=== PATIENT | male | born 1970 | race Caucasian/White ===

== ENCOUNTER 2018-08-02 11:02 | Inpatient (IN) ==
[2018-08-02] MEDS ORDERED: *HR* Atropine Sulfate 1 MG/10 ML SYRINGE IVP ONE (11:11)
[2018-08-02] MEDS ORDERED: 0.9 % Sodium Chloride 1,000 ML IVC ONE (11:11)
[2018-08-02] MEDS ORDERED: *HR* Atropine Sulfate 1 MG/10 ML SYRINGE ONE (11:12)
[2018-08-02] MEDS ORDERED: 0.9 % Sodium Chloride 1,000 ML ONE (11:12)
--- NOTE | 2018-08-02 11:16 | Emergency Department Note ---
Disposition Clinical Impression: Hyperkalemia, Bradycardia Diabetes Qualifiers: Diabetes mellitus type: other specified (including NAT) Diabetes mellitus risk tech insulin use: with risk tech use Diabetes mellitus complication status: with unspecified complications Qualified Code(s): E13.8 - Other specified diabetes mellitus with unspecified complications; Z79.4 - correction (current) use of insulin Hypotension Qualifiers: Hypotension type: unspecified hypotension type Qualified Code(s): I95.9 - Hypotension, unspecified Disposition: Admitted As Inpatient Condition: Critical Referrals: José Miguel Negro MD [Primary Care Provider] - Forms: ED Satisfaction Letter Time of Disposition: 12:44 General Adult HPI - General Stated complaint: fall Time Seen by Provider: 08/02/18 11:10 - Related Data Home Medications Medication Instructions Recorded Confirmed HYDROcodone/Acet 5/325 mg [[place] 1 tab PO BID PRN 05/06/16 05/06/16 5-325 mg] Insulin LISPRO [Humalog] 40 unit SQ BID 05/06/16 05/06/16 Allergies Allergy/AdvReac Type Severity Reaction Status Date / Time No Known Allergies Allergy Verified 05/06/16 14:33 Past Medical History - Past Medical History Medical history: Reports: diabetes, other Surgical history: Reports: other (nephrectomy and 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.) Psychiatric history: Reports: no psych history - Social History Smoking Status: Current every day smoker Smokeless Tobacco Status: No Alcohol use: Reports: none Drug use: Reports: none Course Vital Signs Temperature 98.8 F 08/02/18 11:04 Pulse Rate 30 08/02/18 11:04 Respiratory Rate 18 08/02/18 11:04 Blood Pressure 82/62 08/02/18 11:04 O2 Sat by Pulse Oximetry 100 08/02/18 11:04 Temperature 98.8 F 08/02/18 11:04 Pulse Rate 48 08/02/18 12:15 Respiratory Rate 18 08/02/18 11:21 Blood Pressure 120/58 08/02/18 12:15 O2 Sat by Pulse Oximetry 100 08/02/18 12:15 Oxygen Delivery Oxygen Delivery Nasal Cannula Medical Decision Making - Lab Data Result diagrams: 08/02/18 11:20 08/02/18 11:20 Lab Results 08/02/18 08/02/18 08/02/18 Range/Units 11:20 11:20 11:33 WBC 15.5 H (4.3-11.1) K/mcL RBC 3.73 L (4.19-5.50) M/mcL Hgb 11.0 L (12.9-16.9) g/dL Hct 33.9 L (37.5-50.1) % MCV 90.9 (83.0-100.0) fL MCH 29.5 (28.0-33.3) pg MCHC 32.4 (31.6-35.5) g/dL RDW 12.8 (11.5-14.5) % Plt Count 323 (140-400) K/mcL MPV 8.9 L (9.4-12.4) fL VBG pH 7.15 L* (7.32-7.42) pH Units VBG pCO2 45 (41-51) mmHg VBG pO2 38 (25-50) mmHg VBG HCO3 16 L (21-27) mEq/L Sodium 129 L (136-145) mEq/L Potassium 9.8 H* (3.5-5.1) mEq/L Chloride 109 H (98-107) mEq/L Carbon Dioxide 16 L (23-29) mEq/L BUN 75 H (6-20) mg/dL Creatinine 3.13 H (0.70-1.30) mg/dL Est GFR ( Amer) 26 L (> 60) Est GFR (Non-Af Amer) 21 L (> 60) BUN/Creatinine Ratio 24 (6-26) Glucose 247 H (70-105) mg/dL Calculated Osmolality 299 (280-300) Calcium 9.3 (8.6-10.3) mg/dL Total Bilirubin 0.3 (0.3-1.0) mg/dL Direct Bilirubin 0.1 (0.0-0.2) mg/dL Indirect Bilirubin 0.2 (0.0-1.2) mg/dL AST 21 (13-39) Units/L ALT 34 (7-52) Units/L Alkaline Phosphatase 95 (34-104) Units/L Troponin I < 0.03 (< 0.04) ng/mL Serum Total Protein 8.3 (6.4-8.9) g/dL Albumin 4.4 (3.5-5.7) g/dL Globulin 3.9 H (2.4-3.5) g/dL Albumin/Globulin Ratio 1.1 (1.1-2.2) Person Notif of Wiliam RIDER Critical Care Time Critical Care Time: Yes Total Critical Care Time: 90 Attestation: 90 minutes of critical care time were spent with the patient with severe bradycardia, hypotension, hyperkalemia Attestation Statement - Attestation Attestation: I examined this patient and my medical decision-making was reviewed with the FLAKER OPERATOR/PA/Advanced Practice Nurse/Resident Physician. I agree with the documented findings, disposition and treatment plan as described except to the extent set forth below. I did see the patient immediately upon arrival and also spoke with the paramedics and the story is that the patient does have diabetes and had his Hyzaar as well as Lasix increased about one month ago and presents today after a fall. The patient is unsure whether he had a syncopal episode. He does have a headache and does have chronic neck pain which is unchanged from baseline and the heart rate was in the 20s and they did give atropine which caused the heart rate to increase to the 70s. I did review the pre-arrival EKG. We will give an additional 0.5 of atropine here because his blood pressure was 82 systolic however he is mentating well and he is breathing comfortably and is not diaphoretic and skin color is good and in addition to that we will check labs including VBG and an electrolyte abnormality would be one possibility. Crash cart to bedside and pacer pads to chest. I did review the medications with the patient's and he is not on any beta marly or other rate limiting medications that we can find. Does have a history of atrial fibrillation and does use Xarelto also. Patient will be watched closely and admitted. 1114 I did recheck on the patient and he does have vomiting and diarrhea and his current pressure is now 1:15 after 0.5 mg IV atropine and his heart rate has improved to the 60s and 70s so the patient will be watched further. Labs are ready in the labs so we will get the electrolyte results soon the patient will be watched closely. 1124 At this time the patient is no longer hypotensive or bradycardic and is getting a CT scan of the head and neck and we are calling the lab to find out the potassium level. 1149 I did just speak with the lab and they said that the potassium is 9 and the machine is only reading this is being minimally hemolyzed and they will run on the VBG sample but in view of this second reading and with the fact the patient is still bradycardic in the 30s I will treat with calcium, insulin and dextrose and sodium bicarbonate. I should note that his current blood pressure is 141 systolic and he has had IV fluids. The patient is likely very dehydrated delaney use he has had vomiting and diarrhea. The EKG does show a junctional rhythm with a rate of 39 and this was done at 11:06 AM and there is T-wave inversion in lead aVL but does not have evidence of ST elevation or other ischemic changes [id number]
--- NOTE | 2018-08-02 11:29 | Emergency Department Note ---
Disposition Clinical Impression: Hyperkalemia, Bradycardia Diabetes Qualifiers: Diabetes mellitus type: other specified (including NAT) Diabetes mellitus buttermaker helper insulin use: with buttermaker helper use Diabetes mellitus complication status: with unspecified complications Qualified Code(s): E13.8 - Other specified diabetes mellitus with unspecified complications Hypotension Qualifiers: Hypotension type: unspecified hypotension type Qualified Code(s): I95.9 - Hypotension, unspecified Disposition: Admitted As Inpatient Condition: Critical General Adult HPI - General Chief complaint: ED Fall Stated complaint: fall Time Seen by Provider: 08/02/18 11:10 Source: patient, family, EMS Mode of arrival: EMS Limitations: no limitations Nursing Notes Reviewed: Yes Vital Signs Reviewed: Yes - History of Present Illness HPI Narrative: Mr. Perkins is a 48-year old male who presents to the ED via EMS for evaluation after a fall at home. Patient was reportedly lowered to the ground by his , and did not suffer any head or neck trauma from this event. Per EMS, patient was noted to be severely bradycardic, with HR in the 20s at the time of their arrival. Patient reports significant dizziness and lightheadedness, and states that he has had emesis and multiple episodes of diarrhea since yesterday. His , who is present at the bedside, states that the patient did recently have several medication changes by his PCP, and reports that he has had weakness and lightheadedness since that time. She states that she has been breaking his pills in half and giving the medications via BID dosing, otherwise the patient does not tolerate them well. He reports generalized pain and malaise, as well as dizziness and lightheadedness at this time. 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 Constitutional: Reports: weakness Cardiovascular: Reports: chest pain, dyspnea on exertion Respiratory: Denies: cough, dyspnea, wheezes, hemoptysis, stridor Gastrointestinal: Reports: nausea, vomiting, diarrhea Musculoskeletal: Reports: neck pain, arthralgia, myalgia Past Medical History - Past Medical History Medical history: Reports: diabetes, other Surgical history: Reports: other (nephrectomy and 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.) Psychiatric history: Reports: no psych history - Social History Smoking Status: Current every day smoker Smokeless Tobacco Status: No Alcohol use: Reports: none Drug use: Reports: none Physical Exam - General Limitations: no limitations General appearance: alert, in no apparent distress - Head Head exam: atraumatic, normocephalic, normal inspection - Eye Eye exam: Present: normal appearance, PERRL, EOMI - Neck Neck exam: Present: normal inspection, full ROM, trachea midline - Chest Chest inspection: Present: normal inspection, symmetric chest wall rise - Respiratory Respiratory exam: Present: prolonged expiratory phase, other (Diffusely decreased breath sounds bilaterally). Absent: respiratory distress - Cardiovascular Cardiovascular exam: Present: regular rate, normal rhythm, normal heart sounds - Abdominal Exam Abdominal exam: Present: soft, tenderness. Absent: distention, guarding, rebound, rigidity - Neurological Exam Neurological exam: Present: alert, oriented X3 - Expanded Neurological Exam Patient oriented to: Present: person, place, time Speech: Present: fluid speech Motor strength - LUE: 5/5 Motor strength - RUE: 5/5 Coma Scale Eye Opening: Spontaneous Coma Scale Motor Response: Obeys Commands Coma Scale Verbal Response: Oriented Coma Scale Total: 15 - Psychiatric Psychiatric exam: Present: normal affect, normal mood - Skin Skin exam: Present: warm, dry, intact, normal color Course Vital Signs Temperature 98.8 F 08/02/18 11:04 Pulse Rate 30 08/02/18 11:04 Respiratory Rate 18 08/02/18 11:04 Blood Pressure 82/62 08/02/18 11:04 O2 Sat by Pulse Oximetry 100 08/02/18 11:04 Temperature 98 F 08/02/18 20:05 Pulse Rate 69 08/02/18 22:11 Respiratory Rate 16 08/02/18 22:11 Blood Pressure 129/23 08/02/18 22:11 O2 Sat by Pulse Oximetry 95 08/02/18 22:11 Oxygen Delivery Oxygen Delivery Nasal Cannula Medical Decision Making - [facility] Narrative Medical decision making narrative: Due to patient's recent medication changes, concern initially for electrolyte abnormalities causing both his weakness and his bradycardia. We will obtain basic laboratory studies, as well as head CT, chest x-ray, and CT of the ce rvical spine. Laboratory studies revealed significantly elevated serum potassium of 9.4. Patient was then calcium, insulin, and D50. Temporary hemodialysis line was placed while in the ED. Nephrology consult was placed, and patient is planned for emergent hemodialysis. Patient was admitted to the ICU after placement of temporary dialysis line. Please see documentation of attending physician, Dr. Martinez, for further ED course and disposition. - Medical Records Medical records reviewed: Yes I reviewed the patient's medical records. - Lab Data Lab results reviewed: Yes I reviewed the patient's lab results. Result diagrams: 08/02/18 11:20 08/02/18 20:02 Lab Results 08/02/18 08/02/18 08/02/18 Range/Units 11:20 11:20 11:33 WBC 15.5 H (4.3-11.1) K/mcL RBC 3.73 L (4.19-5.50) M/mcL Hgb 11.0 L (12.9-16.9) g/dL Hct 33.9 L (37.5-50.1) % MCV 90.9 (83.0-100.0) fL MCH 29.5 (28.0-33.3) pg MCHC 32.4 (31.6-35.5) g/dL RDW 12.8 (11.5-14.5) % Plt Count 323 (140-400) K/mcL MPV 8.9 L (9.4-12.4) fL VBG pH 7.15 L* (7.32-7.42) pH Units VBG pCO2 45 (41-51) mmHg VBG pO2 38 (25-50) mmHg VBG HCO3 16 L (21-27) mEq/L Sodium 129 L (136-145) mEq/L Potassium 9.8 H* (3.5-5.1) mEq/L Chloride 109 H (98-107) mEq/L Carbon Dioxide 16 L (23-29) mEq/L BUN 75 H (6-20) mg/dL Creatinine 3.13 H (0.70-1.30) mg/dL Est GFR ( Amer) 26 L (> 60) Est GFR (Non-Af Amer) 21 L (> 60) BUN/Creatinine Ratio 24 (6-26) Glucose 247 H (70-105) mg/dL Calculated Osmolality 299 (280-300) Calcium 9.3 (8.6-10.3) mg/dL Total Bilirubin 0.3 (0.3-1.0) mg/dL Direct Bilirubin 0.1 (0.0-0.2) mg/dL Indirect Bilirubin 0.2 (0.0-1.2) mg/dL AST 21 (13-39) Units/L ALT 34 (7-52) Units/L Alkaline Phosphatase 95 (34-104) Units/L Troponin I < 0.03 (< 0.04) ng/mL Serum Total Protein 8.3 (6.4-8.9) g/dL Albumin 4.4 (3.5-5.7) g/dL Globulin 3.9 H (2.4-3.5) g/dL Albumin/Globulin Ratio 1.1 (1.1-2.2) Person Notif of Wiliam RIDER - Radiology Data Radiology results reviewed: Yes I reviewed the patient's radiology results.
[2018-08-02 11:32] LABS: Hematocrit 33.9 % (37.5-50.1); Mean Corpuscular HGB Conc 32.4 g/dL (31.6-35.5); Mean Corpuscular Hemoglobin 29.5 pg (28.0-33.3); Mean Corpuscular Volume 90.9 fL (83.0-100.0); Mean Platelet Volume 8.9 fL (9.4-12.4); Platelet Count 323 K/mcL (140-400); Red Blood Count 3.73 M/mcL (4.19-5.50); Red Cell Distribution Width 12.8 % (11.5-14.5)
[2018-08-02 11:38] LABS: VBG HCO3 16 mEq/L (21-27); VBG PCO2 45 mmHg (41-51); VBG PH 7.15 pH Units (7.32-7.42); VBG PO2 38 mmHg (25-50)
[2018-08-02] MEDS ORDERED: Insulin Human Regular 10 UNIT in 0.9 % Sodium Chloride 10 ML IV ONE (11:58)
[2018-08-02] MEDS ORDERED: Sodium Bicarbonate 50 MEQ/50 ML VIAL IVP ONE (11:58)
[2018-08-02] MEDS ORDERED: *HR* Dextrose 50 % in Water (Syg) 50 ML SYRINGE IVP ONE (11:58)
[2018-08-02 12:12] LABS: Alanine Aminotransferase 34 Units/L (7-52); Albumin 4.4 g/dL (3.5-5.7); Albumin/Globulin Ratio 1.1 (1.1-2.2); Alkaline Phosphatase 95 Units/L (34-104); Aspartate Amino Transferase 21 Units/L (13-39); BUN/Creatinine Ratio 24 (6-26); Bilirubin,Direct 0.1 mg/dL (0.0-0.2); Bilirubin,Indirect 0.2 mg/dL (0.0-1.2); Bilirubin,Total 0.3 mg/dL (0.3-1.0); Blood Urea Nitrogen 75 mg/dL (6-20); Calcium 9.3 mg/dL (8.6-10.3); Carbon Dioxide 16 mEq/L (23-29); Chloride 109 mEq/L (98-107); Globulin 3.9 g/dL (2.4-3.5); Glucose 247 mg/dL (70-105); Osmolality,Calculated 299 (280-300); Sodium 129 mEq/L (136-145); Total Protein 8.3 g/dL (6.4-8.9); eGFR For Non-African Americans 21 (> 60)
[2018-08-02 12:14] LABS: Potassium 9.8 mEq/L (3.5-5.1)
[2018-08-02 12:15] LABS: Troponin I < 0.03 ng/mL (< 0.04)
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
[2018-08-02] MEDS ORDERED: 0.9 % Sodium Chloride 250 ML IVC PRN (12:57)
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
[2018-08-02] MEDS ORDERED: Acetaminophen 325 MG TABLET PO PRN (14:35)
[2018-08-02] MEDS ORDERED: Naloxone 0.4 MG/ML INJ IVP PRN (14:35)
[2018-08-02] MEDS ORDERED: Dextrose Gel 15 GM/37.5 ML TUBE PO PRN ×2 (14:36)
[2018-08-02] MEDS ORDERED: *HR* Dextrose 50 % in Water (Syg) 50 ML SYRINGE IVP PRN (14:36)
[2018-08-02] MEDS ORDERED: D5% in Water 1,000 ML IVC PRN (14:36)
[2018-08-02 14:44] LABS: Calcium 9.1 mg/dL (8.6-10.3); Potassium 7.9 mEq/L (3.5-5.1)
[2018-08-02 15:08] LABS: Bilirubin,Urine Negative (Negative); Blood,Urine Trace (Negative); Clarity,Urine Clear (Clear); Color,Urine Yellow (Yellow); Glucose,Urine (UA) 100 mg/dL (Normal); Ketones,Urine Negative (Negative); Leukocyte Esterase,Urine Negative (Negative); Nitrite,Urine Negative (Negative); Protein,Urine 30 mg/dL (Neg-Trace); Urobilinogen,Urine Normal (Normal)
[2018-08-02 15:14] LABS: Bacteria,Urine None Seen per hpf (None-Few); Hyaline Casts,Urine None Seen per lpf (None-Few); Squamous Epithelial Cell,Urine Few per lpf (None-Few); WBC,Urine 0-3 per hpf (0-3)
[2018-08-02 15:34] LABS: Protein/Creatinine Ratio,Urine 0.79 mg/mg (0.00-0.20); Sodium, Urine 98.1 mEq/L
--- NOTE | 2018-08-02 16:33 | Pulmonology History & Physical ---
<Nayan Solano P - Last Filed: 08/02/18 16:34> Date of Encounter: 08/02/18 Time of Encounter: 04:30 Assessment and Plan (1) Hyperkalemia Current visit: Yes Status: Acute The patient has history of loose bowel movement and nausea and vomiting since yesterday Patient presented with severe bradycardia HR @ 20 , increase after atropin Serum potassium was elevated he was 9.8, came down to 7.9; treatment for hyperkalemia was done in ED with insulin, dextrose, calcium gluconate, sodium bicarbonate Nephrology team has been consulted and has been planned for dialysis Patient's also have increase BUN and creatinine in addition to potassium due to CESILIA Plan: Nephrology consultation, plan for hemostasis Continue treatment for hyperkalemia: Insulin with dextrose, calcium chloride, sodium bicarbonate Continuous cardiac monitoring Review with 12-lead EKG Closely monitor renal function and potassium every 4 (2) Bradycardia Current visit: Yes Status: Acute Patient has history of nausea vomiting and frequent bowel movement since yesterday Patient presented with severe bradycardia Hr @ 20, he has had lightheadedness/feeling dizzy and history of fall HR days after atropin , now HR @ 76 Plan : continue Treatment of hyperkalemia, Planned dialysis by Nephrology team Continue EKG monitoring We will review with 12 lead EKG (3) Acute kidney failure Current visit: Yes Status: Acute Patient is case of diabetes, his baseline creatinine was below 1, he has had frequent loses bowel movements and nausea and vomiting since yesterday During this presentation he has elevated creatinine; it was 3.13 and now it is 2.87 Nephrology consultation has been done Plan : Close monitoring of her renal function Nephrology team on closed-loop Holding nephrotoxic medication Strict intake and output Qualifiers: Qualified Code(s): N17.9 - Acute kidney failure, unspecified (4) Diabetes Current visit: Yes Status: Acute This is a patient with type 2 diabetes mellitus under insulin he is taking insulin lispro 40 unit SQ twice a day We have started medium dose insulin sliding scale We will monitor his blood sugar regularly and adjust insulin as per requirement Qualifiers: Diabetes mellitus type: other specified (including NAT) Diabetes mellitus correction insulin use: with correction use Diabetes mellitus complication status: with unspecified complications Qualified Code(s): E13.8 - Other specified diabetes mellitus with unspecified complications; Z79.4 - termite treater (current) use of insulin (5) Atrial fibrillation, chronic Current visit: Yes Status: Acute This is a patient of chronic atrial fibrillation He is taking xeralto at home This time he presented with severe bradycardia and hyperkalemia (6) Hypotension Current visit: Yes Status: Acute The patient has hypotension during presentation, the blood pressure was 82/62 After IV hydration, the blood pressure went up to 115/73, now his blood pressure is 141/95 We will closely monitor his blood pressure . He will be on cardiac rehab nurse Qualifiers: Hypotension type: unspecified hypotension type Qualified Code(s): I95.9 - Hypotension, unspecified (7) CKD (chronic kidney disease) Current visit: No Status: Acute History of Present Illness Chief complaint: Severe Bradycardia, Dizziness , nausea & vomiting HPI: Mr. Perkins is a 48 year old male with past medical history of hypertension, diabetes, history of chronic A. fib on xeralto presented to ED via EMS for evaluation after a fall at home.patient was noted to be severely bradycardic, with HR in the 20s at the time of their arrival. Patient reports significant diz ziness and lightheadedness. The patient stated that stated that he has had nausea and multiple episodes of diarrhea since yesterday. Patient is sedated that he has had changes of multiple medication from his primary care provider past month. Patient was bradycardia and during presentation 8 [place] ED the heart rate was in 20 and after atropine injection increased to 6070. Patient does not have any beta marly or are other drugs that cause bradycardia. Patient does have nausea and vomiting and multiple episodes of loose bowel movement. The patient's lab result showed hyperkalemia 9.8 and reduced to to 7.9. Recent was treated for hyperkalemia in ED with insulin, dextrose, sodium bicarbonate, calcium chloride and he was transferred to ICU for further treatment. Patient's vitals are blood pressure 1/95, respiration 20, pulse is 69, temperature 98 F, saturation 96% on room air. Past Med Surg Social Fam HX - Past Medical History Medical history: diabetes, other Additional medical history: legally blind in right eye, Left kidney removal in 1999, fractured C4 in 2001 ( as stated by PT). 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.) Additional surgical history: see medical HX - Social History Smoking Status: Current every day smoker Smokeless Tobacco Status: No Alcohol use: none Drug use: none - Family History Father Living Status: Hx Family Cancer: Yes (lung and brain) Medications and Allergies HYDROcodone/Acet 5/325 mg [[place] 5-325 mg] 1 tab PO BID PRN 05/06/16 [History] Insulin LISPRO [Humalog] 40 unit SQ BID 05/06/16 [History] Allergy/AdvReac Type Severity Reaction Status Date / Time No Known Allergies Allergy Verified 05/06/16 14:33 All Systems: The remainder of the systems were reviewed and are negative Physical Examination Vital Signs: Vital Signs, Last 4 Hours Temp Pulse Resp BP Pulse Ox 08/02/18 16:10 110/80 08/02/18 16:00 69 20 141/95 96 08/02/18 15:55 139/85 08/02/18 15:40 138/115 08/02/18 15:25 97.5 F L 16 149/84 08/02/18 15:00 66 19 137/111 100 08/02/18 14:00 96.8 F L 64 16 157/78 100 08/02/18 13:18 64 100 08/02/18 13:04 18 155/99 Results - Laboratory Findings CBC and BMP: 08/02/18 11:20 08/02/18 14:07 Abnormal lab findings: Abnormal lab results WBC 15.5 K/mcL (4.3-11.1) H 08/02/18 11:20 RBC 3.73 M/mcL (4.19-5.50) L 08/02/18 11:20 Hgb 11.0 g/dL (12.9-16.9) L 08/02/18 11:20 Hct 33.9 % (37.5-50.1) L 08/02/18 11:20 MPV 8.9 fL (9.4-12.4) L 08/02/18 11:20 VBG pH 7.15 pH Units (7.32-7.42) L* 08/02/18 11:33 VBG HCO3 16 mEq/L (21-27) L 08/02/18 11:33 Sodium 133 mEq/L (136-145) L 08/02/18 14:07 Potassium 7.9 mEq/L (3.5-5.1) H* 08/02/18 14:07 Chloride 115 mEq/L (98-107) H 08/02/18 14:07 Carbon Dioxide 15 mEq/L (23-29) L 08/02/18 14:07 BUN 73 mg/dL (6-20) H 08/02/18 14:07 Creatinine 2.87 mg/dL (0.70-1.30) H 08/02/18 14:07 Est GFR ( Amer) 29 (> 60) L 08/02/18 14:07 Est GFR (Non-Af Amer) 24 (> 60) L 08/02/18 14:07 Glucose 184 mg/dL (70-105) H 08/02/18 14:07 Calculated Osmolality 302 (280-300) H 08/02/18 14:07 Globulin 3.9 g/dL (2.4-3.5) H 08/02/18 11:20 Urine Protein 30 mg/dL (Neg-Trace) H 08/02/18 14:40 Urine Glucose (UA) 100 mg/dL (Normal) H 08/02/18 14:40 Urine Blood Trace (Negative) H 08/02/18 14:40 Urine Microscopic RBC 3-5 per hpf (0-3) H 08/02/18 14:40 Protein/Creatinin Ratio 0.79 mg/mg (0.00-0.20) H 08/02/18 14:40 Urine Total Protein 37 mg/dL (1-14) H 08/02/18 14:40 <Randy Ivy W - Last Filed: 08/02/18 17:38> Date of Encounter: 08/02/18 Assessment and Plan (1) Hyperkalemia Current visit: Yes Status: Acute (2) Acute kidney failure Current visit: Yes Status: Acute Qualifiers: Qualified Code(s): N17.9 - Acute kidney failure, unspecified (3) Atrial fibrillation, chronic Current visit: Yes Status: Acute (4) Diabetes Current visit: Yes Status: Acute Qualifiers: Diabetes mellitus type: other specified (including NAT) Diabetes mellitus continuous churn buttermaker insulin use: with continuous churn buttermaker use Diabetes mellitus complication status: with unspecified complications Qualified Code(s): E13.8 - Other specified diabetes mellitus with unspecified complications; Z79.4 - termite treater (current) use of insulin (5) CKD (chronic kidney disease) Current visit: No Status: Acute History of Present Illness HPI: Mr. Perkins is a 48 year old male All Systems: The remainder of the systems were reviewed and are negative Physical Examination Vital Signs: Vital Signs, Last 4 Hours Temp Pulse Resp BP Pulse Ox 08/02/18 17:25 137/82 08/02/18 17:10 144/88 08/02/18 16:55 140/89 08/02/18 16:40 151/92 08/02/18 16:25 141/95 08/02/18 16:10 110/80 08/02/18 16:00 69 20 141/95 96 08/02/18 15:55 139/85 08/02/18 15:40 138/115 08/02/18 15:25 97.5 F L 16 149/84 08/02/18 15:00 66 19 137/111 100 08/02/18 14:00 96.8 F L 64 16 157/78 100 Results - Laboratory Findings CBC and BMP: 08/02/18 11:20 08/02/18 16:28 Abnormal lab findings: Abnormal lab results WBC 15.5 K/mcL (4.3-11.1) H 08/02/18 11:20 RBC 3.73 M/mcL (4.19-5.50) L 08/02/18 11:20 Hgb 11.0 g/dL (12.9-16.9) L 08/02/18 11:20 Hct 33.9 % (37.5-50.1) L 08/02/18 11:20 MPV 8.9 fL (9.4-12.4) L 08/02/18 11:20 VBG pH 7.15 pH Units (7.32-7.42) L* 08/02/18 11:33 VBG HCO3 16 mEq/L (21-27) L 08/02/18 11:33 Sodium 133 mEq/L (136-145) L 08/02/18 14:07 Chloride 115 mEq/L (98-107) H 08/02/18 14:07 Carbon Dioxide 15 mEq/L (23-29) L 08/02/18 14:07 BUN 73 mg/dL (6-20) H 08/02/18 14:07 Creatinine 2.87 mg/dL (0.70-1.30) H 08/02/18 14:07 Est GFR ( Amer) 29 (> 60) L 08/02/18 14:07 Est GFR (Non-Af Amer) 24 (> 60) L 08/02/18 14:07 Glucose 184 mg/dL (70-105) H 08/02/18 14:07 Calculated Osmolality 302 (280-300) H 08/02/18 14:07 Globulin 3.9 g/dL (2.4-3.5) H 08/02/18 11:20 Urine Protein 30 mg/dL (Neg-Trace) H 08/02/18 14:40 Urine Glucose (UA) 100 mg/dL (Normal) H 08/02/18 14:40 Urine Blood Trace (Negative) H 08/02/18 14:40 Urine Microscopic RBC 3-5 per hpf (0-3) H 08/02/18 14:40 Protein/Creatinin Ratio 0.79 mg/mg (0.00-0.20) H 08/02/18 14:40 Urine Total Protein 37 mg/dL (1-14) H 08/02/18 14:40 - Attending Attestation I examined this patient and my medical decision-making was reviewed with the Resident Physician. I agree with the documented findings, disposition and treatment plan as described except to the extent set forth below. We independently had [id number] contact with the patient Patient seen and examined at bedside Labs, radiology, chart personally reviewed. Impression plan: 1. Life threatening hyperkalemia 2. Acute kidney injury 3. Bradycardia 4. Suspected KARIN 5. Diabetes mellitus type II 6. Chronic hypertension Patient currently hemodynamically stable and her cranial visit his pressure support I suspect bradycardia will improve once patient has been dialyzed appreciate nephrology recommendations temporary HD catheter is been placed by IR and plan will be to follow-up on the repeat potassium after dialysis. We will start basal bolus insulin dosing and monitor patient's blood sugar and likely will need to restart some home antihypertensive medications. He will need outpatient sleep study and I did not educated on the diagnosis of sleep apnea and the chronic manifestations and complications that can arise including long- standing hypertension and heart failure
[2018-08-02] MEDS: *HR* Heparin 5,000 UNIT/ML VIAL SQ SCH (18:32)
[2018-08-02] MEDS: Insulin LISPRO 300 UNITS/3 ML VIAL SQ SCH (18:35)
[2018-08-02] MEDS ORDERED: Insulin DETEMIR 100 UNIT/ML X5UNITS SQ SCH (21:00)
[2018-08-02 21:38] LABS: Calcium 9.2 mg/dL (8.6-10.3); Potassium 4.1 mEq/L (3.5-5.1)
[2018-08-03 01:46] LABS: Hepatitis B Surface Antigen Nonreactive (Nonreactive)
[2018-08-03 03:45] LABS: Basophils % 0.5 %; Eosinophils # 0.2 K/mcL (0.0-0.6); Eosinophils % 1.9 %; Hematocrit 27.6 % (37.5-50.1); Hemoglobin 9.4 g/dL (12.9-16.9); Lymphocytes # 2.4 K/mcL (0.6-4.6); Mean Corpuscular HGB Conc 34.1 g/dL (31.6-35.5); Mean Corpuscular Hemoglobin 29.2 pg (28.0-33.3); Mean Corpuscular Volume 85.7 fL (83.0-100.0); Mean Platelet Volume 8.7 fL (9.4-12.4); Monocytes # 0.6 K/mcL (0.0-1.3); Monocytes % 7.1 %; Neutrophils # 5.3 K/mcL (1.6-8.9); Platelet Count 202 K/mcL (140-400); Red Blood Count 3.22 M/mcL (4.19-5.50); Red Cell Distribution Width 12.6 % (11.5-14.5); Segmented Neutrophils % 61.5 %
[2018-08-03 04:06] LABS: Albumin 3.5 g/dL (3.5-5.7); Calcium 8.8 mg/dL (8.6-10.3); Magnesium 1.5 mg/dL (1.6-2.6); Phosphorous 5.1 mg/dL (2.7-4.5); Potassium 4.7 mEq/L (3.5-5.1)
[2018-08-03] MEDS: *HR* Heparin 5,000 UNIT/ML VIAL SQ SCH (05:32)
[2018-08-03] MEDS: Insulin LISPRO 300 UNITS/3 ML VIAL SQ SCH ×3 (07:15→16:42)
--- NOTE | 2018-08-03 07:18 | Pulmonology Progress Note ---
<Nayan Solano P - Last Filed: 08/03/18 12:02> Date of Encounter: 08/03/18 Time of Encounter: 07:00 Assessment and Plan (1) Hyperkalemia Current Visit: Yes Status: Acute The patient has history of loose bowel movement and nausea and vomiting since yesterday Patient presented with severe bradycardia HR @ 20 , increase HR after IV atrop in Serum potassium was elevated @ 9.8, came down to 7.9; treatment for hyperkalemia was done in ED with insulin, dextrose, calcium gluconate, sodium bicarbonate,Nephrology team has been consulted and sent for emergency dialysis. Patient's also has increase BUN and creatinine in addition to potassium due to CESILIA Plan: Nephrology consultation and reviewed today , they will closely monitor and decide for second time dialysis tomorrow. Continuous cardiac monitoring Closely monitor renal function and potassium Today K level 4:7 (2) Bradycardia Current Visit: Yes Status: Acute Patient has history of nausea vomiting and frequent bowel movement since yesterday Patient presented with severe bradycardia HR @ 20, he has had lightheadedness/feeling dizzy and history of fall Plan : Close monitoring of cardiac status. His recent heart rate 66 per minute As his high potassium level has been normalized, we have resumed some antihypertensive medication that can slow his HR He is on amlodipine 10 MG, metoprolol 50 twice a day and hydralazine IV when necessary (3) Acute kidney injury superimposed on chronic kidney disease Current Visit: Yes Status: Acute Patient is case of diabetes, his baseline creatinine was below 2 for last a few years , he has had frequent loses bowel movements and nausea and vomiting since yesterday During this presentation he has elevated creatinine; it was 3.13 and now it is 2.01 and BUN 38. Nephrology consultation has been done Plan : Close monitoring of her renal function Holding nephrotoxic medication Strict intake and output Nephro team will decide second time Dialysis Tomorrow (4) Diabetes Current Visit: Yes Status: Acute This is a patient with type 2 diabetes mellitus under insulin he is taking insulin lispro 40 unit SQ twice a day We have started medium dose insulin sliding scale We will monitor his blood sugar regularly and adjust insulin as per requirement Qualifiers: Diabetes mellitus type: other specified (including NAT) Diabetes mellitus backfiller insulin use: with nursing home use Diabetes mellitus complication status: with unspecified complications Qualified Code(s): E13.8 - Other specified diabetes mellitus with unspecified complications; Z79.4 - powerhouse attendant (current) use of insulin (5) Atrial fibrillation, chronic Current Visit: Yes Status: Acute This is a patient of chronic atrial fibrillation He is taking xeralto at home Now Rate is controlled , no Afib We have resumed it @ 15 Mg daily low Crcl (6) Wound of right foot Current Visit: Yes Status: Acute The patient has wound on his right foot, no obvious sign of active infection Wound care team has been consulted. (7) Hypertension Current Visit: Yes Status: Acute He is a patient with chronic essential hypertension This time he presented with hypotension and bradycardia Now his blood pressure has been stabilized, so we have resumed some home anti HTN medication Qualifiers: Hypertension type: unspecified Qualified Code(s): I10 - Essential (primary) hypertension Subjective Principal diagnosis: Hyperkalemia, Bradycadia, CESILIA Interval history: Mr. Perkins is a 48 year old male with past medical history of hypertension, diabetes, history of chronic A. fib on xeralto presented to ED via EMS for evaluation after a fall at home.patient was noted to be severely bradycardic, with HR in the 20s at the time of his arrival. Patient complained significant dizziness and lightheadedness. He also stated that he has had nausea and multiple episodes of diarrhea since yesterday. Patient was admitted in ICU after hemodialysis as he was bradycardic and his potassium level was very high. Today during my bedside visit, the patient is awake, alert, answering question appropriately. His vitals are stable; pulse 74 minute, respiration 18/m, blood pressure 144/60, saturation 97% room air. 2 days his potassium level is 4.7 and sodium level 136. We are planning to send him to stepdown unit as he is progressively getting better and there is no reason to keep him in ICU. I personally talk with Dr. Wells ? admitter and he will be shiftede to any telemetry/stepdown unit today. Objective PUL Vital signs: Last Vital Signs Temp 98.3 F 08/03/18 07:00 Pulse 65 08/03/18 07:00 Resp 16 08/03/18 07:00 BP 133/72 08/03/18 07:00 Pulse Ox 99 08/03/18 07:00 General appearance: no acute distress Eyes: nonicteric ENT: oropharynx moist Neck: supple Effort: normal Auscultation: bilateral: clear Gastrointestinal: normoactive bowel sounds, soft, non-tender, non-distended Integumentary: normal Extremities: no cyanosis, no clubbing, pink and warm normal mental status, non-focal exam, motor strength normal and symmetric anxious Results - Laboratory Findings CBC and BMP: 08/03/18 03:26 08/03/18 03:26 Abnormal lab findings: Abnormal lab results RBC 3.22 M/mcL (4.19-5.50) L 08/03/18 03:26 Hgb 9.4 g/dL (12.9-16.9) L D 08/03/18 03:26 Hct 27.6 % (37.5-50.1) L 08/03/18 03:26 MPV 8.7 fL (9.4-12.4) L 08/03/18 03:26 VBG pH 7.15 pH Units (7.32-7.42) L* 08/02/18 11:33 VBG HCO3 16 mEq/L (21-27) L 08/02/18 11:33 BUN 38 mg/dL (6-20) H 08/03/18 03:26 Creatinine 2.01 mg/dL (0.70-1.30) H 08/03/18 03:26 Est GFR ( Amer) 43 (> 60) L 08/03/18 03:26 Est GFR (Non-Af Amer) 36 (> 60) L 08/03/18 03:26 Glucose 132 mg/dL (70-105) H 08/03/18 03:26 POC Glucose 134 mg/dL (70-99) H 08/03/18 07:12 Phosphorus 5.1 mg/dL (2.7-4.5) H 08/03/18 03:26 Magnesium 1.5 mg/dL (1.6-2.6) L 08/03/18 03:26 Globulin 3.9 g/dL (2.4-3.5) H 08/02/18 11:20 25-OH Vitamin D Total 12 ng/mL (30-80) L 08/03/18 03:26 Urine Protein 30 mg/dL (Neg-Trace) H 08/02/18 14:40 Urine Glucose (UA) 100 mg/dL (Normal) H 08/02/18 14:40 Urine Blood Trace (Negative) H 08/02/18 14:40 Urine Microscopic RBC 3-5 per hpf (0-3) H 08/02/18 14:40 Protein/Creatinin Ratio 0.79 mg/mg (0.00-0.20) H 08/02/18 14:40 Urine Total Protein 37 mg/dL (1-14) H 08/02/18 14:40 - Clinical Findings Intake & Output: Intake & Output 08/02/18 08/02/18 08/03/18 15:59 23:59 07:59 Intake Total 1610.1 / 1610.1 0 / 0 Output Total 275 / 275 1350 / 1350 1375 / 1375 Balance 1335.1 / 1335.1 -1350 / -1350 -1375 / -1375 Weight 124.33 kg 122 kg Consult Discharge Plan - Plan Referrals: José Miguel Negro MD [Primary Care Provider] - <Randy Ivy W - Last Filed: 08/03/18 13:05> Date of Encounter: 08/03/18 Assessment and Plan (1) Hyperkalemia Current Visit: Yes Status: Acute (2) Acute kidney failure Current Visit: Yes Status: Acute Qualifiers: Qualified Code(s): N17.9 - Acute kidney failure, unspecified (3) Atrial fibrillation, chronic Current Visit: Yes Status: Acute (4) Diabetes Current Visit: Yes Status: Acute Qualifiers: Diabetes mellitus type: other specified (including NAT) Diabetes mellitus nursing home insulin use: with backfiller use Diabetes mellitus complication status: with unspecified complications Qualified Code(s): E13.8 - Other specified diabetes mellitus with unspecified complications; Z79.4 - powerhouse attendant (current) use of insulin (5) CKD (chronic kidney disease) Current Visit: No Status: Acute Objective PUL Vital signs: Last Vital Signs Temp 97.9 F 08/03/18 11:30 Pulse 66 08/03/18 10:00 Resp 18 08/03/18 10:00 BP 144/80 08/03/18 10:00 Pulse Ox 98 08/03/18 10:00 Results - Laboratory Findings CBC and BMP: 08/03/18 03:26 08/03/18 03:26 Abnormal lab findings: Abnormal lab results RBC 3.22 M/mcL (4.19-5.50) L 08/03/18 03:26 Hgb 9.4 g/dL (12.9-16.9) L D 08/03/18 03:26 Hct 27.6 % (37.5-50.1) L 08/03/18 03:26 MPV 8.7 fL (9.4-12.4) L 08/03/18 03:26 VBG pH 7.15 pH Units (7.32-7.42) L* 08/02/18 11:33 VBG HCO3 16 mEq/L (21-27) L 08/02/18 11:33 BUN 38 mg/dL (6-20) H 08/03/18 03:26 Creatinine 2.01 mg/dL (0.70-1.30) H 08/03/18 03:26 Est GFR ( Amer) 43 (> 60) L 08/03/18 03:26 Est GFR (Non-Af Amer) 36 (> 60) L 08/03/18 03:26 Glucose 132 mg/dL (70-105) H 08/03/18 03:26 POC Glucose 229 mg/dL (70-99) H 08/03/18 11:31 Phosphorus 5.1 mg/dL (2.7-4.5) H 08/03/18 03:26 Magnesium 1.5 mg/dL (1.6-2.6) L 08/03/18 03:26 Globulin 3.9 g/dL (2.4-3.5) H 08/02/18 11:20 25-OH Vitamin D Total 12 ng/mL (30-80) L 08/03/18 03:26 PTH Intact 65.8 pg/ml (10.0-65.0) H 08/03/18 09:44 Urine Protein 30 mg/dL (Neg-Trace) H 08/02/18 14:40 Urine Glucose (UA) 100 mg/dL (Normal) H 08/02/18 14:40 Urine Blood Trace (Negative) H 08/02/18 14:40 Urine Microscopic RBC 3-5 per hpf (0-3) H 08/02/18 14:40 Protein/Creatinin Ratio 0.79 mg/mg (0.00-0.20) H 08/02/18 14:40 Urine Total Protein 37 mg/dL (1-14) H 08/02/18 14:40 - Clinical Findings Intake & Output: Intake & Output 08/02/18 08/03/18 08/03/18 23:59 07:59 15:59 Intake Total 0 / 0 462 / 462 Output Total 1350 / 1350 1375 / 1375 600 / 600 Balance -1350 / -1350 -1375 / -1375 -138 / -138 Weight 122 kg - Attending Attestation I examined this patient and my medical decision-making was reviewed with the Resident Physician. I agree with the documented findings, disposition and treatment plan as described except to the extent set forth below. We independently had [id number] contact with the patient Patient seen and examined at bedside Labs, radiology, chart personally reviewed. Impression/Recs: Life-threatening hyperkalemia has resolved after dialysis he has persistent acute kidney injury and nephrology is following we will adjust his antihypertensive regimen otherwise patient should be stable for the floor on [facility] telemetry for ongoing care recommend outpatient follow-up in the pulmonary clinic to address suspected sleep-disordered breathing
--- NOTE | 2018-08-03 09:47 | Nephrology Progress Note ---
Addendum entered and electronically signed by Liang Feliciano DO 08/04/18 07:48: I have personally performed a face to face evaluation on this patient. I have reviewed and agree with the care plan. History and Exam by me shows: CESILIA on CKD with hyperkalemia, that improved with urgent HD. Will hold on HD for and reassess again tomorrow. See below. Original Note: Date of Encounter: 08/03/18 Time of Encounter: 09:36 - Assessment and Plan (1) Acute kidney failure Current Visit: Yes Status: Acute No need for HD today. Patient does not see a seat coverer currently outpatient. Will establish with Dr. Feliciano in office in 4-6 weeks. Baseline labs obtained from Dr. Negro: 08/30/2017: Scr 1.9 and GFR 41. 05/25/2018: Scr 3.0 and GFR 23. GFR is 36 today. Scr 2.01. Uop 1025 for 24 hour total and 1875 already for today. Avoid nephrotoxins and renal dose. Strict I/O's. Retroperitoneal US normal. CKD workup started including serum and urine studies. HD completed yesterday without complication. Qualifiers: Qualified Code(s): N17.9 - Acute kidney failure, unspecified (2) Wound of right foot Current Visit: Yes Status: Acute Suggest Yohanakrystin Romero consult. (3) Bradycardia Current Visit: Yes Status: Acute Resolved. (4) Diabetes Current Visit: Yes Status: Acute Per primary. Qualifiers: Diabetes mellitus type: other specified (including NAT) Diabetes mellitus intermediate frame tender insulin use: with intermediate frame tender use Diabetes mellitus complication status: with unspecified complications Qualified Code(s): E13.8 - Other specified diabetes mellitus with unspecified complications; Z79.4 - manager intermediate (current) use of insulin (5) Hyperkalemia Current Visit: Yes Status: Acute Initial K 9.8, patient was symptomatic. K is 4.7 today, resolved. Subjective Principal diagnosis: s/p fall Interval history: Pt seen and examined in ICU, significant other at bedside. Denies chest pain or shortness of breath. Denies nausea, vomiting, diarrhea. Admits to feeling fatigued. Objective - Vital Signs Vital signs: Vital Signs Temp Pulse Resp BP Pulse Ox 08/03/18 09:00 70 18 97 08/03/18 08:00 68 20 110/60 99 08/03/18 07:15 66 08/03/18 07:00 98.3 F 65 16 133/72 99 08/03/18 06:00 63 16 129/73 97 08/03/18 05:00 62 18 123/70 94 08/03/18 04:00 65 18 119/68 95 08/03/18 03:30 98.1 F 68 16 126/69 97 08/03/18 02:00 67 18 129/75 96 08/03/18 01:01 63 16 121/75 94 08/03/18 00:06 98.3 F 08/03/18 00:00 65 16 110/71 100 08/02/18 23:00 65 18 113/72 96 08/02/18 22:11 69 16 129/23 95 08/02/18 21:06 72 16 142/84 95 08/02/18 20:19 80 18 178/98 99 08/02/18 20:05 98 F 08/02/18 19:35 73 18 163/95 99 08/02/18 18:43 98.1 F 18 153/92 08/02/18 18:25 158/96 08/02/18 18:10 156/91 08/02/18 18:00 68 18 139/90 08/02/18 17:55 142/89 08/02/18 17:40 131/82 08/02/18 17:25 137/82 08/02/18 17:10 144/88 08/02/18 17:00 70 16 148/87 99 08/02/18 16:55 140/89 08/02/18 16:40 151/92 08/02/18 16:25 141/95 08/02/18 16:10 110/80 08/02/18 16:00 69 20 141/95 96 08/02/18 15:55 139/85 08/02/18 15:40 138/115 08/02/18 15:25 97.5 F L 16 149/84 08/02/18 15:00 66 19 137/111 100 08/02/18 14:00 96.8 F L 64 16 157/78 100 08/02/18 13:18 64 100 08/02/18 13:04 18 155/99 08/02/18 12:15 48 120/58 100 08/02/18 11:45 141/82 08/02/18 11:39 47 08/02/18 11:21 38 18 115/73 98 08/02/18 11:04 98.8 F 30 18 82/62 100 Intake and Output 08/02/18 08/03/18 08/03/18 23:59 07:59 15:59 Intake Total 0 / 0 462 / 462 Output Total 1350 / 1350 1375 / 1375 500 / 500 Balance -1350 / -1350 -1375 / -1375 -38 / -38 Intake: IV Fluids 102 / 102 Magnesium Sulfate 1 GM In 0.9 % 102 / 102 Sodium Chloride 100 ML @ 100 mls/hr IVPB ONCE ONE Rx#: [id number] Oral 0 / 0 360 / 360 Output: Urine 750 / 750 1375 / 1375 500 / 500 Total Dialysis (HD) Output 600 / 600 Other: Meal Breakfast Percent of Meal Consumed 100% Weight 122 kg Blood Glucose* 107 134 Hemodialysis Net Fluid Removed 0 (mL) Patient Weight 08/03/18 23:59 Weight 122 kg - General Appearance General appearance: Present: well-developed, well-nourished EENT: Present: ATNC, hearing intact, vision intact Neck: Present: supple Respiratory: Present: clear Cardiology: Present: edema (Generalized edema noted to bilat lower extremities.), normal S1, normal S2 Dialysis Vascular Access: Venous Catheter (DRSG C/D/I) Gastrointestinal: Present: normoactive bowel sounds, no tenderness, no guarding Integumentary: Present: no rash, warm and dry Neurologic: Present: alert and oriented x3 Musculoskeletal: Present: no deformities, no erythema Psychiatric: Present: mood/affect appropriate, cooperative - Lab 08/03/18 03:26 08/03/18 03:26 Most recent lab results Calcium 8.8 mg/dL (8.6-10.3) 08/03/18 03:26 Phosphorus 5.1 mg/dL (2.7-4.5) H 08/03/18 03:26 Magnesium 1.5 mg/dL (1.6-2.6) L 08/03/18 03:26 Urine Creatinine 47 mg/dL 08/02/18 14:40 Urine Sodium 98.1 mEq/L 08/02/18 14:40 Urine Total Protein 37 mg/dL (1-14) H 08/02/18 14:40 Consult Discharge Plan - Plan Referrals: José Miguel Negro MD [Primary Care Provider] -
[2018-08-03 10:27] LABS: Complement C3 118 mg/dL (87-200); Rheumatoid Factor < 10 IU/mL (Less than 14)
[2018-08-03] MEDS ORDERED: *HR* OxyCODONE/APAP 5/325 TABLET PO PRN (10:44)
[2018-08-03] MEDS ORDERED: amLODIPine 5 MG TABLET PO SCH (10:45)
[2018-08-03] MEDS: Ondansetron 4 MG/2 ML VIAL IVP PRN ×2 (12:20→13:28)
[2018-08-03] MEDS ORDERED: *HR* Promethazine 25 MG/ML VIAL IVP PRN (14:25)
[2018-08-03] MEDS ORDERED: *HR* Dextrose 50 % in Water (Syg) 50 ML SYRINGE IVP PRN (15:07)
[2018-08-03] MEDS ORDERED: Dextrose Gel 15 GM/37.5 ML TUBE PO PRN ×2 (15:07)
[2018-08-03] MEDS ORDERED: Naloxone 0.4 MG/ML INJ IVP PRN (15:07)
[2018-08-03] MEDS ORDERED: Acetaminophen 325 MG TABLET PO PRN (15:07)
[2018-08-03] MEDS ORDERED: 0.9 % Sodium Chloride 250 ML IVC PRN (15:07)
[2018-08-03] MEDS ORDERED: *HR* Promethazine 25 MG/ML VIAL IVP ONE (16:16)
[2018-08-03] MEDS ORDERED: *HR* Rivaroxaban 10 MG TABLET PO SCH (17:00)
[2018-08-03] MEDS: *HR* OxyCODONE/APAP 5/325 TABLET PO PRN (18:37)
[2018-08-03 19:47] LABS: Hepatitis B Core IgM Nonreactive (Nonreactive)
[2018-08-03] MEDS ORDERED: Insulin DETEMIR 100 UNIT/ML X5UNITS SQ SCH (21:00)
[2018-08-04 03:41] LABS: Hematocrit 26.4 % (37.5-50.1); Hemoglobin 9.1 g/dL (12.9-16.9); Mean Corpuscular HGB Conc 34.5 g/dL (31.6-35.5); Mean Corpuscular Hemoglobin 29.7 pg (28.0-33.3); Mean Corpuscular Volume 86.3 fL (83.0-100.0); Mean Platelet Volume 8.7 fL (9.4-12.4); Platelet Count 198 K/mcL (140-400); Red Blood Count 3.06 M/mcL (4.19-5.50); Red Cell Distribution Width 12.6 % (11.5-14.5)
[2018-08-04 04:00] LABS: Magnesium 1.9 mg/dL (1.6-2.6)
[2018-08-04 04:22] LABS: Hepatitis A Antibody IgM Nonreactive (Nonreactive)
[2018-08-04 07:13] LABS: Hepatitis C Virus Antibody Reactive (Nonreactive)
[2018-08-04] MEDS: Insulin LISPRO 300 UNITS/3 ML VIAL SQ SCH ×2 (07:26→11:34)
[2018-08-04] MEDS: *HR* OxyCODONE/APAP 5/325 TABLET PO PRN (07:32)
[2018-08-04 08:32] LABS: Calcium 9.4 mg/dL (8.6-10.3); Potassium 4.8 mEq/L (3.5-5.1)
[2018-08-04] MEDS ORDERED: amLODIPine 5 MG TABLET PO SCH (09:00)
[2018-08-04 11:15] VITALS: BP 154/92
--- NOTE | 2018-08-04 11:20 | Nephrology Progress Note ---
Date of Encounter: 08/04/18 Time of Encounter: 11:14 - Assessment and Plan (1) Acute kidney failure Current Visit: Yes Status: Acute No need for HD today, remove temp HD line. F/U with Dr. Feliciano in office in 2 weeks. BMP in 7 days (ordered). BMP in 4 weeks (ordered). D/C Potassium Chloride. D/C Spironolactone. D/C Potassium Citrate. Hold Losartan/HCTZ until seen by Dr. Feliciano. Baseline labs obtained from Dr. Negro: 08/30/2017: Scr 1.9 and GFR 41. 05/25/2018: Scr 3.0 and GFR 23. GFR is 25 today, Scr 2.74. No urine output recorded for today, spoke with primary RN. Avoid nephrotoxins and renal dose. Strict I/O's. Retroperitoneal US normal. CKD workup started including serum and urine studies. Qualifiers: Qualified Code(s): N17.9 - Acute kidney failure, unspecified (2) Wound of right foot Current Visit: Yes Status: Acute Suggest Yohanakrystin Romero consult. (3) Bradycardia Current Visit: Yes Status: Acute Resolved. (4) Diabetes Current Visit: Yes Status: Acute Per primary. Qualifiers: Diabetes mellitus type: other specified (including NAT) Diabetes mellitus mcfp insulin use: with mcfp use Diabetes mellitus complication status: with unspecified complications Qualified Code(s): E13.8 - Other specified diabetes mellitus with unspecified complications; Z79.4 - assisted (current) use of insulin (5) Hyperkalemia Current Visit: Yes Status: Acute Initial K 9.8, patient was symptomatic. K is 4.8 today, resolved. Subjective Principal diagnosis: Hyperkalemia, Bradycad[place], CESILIA Interval history: Pt seen and examined with Dr. Johnson and resident. Is overall feeling well. Denies chest pain, shortness of breath. Denies nausea, vomiting, diarrhea. No acute events overnight. Objective - Vital Signs Vital signs: Vital Signs Temp Pulse Resp BP Pulse Ox 08/04/18 07:45 98 08/04/18 07:14 97.6 F 61 20 151/89 98 08/04/18 03:46 98.2 F 74 18 138/72 98 08/03/18 23:16 98 F 68 17 143/68 98 08/03/18 19:33 97.6 F 76 17 136/77 96 08/03/18 15:01 97.8 F 76 19 157/81 99 08/03/18 14:00 78 18 143/97 100 08/03/18 12:00 71 18 165/110 98 08/03/18 11:30 97.9 F Intake and Output 08/03/18 08/04/18 08/04/18 23:59 07:59 15:59 Intake Total 240 / 240 Balance 240 / 240 Intake: Oral 240 / 240 Other: Meal Dinner Percent of Meal Consumed 100% Weight 122.6 kg Blood Glucose* 350 269 - General Appearance General appearance: Present: well-developed, well-nourished EENT: Present: ATNC, hearing intact, vision intact Neck: Present: supple Respiratory: Present: clear Cardiology: Present: edema (+1 pitting edema noted to bilat lower extremities.), normal S1, normal S2 Dialysis Vascular Access: Venous Catheter (DRSG C/D/I) Gastrointestinal: Present: normoactive bowel sounds, no tenderness, no guarding Integumentary: Present: no rash, warm and dry Neurologic: Present: alert and oriented x3 Musculoskeletal: Present: no deformities, no erythema Psychiatric: Present: mood/affect appropriate, cooperative - Lab 08/04/18 03:28 08/04/18 03:28 Most recent lab results Calcium 9.4 mg/dL (8.6-10.3) 08/04/18 03:28 Phosphorus 5.1 mg/dL (2.7-4.5) H 08/03/18 03:26 Magnesium 1.9 mg/dL (1.6-2.6) 08/04/18 03:28 Urine Creatinine 47 mg/dL 08/02/18 14:40 Urine Sodium 98.1 mEq/L 08/02/18 14:40 Urine Total Protein 37 mg/dL (1-14) H 08/02/18 14:40 Consult Discharge Plan - Plan Referrals: José Miguel Negro MD [Primary Care Provider] -
--- NOTE | 2018-08-04 11:55 | Electrocardiograph Report ---
[address] [address] Test Date: 2018-08-02 Pat Name: Santosh Perkins Department: EXAM6 Room: [facility] Gender: M Manager Exchange: : 1970 Requested By: Ismael Martinez Order Number: [id number] Reading MD: Jung Morris Measurements Intervals [place] Rate: 39 P: [place]: QRS: 174 QRSD: 185 T: 87 QT: 478 QTc: 385 Interpretive Statements Junctional rhythm Nonspecific intraventricular conduction delay Electronically Signed On 08-04-2018 11:53:47 EDT by Jung Morris
--- NOTE | 2018-08-04 14:36 | Discharge Summary ---
- NOTES TO OUTPATIENT PROVIDER Notes to Outpatient Provider: 1. Pt has severe Vit D deficiency with 25-OH vit D at 12. Supplement started. 2. His potassium and spironolactone is on hold because of hyperkalemia. Orders not resulted at time of discharge: Pending orders 08/03/18 09:44 ASHELY IgG LEONARDO rflx IFA Routine Immunofixation,Urine (BJP) Routine Avella Lambda Qnt FLC w Ratio Routine MPO/PR3 (ANCA) Antibodies Routine Protein Electrophoresis Routine 08/05/18 04:00 Basic Metabolic Panel AM 0400 CBC no Diff [Complete Blood Count w/o Diff] [HEME] AM 04008/06/18 04:00 Basic Metabolic Panel AM 0400 CBC no Diff [Complete Blood Count w/o Diff] [HEME] AM 04008/07/18 04:00 Basic Metabolic Panel AM 040 CBC no Diff [Complete Blood Count w/o Diff] [HEME] AM 040 Date of Encounter: 08/04/18 Time of Encounter: 13:00 - Discharge Diagnosis (1) Diabetes Priority: Secondary Status: Acute Qualifiers: Diabetes mellitus type: other specified (including NAT) Diabetes mellitus correction insulin use: with correction use Diabetes mellitus complication status: with unspecified complications Qualified Code(s): E13.8 - Other specified diabetes mellitus with unspecified complications; Z79.4 - accounts receivable coordinator (current) use of insulin (2) Hyperkalemia Priority: Primary Status: Acute (3) Atrial fibrillation, chronic Priority: Secondary Status: Acute (4) Bradycardia Priority: Primary Status: Acute (5) Wound of right foot Priority: Secondary Status: Acute (6) Hypertension Priority: Secondary Status: Acute Qualifiers: Hypertension type: unspecified Qualified Code(s): I10 - Essential (primary) hypertension (7) Acute kidney injury superimposed on chronic kidney disease Priority: Primary Status: Acute Hospital course: Mr. Perkins is a 48 year old male presented to ER for dizziness. Patient was found heart rate low 20s with severe hyperkalemia with potassium level 9.8. Nephrology consult called and the patient was started emergent hemodialysis. B radycardia improved after atropine given in the emergency room. Patient was admitted to ICU for close monitoring. After treatment, his potassium level get down to normal. Nephrology recommended stopping home potassium supplement and spironolactone. Patient does not need more hemodialysis. He has diarrhea which is possibly the reason causing CESILIA. Patient has no diarrhea at this point and tolerate by mouth hydration well. Will discharge patient home and continue closely monitor potassium and renal function as outpatient. I have seen and examined the patient today. Patient is awake alert oriented 3. In no acute distress. Denies nausea vomiting or diarrhea. Has good urine output. Will DC patient home and recheck BMP in 1 week and follow-up with PCP as outpatient. Patient will also follow-up with nephrology as outpatient. Discharge discussed with: patient - Time Spent with Patient Total time spent providing and/or coordinating discharge services: 40 minutes Time spent: Greater than 30 minutes - Discharge Medications Prescriptions: New Metoprolol [Lopressor] 50 mg PO BID tablet Continue Cholecalciferol (Vitamin D3) [Optimal D3] 50,000 unit PO QWEEK Albuterol Sulfate [Albuterol Inhaler] 2 puff IH Q4H Sertraline [Zoloft] 100 mg PO DAILY Sertraline [Zoloft] 50 mg PO DAILY OxyCODONE/APAP 10/325 [Percocet 10/325 MG] 1 each PO TID Losartan/Hydrochlorothiazide [Losartan-Hctz 100-25 mg Tab] 1 each PO DAILY Umeclidinium Sarepta [Incruse Ellipta] 1 puff IH DAILY Insulin LISPRO [HumaLOG] 60 units SQ TID Furosemide [Lasix] 40 mg PO DAILY Insulin Glargine,Hum.rec.anlog [Basaglar Kwikpen U-100] 70 unit SQ DAILY CloNIDine Patch [Catapres-Tts] 0.2 mg TD QWEEK Amlodipine Besylate 5 mg PO DAILY Rivaroxaban [Xarelto] 15 mg PO DAILY Discontinued Spironolactone [Aldactone] 100 mg PO DAILY Spironolactone 50 mg PO DAILY Potassium Chloride [Klor-Con 10] 10 meq PO DAILY Potassium Citrate [Urocit-K] 10 meq PO DAILY Metoprolol Succinate [Toprol Xl] 100 mg PO DAILY Home Medications: Albuterol Sulfate [Albuterol Inhaler] 2 puff IH Q4H 08/03/18 [History] Amlodipine Besylate 5 mg PO DAILY 08/03/18 [History] Cholecalciferol (Vitamin D3) [Optimal D3] 50,000 unit PO QWEEK 08/03/18 [History] CloNIDine Patch [Catapres-Tts] 0.2 mg TD QWEEK 08/03/18 [History] Furosemide [Lasix] 40 mg PO DAILY 08/03/18 [History] Insulin Glargine,Hum.rec.anlog [Basaglar Kwikpen U-100] 70 unit SQ DAILY 08/03/18 [History] Insulin LISPRO [HumaLOG] 60 units SQ TID 08/03/18 [History] Losartan/Hydrochlorothiazide [Losartan-Hctz 100-25 mg Tab] 1 each PO DAILY 08/03/18 [History] OxyCODONE/APAP 10/325 [Percocet 10/325 MG] 1 each PO TID 08/03/18 [History] Rivaroxaban [Xarelto] 15 mg PO DAILY 08/03/18 [History] Sertraline [Zoloft] 50 mg PO DAILY 08/03/18 [History] Sertraline [Zoloft] 100 mg PO DAILY 08/03/18 [History] Umeclidinium Sarepta [Incruse Ellipta] 1 puff IH DAILY 08/03/18 [History] Metoprolol [Lopressor] 50 mg PO BID tablet 08/04/18 [Rx] Allergies/Adverse Reactions: Allergy/AdvReac Type Severity Reaction Status Date / Time No Known Allergies Allergy Verified 05/06/16 14:33 Date of admission: 08/02/18 12:48 Primary care physician: José Miguel Negro MD Consults: 08/02/18 12:57 Consult to Dialysis [CONS] Stat 08/02/18 13:01 Consult to Interventional Radiology [CONS] Stat Consulting Provider: Radiology Interventional Cols Reason for Consult: Please place an urgent dialysis catheter for critically elevated and symptomatic hyperkalemia. Call Completed: Yes 08/02/18 13:18 Consult to Nephrology [CONS] Routine Consulting Provider: Kidney Leah/KISHAN/BENIGNO/SHWETHA Reason for Consult: CESILIA/Urgent HD. Call Completed: Yes 08/02/18 13:37 Consult to Nephrology [CONS] Routine Consulting Provider: Kidney Leah/KISHAN/BENIGNO/SHWETHA Reason for Consult: hyperkalemia Call Completed: Yes 08/03/18 08:25 Consult to Wound Care [CONS] Routine Reason for Consult: Wound rt foot Time Notified: 08:26 Call Completed: No Discharging clinician: Ander Wilcox Anticipated date of discharge: 08/04/18 - Constitutional Vitals: Temp Pulse Resp BP Pulse Ox 98.3 F 65 20 154/92 99 08/04/18 11:09 08/04/18 11:09 08/04/18 11:09 08/04/18 11:09 08/04/18 11:09 Exam: Pt is AAO x 3, in NAD HEENT: NC/AT, PERRL Neck: Supple, no JVD, no LAD Lungs: CTA b/l Heart: S1S2, RRR Abd: Soft, nontender, BS present Ext: ROM wnl, no pedal edema, right foot chronic wound well dressed, no signs of acute infection. Neuro: No focal deficit - Patient Status Disposition: Home, Self-Care Condition: Good Functional capacity at discharge: independent ambulation Overall status at discharge: patient is back to baseline - Ambulatory Orders Ambulatory Orders: Basic Metabolic Panel [CHEM] Time Frame: 1 Week, Facility: [facility], Location: Lab Basic Metabolic Panel [CHEM] Time Frame: 4 Weeks, Facility: [facility], Location: Lab - Discharge Instructions Follow Up With: José Miguel Negro MD [Primary Care Provider] - 08/11/18 Liang Feliciano DO [Partnered Physician] - 08/25/18 - Diet and Activity Activity: increase activity as tolerated Diet: diabetic diet, other (Renal diet)
[2018-08-04] MEDS ORDERED: *HR* Rivaroxaban 15 MG TABLET PO SCH ×2 (17:00)
[2018-08-05 01:42] LABS: Kappa Qnt Free Light Chains 7.06 mg/dL (0.33-1.94); Lambda Qnt Free Light Chains 2.53 mg/dL (0.57-2.63)
[2018-08-05 10:51] LABS: Myeloperoxidase Ab 0 AU/mL (0-19); Serine Protease-3 Antibody 2 AU/mL (0-19)
[2018-08-05 11:01] LABS: ANA IgG by ELISA NONE DETECTED (None Detected)
[2018-08-05 19:27] LABS: Beta Globulin (PEP) 0.67 g/dL (0.48-1.10)
[2018-08-06 10:07] LABS: IFE Reflexed NOT DONE
== END 2018-08-04 17:15 | disposition home or self-care (01) | DRG 469 ==
LOC: EMEROOARM 11:02 → ICNU 12:48 → 2ANU 08-03 14:45
PROVIDERS: ADMIT Internal Medicine; ATTEND Internal Medicine

== ENCOUNTER 2018-09-01 15:23 | Inpatient (IN) ==
[2018-09-01] MEDS ORDERED: 0.9 % Sodium Chloride 1,000 ML ONE (15:33)
[2018-09-01] MEDS ORDERED: 0.9 % Sodium Chloride 1,000 ML IVC ONE ×2 (15:33→16:39)
--- NOTE | 2018-09-01 15:53 | Emergency Department Note ---
Disposition Clinical Impression: CESILIA (acute kidney injury), Elevated troponin Anemia Qualifiers: Anemia type: other cause Other causes of anemia: other cause, not classified Qualified Code(s): D64.89 - Other specified anemias GI bleed Qualifiers: GI bleed type/associated pathology: unspecified gastrointestinal hemorrhage type Qualified Code(s): K92.2 - Gastrointestinal hemorrhage, unspecified Cellulitis Qualifiers: Site of cellulitis: unspecified site Qualified Code(s): L03.90 - Cellulitis, unspecified Disposition: Admitted As Inpatient Condition: Fair Referrals: José Miguel Negro MD [Primary Care Provider] - Forms: ED Satisfaction Letter Time of Disposition: 17:48 General Adult HPI - General Chief complaint: ED Neuro Symptoms/Deficit Stated complaint: Lethargic Time Seen by Provider: 09/01/18 15:25 Source: patient, family, EMS Mode of arrival: EMS Limitations: no limitations Nursing Notes Reviewed: Yes Vital Signs Reviewed: Yes - History of Present Illness HPI Narrative: 48-year-old male with history of hypertension, diabetes with recent hospitalization for acute kidney injury requiring dialysis persists for evaluation of altered mental status. Patient has become more altered and more fatigued. Patient family provided history. Stating that he is chronically on Percocet for his Charcot foot. No change in that doses of medication but has been prescribed Flexeril by his primary care doctor. Patient was instructed to come to the ED for concerns of acute kidney injury. Patient reports some chest pain in the right upper shoulder consistent with recent HD catheter placement. Denies any notable trauma or falls. No fevers. No abdominal pain. at bedside states that his lower cavity wound is healing appropriately and has been having some drainage. No abdominal pain. Pain Scale: 10 - Related Data Home Medications Medication Instructions Recorded Confirmed Albuterol Sulfate [Albuterol 2 puff IH Q4H 08/03/18 08/03/18 Inhaler] Amlodipine Besylate 5 mg PO DAILY 08/03/18 08/03/18 Cholecalciferol (Vitamin D3) 50,000 unit PO QWEEK 08/03/18 08/03/18 [Optimal D3] CloNIDine Patch [Catapres-Tts] 0.2 mg TD QWEEK 08/03/18 08/03/18 Furosemide [Lasix] 40 mg PO DAILY 08/03/18 08/03/18 Insulin Glargine,Hum.rec.anlog 70 unit SQ DAILY 08/03/18 08/03/18 [Basaglar Kwikpen U-100] Insulin LISPRO [HumaLOG] 60 units SQ TID 08/03/18 08/03/18 Losartan/Hydrochlorothiazide 1 each PO DAILY 08/03/18 08/03/18 [Losartan-Hctz 100-25 mg Tab] OxyCODONE/APAP 10/325 [Percocet 1 each PO TID 08/03/18 08/03/18 10/325 MG] Rivaroxaban [Xarelto] 15 mg PO DAILY 08/03/18 08/03/18 Sertraline [Zoloft] 50 mg PO DAILY 08/03/18 08/03/18 Sertraline [Zoloft] 100 mg PO DAILY 08/03/18 08/03/18 Umeclidinium [place] [Incruse 1 puff IH DAILY 08/03/18 08/03/18 Ellipta] Previous Rx's Medication Instructions Recorded Metoprolol [Lopressor] 50 mg PO BID tablet 08/04/18 Allergies Allergy/AdvReac Type Severity Reaction Status Date / Time No Known Allergies Allergy Verified 05/06/16 14:33 All systems ED: reviewed and negative except as stated. 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.) Psychiatric history: Reports: no psych history - Social History Smoking Status: Current every day smoker Smokeless Tobacco Status: No Alcohol use: Reports: none Drug use: Reports: none Physical Exam - General Limitations: no limitations General appearance: alert, lethargic - Head Head exam: atraumatic, normocephalic, normal inspection - Eye Eye exam: Present: normal appearance, EOMI, miosis - ENT ENT exam: normal exam, mucous membranes dry - Neck Neck exam: Present: normal inspection - Chest Chest inspection: Present: normal inspection, symmetric chest wall rise - Respiratory Respiratory exam: Present: normal lung sounds bilaterally. Absent: respiratory distress - Cardiovascular Cardiovascular exam: Present: regular rate, normal rhythm. Absent: systolic murmur - Abdominal Exam Abdominal exam: Present: soft, Non-Tender - Rectal Exam Granulator present during exam: Yes Rectal exam: Present: normal rectal tone. Absent: heme (+) stool, black stool, bloody stool - Extremities Exam Extremities exam: Present: other (Chronic appearing right lower extremity wounds and ulcers. Actively draining.) - Back Exam Back exam: Present: normal inspection - Neurological Exam Neurological exam: Present: alert, oriented X3, CN II-XII intact - Skin Skin exam: Present: warm, dry, intact, normal color Course Course Narrative: Patient seen and examined. Patient appears to be in no acute distress or patient does have several vitals was noted be hypotensive. Patient does appear hypovolemic. Will empirically treat with IV fluids. CT scan of the head. Imaging of the chest as well as the foot. Patient will likely be admitted given his concerns of altered mental status. - Reevaluation(s) Reevaluation #1: Patient's blood pressures responded IV fluids. Time: 16:17 Reevaluation #2: Patient states he has been noting some blood in his stool specially strains. Patient does have acute drop in hemoglobin is on Xarelto. Stool guaiac pending. Will be given 1 unit of blood given history of elevated troponin anemia and hypotension. Patient's x-ray physical exam finds concerns of cellulitis of the right lower leg will be started on Rocephin. Time: 16:56 - Consultations Consultation #1: Did speak with nephrology Dr. Abbott get her who will follow along with the patient's case. Time: 16:56 Vital Signs Temperature 97.6 F 09/01/18 15:28 Pulse Rate 63 09/01/18 15:28 Respiratory Rate 14 09/01/18 15:28 Blood Pressure 81/49 09/01/18 15:28 O2 Sat by Pulse Oximetry 91 09/01/18 15:28 Temperature 97.6 F 09/01/18 15:28 Pulse Rate 63 09/01/18 16:03 Respiratory Rate 23 09/01/18 16:03 Blood Pressure 95/51 09/01/18 16:03 O2 Sat by Pulse Oximetry 90 09/01/18 16:03 Oxygen Delivery Oxygen Delivery Nasal Cannula Medical Decision Making - [facility] Narrative Medical decision making narrative: Patient presented for concerns of lethargy. Patient's lethargy possibly cause from medication. Patient had multiple etiologies. Patient was found to be hypotensive requiring IV fluid hydration. Patient did get a single bolus. Patient is noted be anemic with reported blood loss in his stool however patient's occult blood was negative. Given the patient's anemia as well as elevated troponin and hypotension the patient was given 1 unit of PRBCs. Patient's also placed on 0.9 125. Patient's [place] I possibly related to prerenal cause. Full catheter placed. Patient is draining scant urine. Electrolytes show no elevation in potassium. Discussed laboratory values with nephrology who will evaluate the patient. This time the patient does not need emergent dialysis. Patient's mentating appropriately given his elevated BUN. Patient was not given aspirin given his concern for GI bleed and elevated troponin. Patient x-ray of the foot did show signs concerning for cellulitis and did have some mild swelling and erythema will cover with Rocephin at this time. Patient CT of the head did not show any acute abnormality. Patient will be admitted to the hospital service for continued evaluation and monitoring. - Lab Data Lab results reviewed: Yes I reviewed the patient's lab results. Result diagrams: 09/01/18 15:33 09/01/18 15:33 Lab Results 09/01/18 09/01/18 09/01/18 Range/Units 15:33 15:33 15:33 WBC 13.5 H (4.3-11.1) K/mcL RBC 2.89 L (4.19-5.50) M/mcL Hgb 8.4 L (12.9-16.9) g/dL Hct 24.2 L (37.5-50.1) % MCV 83.7 (83.0-100.0) fL MCH 29.1 (28.0-33.3) pg MCHC 34.7 (31.6-35.5) g/dL RDW 13.6 (11.5-14.5) % Plt Count 120 L (140-400) K/mcL MPV 10.7 (9.4-12.4) fL Immature Gran % 6.1 H (0-4) % Seg Neutrophils % 82.4 % Lymphocytes % 4.2 % Monocytes % 6.6 % Eosinophils % 0.6 % Basophils % 0.1 % Neutrophils # 11.1 H (1.6-8.9) K/mcL Lymphocytes # 0.6 (0.6-4.6) K/mcL Monocytes # 0.9 (0.0-1.3) K/mcL Eosinophils # 0.1 (0.0-0.6) K/mcL Basophils # 0.0 (0.0-0.2) K/mcL Nucleated RBCs/100 WBC 0.2 H (0) /100 WBC PT 13.3 H (9.4-12.1) Seconds INR 1.2 APTT 32.3 (26.0-36.0) Seconds Sodium 129 L (136-145) mEq/L Potassium 3.7 (3.5-5.1) mEq/L Chloride 96 L (98-107) mEq/L Carbon Dioxide 18 L (23-29) mEq/L BUN 101 H (6-20) mg/dL Creatinine 6.57 H (0.70-1.30) mg/dL Est GFR ( Amer) 11 L (> 60) Est GFR (Non-Af Amer) 9 L (> 60) BUN/Creatinine Ratio 15 (6-26) Glucose 139 H (70-105) mg/dL Calculated Osmolality 302 H (280-300) Lactic Acid (0.5-2.2) mmol/L Calcium 8.2 L (8.6-10.3) mg/dL Total Bilirubin 0.6 (0.3-1.0) mg/dL Direct Bilirubin 0.3 H (0.0-0.2) mg/dL Indirect Bilirubin 0.3 (0.0-1.2) mg/dL AST 21 (13-39) Units/L ALT 15 (7-52) Units/L Alkaline Phosphatase 122 H (34-104) Units/L Troponin I 0.06 H* (< 0.04) ng/mL Serum Total Protein 6.1 L (6.4-8.9) g/dL Albumin 2.7 L (3.5-5.7) g/dL Globulin 3.4 (2.4-3.5) g/dL Albumin/Globulin Ratio 0.8 L (1.1-2.2) Urine Color (Yellow) Urine Clarity (Clear) Urine pH (5.0-8.0) pH Units Ur Specific [place] (1.010-1.025) Urine Protein (Neg-Trace) mg/dL Urine Glucose (UA) (Normal) mg/dL Urine Ketones (Negative) mg/dL Urine Blood (Negative) Urine Nitrite (Negative) Urine Bilirubin (Negative) Urine Urobilinogen (Normal) mg/dL Ur Leukocyte Esterase (Negative) Urine Microscopic RBC (0-3) per hpf Urine Microscopic WBC (0-3) per hpf Ur Squamous Epith Cells (None-Few) per lpf Urine Bacteria (None-Few) per hpf Hyaline Casts (None-Few) per lpf Ur Culture Indicated? (NO) Stool Occult Bld Scrn (Negative) Urine Opiates Screen ([place]ok[place]f=514) ng/mL Ur Barbiturates Screen (Xxaznd=537) ng/mL Ur Phencyclidine Scrn (Cutoff=25) ng/mL Ur Amphetamines Screen (Idwjxe=5487) ng/mL U Benzodiazepines Scrn (Cjyrmr=802) ng/mL Urine Cocaine Screen (Cutoff= 300) ng/mL U Marijuana (THC) Screen (Cutoff = 50) ng/mL Ur Drug Screen Interp Ethyl Alcohol < 10 (Less than 10) mg/dL 09/01/18 09/01/18 09/01/18 Range/Units 15:50 16:29 16:58 WBC (4.3-11.1) K/mcL RBC (4.19-5.50) M/mcL Hgb (12.9-16.9) g/dL Hct (37.5-50.1) % MCV (83.0-100.0) fL MCH (28.0-33.3) pg MCHC (31.6-35.5) g/dL RDW (11.5-14.5) % Plt Count (140-400) K/mcL MPV (9.4-12.4) fL Immature Gran % (0-4) % Seg Neutrophils % % Lymphocytes % % Monocytes % % Eosinophils % % Basophils % % Neutrophils # (1.6-8.9) K/mcL Lymphocytes # (0.6-4.6) K/mcL Monocytes # (0.0-1.3) K/mcL Eosinophils # (0.0-0.6) K/mcL Basophils # (0.0-0.2) K/mcL Nucleated RBCs/100 WBC (0) /100 WBC PT (9.4-12.1) Seconds INR APTT (26.0-36.0) Seconds Sodium (136-145) mEq/L Potassium (3.5-5.1) mEq/L Chloride (98-107) mEq/L Carbon Dioxide (23-29) mEq/L BUN (6-20) mg/dL Creatinine (0.70-1.30) mg/dL Est GFR ( Amer) (> 60) Est GFR (Non-Af Amer) (> 60) BUN/Creatinine Ratio (6-26) Glucose (70-105) mg/dL Calculated Osmolality (280-300) Lactic Acid 2.0 (0.5-2.2) mmol/L Calcium (8.6-10.3) mg/dL Total Bilirubin (0.3-1.0) mg/dL Direct Bilirubin (0.0-0.2) mg/dL Indirect Bilirubin (0.0-1.2) mg/dL AST (13-39) Units/L ALT (7-52) Units/L Alkaline Phosphatase (34-104) Units/L Troponin I (< 0.04) ng/mL Serum Total Protein (6.4-8.9) g/dL Albumin (3.5-5.7) g/dL Globulin (2.4-3.5) g/dL Albumin/Globulin Ratio (1.1-2.2) Urine Color (Yellow) Urine Clarity (Clear) Urine pH (5.0-8.0) pH Units Ur Specific [place] (1.010-1.025) Urine Protein (Neg-Trace) mg/dL Urine Glucose (UA) (Normal) mg/dL Urine Ketones (Negative) mg/dL Urine Blood (Negative) Urine Nitrite (Negative) Urine Bilirubin (Negative) Urine Urobilinogen (Normal) mg/dL Ur Leukocyte Esterase (Negative) Urine Microscopic RBC (0-3) per hpf Urine Microscopic WBC (0-3) per hpf Ur Squamous Epith Cells (None-Few) per lpf Urine Bacteria (None-Few) per hpf Hyaline Casts (None-Few) per lpf Ur Culture Indicated? (NO) Stool Occult Bld Scrn Negative (Negative) Urine Opiates Screen Positive H (Tbnxoj=792) ng/mL Ur Barbiturates Screen Negative (Cxrpmt=782) ng/mL Ur Phencyclidine Scrn Negative (Cutoff=25) ng/mL Ur Amphetamines Screen Negative (Kyccvg=1989) ng/mL U Benzodiazepines Scrn Negative (Wnmhnt=838) ng/mL Urine Cocaine Screen Negative (Cutoff= 300) ng/mL U Marijuana (THC) Screen Negative (Cutoff = 50) ng/mL Ur Drug Screen Interp See Below Ethyl Alcohol (Less than 10) mg/dL 09/01/18 Range/Units Unknown WBC (4.3-11.1) K/mcL RBC (4.19-5.50) M/mcL Hgb (12.9-16.9) g/dL Hct (37.5-50.1) % MCV (83.0-100.0) fL MCH (28.0-33.3) pg MCHC (31.6-35.5) g/dL RDW (11.5-14.5) % Plt Count (140-400) K/mcL MPV (9.4-12.4) fL Immature Gran % (0-4) % Seg Neutrophils % % Lymphocytes % % Monocytes % % Eosinophils % % Basophils % % Neutrophils # (1.6-8.9) K/mcL Lymphocytes # (0.6-4.6) K/mcL Monocytes # (0.0-1.3) K/mcL Eosinophils # (0.0-0.6) K/mcL Basophils # (0.0-0.2) K/mcL Nucleated RBCs/100 WBC (0) /100 WBC PT (9.4-12.1) Seconds INR APTT (26.0-36.0) Seconds Sodium (136-145) mEq/L Potassium (3.5-5.1) mEq/L Chloride (98-107) mEq/L Carbon Dioxide (23-29) mEq/L BUN (6-20) mg/dL Creatinine (0.70-1.30) mg/dL Est GFR ( Amer) (> 60) Est GFR (Non-Af Amer) (> 60) BUN/Creatinine Ratio (6-26) Glucose (70-105) mg/dL Calculated Osmolality (280-300) Lactic Acid (0.5-2.2) mmol/L Calcium (8.6-10.3) mg/dL Total Bilirubin (0.3-1.0) mg/dL Direct Bilirubin (0.0-0.2) mg/dL Indirect Bilirubin (0.0-1.2) mg/dL AST (13-39) Units/L ALT (7-52) Units/L Alkaline Phosphatase (34-104) Units/L Troponin I (< 0.04) ng/mL Serum Total Protein (6.4-8.9) g/dL Albumin (3.5-5.7) g/dL Globulin (2.4-3.5) g/dL Albumin/Globulin Ratio (1.1-2.2) Urine Color [place] A (Yellow) Urine Clarity Cloudy A (Clear) Urine pH 5.0 (5.0-8.0) pH Units Ur Specific [place] 1.029 H (1.010-1.025) Urine Protein 30 H (Neg-Trace) mg/dL Urine Glucose (UA) 100 H (Normal) mg/dL Urine Ketones Trace H (Negative) mg/dL Urine Blood Trace H (Negative) Urine Nitrite Negative (Negative) Urine Bilirubin Moderate H (Negative) Urine Urobilinogen 4.0 H (Normal) mg/dL Ur Leukocyte Esterase Small H (Negative) Urine Microscopic RBC 0-3 (0-3) per hpf Urine Microscopic WBC 5-15 H (0-3) per hpf Ur Squamous Epith Cells Many H (None-Few) per lpf Urine Bacteria Few (None-Few) per hpf Hyaline Casts None Seen (None-Few) per lpf Ur Culture Indicated? NO. A (NO) Stool Occult Bld Scrn (Negative) Urine Opiates Screen (Bunvmp=046) ng/mL Ur Barbiturates Screen (Sjqiqp=541) ng/mL Ur Phencyclidine Scrn (Cutoff=25) ng/mL Ur Amphetamines Screen (Qkfnmp=7094) ng/mL U Benzodiazepines Scrn (Zydvnn=378) ng/mL Urine Cocaine Screen (Cutoff= 300) ng/mL U Marijuana (THC) Screen (Cutoff = 50) ng/mL Ur Drug Screen Interp Ethyl Alcohol (Less than 10) mg/dL - Radiology Data Radiology results reviewed: Yes I reviewed the patient's radiology results. Chest X-Ray 09/01/18 15:33 IMPRESSION: Findings most compatible pulmonary edema. D/ / Moises Swift MD / Moises Swift MD Interpreting Provider: Moises Swift MD Head CT 09/01/18 15:33 IMPRESSION: No acute intracranial abnormality. D/ / Kash Ricks / Kash Ricks Interpreting Provider: Kash Ricks Foot X-Ray 09/01/18 15:34 IMPRESSION: Findings are those of Charcot arthropathy/neuropathic foot not significantly changed from the prior studies. There is extensive soft tissue swelling suggesting cellulitis. D/ / Napoleon García MD / Napoleon García MD Interpreting Provider: Napoleon García MD - EKG Data EKG #1 EKG attestation: Yes I reviewed and interpreted this EKG. EKG shows normal: sinus rhythm Rate: normal Rhythm: NSR [place]/QRS: normal Heart block present: 1st Degree Q waves: III T wave inversions noted in: v1 Interpretation: no acute changes, nonspecific ST-T wave changes S.B.A.RValdez - S.B.AValdezRValdez Situation: Demographics Background: Presenting Complaint Assessment: Vital Signs, Course and respsone to treatment, Patient/Family Expectation Recommendation: Barrier(s) to disposition, Recommendation based on pending studies, treatments, or consults S.B.A.RValdez Report Given to: Dr. Martin Joy Repor Time: 17:48
[2018-09-01 16:02] LABS: Basophils % 0.1 %; Eosinophils # 0.1 K/mcL (0.0-0.6); Eosinophils % 0.6 %; Hematocrit 24.2 % (37.5-50.1); Hemoglobin 8.4 g/dL (12.9-16.9); Immature Granulocytes % 6.1 % (0-4); Lymphocytes # 0.6 K/mcL (0.6-4.6); Lymphocytes % 4.2 %; Mean Corpuscular HGB Conc 34.7 g/dL (31.6-35.5); Mean Corpuscular Hemoglobin 29.1 pg (28.0-33.3); Mean Corpuscular Volume 83.7 fL (83.0-100.0); Mean Platelet Volume 10.7 fL (9.4-12.4); Monocytes # 0.9 K/mcL (0.0-1.3); Monocytes % 6.6 %; Neutrophils # 11.1 K/mcL (1.6-8.9); Nucleated Red Blood Cells 0.2 /100 WBC (0); Platelet Count 120 K/mcL (140-400); Red Blood Count 2.89 M/mcL (4.19-5.50); Red Cell Distribution Width 13.6 % (11.5-14.5); Segmented Neutrophils % 82.4 %
[2018-09-01 16:17] LABS: INR 1.2; Prothrombin Time 13.3 Seconds (9.4-12.1)
[2018-09-01 16:20] LABS: Activated Partial Thrombo Time 32.3 Seconds (26.0-36.0)
[2018-09-01 16:30] LABS: Alanine Aminotransferase 15 Units/L (7-52); Albumin 2.7 g/dL (3.5-5.7); Albumin/Globulin Ratio 0.8 (1.1-2.2); Alkaline Phosphatase 122 Units/L (34-104); Aspartate Amino Transferase 21 Units/L (13-39); BUN/Creatinine Ratio 15 (6-26); Bilirubin,Direct 0.3 mg/dL (0.0-0.2); Bilirubin,Indirect 0.3 mg/dL (0.0-1.2); Bilirubin,Total 0.6 mg/dL (0.3-1.0); Blood Urea Nitrogen 101 mg/dL (6-20); Calcium 8.2 mg/dL (8.6-10.3); Carbon Dioxide 18 mEq/L (23-29); Chloride 96 mEq/L (98-107); Ethanol < 10 mg/dL (Less than 10); Globulin 3.4 g/dL (2.4-3.5); Glucose 139 mg/dL (70-105); Osmolality,Calculated 302 (280-300); Potassium 3.7 mEq/L (3.5-5.1); Sodium 129 mEq/L (136-145); Total Protein 6.1 g/dL (6.4-8.9); Troponin I 0.06 ng/mL (< 0.04); eGFR For Non-African Americans 9 (> 60)
[2018-09-01] MEDS ORDERED: cefTRIAXone 1,000 MG in Water for inj. (sterile) 20 ML 10 ML IVP ONE (16:38)
[2018-09-01 16:45] LABS: Bilirubin,Urine Moderate (Negative); Blood,Urine Trace (Negative); Clarity,Urine Cloudy (Clear); Color,Urine Orange (Yellow); Glucose,Urine (UA) 100 mg/dL (Normal); Ketones,Urine Trace mg/dL (Negative); Leukocyte Esterase,Urine Small (Negative); Nitrite,Urine Negative (Negative); Protein,Urine 30 mg/dL (Neg-Trace); Specific Gravity,Urine 1.029 (1.010-1.025)
[2018-09-01 16:48] LABS: Hyaline Casts,Urine None Seen per lpf (None-Few); RBC,Urine 0-3 per hpf (0-3); Squamous Epithelial Cell,Urine Many per lpf (None-Few)
[2018-09-01] MEDS ORDERED: Pantoprazole 40 MG VIAL IVP ONE (16:53)
[2018-09-01] MEDS ORDERED: 0.9 % Sodium Chloride 1,000 ML IVC SCH (17:00)
[2018-09-01 17:08] LABS: Amphetamine Screen,Urine Negative ng/mL (Cutoff=1000); Barbiturate Screen,Urine Negative ng/mL (Cutoff=200); Benzodiazepines Screen,Urine Negative ng/mL (Cutoff=200); Cannabinoid Screen,Urine Negative ng/mL (Cutoff = 50); Cocaine Screen,Urine Negative ng/mL (Cutoff= 300); Opiate Screen,Urine Positive ng/mL (Cutoff=300); Phencyclidine Screen,Urine Negative ng/mL (Cutoff=25)
--- NOTE | 2018-09-01 17:21 | Emergency Department Note ---
Disposition Clinical Impression: CESILIA (acute kidney injury) Anemia Qualifiers: Anemia type: other cause Other causes of anemia: other cause, not classified Qualified Code(s): D64.89 - Other specified anemias GI bleed Qualifiers: GI bleed type/associated pathology: unspecified gastrointestinal hemorrhage type Qualified Code(s): K92.2 - Gastrointestinal hemorrhage, unspecified Disposition: Admitted As Inpatient Referrals: José Miguel Negro MD [Primary Care Provider] - Forms: ED Satisfaction Letter General Adult HPI - General Chief complaint: ED Neuro Symptoms/Deficit Stated complaint: Lethargic Time Seen by Provider: 09/01/18 15:25 Source: patient, family, EMS Mode of arrival: EMS Limitations: no limitations - History of Present Illness Pain Scale: 10 - Related Data Home Medications Medication Instructions Recorded Confirmed Albuterol Sulfate [Albuterol 2 puff IH Q4H 08/03/18 08/03/18 Inhaler] Amlodipine Besylate 5 mg PO DAILY 08/03/18 08/03/18 Cholecalciferol (Vitamin D3) 50,000 unit PO QWEEK 08/03/18 08/03/18 [Optimal D3] CloNIDine Patch [Catapres-Tts] 0.2 mg TD QWEEK 08/03/18 08/03/18 Furosemide [Lasix] 40 mg PO DAILY 08/03/18 08/03/18 Insulin Glargine,Hum.rec.anlog 70 unit SQ DAILY 08/03/18 08/03/18 [Basaglar Kwikpen U-100] Insulin LISPRO [HumaLOG] 60 units SQ TID 08/03/18 08/03/18 Losartan/Hydrochlorothiazide 1 each PO DAILY 08/03/18 08/03/18 [Losartan-Hctz 100-25 mg Tab] OxyCODONE/APAP 10/325 [Percocet 1 each PO TID 08/03/18 08/03/18 10/325 MG] Rivaroxaban [Xarelto] 15 mg PO DAILY 08/03/18 08/03/18 Sertraline [Zoloft] 50 mg PO DAILY 08/03/18 08/03/18 Sertraline [Zoloft] 100 mg PO DAILY 08/03/18 08/03/18 Umeclidinium [place] [Incruse 1 puff IH DAILY 08/03/18 08/03/18 Ellipta] Previous Rx's Medication Instructions Recorded Metoprolol [Lopressor] 50 mg PO BID tablet 08/04/18 Allergies Allergy/AdvReac Type Severity Reaction Status Date / Time No Known Allergies Allergy Verified 05/06/16 14:33 Constitutional: Denies: fever Cardiovascular: Reports: chest pain Respiratory: Denies: cough, dyspnea Gastrointestinal: Denies: abdominal pain, nausea, vomiting Past Medical History - Past Medical History Medical history: Reports: diabetes, hypertension, other Surgical history: Reports: other (nephrectomy and 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.) Psychiatric history: Reports: no psych history - Social History Smoking Status: Current every day smoker Smokeless Tobacco Status: No Alcohol use: Reports: none Drug use: Reports: none Physical Exam - General Limitations: no limitations General appearance: alert, lethargic Course Vital Signs Temperature 97.6 F 09/01/18 15:28 Pulse Rate 63 09/01/18 15:28 Respiratory Rate 14 09/01/18 15:28 Blood Pressure 81/49 09/01/18 15:28 O2 Sat by Pulse Oximetry 91 09/01/18 15:28 Temperature 97.6 F 09/01/18 15:28 Pulse Rate 63 09/01/18 16:03 Respiratory Rate 23 09/01/18 16:03 Blood Pressure 95/51 09/01/18 16:03 O2 Sat by Pulse Oximetry 90 09/01/18 16:03 Oxygen Delivery Oxygen Delivery Nasal Cannula Medical Decision Making - Lab Data Result diagrams: 09/01/18 15:33 09/01/18 15:33 Lab Results 09/01/18 09/01/18 09/01/18 Range/Units 15:33 15:33 15:33 WBC 13.5 H (4.3-11.1) K/mcL RBC 2.89 L (4.19-5.50) M/mcL Hgb 8.4 L (12.9-16.9) g/dL Hct 24.2 L (37.5-50.1) % MCV 83.7 (83.0-100.0) fL MCH 29.1 (28.0-33.3) pg MCHC 34.7 (31.6-35.5) g/dL RDW 13.6 (11.5-14.5) % Plt Count 120 L (140-400) K/mcL MPV 10.7 (9.4-12.4) fL Immature Gran % 6.1 H (0-4) % Seg Neutrophils % 82.4 % Lymphocytes % 4.2 % Monocytes % 6.6 % Eosinophils % 0.6 % Basophils % 0.1 % Neutrophils # 11.1 H (1.6-8.9) K/mcL Lymphocytes # 0.6 (0.6-4.6) K/mcL Monocytes # 0.9 (0.0-1.3) K/mcL Eosinophils # 0.1 (0.0-0.6) K/mcL Basophils # 0.0 (0.0-0.2) K/mcL Nucleated RBCs/100 WBC 0.2 H (0) /100 WBC PT 13.3 H (9.4-12.1) Seconds INR 1.2 APTT 32.3 (26.0-36.0) Seconds Sodium 129 L (136-145) mEq/L Potassium 3.7 (3.5-5.1) mEq/L Chloride 96 L (98-107) mEq/L Carbon Dioxide 18 L (23-29) mEq/L BUN 101 H (6-20) mg/dL Creatinine 6.57 H (0.70-1.30) mg/dL Est GFR ( Amer) 11 L (> 60) Est GFR (Non-Af Amer) 9 L (> 60) BUN/Creatinine Ratio 15 (6-26) Glucose 139 H (70-105) mg/dL Calculated Osmolality 302 H (280-300) Lactic Acid (0.5-2.2) mmol/L Calcium 8.2 L (8.6-10.3) mg/dL Total Bilirubin 0.6 (0.3-1.0) mg/dL Direct Bilirubin 0.3 H (0.0-0.2) mg/dL Indirect Bilirubin 0.3 (0.0-1.2) mg/dL AST 21 (13-39) Units/L ALT 15 (7-52) Units/L Alkaline Phosphatase 122 H (34-104) Units/L Troponin I 0.06 H* (< 0.04) ng/mL Serum Total Protein 6.1 L (6.4-8.9) g/dL Albumin 2.7 L (3.5-5.7) g/dL Globulin 3.4 (2.4-3.5) g/dL Albumin/Globulin Ratio 0.8 L (1.1-2.2) Urine Color (Yellow) Urine Clarity (Clear) Urine pH (5.0-8.0) pH Units Ur Specific [place] (1.010-1.025) Urine Protein (Neg-Trace) mg/dL Urine Glucose (UA) (Normal) mg/dL Urine Ketones (Negative) mg/dL Urine Blood (Negative) Urine Nitrite (Negative) Urine Bilirubin (Negative) Urine Urobilinogen (Normal) mg/dL Ur Leukocyte Esterase (Negative) Ur Drug Screen Interp Ethyl Alcohol < 10 (Less than 10) mg/dL 09/01/18 09/01/18 09/01/18 Range/Units 15:50 16:29 Unknown WBC (4.3-11.1) K/mcL RBC (4.19-5.50) M/mcL Hgb (12.9-16.9) g/dL Hct (37.5-50.1) % MCV (83.0-100.0) fL MCH (28.0-33.3) pg MCHC (31.6-35.5) g/dL RDW (11.5-14.5) % Plt Count (140-400) K/mcL MPV (9.4-12.4) fL Immature Gran % (0-4) % Seg Neutrophils % % Lymphocytes % % Monocytes % % Eosinophils % % Basophils % % Neutrophils # (1.6-8.9) K/mcL Lymphocytes # (0.6-4.6) K/mcL Monocytes # (0.0-1.3) K/mcL Eosinophils # (0.0-0.6) K/mcL Basophils # (0.0-0.2) K/mcL Nucleated RBCs/100 WBC (0) /100 WBC PT (9.4-12.1) Seconds INR APTT (26.0-36.0) Seconds Sodium (136-145) mEq/L Potassium (3.5-5.1) mEq/L Chloride (98-107) mEq/L Carbon Dioxide (23-29) mEq/L BUN (6-20) mg/dL Creatinine (0.70-1.30) mg/dL Est GFR ( Amer) (> 60) Est GFR (Non-Af Amer) (> 60) BUN/Creatinine Ratio (6-26) Glucose (70-105) mg/dL Calculated Osmolality (280-300) Lactic Acid 2.0 (0.5-2.2) mmol/L Calcium (8.6-10.3) mg/dL Total Bilirubin (0.3-1.0) mg/dL Direct Bilirubin (0.0-0.2) mg/dL Indirect Bilirubin (0.0-1.2) mg/dL AST (13-39) Units/L ALT (7-52) Units/L Alkaline Phosphatase (34-104) Units/L Troponin I (< 0.04) ng/mL Serum Total Protein (6.4-8.9) g/dL Albumin (3.5-5.7) g/dL Globulin (2.4-3.5) g/dL Albumin/Globulin Ratio (1.1-2.2) Urine Color [place] A (Yellow) Urine Clarity Cloudy A (Clear) Urine pH 5.0 (5.0-8.0) pH Units Ur Specific [place] 1.029 H (1.010-1.025) Urine Protein 30 H (Neg-Trace) mg/dL Urine Glucose (UA) 100 H (Normal) mg/dL Urine Ketones Trace H (Negative) mg/dL Urine Blood Trace H (Negative) Urine Nitrite Negative (Negative) Urine Bilirubin Moderate H (Negative) Urine Urobilinogen 4.0 H (Normal) mg/dL Ur Leukocyte Esterase Small H (Negative) Ur Drug Screen Interp See Below Ethyl Alcohol (Less than 10) mg/dL Attestation Statement - Attestation Attestation: I examined this patient and my medical decision-making was reviewed with the Resident Physician. I agree with the documented findings, disposition and jose tment plan as described except to the extent set forth below. 48 year old male presents to the ED who appers toxic. Alejandra has a solitary kidney and was recently admitted for dialysis due to worsening renal function and it appers that patient is now hypotensive and with worsening renal function and a low hgb with complaints of intermittment blood in his stool. We will admitto medicine and have consulted with nephrology for dialysis
[2018-09-01 17:34] LABS: Bacteria,Urine Few per hpf (None-Few)
[2018-09-01] MEDS ORDERED: Naloxone 0.4 MG/ML INJ IVP PRN (18:52)
[2018-09-01] MEDS ORDERED: *HR* OxyCODONE/APAP 5/325 TABLET PO PRN (19:01)
[2018-09-01] MEDS ORDERED: Ipratropium/Albuterol Neb 3 ML IH PRN (19:01)
[2018-09-01] MEDS ORDERED: D5% in Water 1,000 ML IVC PRN (19:02)
[2018-09-01] MEDS ORDERED: *HR* Dextrose 50 % in Water (Syg) 50 ML SYRINGE IVP PRN (19:02)
[2018-09-01] MEDS ORDERED: Dextrose Gel 15 GM/37.5 ML TUBE PO PRN ×2 (19:02)
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
[2018-09-01] MEDS: Insulin LISPRO 300 UNITS/3 ML VIAL SQ SCH (21:40)
[2018-09-01] MEDS: Insulin DETEMIR 100 UNIT/ML X5UNITS SQ SCH (21:40)
[2018-09-01 21:48] LABS: Hepatitis B Surface Antibody 4.61 mIU/mL
[2018-09-01 21:59] LABS: Hepatitis B Surface Antigen Nonreactive (Nonreactive)
--- NOTE | 2018-09-01 23:19 | Event Note ---
Date of Encounter: 09/01/18 Time of Encounter: 21:04 Alerted by pts. nurse MATT Shah that the pts. family was in the room and wishing to speak with me about the pts. plan of care and what was going on with him. I instructed the nurse to let them know that I would be there shortly d/t floor call volume. Went to see the pt. and family at approx. 22:00. Pt. was resting in bed asleep. I went over the pts. CXR which showed pulmonary edema, CT of the head which showed no acute intracranial abnormality, and XR of the foot which showed cellulitis. I explained that the pt. had an acute kidney injury superimposed on chronic kidney disease and his GFR was now 9 and creatinine was 6.57. I also explained that Nephrology has been consulted and that the pt. should avoid nephrotoxins (especially NSAIDs such as aspirin, ibuprofen, meloxicam, etc.). I instructed the family that the pts. troponin was mildly elevated at 0.06 which may be d/t demand ischemia and that his WBC was 13.5, likely d/t the cellulitis of the foot. Blood cultures ordered in ED. Family stated that the pt. almost had his foot infection under control prior to this ad mission and wished to know if he would be getting abx. I explained that blood cultures were ordered and if abx were ordered they would be renally dosed d/t current renal dysfunction. Family expressed understanding and agreement to our conversation regarding plan of care and all questions were addressed and answered. I discussed the pt. w/Rashel in Pharmacy and placed orders for Zosyn (renally dosed at 3.375 gm Q12HR) and vancomycin w/Pharmacy pulse dosing. Nurse instructed to continue monitoring pt. very closely and alert me immediately of any adverse changes.
[2018-09-02] MEDS ORDERED: 0.9 % Sodium Chloride 250 ML IVC PRN (07:39)
[2018-09-02] MEDS ORDERED: 0.9 % Sodium Chloride 1,000 ML PRIME SCH (07:45)
[2018-09-02 07:52] LABS: Enterococcus by PCR Not Detected (Not Detect); Staphylococcus aureus by PCR DETECTED (Not Detect); Staphylococcus by PCR DETECTED (Not Detect); Streptococcus agalactiae(B)PCR DETECTED (Not Detect); Streptococcus by PCR DETECTED (Not Detect); mecA Methicillin-Resist Gene Not Detected (Not Detect)
[2018-09-02 07:53] LABS: Acinetobacter baumannii by PCR Not Detected (Not Detect); Candida albicans by PCR Not Detected (Not Detect); Candida glabrata by PCR Not Detected (Not Detect); Candida krusei by PCR Not Detected (Not Detect); Candida parapsilosis by PCR Not Detected (Not Detect); Candida tropicalis by PCR Not Detected (Not Detect); Enterobacter cloacae Cmplx PCR Not Detected (Not Detect); Enterobacteriaceae by PCR Not Detected (Not Detect); Escherichia coli by PCR Not Detected (Not Detect); Klebsiella oxytoca by PCR Not Detected (Not Detect); Klebsiella pneumoniae by PCR Not Detected (Not Detect); Proteus by PCR Not Detected (Not Detect); Pseudomonas aeruginosa by PCR Not Detected (Not Detect); Serratia marcescens by PCR Not Detected (Not Detect); Streptococcus pneumoniae PCR Not Detected (Not Detect); Streptococcus pyogenes (A) PCR Not Detected (Not Detect)
--- NOTE | 2018-09-02 08:03 | Nephrology Consult Note ---
Date of Encounter: 09/02/18 Time of Encounter: 10:00 Assessment and Plan (1) CESILIA (acute kidney injury) Current Visit: Yes Status: Acute Severe CESILIA on CKD stage IIIB. His renal function appears to have consistently worsened since he was discharged last month. He has symptoms of uremia, and should start dialysis today. I reviewed the indications, risks, benefits, alternatives, and need for a temporary dialysis catheter with the patient and his . He verbally consented to proceed. I contacted and spoke with IR and greatly appreciate their assistance. He revealed that he was taking NSAIDs, and I counseled the patient on steps to follow to protect renal function such as avoidance of NSAIDs, proper diet, improved blood sugar and body weight, and adequate hydration. I have placed orders for dialysis today, and I will reassess tomorrow for fu rther dialysis. There is a chance that he may need chronic dialysis after this admission. If that were to be the case, we would have to hold his anticoagulant for 5 days before placing a Permacath. However, and in the meantime, I recommend following a renal protective strategy: Strict I's and O's, daily weights, avoidance of nephrotoxic agents, renal dosing. Thank you for consulting [facility] on this complex and high risk patient who required a high degree of evaluation and management as well as medical decision making. (2) Anemia in chronic kidney disease Current Visit: Yes Status: Acute Goal Hgb is 10-11. Will monitor. Qualifiers: Chronic kidney disease stage: stage 3 (moderate) Qualified Code(s): N18.3 - Chronic kidney disease, stage 3 (moderate); D63.1 - Anemia in chronic kidney disease (3) CKD (chronic kidney disease), stage III Current Visit: Yes Status: Chronic Baseline CKD stage III (4) Uremia Current Visit: Yes Status: Acute See above (5) Hyponatremia Current Visit: Yes Status: Acute Likely d/t CESILIA and edema. Needs HD today for fluid removal. (6) Pulmonary edema Current Visit: Yes Status: Acute Needs HD today for fluid removal. Qualifiers: Chronicity: acute Qualified Code(s): J81.0 - Acute pulmonary edema History of Present Illness - Reason for Consult Consult date: 09/02/18 Acute Kidney Injury, Chronic Kidney Disease Requesting physician: Moise Dooley - Chief Complaint CESILIA, Uremia - History of Present Illness The patient is a 48-year-old male with a past medical history of obesity and prior acute kidney injury requiring temporary dialysis who presented with worsening fatigue. Nephrology was consulted for urgent dialysis. The patient was [facility] with severe hyperkalemia and CESILIA, a few weeks ago while I was on-call, and I had arranged for him to start dialysis. He tolerated dialysis quite well, and reviewed the progress notes from that admission. My colleague Dr. Johnson rotated on-service, and though her note has not yet been signed by her, the nurse practitioner had written that the patient was to be released with outpt follow up. I see the patient has not yet followed up in the clinic. The patient had labs performed a few days ago, which were markedly worse, and the patient was found to have severe fatigue by his PCP who sent him to the ER. Towards the end of my interview and exam, the patient's walked in to the patient's room on 2A, and she was able to provide further history. It turns out that the patient has been taking ibuprofen 800 mg several times a day. He is no longer taking spironolactone (which was contributing previously to the hyperkalemia), and the patient affirmed having diminished appetite with some nausea and vomiting x2 over the last few days. He affirmed that his edema is chronic, but slightly worsened. He affirmed shortness of breath, occasional chest pains and severe tiredness. Past Med Surg Social Fam HX - Past Medical History Medical history: diabetes, hypertension, other Additional medical history: legally blind in right eye, Left kidney removal in 1999, fractured C4 in 2001 ( as stated by PT). Psychiatric history: no psych history - Past Surgical History Surgical History: other Additional surgical history: left kidney removed, bilat foot surgery - Social History Smoking Status: Current every day smoker Smokeless Tobacco Status: No Alcohol use: none Drug use: none - Family History Father Living Status: Hx Family Cancer: Yes (lung and brain) Medications and Allergies Albuterol Sulfate [Albuterol Inhaler] 2 puff IH Q4H PRN 08/03/18 [History] Amlodipine Besylate 5 mg PO DAILY 08/03/18 [History] Cholecalciferol (Vitamin D3) [Optimal D3] 50,000 unit PO QWEEK 08/03/18 [History] CloNIDine Patch [Catapres-Tts] 0.2 mg TD QWEEK 08/03/18 [History] Furosemide [Lasix] 40 mg PO DAILY 08/03/18 [History] Insulin Glargine,Hum.rec.anlog [Basaglar Kwikpen U-100] 35 unit SQ BID 08/03/18 [History] Insulin LISPRO [HumaLOG] 30 units SQ TID 08/03/18 [History] Losartan/Hydrochlorothiazide [Losartan-Hctz 100-25 mg Tab] 1 each PO DAILY 08/03/18 [History] OxyCODONE/APAP 10/325 [Percocet 10/325 MG] 1 each PO TID PRN 08/03/18 [History] Rivaroxaban [Xarelto] 15 mg PO DAILY 08/03/18 [History] Sertraline [Zoloft] 50 mg PO DAILY 08/03/18 [History] Sertraline [Zoloft] 100 mg PO DAILY 08/03/18 [History] Umeclidinium [place] [Incruse Ellipta] 1 puff IH DAILY 08/03/18 [History] Allergy/AdvReac Type Severity Reaction Status Date / Time No Known Allergies Allergy Verified 05/06/16 14:33 Review of Systems All Systems: reviewed and no additional remarkable complaints except as stated Exam - Vital Signs Vital signs: Initial Vital Signs Temp Pulse Resp BP Pulse Ox 97.6 F 63 14 81/49 91 09/01/18 15:28 09/01/18 15:28 09/01/18 15:28 09/01/18 15:28 09/01/18 15:28 Vital Signs - Last 8 Hours Temp Pulse Resp BP Pulse Ox 09/02/18 07:55 98 F 78 20 109/65 97 Intake and Output 09/01/18 09/02/18 09/02/18 23:59 07:59 15:59 Intake Total 1010 / 1010 Balance 1010 / 1010 Intake: IV Fluids 1010 / 1010 0.9 % Sodium Chloride 1,000 ML 1000 / 1000 @ 999 mls/hr IVC .Q1H1M ONE Rx# :[id number] Rocephin 1,000 MG In Water for inj. (sterile) 10 ML @ 600 mls/ hr IVP ONCE ONE Rx#:[id number] Other: Weight 125.6 kg Blood Glucose* 176 152 - General Appearance General appearance: well-developed, obese, fatigue, frail EENT: ATNC, mucous membranes moist Neck: no JVD, supple Respiratory: clear (but diminished in the bases bilaterally) Cardiology: edema (1-2+ pretibial pitting edema b/l), regular rate, regular rhythm, normal S1, normal S2 Gastrointestinal: normoactive bowel sounds, no tenderness, no guarding, obese Additional Comments: right food dressing was C/D/I Neurologic: disoriented Musculoskeletal: no cyanosis Psychiatric: cooperative Results - Lab Results 09/02/18 10:05 09/01/18 15:33 Most recent lab results Calcium 8.2 mg/dL (8.6-10.3) L 09/01/18 15:33 36.3 mEq/L 09/01/18 16:29 Consult Discharge Plan - Plan Referrals: José Miguel Negro MD [Primary Care Provider] -
[2018-09-02] MEDS ORDERED: 0.9 % Sodium Chloride 1,000 ML ONE (08:22)
[2018-09-02] MEDS: Piperacillin/Tazobactam 3.375 GM in 0.9 % Sodium Chloride Mini Bag 100 ML IVPB SCH ×2 (09:01→21:08)
[2018-09-02] MEDS: Insulin LISPRO 300 UNITS/3 ML VIAL SQ SCH ×5 (09:01→21:09)
[2018-09-02] MEDS ORDERED: *HR* OxyCODONE/APAP 7.5/325 TABLET PO PRN (10:01)
[2018-09-02 10:39] LABS: Hematocrit 23.5 % (37.5-50.1); Mean Corpuscular Hemoglobin 28.7 pg (28.0-33.3); Mean Corpuscular Volume 84.2 fL (83.0-100.0); Platelet Count 134 K/mcL (140-400); Red Blood Count 2.79 M/mcL (4.19-5.50); Red Cell Distribution Width 14.3 % (11.5-14.5)
[2018-09-02 11:12] LABS: Lymphocytes # 1.3 K/mcL (0.6-4.6); Monocytes # 0.2 K/mcL (0.0-1.3); Neutrophils # 15.3 K/mcL (1.6-8.9)
[2018-09-02 11:13] LABS: Platelet Estimate Normal (Normal); Polychromasia 1+ (Not Present); Toxic Granulation Present (Not Present)
[2018-09-02 11:14] LABS: Poikilocytosis 1+ (Not Present)
[2018-09-02] MEDS ORDERED: *HR* Heparin 5,000 UNIT/ML VIAL ONE (14:30)
--- NOTE | 2018-09-02 15:18 | IR Procedure Note ---
Date of procedure: 09/02/18 Consent Obtained: Verbal consent, Written consent Timeout: Correct patient and procedure verified, Correct site verified, Time out performed, Skin prep completed Local anesthetic: Lidocaine 1% Indications: Renal Failure Procedure Performed: Temp HD catheter placement Was there an quality assurance assistant present: No Site/Technique: Right IJ HD catheter placed using ultrasound guidance Results/Findings: temp HD catheter placed Estimated blood loss (cc): 1 Complications: None; Tolerated procedure well Post Procedure Treatment Plan: OK to use HD catheter as needed Specimen: None
--- NOTE | 2018-09-02 17:55 | Internal Med Progress Note ---
Hospitalist Progress Note - Encounter Date of Encounter: 09/02/18 Time of Encounter: 17:00 - Subjective Interval History: SUBJECTIVE: The patient feels weak and tired. He has not had any fever or chills recently. He continues to have significant pain in the area of right foot. He has made a roughly about 300 mL of urine since admitting him to the hospital floor. Denies chest pain. Denies difficulty breathing. He is on 2 L/min nasal cannula oxygen. OBJECTIVE: Skin: Free of rash and discoloration. There is a chronic wound/Charcot joint in the right foot. ENMT: Oral/pharyngeal mucosa is normal in appearance. Eyes: Sclera is white. There is no discharge from eyes. Respiratory: Normal breath sounds. I cannot hear any rhonchi or wheezes. CV: Heart is irregularly irregular with no audible murmur. GI: Abdomen is soft and not tender. There is no palpable mass or visceromegaly. Neuro: There is no focal deficits. ADDITIONAL DATA: CBC 16.8 thousand; 13.5 thousand at admission. With hemoglobin of 8.0 (8.4 at admission). His BMP from yesterday showed creatinine of 6.57 with GFR of 9. With sodium of 129, potassium 3.7, chloride 96 and bicarb of 18. ASSESSMENT AND PLAN: Acute kidney injury in a patient with underlying CKD stage III due to type 2 diabetes mellitus and hypertension. The patient got temporary hemodialysis catheter; he will get hemodialysis today. He has had a chronic infection/Charcot joint in the area of her right foot. To continue daily dressing care, as it was advised by the patients . He is on IV vancomycin and IV Zosyn. He gets up when necessary Percocet for pain control. Type 2 diabetes mellitus with CKD stage III. Charcot joint, right foot. I will keep this patient on Levemir and when necessary Humalog. Anemia of chronic kidney disease. He will likely need blood transfusion. To be decided by the nephrology service. Atrial fibrillation. Rate controlled. We keep his Xarelto on hold. He had temporary hemodialysis catheter inserted today. COPD. Stable. To continue when necessary DuoNeb. - Exam Vitals: Temp Pulse Resp BP Pulse Ox 99.2 F 85 20 102/63 91 09/02/18 15:33 09/02/18 15:33 09/02/18 15:33 09/02/18 15:33 09/02/18 15:33 Exam: xx - Assessment and Plan (1) CESILIA (acute kidney injury) Current Visit: Yes Status: Acute (2) T2DM (type 2 diabetes mellitus) Current Visit: Yes Status: Chronic (3) Anemia in chronic kidney disease Current Visit: Yes Status: Acute (4) Hypotension Current Visit: No Status: Acute (5) Atrial fibrillation, chronic Current Visit: Yes Status: Chronic (6) COPD (chronic obstructive pulmonary disease) Current Visit: Yes Status: Chronic - Time Spent with Patient Total time spent is greater than 50% in coordination of care (as documented) at patient's floor/unit and/or counseling patient: 25 - 35 minutes Plan of Care Discussed with: patient Internal Medicine: Result - Labs CBC & Chem 7: 09/02/18 10:05 09/01/18 15:33 Labs: Short CBC 09/02/18 Range/Units 10:05 WBC 16.8 H (4.3-11.1) K/mcL Hgb 8.0 L (12.9-16.9) g/dL Hct 23.5 L (37.5-50.1) % Plt Count 134 L (140-400) K/mcL Neutrophils # 15.3 H (1.6-8.9) K/mcL - ABG Interpretation ABG results: PT/INR, D-dimer PT 13.3 Seconds (9.4-12.1) H 09/01/18 15:33 - Impressions Impressions Chest X-Ray 09/02/18 15:14 IMPRESSION: Right central venous catheter place terminating in the SVC Persistent pulmonary edema D/ / Ismael Junior MD / Ismael Junior MD Interpreting Provider: Ismael Junior MD Consult Discharge Plan - Plan Referrals: José Miguel Negro MD [Primary Care Provider] - (2) T2DM (type 2 diabetes mellitus) Qualifiers: Diabetes mellitus rodent exterminator insulin use: without retirement use Diabetes mellitus complication status: with kidney complications Diabetes mellitus complication detail: with chronic kidney disease Chronic kidney disease stage: stage 3 (moderate) Qualified Code(s): E11.22 - Type 2 diabetes mellitus with diabetic chronic kidney disease; N18.3 - Chronic kidney disease, stage 3 (moderate) (3) Anemia in chronic kidney disease Qualifiers: Chronic kidney disease stage: stage 3 (moderate) Qualified Code(s): N18.3 - Chronic kidney disease, stage 3 (moderate); D63.1 - Anemia in chronic kidney disease (4) Hypotension Qualifiers: Hypotension type: hypotension due to hypovolemia Qualified Code(s): I95.89 - Other hypotension; E86.1 - Hypovolemia (6) COPD (chronic obstructive pulmonary disease) Qualifiers: Emphysema type: unspecified Qualified Code(s): J43.9 - Emphysema, unspecified
[2018-09-02] MEDS: Insulin DETEMIR 100 UNIT/ML X5UNITS SQ SCH (21:08)
[2018-09-03] MEDS ORDERED: *HR* LORazepam 2 MG/ML VIAL IVP ONE (01:34)
[2018-09-03] MEDS ORDERED: *HR* LORazepam 2 MG/ML VIAL ONE (01:36)
[2018-09-03] MEDS: Insulin LISPRO 300 UNITS/3 ML VIAL SQ SCH ×5 (02:19→20:28)
--- NOTE | 2018-09-03 02:43 | Event Note ---
Date of Encounter: 09/02/18 Time of Encounter: 22:07 Alerted by pts. nurse MATT Shah that the pts. Blanco was removed today at his request. Pt. has not voided since his first dialysis today. Report states if unable to void then straight cath or insert Blanco. Pt. also has 24 hour urine ordered. Order for Blanco placed w/removal by provider's order and for acute urinary retention. PRN bladder scans ordered as well. Alerted by pts. nurse at 00:55 that pt. was now awake (pt. was somnolent yesterday and during day today) and stating that he felt strange. He states that he feels paralyzed and weak. Nurse reported pt. A&O to name, place, and birthdate but thinks it is 2017. Pt. told nurse he felt like he was going to . VS WNL. Went to see pt. immediately who was resting in bed and arousable but would go back to sleep. Pt. did not remember being dialyzed today. On exam, pt. weak in bilateral UEs and LEs. Reports CP and headache. I asked the pt. if he suffers from anxiety whish he stated yes. He reports taking Zoloft. Stat EKG showed sinus rhythm with first- degree AV block. Stat troponin 0.04, down from 0.[address] of the head w/o contrast ordered d/t neuro-type sx which showed ventricles are midline in position. No intracerebral masses are identified. No mass effect or midline shift noted. No acute intracranial hemorrhage is seen. No focal white matter lesions. No significant change from prior. Visualized portion of the orbits demonstrate no acute abnormality. Mild mucosal thickening is seen in the ethmoid air cells on the right as well as the right maxillary sinus. No significant mastoid opacification noted. Right supraorbital skin thickening is seen. Mild paranasal sinus disease. Pts. BG 278 so HS coverage given. One-time order of 0.5 mg IVP lorazepam ordered for patient's anxiety. Discussed pt. w/Dr. Hamilton who feels that pts. sx are likely d/t electrolyte shift from first dialysis. Troponin is likely reactive as well. Pts. WBC increased to 16.8 on 09/02. I ordered vancomycin with pharmacy pulse dosing and Zosyn with renal dosing yesterday for infection coverage. Lactic acid ordered for 04:00 labs. Nurse instructed to continue monitoring the pt. very closely and alert me immediately of any adverse changes.
[2018-09-03 04:32] LABS: Hematocrit 19.9 % (37.5-50.1); Mean Corpuscular HGB Conc 35.2 g/dL (31.6-35.5); Mean Corpuscular Volume 82.6 fL (83.0-100.0); Mean Platelet Volume 10.8 fL (9.4-12.4); Nucleated Red Blood Cells 0.1 /100 WBC (0); Platelet Count 128 K/mcL (140-400); Red Blood Count 2.41 M/mcL (4.19-5.50)
[2018-09-03 04:46] LABS: Calcium 7.3 mg/dL (8.6-10.3); Potassium 3.8 mEq/L (3.5-5.1)
[2018-09-03] MEDS ORDERED: Acetaminophen IV 500 MG/50 ML INFUS..BTL IVPB ONE (04:52)
[2018-09-03 05:22] LABS: Lymphocytes # 0.9 K/mcL (0.6-4.6); Monocytes # 0.9 K/mcL (0.0-1.3); Neutrophils # 13.3 K/mcL (1.6-8.9)
[2018-09-03 05:23] LABS: Hypochromasia Present (Not Present); Platelet Estimate Decreased (Normal)
[2018-09-03] MEDS: Piperacillin/Tazobactam 3.375 GM in 0.9 % Sodium Chloride Mini Bag 100 ML IVPB SCH ×2 (05:46→18:05)
[2018-09-03] MEDS ORDERED: 0.9 % Sodium Chloride 250 ML ONE (05:53)
--- NOTE | 2018-09-03 06:46 | Nephrology Progress Note ---
Date of Encounter: 09/03/18 Time of Encounter: 08:00 - Assessment and Plan (1) CESILIA (acute kidney injury) Current Visit: Yes Status: Acute Severe CESILIA on CKD stage IIIB. His renal function appears to have consistently worsened since he was discharged last month. Next HD recommended for tomorrow. Continue following a renal protective strategy: Strict I's and O's, daily weights, avoidance of nephrotoxic agents, renal dosing. Thank you (2) Anemia in chronic kidney disease Current Visit: Yes Status: Acute Goal Hgb is 10-11. Will monitor. Will assess for UCHE needs. Qualifiers: Chronic kidney disease stage: stage 3 (moderate) Qualified Code(s): N18.3 - Chronic kidney disease, stage 3 (moderate); D63.1 - Anemia in chronic kidney disease (3) CKD (chronic kidney disease), stage III Current Visit: Yes Status: Chronic Baseline CKD stage III (4) Uremia Current Visit: Yes Status: Acute (5) Hyponatremia Current Visit: Yes Status: Acute (6) Pulmonary edema Current Visit: Yes Status: Acute Qualifiers: Chronicity: acute Qualified Code(s): J81.0 - Acute pulmonary edema Subjective Principal diagnosis: CESILIA Interval history: Pt was s/e in his 2A room. His spouse was present and updated, and I answered all her questions. She thanked me. He reported still having fatigue and has largely remained in the bed. He did not affirm CP or N/V/D. Objective - Vital Signs Vital signs: Vital Signs Temp Pulse Resp BP Pulse Ox 09/03/18 06:24 98.3 F 81 20 112/68 97 09/03/18 03:52 85 121/74 96 09/03/18 03:37 86 115/72 96 09/03/18 03:31 97.4 F L 89 17 113/72 96 09/03/18 03:22 89 113/72 96 09/03/18 03:07 86 110/72 96 09/03/18 02:52 86 109/59 97 09/03/18 02:37 85 109/70 96 09/03/18 02:25 88 114/72 96 09/03/18 02:07 98.3 F 88 113/72 96 09/03/18 00:45 98.2 F 90 20 121/69 96 09/02/18 23:21 97.7 F 90 17 118/70 93 09/02/18 19:52 98.6 F 89 18 103/66 92 09/02/18 19:30 97.1 F L 18 115/69 09/02/18 19:20 100/47 09/02/18 19:05 106/53 09/02/18 18:50 123/56 09/02/18 18:35 111/62 09/02/18 18:20 113/68 09/02/18 18:05 99/60 09/02/18 17:50 103/60 09/02/18 17:35 118/88 09/02/18 17:20 101/60 09/02/18 17:05 109/60 09/02/18 16:50 104/68 09/02/18 16:35 99/63 09/02/18 16:20 98.9 F 18 114/55 09/02/18 15:33 99.2 F 85 20 102/63 91 09/02/18 12:05 97.5 F L 85 20 98/60 94 09/02/18 07:55 98 F 78 20 109/65 97 Intake and Output 09/02/18 09/02/18 09/03/18 15:59 23:59 07:59 Intake Total 240 / 840 600 / 840 100 / 100 Output Total 1600 / 1600 Balance 240 / -760 -1000 / -760 100 / 100 Intake: IV Fluids 100 / 100 Zosyn 3.375 GM In 0.9 % Sodium 100 / 100 Chloride (Mini-Bag +) 100 ML @ 25 mls/hr IVPB Q12HR [facility] Rx#: [id number] Oral 240 / 240 0 / 240 Blood Product 0 / 0 Rbcs Leuko Poor As-1 Unit 0 / 0 [id number] Intake, Rinseback and Flushes 600 / 600 Output: Urine 0 / 0 Total Dialysis (HD) Output 1600 / 1600 Other: Meal Breakfast Percent of Meal Consumed 100% Blood Glucose* 253 233 278 Hemodialysis Net Fluid Removed 1000 (mL) - General Appearance Exam: General appearance: well-developed, obese, fatigue, frail EENT: ATNC, mucous membranes moist Neck: no JVD, supple Respiratory: clear (but diminished in the bases bilaterally) Cardiology: edema (1+ pretibial pitting edema b/l), regular rate, regular rhythm, normal S1, normal S2 Gastrointestinal: normoactive bowel sounds, no tenderness, no guarding, obese Additional Comments: right food dressing was C/D/I Neurologic: awake, moves all four extremities Musculoskeletal: no cyanosis Psychiatric: cooperative - Lab 09/03/18 03:55 09/03/18 03:55 Most recent lab results 09/03/18 03:55 Calcium 7.3 L Consult Discharge Plan - Plan Referrals: José Miguel Negro MD [Primary Care Provider] -
--- NOTE | 2018-09-03 10:46 | Electrocardiograph Report ---
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
--- NOTE | 2018-09-03 11:17 | Electrocardiograph Report ---
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
--- NOTE | 2018-09-03 16:09 | Internal Med Progress Note ---
Hospitalist Progress Note - Encounter Date of Encounter: 09/03/18 Time of Encounter: 16:08 - Exam Vitals: Temp Pulse Resp BP Pulse Ox 97.6 F 85 20 133/83 98 09/03/18 15:54 09/03/18 15:54 09/03/18 15:54 09/03/18 15:54 09/03/18 15:54 Exam: xx - Assessment and Plan (1) CESILIA (acute kidney injury) Current Visit: Yes Status: Acute (2) Infection of right foot Current Visit: Yes Status: Acute (3) T2DM (type 2 diabetes mellitus) Current Visit: Yes Status: Chronic (4) Anemia in chronic kidney disease Current Visit: Yes Status: Acute (5) Hypotension Current Visit: No Status: Acute (6) Atrial fibrillation, chronic Current Visit: Yes Status: Chronic (7) COPD (chronic obstructive pulmonary disease) Current Visit: Yes Status: Chronic - Time Spent with Patient Total time spent is greater than 50% in coordination of care (as documented) at patient's floor/unit and/or counseling patient: 25 - 35 minutes Plan of Care Discussed with: patient Internal Medicine: Result - Labs CBC & Chem 7: 09/03/18 03:55 09/03/18 03:55 Labs: Short CBC 09/03/18 Range/Units 03:55 WBC 15.5 H (4.3-11.1) K/mcL Hgb 7.0 L (12.9-16.9) g/dL Hct 19.9 L (37.5-50.1) % Plt Count 128 L (140-400) K/mcL Neutrophils # 13.3 H (1.6-8.9) K/mcL BMP 09/03/18 03:55 Sodium 128 L Potassium 3.8 Chloride 98 Carbon Dioxide 25 BUN 70 H Creatinine 4.50 H Glucose 270 H Calcium 7.3 L Cardiac Enzymes 09/03/18 Range/Units 01:00 Troponin I 0.04 H* (< 0.04) ng/mL - ABG Interpretation ABG results: PT/INR, D-dimer PT 13.3 Seconds (9.4-12.1) H 09/01/18 15:33 - Impressions Impressions Guidance Ultrasound 09/02/18 00:00 IMPRESSION: Ultrasound-guided temporary right IJ hemodialysis catheter. No immediate complications. D/ / Carlitos Fuchs MD / Carlitos Fuchs MD Interpreting Provider: Carlitos Fuchs MD Insertion Non-Tunneled Catheter 09/02/18 00:00 IMPRESSION: Ultrasound-guided temporary right IJ hemodialysis catheter. No immediate complications. D/ / Carlitos Fuchs MD / Carlitos Fuchs MD Interpreting Provider: Carlitos Fuchs MD Head CT 09/03/18 01:24 IMPRESSION: No acute intracranial abnormality.. No significant change Mild paranasal sinus disease D/ / Marcos Diop MD / Marcos Diop MD Interpreting Provider: Mracos Diop MD Consult Discharge Plan - Plan Referrals: José Miguel Negro MD [Primary Care Provider] - (3) T2DM (type 2 diabetes mellitus) Qualifiers: Diabetes mellitus intermediate manager insulin use: without intermediate manager use Diabetes mellitus complication status: with kidney complications Diabetes mellitus complication detail: with chronic kidney disease Chronic kidney disease stage: stage 3 (moderate) Qualified Code(s): E11.22 - Type 2 diabetes mellitus with diabetic chronic kidney disease; N18.3 - Chronic kidney disease, stage 3 (moderate) (4) Anemia in chronic kidney disease Qualifiers: Chronic kidney disease stage: stage 3 (moderate) Qualified Code(s): N18.3 - Chronic kidney disease, stage 3 (moderate); D63.1 - Anemia in chronic kidney disease (5) Hypotension Qualifiers: Hypotension type: hypotension due to hypovolemia Qualified Code(s): I95.89 - Other hypotension; E86.1 - Hypovolemia (7) COPD (chronic obstructive pulmonary disease) Qualifiers: Emphysema type: unspecified Qualified Code(s): J43.9 - Emphysema, unspecified
[2018-09-03] MEDS ORDERED: Insulin DETEMIR 100 UNIT/ML X5UNITS SQ SCH (21:00)
[2018-09-04 04:15] LABS: Basophils % 0.2 %; Eosinophils % 0.2 %; Hematocrit 21.8 % (37.5-50.1); Hemoglobin 7.5 g/dL (12.9-16.9); Immature Granulocytes % 8.7 % (0-4); Lymphocytes # 0.8 K/mcL (0.6-4.6); Lymphocytes % 6.3 %; Mean Corpuscular HGB Conc 34.4 g/dL (31.6-35.5); Mean Corpuscular Hemoglobin 29.3 pg (28.0-33.3); Mean Corpuscular Volume 85.2 fL (83.0-100.0); Mean Platelet Volume 9.8 fL (9.4-12.4); Monocytes # 0.8 K/mcL (0.0-1.3); Monocytes % 6.2 %; Neutrophils # 10.2 K/mcL (1.6-8.9); Nucleated Red Blood Cells 0.2 /100 WBC (0); Platelet Count 123 K/mcL (140-400); Red Blood Count 2.56 M/mcL (4.19-5.50); Red Cell Distribution Width 14.5 % (11.5-14.5); Segmented Neutrophils % 78.4 %
[2018-09-04 04:35] LABS: Calcium 7.6 mg/dL (8.6-10.3)
[2018-09-04 04:47] LABS: Platelet Estimate Decreased (Normal)
[2018-09-04] MEDS: Piperacillin/Tazobactam 3.375 GM in 0.9 % Sodium Chloride Mini Bag 100 ML IVPB SCH ×3 (04:56→18:00)
[2018-09-04] MEDS ORDERED: 0.9 % Sodium Chloride 250 ML IVC PRN (06:30)
[2018-09-04] MEDS: Insulin LISPRO 300 UNITS/3 ML VIAL SQ SCH ×5 (07:40→17:59)
[2018-09-04] MEDS ORDERED: 0.9 % Sodium Chloride 2,000 ML ONE (07:48)
[2018-09-04] MEDS ORDERED: Insulin Human Regular 10 UNIT in 0.9 % Sodium Chloride 10 ML IV ONE (10:57)
--- NOTE | 2018-09-04 11:46 | Nephrology Progress Note ---
Date of Encounter: 09/04/18 Time of Encounter: 08:25 - Assessment and Plan (1) CESILIA (acute kidney injury) Current Visit: Yes Status: Acute HD ordered for today (Tuesday) Next HD planned for Tuesday. I reviewed the pt's vital sign and lab trends, meds, I/Os and progress notes, which I used to evaluate and then compose HD orders. Severe CESILIA on CKD stage IIIB. His renal function appears to have consistently worsened since he was discharged last month. Continue following a renal protective strategy: Strict I's and O's, daily weights, avoidance of nephrotoxic agents, renal dosing. Given that he has had back to back AKIs, there is a chance he may need assisted HD. Will need to monitor renal function to decide. Thank you (2) Anemia in chronic kidney disease Current Visit: Yes Status: Acute Qualifiers: Chronic kidney disease stage: stage 3 (moderate) Qualified Code(s): N18.3 - Chronic kidney disease, stage 3 (moderate); D63.1 - Anemia in chronic kidney disease (3) CKD (chronic kidney disease), stage III Current Visit: Yes Status: Chronic (4) Uremia Current Visit: Yes Status: Acute (5) Hyponatremia Current Visit: Yes Status: Acute (6) Pulmonary edema Current Visit: Yes Status: Acute Qualifiers: Chronicity: acute Qualified Code(s): J81.0 - Acute pulmonary edema (7) Anemia Current Visit: Yes Status: Acute Goal Hgb is 10-11. Appreciate GI work up. In the meantime, now that he's requiring HD, I d recommend adding an UCHE. Qualifiers: Anemia type: other cause Other causes of anemia: other cause, not classified Qualified Code(s): D64.89 - Other specified anemias (8) Cellulitis Current Visit: Yes Status: Acute Qualifiers: Site of cellulitis: unspecified site Qualified Code(s): L03.90 - Ce llulitis, unspecified (9) Solitary kidney, acquired Current Visit: Yes Status: Acute History of left nephrectomy Subjective Principal diagnosis: CESILIA Interval history: Pt was s/e in his 2A room. His spouse was present and updated, and I answered all her questions. He again affirming feeling very fatigued. He did not affirm CP or N/V/D. Objective - Vital Signs Vital signs: Vital Signs Temp Pulse Resp BP Pulse Ox 04/29/19 07:23 98.3 F 82 18 134/70 98 09/04/18 04:10 98.7 F 102 18 175/74 96 09/04/18 00:10 98.4 F 79 20 130/70 97 09/03/18 19:39 98.2 F 84 17 138/76 97 09/03/18 15:54 97.6 F 85 20 133/83 98 Intake and Output 09/03/18 09/04/18 09/04/18 23:59 07:59 15:59 Intake Total 600 / 1320 50 / 530 480 / 530 Output Total 1600 / 1600 650 / 650 Balance -1000 / -280 -600 / -120 480 / -120 Intake: IV Fluids 600 / 800 50 / 50 Ofirmev 1,000 mg/100 ml 500 mg 50 / 50 In 50 ml @ 200 mls/hr IVPB ONCE ONE Rx#:[id number] Zosyn 3.375 GM In 0.9 % Sodium 100 / 300 Chloride (Mini-Bag +) 100 ML @ 25 mls/hr IVPB Q12HR [facility] Rx#: [id number] Vancocin 1,750 MG In 0.9 % 500 / 500 Sodium Chloride 500 ML @ 333.3 mls/hr IVPB ONCE ONE Rx#: [id number] Oral 480 / 480 Output: Catheter 1600 / 1600 650 / 650 Urethral (Blanco) 650 / 650 Other: Meal Breakfast Percent of Meal Consumed 100% Weight 126.2 kg Blood Glucose* 474 365 Patient Weight 09/04/18 23:59 Weight 126.2 kg - General Appearance Exam: General appearance: well-developed, obese, fatigue, frail EENT: ATNC, mucous membranes moist Neck: no JVD, supple Respiratory: clear (but diminished in the bases bilaterally) Cardiology: primarily pedal edema (1+ pretibial pitting edema b/l), regular rate, regular rhythm, normal S1, normal S2 Gastrointestinal: normoactive bowel sounds, no tenderness, no guarding, obese Additional Comments: right food dressing was C/D/I Neurologic: awake, moves all four extremities Musculoskeletal: no cyanosis Psychiatric: cooperative - Lab 09/04/18 04:00 09/04/18 04:00 Most recent lab results 09/04/18 04:00 Calcium 7.6 L Consult Discharge Plan - Plan Instructions: Tamsulosin (By mouth) Referrals: José Miguel Negro MD [Primary Care Provider] -
--- NOTE | 2018-09-04 13:03 | Podiatry Consult Note ---
Date of Encounter: 09/04/18 Time of Encounter: 12:30 Assessment and Plan (1) Chronic ulcer of right foot with fat layer exposed Current visit: Yes Status: Acute Assessment: -Charcot of right foot with Figueredo Stage III ulcers noted dorsal aspect at ankle , plantar aspect , and lateral aspect -WBC 13.0 -Hgb A1c 8.1 on 04/11/2018 -Wound culture right foot preliminary: Proteus mirabilis and Strep agalactiae (Group B) -Blood cultures x 2 preliminary: Proteus mirabilis, Strep agalactiae (group B), and Staphylococcus aureus -Receiving IV Zosyn -MRI: IMPRESSION: 1. Plantar soft tissue ulcer at the level of the cuboid with suspected interval soft tissue graft placement. There is edema of the graft which may reflect soft tissue infection. 2. Suspected lateral soft tissue ulceration with associated phlegmonous change at the level of the inframalleolar peroneal tendons. There is new tenosynovitis and complete full-thickness peroneal tendon tears. The tenosynovitis may be infectious. 3. New multifocal marrow signal abnormality involving the talus, calcaneus, cuboid and navicular, suspicious for osteonecrosis and less likely osteomyelitis. 4. Persistent marrow signal abnormality in the cuboid which is suspicious for osteomyelitis. A chronic cuboid erosion or defect is noted. 5. 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 6. Underlying neuropathic arthropathy. Plan: -ESR -CRP -Hgb A1c -Dressing change -Sites flushed with sterile .9Ns and pat dry -Covered with silver alginate, 4x4 dry gauze, and Kerlix -Secured with tape -Bilateral heels elevated off bed -Recommend ID consult History of Present Illness HPI: Mr. Perkins is a 48 year old male who was admitted to the hospital for confusion after starting Flexeril and decreased urinary output. Patient does have a past medical history of CKD stage III, DM, HTN, hemodialysis, COPD, chronic atrial fibrillation, and Charcot of the right foot. Podiatry was consulted due to his chronic ulcers right foot and Charcot. He is not new to podiatry and has been treated by Dr. Ferrell and Dr. Ervin. He last saw Dr. Ferrell on 07/28/2018 and refused further surgery. He was given dressing supplies for daily silver alginate dressing changes. He denies any changes in his foot and his reports it looks better. She had completed his dressing change around 1000 today. Patient and are still adamant that they do want the patient to have surgery. Patient denies any chest pain or shortness of breath. He does report bilateral calf tenderness for one week. He denies any fever, chills, nausea, or vomiting. Past Med Surg Social Fam HX - Past Medical History Medical history: diabetes, hypertension, other Additional medical history: legally blind in right eye, Left kidney removal in 1999, fractured C4 in 2001 ( as stated by PT). Psychiatric history: no psych history - Past Surgical History Surgical History: other Additional surgical history: left kidney removed, bilat foot surgery - Social History Smoking Status: Current every day smoker Smokeless Tobacco Status: No Alcohol use: none Drug use: none - Family History Father Living Status: Hx Family Cancer: Yes (lung and brain) Medications and Allergies Albuterol Sulfate [Albuterol Inhaler] 2 puff IH Q4H PRN 08/03/18 [History] Amlodipine Besylate 5 mg PO DAILY 08/03/18 [History] Cholecalciferol (Vitamin D3) [Optimal D3] 50,000 unit PO QWEEK 08/03/18 [History] CloNIDine Patch [Catapres-Tts] 0.2 mg TD QWEEK 08/03/18 [History] Furosemide [Lasix] 40 mg PO DAILY 08/03/18 [History] Insulin Glargine,Hum.rec.anlog [Basaglar Kwikpen U-100] 35 unit SQ BID 08/03/18 [History] Insulin LISPRO [HumaLOG] 30 units SQ TID 08/03/18 [History] Losartan/Hydrochlorothiazide [Losartan-Hctz 100-25 mg Tab] 1 each PO DAILY 0 08/03/18 [History] OxyCODONE/APAP 10/325 [Percocet 10/325 MG] 1 each PO TID PRN 08/03/18 [History] Rivaroxaban [Xarelto] 15 mg PO DAILY 08/03/18 [History] Sertraline [Zoloft] 50 mg PO DAILY 08/03/18 [History] Sertraline [Zoloft] 100 mg PO DAILY 08/03/18 [History] Umeclidinium [place] [Incruse Ellipta] 1 puff IH DAILY 08/03/18 [History] Allergy/AdvReac Type Severity Reaction Status Date / Time No Known Allergies Allergy Verified 05/06/16 14:33 All Systems Reviewed: The remainder of the systems were reviewed and are negative Review of systems: As per HPI - Cardiovascular Cardiovascular: no chest pain - Respiratory Respiratory: no dyspnea Physical Exam - Constitutional Vitals: Temp Pulse Resp BP Pulse Ox 97.4 F L 84 18 175/84 98 09/04/18 11:50 09/04/18 11:50 09/04/18 11:50 09/04/18 11:50 09/04/18 11:50 Exam: Constitutional: Alert and oriented x 3, ill appearing but in no acute distress Vascular: 2/4 PT/DP pulse, cap refill less than 3 seconds, no pain with calf squeeze Neurological: Diminished protective sensation, abnormal proprioception Dermatological: Charcot of right foot with Figueredo Stage II ulcers noted dorsal aspect at ankle, plantar aspect , and lateral aspect. Necrotic tissue noted to base of wound right lateral ulcer with sloughing tissue around site and erythema. Ulcer plantar aspect with necrotic tissue at wound base anf granular tissue around wound edges. Discoloration noted dorsal aspect with necrotic tissue noted around wound edges and wound base with granular tissue. Musculoskeletal: 3/5 muscle strength Results - Labs Result Diagrams: 09/04/18 04:00 09/04/18 04:00 Labs: Abnormal lab results WBC 13.0 K/mcL (4.3-11.1) H 09/04/18 04:00 RBC 2.56 M/mcL (4.19-5.50) L 09/04/18 04:00 Hgb 7.5 g/dL (12.9-16.9) L 09/04/18 04:00 Hct 21.8 % (37.5-50.1) L 09/04/18 04:00 MCV 82.6 fL (83.0-100.0) L 09/03/18 03:55 Plt Count 123 K/mcL (140-400) L 09/04/18 04:00 Immature Gran % 8.7 % (0-4) H 09/04/18 04:00 6.0 % (0-4) H 09/02/18 10:05 2.0 % (0) H 09/03/18 03:55 10.2 K/mcL (1.6-8.9) H 09/04/18 04:00 Nucleated RBCs/100 WBC 0.2 /100 WBC (0) H 09/04/18 04:00 Present (Not Present) A 09/02/18 10:05 Decreased (Normal) L 09/04/18 04:00 1+ (Not Present) A 09/02/18 10:05 Present (Not Present) A 09/03/18 03:55 1+ (Not Present) A 09/02/18 10:05 PT 13.3 Seconds (9.4-12.1) H 09/01/18 15:33 Sodium 128 mEq/L (136-145) L 09/04/18 04:00 Chloride 96 mEq/L (98-107) L 09/04/18 04:00 Carbon Dioxide 18 mEq/L (23-29) L 09/01/18 15:33 BUN 77 mg/dL (6-20) H 09/04/18 04:00 4.17 mg/dL (0.70-1.30) H 09/04/18 04:00 Est GFR ( Amer) 19 (> 60) L 09/04/18 04:00 Est GFR (Non-Af Amer) 15 (> 60) L 09/04/18 04:00 Glucose 350 mg/dL (70-105) H 09/04/18 04:00 POC Glucose 397 mg/dL (70-99) H 09/04/18 00:19 303 (280-300) H 09/04/18 04:00 Calcium 7.6 mg/dL (8.6-10.3) L 09/04/18 04:00 0.3 mg/dL (0.0-0.2) H 09/01/18 15:33 122 Units/L (34-104) H 09/01/18 15:33 0.04 ng/mL (< 0.04) H* 09/03/18 01:00 6.1 g/dL (6.4-8.9) L 09/01/18 15:33 2.7 g/dL (3.5-5.7) L 09/01/18 15:33 0.8 (1.1-2.2) L 09/01/18 15:33 [place] (Yellow) A 09/01/18 Unknown Cloudy (Clear) A 09/01/18 Unknown Ur Specific [place] 1.029 (1.010-1.025) H 09/01/18 Unknown 30 mg/dL (Neg-Trace) H 09/01/18 Unknown 100 mg/dL (Normal) H 09/01/18 Unknown Trace mg/dL (Negative) H 09/01/18 Unknown Trace (Negative) H 09/01/18 Unknown Moderate (Negative) H 09/01/18 Unknown 4.0 mg/dL (Normal) H 09/01/18 Unknown Ur Leukocyte Esterase Small (Negative) H 09/01/18 Unknown 5-15 per hpf (0-3) H 09/01/18 Unknown Ur Squamous Epith Cells Many per lpf (None-Few) H 09/01/18 Unknown Ur Culture Indicated? NO. (NO) A 09/01/18 Unknown Positive ng/mL (Fcubvq=259) H 09/01/18 16:29 Hep Bs Antibody 4.61 mIU/mL (10.00-) L 09/01/18 20:52 Staphylococcus sp PCR DETECTED (Not Detect) A 09/01/18 15:58 Staph aureus (PCR) DETECTED (Not Detect) A 09/01/18 15:58 Streptococcus sp PCR DETECTED (Not Detect) A 09/01/18 15:58 Group B Strep (PCR) DETECTED (Not Detect) A 09/01/18 15:58 Crossmatch Prewarmed See Detail 09/01/18 16:55 H & H 09/04/18 Range/Units 04:00 Hgb 7.5 L (12.9-16.9) g/dL Hct 21.8 L (37.5-50.1) % All other labs normal. Consult Discharge Plan - Plan Instructions: Tamsulosin (By mouth) Referrals: José Miguel Negro MD [Primary Care Provider] -
[2018-09-04] MEDS ORDERED: Aminoglycoside Consult 1 EACH MC ONE (14:17)
[2018-09-04 14:56] LABS: Estimated Average Glucose 197 mg/dl; Hemoglobin A1C 8.5 %
[2018-09-04 15:05] LABS: Total Volume 24 Hour,Urine 1.15 Liters (0.80-1.80)
[2018-09-04 15:32] LABS: Protein/Creatinine Ratio,Urine 1.76 mg/mg (0.00-0.20); Sodium, Urine 28.9 mEq/L
--- NOTE | 2018-09-04 22:12 | Internal Med Progress Note ---
Hospitalist Progress Note - Encounter Date of Encounter: 09/04/18 Time of Encounter: 19:00 - Subjective Interval History: SUBJECTIVE: The patient feels weak and tired. He has not had any fever or chills recently. His right foot pain is under control. He started on temporary hemodialysis program. Denies chest pain. Denies difficulty breathing. He is on 2 L/min nasal cannula oxygen. OBJECTIVE: Skin: Free of rash and discoloration. There is a chronic wound/Charcot joint in the right foot. ENMT: Oral/pharyngeal mucosa is normal in appearance. Eyes: Sclera is white. There is no discharge from eyes. Respiratory: Normal breath sounds. I cannot hear any rhonchi or wheezes. CV: Heart is irregularly irregular with no audible murmur. GI: Abdomen is soft and not tender. There is no palpable mass or visceromegaly. Neuro: There is no focal deficits. ADDITIONAL DATA: Hemoglobin is 7.5; 7.0 yesterday (before transfusion). He has normal electrolytes. His fingerstick for glucose is very elevated. ASSESSMENT AND PLAN: Acute kidney injury in a patient with underlying CKD stage III due to type 2 diabetes mellitus and hypertension. The patient started on temporary hemodialysis program. See notes from nephrology. He has had a chronic infection/Charcot joint in the area of right foot. To continue daily dressing. Continue IV Zosyn; IV vancomycin has been discontinued. He gets up when necessary Percocet for pain control. See notes from podiatry. Type 2 diabetes mellitus with CKD stage III. Charcot joint, right foot. Out of control. I will increase his baseline Levemir and prandial Humalog. Anemia of chronic kidney disease. Transfused with 1 unit of packed red blood cells. Atrial fibrillation. Rate controlled. We will keep his Xarelto on hold. He may need permacath catheter inserted soon. I will keep him on subcutaneous Lovenox. COPD. Stable. To continue when necessary DuoNeb. - Exam Vitals: Temp Pulse Resp BP Pulse Ox 97.4 F L 86 17 162/80 97 09/04/18 19:13 09/04/18 19:13 09/04/18 19:13 09/04/18 19:13 09/04/18 19:13 Exam: xx - Assessment and Plan (1) CESILIA (acute kidney injury) Current Visit: Yes Status: Acute (2) Infection of right foot Current Visit: Yes Status: Acute (3) T2DM (type 2 diabetes mellitus) Current Visit: Yes Status: Chronic (4) Anemia in chronic kidney disease Current Visit: Yes Status: Acute (5) Hypotension Current Visit: No Status: Acute (6) Atrial fibrillation, chronic Current Visit: Yes Status: Chronic (7) COPD (chronic obstructive pulmonary disease) Current Visit: Yes Status: Chronic - Time Spent with Patient Total time spent is greater than 50% in coordination of care (as documented) at patient's floor/unit and/or counseling patient: 25 - 35 minutes Plan of Care Discussed with: patient Internal Medicine: Result - Labs CBC & Chem 7: 09/04/18 04:00 09/04/18 04:00 Labs: Short CBC 09/04/18 Range/Units 04:00 WBC 13.0 H (4.3-11.1) K/mcL Hgb 7.5 L (12.9-16.9) g/dL Hct 21.8 L (37.5-50.1) % Plt Count 123 L (140-400) K/mcL Neutrophils # 10.2 H (1.6-8.9) K/mcL BMP 09/04/18 04:00 Sodium 128 L Potassium 4.0 Chloride 96 L Carbon Dioxide 24 BUN 77 H Creatinine 4.17 H Glucose 350 H Calcium 7.6 L - ABG Interpretation ABG results: PT/INR, D-dimer PT 13.3 Seconds (9.4-12.1) H 09/01/18 15:33 - Impressions Impressions Foot MRI 09/03/18 09:41 IMPRESSION: 1. Plantar soft tissue ulcer at the level of the cuboid with suspected interval soft tissue graft placement. There is edema of the graft which may reflect soft tissue infection. 2. Suspected lateral soft tissue ulceration with associated phlegmonous change at the level of the inframalleolar peroneal tendons. There is new tenosynovitis and complete full-thickness peroneal tendon tears. The tenosynovitis may be infectious. 3. New multifocal marrow signal abnormality involving the talus, calcaneus, cuboid and navicular, suspicious for osteonecrosis and less likely osteomyelitis. 4. Persistent marrow signal abnormality in the cuboid which is suspicious for osteomyelitis. A chronic cuboid erosion or defect is noted. 5. 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 6. Underlying neuropathic arthropathy. D/ / 09/04/2018 11:55:16 Tyshawn Estes MD / loretta Interpreting Provider: Tyshawn Estes MD Retroperitoneum Ultrasound 09/04/18 10:30 IMPRESSION: Normal right kidney. Status post previous left nephrectomy. The spleen is mildly enlarged with a cephalocaudal dimension of 17.6 cm. Decompressed urinary bladder with a Blanco catheter in place. D/ / 09/04/2018 11:05:11 Alexis Menendez MD / ofe Interpreting Provider: Alexis Menendez MD Consult Discharge Plan - Plan Instructions: Tamsulosin (By mouth) Referrals: José Miguel Negro MD [Primary Care Provider] - (3) T2DM (type 2 diabetes mellitus) Qualifiers: Diabetes mellitus compass operator insulin use: without correction use Diabetes mellitus complication status: with kidney complications Diabetes mellitus complication detail: with chronic kidney disease Chronic kidney disease stage: stage 3 (moderate) Qualified Code(s): E11.22 - Type 2 diabetes mellitus with diabetic chronic kidney disease; N18.3 - Chronic kidney disease, stage 3 (moderate) (4) Anemia in chronic kidney disease Qualifiers: Chronic kidney disease stage: stage 3 (moderate) Qualified Code(s): N18.3 - Chronic kidney disease, stage 3 (moderate); D63.1 - Anemia in chronic kidney disease (5) Hypotension Qualifiers: Hypotension type: hypotension due to hypovolemia Qualified Code(s): I95.89 - Other hypotension; E86.1 - Hypovolemia (7) COPD (chronic obstructive pulmonary disease) Qualifiers: Emphysema type: unspecified Qualified Code(s): J43.9 - Emphysema, unspecified
[2018-09-04] MEDS ORDERED: *HR* Enoxaparin 150 MG/ML SYRINGE SQ SCH (22:15)
[2018-09-05] MEDS: Insulin LISPRO 300 UNITS/3 ML VIAL SQ SCH ×8 (01:21→21:30)
[2018-09-05] MEDS: Piperacillin/Tazobactam 3.375 GM in 0.9 % Sodium Chloride Mini Bag 100 ML IVPB SCH ×4 (01:24→23:19)
[2018-09-05] MEDS: Insulin DETEMIR 100 UNIT/ML X5UNITS SQ SCH ×2 (01:26→21:30)
[2018-09-05 05:14] LABS: Basophils % 0.2 %; Eosinophils % 0.1 %; Hematocrit 22.8 % (37.5-50.1); Hemoglobin 7.7 g/dL (12.9-16.9); Immature Granulocytes % 5.3 % (0-4); Lymphocytes # 0.8 K/mcL (0.6-4.6); Lymphocytes % 4.4 %; Mean Corpuscular HGB Conc 33.8 g/dL (31.6-35.5); Mean Corpuscular Hemoglobin 29.5 pg (28.0-33.3); Mean Corpuscular Volume 87.4 fL (83.0-100.0); Monocytes # 0.9 K/mcL (0.0-1.3); Monocytes % 4.8 %; Platelet Count 122 K/mcL (140-400); Red Blood Count 2.61 M/mcL (4.19-5.50); Red Cell Distribution Width 14.1 % (11.5-14.5); Segmented Neutrophils % 85.2 %
[2018-09-05 05:16] LABS: Neutrophils # 15.3 K/mcL (1.6-8.9)
[2018-09-05 05:38] LABS: Calcium 8.2 mg/dL (8.6-10.3); Potassium 4.4 mEq/L (3.5-5.1)
[2018-09-05 05:42] LABS: Platelet Estimate Decreased (Normal)
--- NOTE | 2018-09-05 10:30 | Podiatry Progress Note ---
Date of Encounter: 09/05/18 Time of Encounter: 09:50 - Assessment and Plan (1) Chronic ulcer of right foot with fat layer exposed Current Visit: Yes Status: Acute Assessment: -Charct of right foot with Figueredo Stage III-IV ulcers noted dorsal aspect at an kle, plantar aspect , and lateral aspect -Necrotic tissue noted to base of wound right lateral ulcer 5 x 2.8 cm with sloughing tissue around site and erythema. The site is worse in appearance today with purulent drainage and phlegmon noted proximal to wound. Skin warm to touch. The wound base made of necrotic tissue is breaking down and there is undermining, tunneling, and able to probe to bone. Ulcer plantar aspect 1.8 x 1.8 cm with necrotic tissue at wound base and hyerkeratotic tissue around wound edges has fibrinous exudate noted today that can easily probe to bone. Discoloration noted dorsal aspect with necrotic tissue noted around wound edges and wound base with granular tissue 4.7 x 5 cm. No undermining or tunneling noted. The area around this area dusky in color. -WBC 18.0 -ESR >130 -CRP 198 -Hgb A1c 8.5 -Wound culture right foot preliminary: Proteus mirabilis and Strep agalactiae (Group B) -Blood cultures x 2 preliminary: Proteus mirabilis, Strep agalactiae (group B), and Staphylococcus aureus -Receiving IV Zosyn -MRI: IMPRESSION: 1. Plantar soft tissue ulcer at the level of the cuboid with suspected interval soft tissue graft placement. There is edema of the graft which may reflect soft tissue infection. 2. Suspected lateral soft tissue ulceration with associated phlegmonous change at the level of the inframalleolar peroneal tendons. There is new tenosynovitis and complete full-thickness peroneal tendon tears. The tenosynovitis may be infectious. 3. New multifocal marrow signal abnormality involving the talus, calcaneus, cuboid and navicular, suspicious for osteonecrosis and less likely osteomyelitis. 4. Persistent marrow signal abnormality in the cuboid which is suspicious for osteomyelitis. A chronic cuboid erosion or defect is noted. 5. 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 6. Underlying neuropathic arthropathy. Plan: -Dressing change -Sites flushed with sterile .9Ns and pat dry -Covered with silver alginate, 4x4 dry gauze, and Kerlix -Secured with tape -Bilateral heels elevated off bed -Recommend ID consult -Recommend surgical I&D, discussed risk versus benefits with patient, he would like to speak with a Emergency Doctor and would like this done as outpatient. -Will have one of the Emergency Doctor speak with the patient and his . Subjective Principal diagnosis: CESILIA Interval history: Patient is alert and oriented resting in bed with at bedside. He reports he is tired of being in the hospital and is ready to go home. He denies any chest pain or shortness of breath. He does report his calf tenderness has im proved a little. He denies any fever, chills, nausea, vomiting, or diarrhea. Spoke with patient in great length about the infection in his right foot and the need for surgery for incision, drainage, and wound debridement. Discussed with patient the risk versus benefits as well as the possibility of grizzlyman IV antibiotics and loss of his foot. Patient and verbalized understanding and would like to speak with one of the Emergency Doctor. They are requesting the procedure be completed outpatient so that he may go home today. Advised against him going home at this time and they are aware of all consequences if he does not have surgery including but not limited to grizzlyman IV antibiotics, loss of limb. . Objective - Vital Signs Vital Signs: Vital Signs Temp Pulse Resp BP Pulse Ox 09/05/18 07:44 98.1 F 98 18 145/81 100 09/05/18 03:52 98.4 F 95 18 148/83 98 09/05/18 00:10 97.8 F 17 163/81 09/05/18 00:00 150/83 09/04/18 23:45 160/89 09/04/18 23:30 132/81 09/04/18 23:15 149/80 09/04/18 23:00 143/86 09/04/18 22:45 143/86 09/04/18 22:30 136/76 09/04/18 22:15 144/73 09/04/18 22:00 149/73 09/04/18 21:45 146/73 09/04/18 21:30 133/76 09/04/18 21:15 136/74 09/04/18 21:00 136/74 09/04/18 20:45 147/73 09/04/18 20:30 98 F 18 159/73 09/04/18 19:13 97.4 F L 86 17 162/80 97 09/04/18 19:00 97 09/04/18 16:24 98.9 F 94 16 150/79 97 09/04/18 11:50 97.4 F L 84 18 175/84 98 Intake and Output 09/04/18 09/05/18 09/05/18 23:59 07:59 15:59 Intake Total 700 / 1230 100 / 580 480 / 580 Output Total 2750 / 2750 Balance 700 / 580 -2650 / -2170 480 / -2170 Intake: IV Fluids 200 / 250 100 / 100 Zosyn 3.375 GM In 0.9 % Sodium 200 / 200 100 / 100 Chloride (Mini-Bag +) 100 ML @ 25 mls/hr IVPB Q8HR [facility] Rx#: [id number] Oral 0 / 480 480 / 480 Intake, Rinseback and Flushes 500 / 500 Output: Urine 0 / 0 Total Dialysis (HD) Output 1999 / 1999 Catheter 750 / 750 Other: Meal Breakfast Weight 126.8 kg Blood Glucose* 305 311 Hemodialysis Net Fluid Removed 1860 1500 (mL) Patient Weight 09/05/18 23:59 Weight 126.8 kg - Exam Exam: Constitutional: Alert and oriented x 3, appears better today, no acute distress noted Vascular: 2/4 PT/DP pulse, cap refill less than 3 seconds, no pain with calf squeeze Neurological: Diminished protective sensation, abnormal proprioception Dermatological: Charcot of right foot with Figueredo Stage III-IV ulcers noted dorsal aspect at ankle, plantar aspect , and lateral aspect. Necrotic tissue noted to base of wound right lateral ulcer 5 x 2.8 cm with sloughing tissue around site and erythema. The site is worse in appearance today with purulent drainage and phlegmon noted proximal to wound. Skin warm to touch. The wound base made of necrotic tissue is breaking down and there is undermining, tunneling, and able to probe to bone. Ulcer plantar aspect 1.8 x 1.8 cm with necrotic tissue at wound base with hyperkeratotic tissue around wound edges has fibrinous exudate noted today and can easily probe to bone. Discoloration noted dorsal aspect with necrotic tissue noted around wound edges and wound base with granular tissue 4.7 x 5 cm. No undermining or tunneling noted. The area around this area dusky in color. Musculoskeletal: 07/11 muscle strength - Lab Result Diagrams: 09/05/18 04:53 09/05/18 04:53 Labs: Abnormal lab results WBC 18.0 K/mcL (4.3-11.1) H 09/05/18 04:53 RBC 2.61 M/mcL (4.19-5.50) L 09/05/18 04:53 Hgb 7.7 g/dL (12.9-16.9) L 09/05/18 04:53 Hct 22.8 % (37.5-50.1) L 09/05/18 04:53 MCV 82.6 fL (83.0-100.0) L 09/03/18 03:55 Plt Count 122 K/mcL (140-400) L 09/05/18 04:53 Immature Gran % 5.3 % (0-4) H 09/05/18 04:53 6.0 % (0-4) H 09/02/18 10:05 2.0 % (0) H 09/03/18 03:55 15.3 K/mcL (1.6-8.9) H 09/05/18 04:53 Nucleated RBCs/100 WBC 0.2 /100 WBC (0) H 09/04/18 04:00 Present (Not Present) A 09/02/18 10:05 Decreased (Normal) L 09/05/18 04:53 1+ (Not Present) A 09/02/18 10:05 Present (Not Present) A 09/03/18 03:55 1+ (Not Present) A 09/02/18 10:05 ESR >= 130 mm/hr (0-10) H 09/04/18 04:00 PT 13.3 Seconds (9.4-12.1) H 09/01/18 15:33 Sodium 128 mEq/L (136-145) L 09/05/18 04:53 Chloride 96 mEq/L (98-107) L 09/05/18 04:53 Carbon Dioxide 18 mEq/L (23-29) L 09/01/18 15:33 BUN 37 mg/dL (6-20) H 09/05/18 04:53 2.23 mg/dL (0.70-1.30) H 09/05/18 04:53 Est GFR ( Amer) 38 (> 60) L 09/05/18 04:53 Est GFR (Non-Af Amer) 32 (> 60) L 09/05/18 04:53 Glucose 268 mg/dL (70-105) H 09/05/18 04:53 POC Glucose 311 mg/dL (70-99) H 09/05/18 07:42 8.5 % (-5.6) H 09/04/18 04:00 303 (280-300) H 09/04/18 04:00 Calcium 8.2 mg/dL (8.6-10.3) L 09/05/18 04:53 0.3 mg/dL (0.0-0.2) H 09/01/18 15:33 122 Units/L (34-104) H 09/01/18 15:33 0.04 ng/mL (< 0.04) H* 09/03/18 01:00 198 mg/L (Less than 10) H 09/04/18 04:00 6.1 g/dL (6.4-8.9) L 09/01/18 15:33 2.7 g/dL (3.5-5.7) L 09/01/18 15:33 0.8 (1.1-2.2) L 09/01/18 15:33 [place] (Yellow) A 09/01/18 Unknown Cloudy (Clear) A 09/01/18 Unknown Ur Specific [place] 1.029 (1.010-1.025) H 09/01/18 Unknown 30 mg/dL (Neg-Trace) H 09/01/18 Unknown 100 mg/dL (Normal) H 09/01/18 Unknown Trace mg/dL (Negative) H 09/01/18 Unknown Trace (Negative) H 09/01/18 Unknown Moderate (Negative) H 09/01/18 Unknown 4.0 mg/dL (Normal) H 09/01/18 Unknown Ur Leukocyte Esterase Small (Negative) H 09/01/18 Unknown 5-15 per hpf (0-3) H 09/01/18 Unknown Ur Squamous Epith Cells Many per lpf (None-Few) H 09/01/18 Unknown Ur Culture Indicated? NO. (NO) A 04/26/19 Unknown Ur Microalbumin 24 Hr 351 mg/day (Less than 30) H 09/03/18 23:00 Microalb/Creat Ratio 290 mcg/mg (Less than 30) H 09/03/18 23:00 Ur Total Protein 24 Hr 2128 mg/day (50-80) H 09/03/18 23:00 Protein/Creatinin Ratio 1.76 mg/mg (0.00-0.20) H 09/03/18 23:00 Ur Sodium 24 Hour 33 mEq/day (40-220) L 09/03/18 23:00 Ur Chloride 24 Hour 20 mEq/day (110-250) L 09/03/18 23:00 Ur Phosphorus 24 Hr 0.2 g/day (0.4-1.3) L 09/03/18 23:00 Ur Urea Nitrogen 24 Hr 6 g/day (12-20) L 09/03/18 23:00 Ur Calcium 24 Hr 6 mg/day (100-300) L 09/03/18 23:00 185 mg/dL (1-14) H 09/03/18 23:00 Positive ng/mL (Deznht=011) H 09/01/18 16:29 Hep Bs Antibody 4.61 mIU/mL (10.00-) L 09/01/18 20:52 Staphylococcus sp PCR DETECTED (Not Detect) A 09/01/18 15:58 Staph aureus (PCR) DETECTED (Not Detect) A 09/01/18 15:58 Streptococcus sp PCR DETECTED (Not Detect) A 09/01/18 15:58 Group B Strep (PCR) DETECTED (Not Detect) A 09/01/18 15:58 Crossmatch Prewarmed See Detail 09/01/18 16:55 Microbiology, Last 48 Hours 09/01/18 15:58 Blood Culture - Preliminary Peripheral Venipuncture Strep agalactiae - (Group B) Proteus mirabilis Staphylococcus aureus 09/02/18 02:00 Wound Culture - Preliminary Right Foot Proteus mirabilis Strep agalactiae - (Group B) Gram Positive Cocci 09/01/18 15:50 Blood Culture - Preliminary Peripheral Venipuncture Strep agalactiae - (Group B) Proteus mirabilis Staphylococcus aureus Consult Discharge Plan - Plan Instructions: Tamsulosin (By mouth) Referrals: José Miguel Negro MD [Primary Care Provider] -
[2018-09-05] MEDS: *HR* Enoxaparin 150 MG/ML SYRINGE SQ SCH ×2 (12:20→21:30)
--- NOTE | 2018-09-05 12:28 | Nephrology Progress Note ---
Date of Encounter: 09/05/18 Time of Encounter: 09:45 - Assessment and Plan (1) CESILIA (acute kidney injury) Current Visit: Yes Status: Acute Next HD planned for Tuesday, tomorrow. I reviewed the pt's vital sign and lab trends, meds, I/Os and progress notes, which I used to evaluate and then compose HD orders. Severe CESILIA on CKD stage IIIB. His renal function appears to have consistently worsened since he was discharged last month. Continue following a renal protective strategy: Strict I's and O's, daily weights, avoidance of nephrotoxic agents, renal dosing. Given that he has had back to back AKIs, there is a chance he may need [facility]p HD. Will need to monitor renal function to decide. Thank you (2) Anemia in chronic kidney disease Current Visit: Yes Status: Acute Qualifiers: Chronic kidney disease stage: stage 3 (moderate) Qualified Code(s): N18.3 - Chronic kidney disease, stage 3 (moderate); D63.1 - Anemia in chronic kidney disease (3) CKD (chronic kidney disease), stage III Current Visit: Yes Status: Chronic (4) Uremia Current Visit: Yes Status: Acute (5) Hyponatremia Current Visit: Yes Status: Acute (6) Pulmonary edema Current Visit: Yes Status: Acute Qualifiers: Chronicity: acute Qualified Code(s): J81.0 - Acute pulmonary edema (7) Anemia Current Visit: Yes Status: Acute Qualifiers: Anemia type: other cause Other causes of anemia: other cause, not classified Qualified Code(s): D64.89 - Other specified anemias (8) Cellulitis Current Visit: Yes Status: Acute Qualifiers: Site of cellulitis: unspecified site Qualified Code(s): L03.90 - Cellulitis, unspecified (9) Solitary kidney, acquired Current Visit: Yes Status: Acute Subjective Principal diagnosis: CESILIA Interval history: Pt was s/e in his 2A room. His spouse was present at his bedside and was updated. He reports having ongoing fatigue, and feelings of swelling. Objective - Vital Signs Vital signs: Vital Signs Temp Pulse Resp BP Pulse Ox 09/05/18 11:36 98.2 F 87 18 140/85 94 09/05/18 07:44 98.1 F 98 18 145/81 100 09/05/18 03:52 98.4 F 95 18 148/83 98 09/05/18 00:10 97.8 F 17 163/81 09/05/18 00:00 150/83 09/04/18 23:45 160/89 09/04/18 23:30 132/81 09/04/18 23:15 149/80 09/04/18 23:00 143/86 09/04/18 22:45 143/86 09/04/18 22:30 136/76 09/04/18 22:15 144/73 09/04/18 22:00 149/73 09/04/18 21:45 146/73 09/04/18 21:30 133/76 09/04/18 21:15 136/74 09/04/18 21:00 136/74 09/04/18 20:45 147/73 09/04/18 20:30 98 F 18 159/73 09/04/18 19:13 97.4 F L 86 17 162/80 97 09/04/18 19:00 97 09/04/18 16:24 98.9 F 94 16 150/79 97 Intake and Output 09/04/18 09/05/18 09/05/18 23:59 07:59 15:59 Intake Total 700 / 1230 100 / 580 480 / 580 Output Total 2750 / 3000 250 / 3000 Balance 700 / 580 -2650 / -2420 230 / -2420 Intake: IV Fluids 200 / 250 100 / 100 Zosyn 3.375 GM In 0.9 % Sodium 200 / 200 100 / 100 Chloride (Mini-Bag +) 100 ML @ 25 mls/hr IVPB Q8HR [facility] Rx#: [id number] Oral 0 / 480 480 / 480 Intake, Rinseback and Flushes 500 / 500 Output: Urine 0 / 0 Total Dialysis (HD) Output 2000 / 1999 Catheter 750 / 1000 250 / 1000 Other: Meal Breakfast Weight 126.8 kg Blood Glucose* 305 311 287 Hemodialysis Net Fluid Removed 1860 1500 (mL) Patient Weight 09/05/18 23:59 Weight 126.8 kg - General Appearance General appearance: Present: well-developed, well-nourished, appears started age, obese, fatigue, frail EENT: Present: ATNC, PERRL, mucous membranes moist Neck: Present: supple Respiratory: Present: rhonchi Cardiology: Present: edema, regular rate, regular rhythm, normal S1, normal S2 Dialysis Vascular Access: Venous Catheter Gastrointestinal: Present: normoactive bowel sounds, no tenderness, obese Additional Comments: right foot wrapped Neurologic: Present: no focal deficit, no asterixis, alert and oriented x3 Musculoskeletal: Present: no cyanosis Psychiatric: Present: mood/affect appropriate, cooperative - Lab 09/05/18 04:53 09/05/18 04:53 Most recent lab results 09/05/18 04:53 Calcium 8.2 L Consult Discharge Plan - Plan Instructions: Tamsulosin (By mouth) Referrals: José Miguel Negro MD [Primary Care Provider] -
[2018-09-05 18:26] LABS: Urine Collection Volume RANDOM mL
--- NOTE | 2018-09-05 18:41 | Anesthesia Evaluation PreOp ---
Date of Encounter: 09/05/18 Time of Encounter: 18:39 - Past History Planned Operation: R foot Perri of Ex Fix, I&D Debridement Cardiac History: HTN, Arrhythmia (Afib, rate controlled) Pulmonary History: COPD, Other (pulmonary edema) ETHYLBENZENE OXIDIZER History: Denies Any Significant HX Other Medical History: Renal (CESILIA on CKD, solitary kidney, currently on HD last dialysis 09/04), Diabetes Type II, Other (anemia of chronic dz, hyponatremia) Anesthesia History: No Prior Anesthetic Complications Alcohol Use: none Drug use: none Medications and Allergies Albuterol Sulfate [Albuterol Inhaler] 2 puff IH Q4H PRN 08/03/18 [History] Amlodipine Besylate 5 mg PO DAILY 08/03/18 [History] Cholecalciferol (Vitamin D3) [Optimal D3] 50,000 unit PO QWEEK 08/03/18 [History] CloNIDine Patch [Catapres-Tts] 0.2 mg TD QWEEK 08/03/18 [History] Furosemide [Lasix] 40 mg PO DAILY 08/03/18 [History] Insulin Glargine,Hum.rec.anlog [Basaglar Kwikpen U-100] 35 unit SQ BID 08/03/18 [History] Insulin LISPRO [HumaLOG] 30 units SQ TID 08/03/18 [History] Losartan/Hydrochlorothiazide [Losartan-Hctz 100-25 mg Tab] 1 each PO DAILY 08/03/18 [History] OxyCODONE/APAP 10/325 [Percocet 10/325 MG] 1 each PO TID PRN 08/03/18 [History] Rivaroxaban [Xarelto] 15 mg PO DAILY 08/03/18 [History] Sertraline [Zoloft] 50 mg PO DAILY 08/03/18 [History] Sertraline [Zoloft] 100 mg PO DAILY 08/03/18 [History] Umeclidinium [place] [Incruse Ellipta] 1 puff IH DAILY 08/03/18 [History] Allergy/AdvReac Type Severity Reaction Status Date / Time No Known Allergies Allergy Verified 05/06/16 14:33 - Meds/Allergy Pre-op Review Medications Reviewed: Yes Allergies Reviewed: Yes Beta Blockers on Current Med List: No Anesthesia Results - Labs 09/05/18 04:53 09/05/18 04:53 - Imaging EKG: report reviewed (SINUS RHYTHM WITH FIRST DEGREE AV BLOCK Electronically Signed On 09-03-2018 10:45:24 EDT by Maegan Wade) Anesthesia Exam Vital Signs/O2 Sat, Most Current Temp Pulse Resp BP Pulse Ox 99.0 F 86 18 149/85 93 09/05/18 16:21 09/05/18 16:21 09/05/18 16:21 09/05/18 16:21 09/05/18 16:21 Weight: 126kg NPO (# of Hours): MN - HEENT Pupil (Motor): Pupils equal, EOMI Mallampati: III Teeth: Edentulous (boone) Oral Opening: Less than or equal to 3 - ETHYLBENZENE OXIDIZER ETHYLBENZENE OXIDIZER Motor: Normal RUE, Normal LUE, Normal RLE, Normal LLE, Normal Face ETHYLBENZENE OXIDIZER Sensory: Normal: RUE, LUE, RLE, LLE, Face - Cardiac Rhythm: Regular - Pulmonary Breath Sounds: bilateral Clear Anesthesia Assess/Plan ASA Score: 4 Level of consciousness: Drowsy, but responsive to commands Anesthetic Plan: General, MAC (will need Na rechecked, if not urgent consider correcting hyponatremia prior to proceeding) Monitoring Plan: Standard Monitors Recovery Plan: PACU
[2018-09-05] MEDS ORDERED: 0.9 % Sodium Chloride 250 ML ONE (20:23)
[2018-09-05] MEDS ORDERED: 0.9 % Sodium Chloride 1,000 ML ONE (20:45)
--- NOTE | 2018-09-05 23:27 | Internal Med Progress Note ---
Hospitalist Progress Note - Encounter Date of Encounter: 09/05/18 Time of Encounter: 19:00 - Subjective Interval History: SUBJECTIVE: The patient feels stronger. He has better appetite. He continues with temporary hemodialysis. His right with pain seems to be under control. OBJECTIVE: Skin: Free of rash and discoloration. There is a chronic wound/Charcot joint in the right foot. ENMT: Oral/pharyngeal mucosa is normal in appearance. Eyes: Sclera is white. There is no discharge from eyes. Respiratory: Normal breath sounds. I cannot hear any rhonchi or wheezes. CV: Heart is irregularly irregular with no audible murmur. GI: Abdomen is soft and not tender. There is no palpable mass or visceromegaly. Neuro: There is no focal deficits. ADDITIONAL DATA: Hemoglobin is 7.7; 7.5 yesterday. With WBC of 18.0 thousand; 13.0 thousand yesterday. Platelet count is 122,000 (chronic). Sodium is 128; the rest of electrolytes is normal. He is wound culture and blood cultures are growing multiple organisms. ASSESSMENT AND PLAN: Acute kidney injury in a patient with underlying CKD stage III due to type 2 diabetes mellitus and hypertension. The patient started on temporary hemodialysis program. See notes from nephrology. He has had a chronic infection/Charcot joint in the area of right foot. To continue daily dressing. To continue IV Zosyn; IV vancomycin has been discontinued. He gets up when necessary Percocet for pain control. See notes from podiatry. The patient will likely have debridement today. We consulted infectious diseases. Type 2 diabetes mellitus with CKD stage III. Charcot joint, right foot. To continue Levemir and when necessary Humalog. Anemia of chronic kidney disease. Transfused with 1 unit of packed red blood cells. He will get 1 more unit after the surgery. Atrial fibrillation. Rate controlled. We will keep his Xarelto on hold. He may need permacath catheter inserted soon. I will keep him on subcutaneous Lovenox. COPD. Stable. To continue when necessary DuoNeb. - Exam Vitals: Temp Pulse Resp BP Pulse Ox 98.9 F 89 20 152/85 93 09/05/18 23:12 09/05/18 23:12 09/05/18 23:12 09/05/18 23:12 09/05/18 23:12 Exam: xx - Assessment and Plan (1) CESILIA (acute kidney injury) Current Visit: Yes Status: Acute (2) Infection of right foot Current Visit: Yes Status: Acute (3) T2DM (type 2 diabetes mellitus) Current Visit: Yes Status: Chronic (4) Anemia in chronic kidney disease Current Visit: Yes Status: Acute (5) Hypotension Current Visit: No Status: Acute (6) Atrial fibrillation, chronic Current Visit: Yes Status: Chronic (7) COPD (chronic obstructive pulmonary disease) Current Visit: Yes Status: Chronic - Time Spent with Patient Total time spent is greater than 50% in coordination of care (as documented) at patient's floor/unit and/or counseling patient: 25 - 35 minutes Plan of Care Discussed with: patient Internal Medicine: Result - Labs CBC & Chem 7: 09/05/18 04:53 09/05/18 04:53 Labs: Short CBC 09/05/18 Range/Units 04:53 WBC 18.0 H (4.3-11.1) K/mcL Hgb 7.7 L (12.9-16.9) g/dL Hct 22.8 L (37.5-50.1) % Plt Count 122 L (140-400) K/mcL Neutrophils # 15.3 H (1.6-8.9) K/mcL BMP 09/05/18 04:53 Sodium 128 L Potassium 4.4 Chloride 96 L Carbon Dioxide 26 BUN 37 H Creatinine 2.23 H Glucose 268 H Calcium 8.2 L - ABG Interpretation ABG results: PT/INR, D-dimer PT 13.3 Seconds (9.4-12.1) H 09/01/18 15:33 - Impressions Impressions Foot MRI 09/03/18 09:41 IMPRESSION: 1. Plantar soft tissue ulcer at the level of the cuboid with suspected interval soft tissue graft placement. There is edema of the graft which may reflect soft tissue infection. 2. Suspected lateral soft tissue ulceration with associated phlegmonous change at the level of the inframalleolar peroneal tendons. There is new tenosynovitis and complete full-thickness peroneal tendon tears. The tenosynovitis may be infectious. 3. New multifocal marrow signal abnormality involving the talus, calcaneus, cuboid and navicular, suspicious for osteonecrosis and less likely osteomyelitis. 4. Persistent marrow signal abnormality in the cuboid which is suspicious for osteomyelitis. A chronic cuboid erosion or defect is noted. 5. 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 6. Underlying neuropathic arthropathy. D/ / 09/04/2018 11:55:16 Tyshawn Estes MD / loretta Interpreting Provider: Tyshawn Estes MD Consult Discharge Plan - Plan Instructions: Tamsulosin (By mouth) Referrals: José Miguel Negro MD [Primary Care Provider] - (3) T2DM (type 2 diabetes mellitus) Qualifiers: Diabetes mellitus ferry terminal agent insulin use: without residential use Diabetes mellitus complication status: with kidney complications Diabetes mellitus complication detail: with chronic kidney disease Chronic kidney disease stage: stage 3 (moderate) Qualified Code(s): E11.22 - Type 2 diabetes mellitus with diabetic chronic kidney disease; N18.3 - Chronic kidney disease, stage 3 (moderate) (4) Anemia in chronic kidney disease Qualifiers: Chronic kidney disease stage: stage 3 (moderate) Qualified Code(s): N18.3 - Chronic kidney disease, stage 3 (moderate); D63.1 - Anemia in chronic kidney disease (5) Hypotension Qualifiers: Hypotension type: hypotension due to hypovolemia Qualified Code(s): I95.89 - Other hypotension; E86.1 - Hypovolemia (7) COPD (chronic obstructive pulmonary disease) Qualifiers: Emphysema type: unspecified Qualified Code(s): J43.9 - Emphysema, unspecified
[2018-09-06 04:11] LABS: Hematocrit 23.3 % (37.5-50.1); Hemoglobin 7.8 g/dL (12.9-16.9); Mean Corpuscular HGB Conc 33.5 g/dL (31.6-35.5); Mean Corpuscular Hemoglobin 29.1 pg (28.0-33.3); Mean Corpuscular Volume 86.9 fL (83.0-100.0); Platelet Count 130 K/mcL (140-400); Red Blood Count 2.68 M/mcL (4.19-5.50); Red Cell Distribution Width 13.9 % (11.5-14.5)
[2018-09-06 04:23] LABS: Calcium 8.2 mg/dL (8.6-10.3); Potassium 4.4 mEq/L (3.5-5.1)
[2018-09-06 04:58] LABS: Lymphocytes # 1.8 K/mcL (0.6-4.6); Monocytes # 0.7 K/mcL (0.0-1.3); Neutrophils # 15.5 K/mcL (1.6-8.9); Platelet Estimate Normal (Normal); Toxic Granulation Present (Not Present)
[2018-09-06] MEDS ORDERED: 0.9 % Sodium Chloride 250 ML IVC PRN ×2 (07:14→17:43)
--- NOTE | 2018-09-06 07:16 | Nephrology Progress Note ---
Date of Encounter: 09/06/18 Time of Encounter: 09:00 - Assessment and Plan (1) CESILIA (acute kidney injury) Current Visit: Yes Status: Acute HD orders in place for today (Tuesday). I reviewed the pt's vital sign and lab trends, meds, I/Os and progress notes, which I used to evaluate and then compose HD orders. Severe CESILIA on CKD stage IIIB. His renal function appears to have consistently worsened since he was discharged last month. Continue following a renal protective strategy: Strict I's and O's, daily weights, avoidance of nephrotoxic agents, renal dosing. 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 Will need to monitor renal function to decide. Thank you (2) Anemia in chronic kidney disease Current Visit: Yes Status: Acute Goal Hgb is 10-11. Will monitor. Will assess for UCHE needs. Qualifiers: Chronic kidney disease stage: stage 3 (moderate) Qualified Code(s): N18.3 - Chronic kidney disease, stage 3 (moderate); D63.1 - Anemia in chronic kidney disease (3) CKD (chronic kidney disease), stage III Current Visit: Yes Status: Chronic Baseline CKD stage III with GFR in the 30-40s (4) Uremia Current Visit: Yes Status: Acute (5) Hyponatremia Current Visit: Yes Status: Acute Likely d/t CESILIA and edema, and so he will need more fluid removal (6) Pulmonary edema Current Visit: Yes Status: Acute Qualifiers: Chronicity: acute Qualified Code(s): J81.0 - Acute pulmonary edema (7) Anemia Current Visit: Yes Status: Acute Qualifiers: Anemia type: other cause Other causes of anemia: other cause, not classifi ed Qualified Code(s): D64.89 - Other specified anemias (8) Cellulitis Current Visit: Yes Status: Acute Foot as per primary Qualifiers: Site of cellulitis: unspecified site Qualified Code(s): L03.90 - Cellulitis, unspecified (9) Solitary kidney, acquired Current Visit: Yes Status: Acute History of left nephrectomy Subjective Principal diagnosis: CESILIA Interval history: Pt was s/e in the HD unit while on HD. He did not affirm cramping or CP, but he did report ongoing fatigue. His spouse updated when seen in the pt's room. Objective - Vital Signs Vital signs: Vital Signs Temp Pulse Resp BP Pulse Ox 09/06/18 04:12 99 F 86 18 147/83 94 09/06/18 01:10 99.6 F 09/05/18 23:37 100.3 F H 92 17 166/95 97 09/05/18 23:12 98.9 F 89 20 152/85 93 09/05/18 21:40 93 09/05/18 21:09 99.0 F 86 18 163/83 93 09/05/18 20:54 98.8 F 88 20 165/82 95 09/05/18 19:43 98.6 F 84 17 159/89 94 09/05/18 16:21 99.0 F 86 18 149/85 93 09/05/18 11:36 98.2 F 87 18 140/85 94 09/05/18 07:44 98.1 F 98 18 145/81 100 Intake and Output 09/05/18 09/05/18 09/06/18 15:59 23:59 07:59 Intake Total 700 / 1250 450 / 1250 0 / 0 Output Total 250 / 3500 500 / 3500 375 / 375 Balance 450 / -2250 -50 / -2250 -375 / -375 Intake: IV Fluids 100 / 300 100 / 300 Zosyn 3.375 GM In 0.9 % Sodium 100 / 300 100 / 300 Chloride (Mini-Bag +) 100 ML @ 25 mls/hr IVPB Q8HR [facility] Rx#: [id number] Oral 600 / 600 0 / 600 0 / 0 Blood Product 350 / 350 Rbcs Leuko Poor As-1 Unit 350 / 350 [id number] Output: Urine 100 / 100 Catheter 250 / 1400 400 / 1400 375 / 375 Urethral (Blanco) 400 / 400 375 / 375 Other: Meal Lunch Percent of Meal Consumed 100% Weight 127.1 kg Blood Glucose* 287 263 - General Appearance General appearance: Present: well-developed, well-nourished, obese, fatigue, frail EENT: Present: ATNC, PERRL, mucous membranes moist Neck: Present: supple Respiratory: Present: course breath sounds Cardiology: Present: edema, normal S1, normal S2 Dialysis Vascular Access: Venous Catheter Gastrointestinal: Present: normoactive bowel sounds, no tenderness, obese Additional Comments: dressings over foot noted. Neurologic: Present: no focal deficit Musculoskeletal: Present: no deformities, no erythema, no cyanosis Psychiatric: Present: mood/affect appropriate, cooperative - Lab 09/09/18 03:20 09/09/18 03:20 Most recent lab results 09/06/18 03:45 Calcium 8.2 L Consult Discharge Plan - Plan Instructions: Tamsulosin (By mouth) Referrals: José Miguel Negro MD [Primary Care Provider] -
[2018-09-06] MEDS: Insulin LISPRO 300 UNITS/3 ML VIAL SQ SCH ×7 (07:29→21:49)
[2018-09-06] MEDS: Piperacillin/Tazobactam 3.375 GM in 0.9 % Sodium Chloride Mini Bag 100 ML IVPB SCH (08:28)
--- NOTE | 2018-09-06 09:49 | Podiatry Progress Note ---
Date of Encounter: 09/06/18 Time of Encounter: 09:10 - Assessment and Plan (1) Chronic ulcer of right foot with fat layer exposed Current Visit: Yes Status: Acute Assessment: -Charct of right foot with Figueredo Stage III-IV ulcers noted dorsal aspect at an kle, plantar aspect , and lateral aspect -WBC 18.0 -Hgb 7.8, Hct 23.3 -ESR >130 -CRP 198 -Wound culture right foot final: Proteus mirabilis and Strep agalactiae (Group B), and Staphylococcus aureus -Blood cultures x 2 preliminary: Proteus mirabilis, Strep agalactiae (group B), and Staphylococcus aureus -Receiving IV Zosyn -MRI: IMPRESSION: 1. Plantar soft tissue ulcer at the level of the cuboid with suspected interval soft tissue graft placement. There is edema of the graft which may reflect soft tissue infection. 2. Suspected lateral soft tissue ulceration with associated phlegmonous change at the level of the inframalleolar peroneal tendons. There is new tenosynovitis and complete full-thickness peroneal tendon tears. The tenosynovitis may be infectious. 3. New multifocal marrow signal abnormality involving the talus, calcaneus, cuboid and navicular, suspicious for osteonecrosis and less likely osteomyelitis. 4. Persistent marrow signal abnormality in the cuboid which is suspicious for osteomyelitis. A chronic cuboid erosion or defect is noted. 5. 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 6. Underlying neuropathic arthropathy. Plan: -OR today with Dr. Ferrell -Consent signed and in cahrt Subjective Principal diagnosis: CESILIA Interval history: Patient resting, aroused easily, at bedside, no acute distress noted. Patient denies any chest pain or shortness of breath. Patient did have a temperature yesterday of 100.3, he has remained afebrile since. He denies any chills, nausea, vomiting, or diarrhea. He did have one unit of blood transfused last night around 2229. Patent is to go to OR today with Dr. Ferrell. He remain in agreement with plan of care and states he is ready to have his surgery and go home. Objective - Vital Signs Vital Signs: Vital Signs Temp Pulse Resp BP Pulse Ox 09/06/18 07:19 98.0 F 84 18 157/80 94 09/06/18 04:12 99 F 86 18 147/83 94 09/06/18 01:10 99.6 F 09/05/18 23:37 100.3 F H 92 17 166/95 97 09/05/18 23:12 98.9 F 89 20 152/85 93 09/05/18 21:40 93 09/05/18 21:09 99.0 F 86 18 163/83 93 09/05/18 20:54 98.8 F 88 20 165/82 95 09/05/18 19:43 98.6 F 84 17 159/89 94 09/05/18 16:21 99.0 F 86 18 149/85 93 09/05/18 11:36 98.2 F 87 18 140/85 94 Intake and Output 09/05/18 09/06/18 09/06/18 23:59 07:59 15:59 Intake Total 450 / 1250 0 / 100 100 / 100 Output Total 500 / 3500 375 / 375 0 / 375 Balance -50 / -2250 -375 / -275 100 / -275 Intake: IV Fluids 100 / 300 100 / 100 Zosyn 3.375 GM In 0.9 % Sodium 100 / 300 100 / 100 Chloride (Mini-Bag +) 100 ML @ 25 mls/hr IVPB Q8HR [facility] Rx#: [id number] Oral 0 / 600 0 / 0 0 / 0 Blood Product 350 / 350 Rbcs Leuko Poor As-1 Unit 350 / 350 [id number] Output: Urine 100 / 100 0 / 0 Catheter 400 / 400 375 / 375 Urethral (Blanco) 400 / 400 375 / 375 Other: Weight 127.1 kg Blood Glucose* 263 157 - Lab Result Diagrams: 09/06/18 03:45 09/06/18 03:45 Labs: Abnormal lab results WBC 18.0 K/mcL (4.3-11.1) H 09/06/18 03:45 RBC 2.68 M/mcL (4.19-5.50) L 09/06/18 03:45 Hgb 7.8 g/dL (12.9-16.9) L 09/06/18 03:45 Hct 23.3 % (37.5-50.1) L 09/06/18 03:45 MCV 82.6 fL (83.0-100.0) L 09/03/18 03:55 Plt Count 130 K/mcL (140-400) L 09/06/18 03:45 Immature Gran % 5.3 % (0-4) H 09/05/18 04:53 8.0 % (0-4) H 09/06/18 03:45 2.0 % (0) H 09/03/18 03:55 15.5 K/mcL (1.6-8.9) H 09/06/18 03:45 Nucleated RBCs/100 WBC 0.2 /100 WBC (0) H 09/04/18 04:00 Present (Not Present) A 09/06/18 03:45 Decreased (Normal) L 09/05/18 04:53 1+ (Not Present) A 09/02/18 10:05 Present (Not Present) A 09/03/18 03:55 1+ (Not Present) A 09/02/18 10:05 ESR >= 130 mm/hr (0-10) H 09/04/18 04:00 PT 13.3 Seconds (9.4-12.1) H 09/01/18 15:33 Sodium 127 mEq/L (136-145) L 09/06/18 03:45 Chloride 96 mEq/L (98-107) L 09/06/18 03:45 Carbon Dioxide 18 mEq/L (23-29) L 09/01/18 15:33 BUN 51 mg/dL (6-20) H 09/06/18 03:45 2.82 mg/dL (0.70-1.30) H 09/06/18 03:45 Est GFR ( Amer) 29 (> 60) L 09/06/18 03:45 Est GFR (Non-Af Amer) 24 (> 60) L 09/06/18 03:45 Glucose 195 mg/dL (70-105) H 09/06/18 03:45 POC Glucose 157 mg/dL (70-99) H 09/06/18 07:18 8.5 % (-5.6) H 09/04/18 04:00 303 (280-300) H 09/04/18 04:00 Calcium 8.2 mg/dL (8.6-10.3) L 09/06/18 03:45 0.3 mg/dL (0.0-0.2) H 09/01/18 15:33 122 Units/L (34-104) H 09/01/18 15:33 0.04 ng/mL (< 0.04) H* 09/03/18 01:00 198 mg/L (Less than 10) H 09/04/18 04:00 6.1 g/dL (6.4-8.9) L 09/01/18 15:33 2.7 g/dL (3.5-5.7) L 09/01/18 15:33 0.8 (1.1-2.2) L 09/01/18 15:33 [place] (Yellow) A 09/01/18 Unknown Cloudy (Clear) A 09/01/18 Unknown Ur Specific [place] 1.029 (1.010-1.025) H 09/01/18 Unknown 30 mg/dL (Neg-Trace) H 09/01/18 Unknown 100 mg/dL (Normal) H 09/01/18 Unknown Trace mg/dL (Negative) H 09/01/18 Unknown Trace (Negative) H 09/01/18 Unknown Moderate (Negative) H 09/01/18 Unknown 4.0 mg/dL (Normal) H 09/01/18 Unknown Ur Leukocyte Esterase Small (Negative) H 09/01/18 Unknown 5-15 per hpf (0-3) H 09/01/18 Unknown Ur Squamous Epith Cells Many per lpf (None-Few) H 09/01/18 Unknown Ur Culture Indicated? NO. (NO) A 09/01/18 Unknown Ur Microalbumin 24 Hr 351 mg/day (Less than 30) H 09/03/18 23:00 Microalb/Creat Ratio 290 mcg/mg (Less than 30) H 09/03/18 23:00 Ur Total Protein 24 Hr 2128 mg/day (50-80) H 09/03/18 23:00 Protein/Creatinin Ratio 1.76 mg/mg (0.00-0.20) H 09/03/18 23:00 Ur Sodium 24 Hour 33 mEq/day (40-220) L 09/03/18 23:00 Ur Chloride 24 Hour 20 mEq/day (110-250) L 09/03/18 23:00 Ur Phosphorus 24 Hr 0.2 g/day (0.4-1.3) L 09/03/18 23:00 Ur Urea Nitrogen 24 Hr 6 g/day (12-20) L 09/03/18 23:00 Ur Calcium 24 Hr 6 mg/day (100-300) L 09/03/18 23:00 185 mg/dL (1-14) H 09/03/18 23:00 U Free [place] Ch 110.00 mg/dL (0.14-2.42) H 09/02/18 23:00 U Free [place] Light Ch 19.80 mg/dL (0.02-0.67) H 09/02/18 23:00 Positive ng/mL (Kkerfk=169) H 09/01/18 16:29 Hep Bs Antibody 4.61 mIU/mL (10.00-) L 09/01/18 20:52 Staphylococcus sp PCR DETECTED (Not Detect) A 09/01/18 15:58 Staph aureus (PCR) DETECTED (Not Detect) A 09/01/18 15:58 Streptococcus sp PCR DETECTED (Not Detect) A 09/01/18 15:58 Group B Strep (PCR) DETECTED (Not Detect) A 09/01/18 15:58 Crossmatch Prewarmed See Detail 09/01/18 16:55 Microbiology, Last 48 Hours 09/02/18 02:00 Wound Culture - Final Right Foot Proteus mirabilis Strep agalactiae - (Group B) Staphylococcus aureus 09/01/18 15:58 Blood Culture - Preliminary Peripheral Venipuncture Strep agalactiae - (Group B) Proteus mirabilis Staphylococcus aureus 09/01/18 15:50 Blood Culture - Preliminary Peripheral Venipuncture Strep agalactiae - (Group B) Proteus mirabilis Staphylococcus aureus Consult Discharge Plan - Plan Instructions: Tamsulosin (By mouth) Referrals: oJsé Miguel Negro MD [Primary Care Provider] -
[2018-09-06] MEDS ORDERED: 0.9 % Sodium Chloride 1,000 ML ONE (10:12)
[2018-09-06] MEDS ORDERED: *HR* Midazolam HCl 2 MG/2 ML VIAL ONE (10:18)
[2018-09-06] MEDS ORDERED: Ondansetron 4 MG/2 ML VIAL ONE (10:18)
[2018-09-06] MEDS ORDERED: Lidocaine -MPF 2% 2 ML VIAL ONE (10:18)
[2018-09-06] MEDS ORDERED: *HR* FentaNYL (PF) 100 MCG/2 ML VIAL ONE ×2 (10:18→14:50)
--- NOTE | 2018-09-06 10:33 | Operative Note ---
Date of procedure: 09/06/18 Pre-op diagnosis: right foot extensive abscess multiple areas, charcot, osteomyelitis Post-op diagnosis: same Procedure: right foot I&D extensive multiple areas below fascia plantar fasciectomy debridement of tarsal bone gastroc recession application of multiplane external fixation right LE Implants: none Complications: none Anesthesia: GETA Local Anesthetics: 1% Lidocaine HCL SubQ (cc) Surgeon: Nolan Ferrell Was there an assistant family teacher present: No Estimated blood loss (cc): 75 Specimen: right foot soft tissue culture, bone culture, right foot bone pathology Condition: stable Disposition: PACU Procedure in Detail: 48 year old uncontrolled diabetic male on dialysis with a history of Charcot is admitted with a right diabetic foot infection with abscess with osteomyelitis. Patient is being brought to the operating room for the above procedures after discussing the nature of the procedures, risks versus benefits potential complications consequences of his condition and surgery at length. No guarantees were made as to the outcome of his functionality. It was explained to them that he is high risk for limb loss and it is possible that he could due to his infection. They said they understand that he could lose his leg but want to try to save it. No guarantees were made as to his functionality and it was explained to them that he would have a shortened foot and will require a brace and/or special shoe for life if he is even able to have his leg salvaged. It was also explained that this is a staged procedure and he is going to require multiple surgeries if his leg is even able to be salvaged. All of their questions have been answered and the informed consent was signed. Patient had been transfused with 1 unit of packed red blood cells. Patient was brought to the preoperative holding area into the operating room placed on the operating room table in the supine position. The right lower extremity was scrubbed prepped and draped in the usual sterile fashion. Thigh tourniquet was applied and inflated to 300 mmHg. The following procedures then began. Incision and drainage right foot extensive multiple abscesses below the level of the fascia, plantar fasciectomy. Attention was directed to the plantar aspect of the patient's right foot where abscess and ulceration was present and a #10 blade was used to make a full thickness incision in the plantar foot expressing purulent drainage. The area was probed and explored and a grayish brown purulent drainage was expressed from the plantar foot noted to be tracking to the plantar fascia and deep to the plantar fascia. The decision was made to perform a fasciectomy and excised the plantar fascia. The plantar fascia was excised through the plantar incision in the foot and the remainder through the lateral incision which was later made. Devitalized soft tissue was present and excised and sent to microbiology. Attention was then directed laterally where a full thickness incision was made proximal and distal to the lateral ulceration and purulent drainage was expressed. Devitalized tissue was also present and excised. The tarsometatarsal joint and cuboid were identified and noted to be unstable. Purulent drainage was surrounding the bone and also expressed dorsally and more proximally towards the ankle joint laterally. The incision was extended along the entire lateral border of the foot and up towards the ankle. 2 accessory incisions were made dorsolateral on the foot and purulent drainage was able to be expressed through one of these incisions. The pulse lavage containing vancomycin 4 grams in 4 L was used to copiously irrigate the areas of multiple extensive abscess. All areas were again probed and explored and no further purulence was able to be expressed. Devitalized tissue was felt to have been adequately resected. Right gastroc recession. Attention was directed to the posterior aspect of the patient's right leg where a clean #15 blade was used to make and blunt dissection carried out down to the level of the paratenon which was incised and reflected exposing the gastroc portion of the Achilles tendon which was lengthened and a Kathie fashion with the help foot held in dorsiflexion. Improved dorsiflexion was present at the patient's right ankle joint. [place] were used to reapproximate the skin. Attention was then directed back laterall y. Right foot debridement of tarsal bone. Patient had rocker-bottom type Charcot deformity with the cuboid dropped and instability of the midfoot and tarsal bones prominence was felt plantarly and the sagittal saw was used to debride and resect bone from the plantar surface of the cuboid and tarsal joints. Deformity continued to be present and an osteotomy was made across the tarsometatarsal vini ints to better align the foot. The bone was sent to microbiology and pathology. The cuboid bone was excised in its entirety and there was purulent drainage noted within the cuboid bone. The remainder of the bone left behind did not exhibit purulent drainage and did have bleeding bone. An accessory incision was made medially to remove the Charcot bone. No purulence or devitalized tissue was noted medially. The bones remaining were put into apposition and pinned with K wires. Application of multiplane external fixation. With the midfoot bones reduced, a multi-plane butt frame was constructed and applied to the right lower extremity. The tibial rings were fixated with 2 olive wires proximally and tensioned appropriately. The second tibial ring was head to skinny wires thrown and tens ioned appropriately. There was adequate space between the patient's posterior calf and the frame. Next 2 smooth wires were thrown through the calcaneus and tensioned appropriately. 2 wires were then thrown through the forefoot and tensioned and the motor units were also utilized to generate compression through the midfoot. All bolts were again tightened. 0.25% Marcaine with epinephrine was injected around all of the pin sites. The patient's foot was then good position and alignment. Fluoroscopy was utilized during the surgical procedure to confirm placement and alignment of the cuts as well as the placement of the wires and the external fixator. The frame was felt to have excellent stability and there was reduction of deformity noted on intraoperative fluoroscopy and there was no bony presence prominent in the plantar soft tissues. Retention sutures were placed in the lateral wound as well as the plantar wound and then packed open. The other incisions without purulent drainage expressed were closed with eliana. One of the dorsal lateral foot incisions was also packed open after having a couple of retention sutures placed. The tourniquet was deflated. There was no active bleeding and adequate hemostasis was felt to be present. Xeroform was placed around the pin sites. Pan and Kerlix and Miles bandages were wrapped around the leg and external fixation device. Patient brought to PACU with vital signs stable and vascular status intact to the digits of his right foot.
[2018-09-06] MEDS: *HR* Enoxaparin 150 MG/ML SYRINGE SQ SCH ×2 (11:13→17:07)
[2018-09-06] MEDS ORDERED: Propofol 500 MG/50 ML INFUS..BTL ONE ×4 (11:18→15:49)
--- NOTE | 2018-09-06 11:42 | Infectious Disease Consult ---
Infectious Disease-Consult - Encounter Date/Time Date of Encounter: 09/06/18 Time of Encounter: 12:15 - Data of Consult Patient: new to practice Reason for consult: Bacteremia, Cellulitis Consult date: 09/06/18 Requesting Physician: Petey Gregory Primary Care Provider: José Miguel Negro MD - HPI HPI: Mr. Perkins is a 48-year-old male with past medical history of Charcot arthropathy of the right foot, hypertension, diabetes, CAD stage III, nephrectomy, and blindness in his right eye. The patient was admitted to the hospital for acute kidney injury, elevated troponin, anemia, GI bleed, and cellulitis. We are consulted 09/06/18 for further workup and treatment recommendations for bacteremia and right lower extremity cellulitis. Briefly, the patient is a 48-year-old male with past medical history as stated above. The patient was previously admitted to the hospital about a month ago for an acute kidney injury. At that time, he required dialysis, but his renal function recovered and he was discharged with instructions to follow up with nephrology. He had outpatient labs done prior to his hospitalization and was noted to have worsening renal function and altered mental status. He was advised to come to the ER by his PCP. Upon arrival to the ER, the patient was afebrile. He was hypotensive. He had leukocytosis and his creatinine was 6.57. Lactic acid was normal. Troponin was positive at 0.06. Urinalysis was negative for bacteria. Urine urine drug screen was positive for opiates. Chest x-ray showed pulmonary edema. CT of the head was negative. Foot x-ray showed a lightest and findings consistent with a Charcot arthropathy. Blood cultures were obtained 2 sets. He was started empirically on vancomycin and Zosyn and admitted to the hospital for further evaluation. Since admission, the patient's leukocytosis has gotten worse. He was evaluated by nephrology who recommended restarting dialysis. He had a wound culture obtained that grew out Proteus mirabilis, group B strep, and MSSA. Blood cultures obtained in the emergency department also came back positive for group B strep, MSSA, and Proteus mirabilis. He was evaluated by podiatry who recommended an MRI and surgical intervention secondary to possible osteomyelitis and purulent drainage from his chronic ulcerations. The patient initially declined, but eventually became agreeable to go back to surgery. His ESR was elevated at greater than 130. CRP was 198. He spiked a temp overnight with a MAXIMUM TEMPERATURE of 100.3. Today, his white blood cell count is 18,000 with 8% and he is scheduled to go to the OR later today. Currently, he is on vancomycin and Zosyn. We have been asked to evaluate and make further recommendations. During my exam today, the patient is seen while on dialysis. He endorses a history as stated above. Reports some subjective fevers and chills at home. Plaints of diffuse fatigue and myalgias. Denies any headache or neck pain. Denies congestion, earache, or sore throat. Denies chest pain, shortness of breath, or cough. Reports some nausea with vomiting prior to admission, but none since then. States his appetite is not very good. Denies abdominal pain or urinary complaints. Blanco catheter is patent. Denies any specific joint or back pain. He does complain of pain in the right foot that is chronic, but seems to be a little worse than normal. He states his ulcerations have been there since his previous surgery about a year ago and his typically takes care of him at home. He states he is unsure when he started having drainage from the wounds because his never mentioned it. The patient lives at home with his and family. He does not work outside the home. He smokes pack of cigarettes per day. Denies alcohol or illicit drug use. Denies chronic infectious diseases. Denies any pet or animal exposures. - ROS Review of Systems: All systems reviewed and no additional remarkable complaints except as stated. - Results CBC & Chem 7: 09/07/18 13:55 09/07/18 09:52 - Line Documentation Line Documentation: Dialysis Catheter (Temporary dialysis catheter noted to the right neck with transparent dressing clean, dry, and intact. Currently access for hemodialysis.), Blanco Catheter (Draining clear yellow urine.) - Exam Vitals: Temp Pulse Resp BP Pulse Ox 98.0 F 84 18 157/80 94 09/06/18 07:19 09/06/18 07:19 09/06/18 07:19 09/06/18 07:19 09/06/18 07:19 Exam: Head: Atraumatic, normal inspection, normocephalic. Eye: EOMI, PERRLA, no scleral icterus noted. ENT: Mucous membranes moist. No odontogenic infection noted. Neck: Normal inspection, no meningismus. Prior dialysis catheter noted to the right neck. Respiratory: Clear to auscultation. No rales, respiratory distress, rhonchi, or wheezes noted. Cardiovascular: Regular rate and rhythm, S1 and S2 audible. No murmurs, rubs, or gallops. GI: Soft, obese, normal bowel sounds. Blanco catheter noted. Extremities:1+ edema noted to the BLE. Right foot dressing intact. No erythema to the exposed skin. Neurological: Alert, oriented 3, no focal deficits. Psychiatric: normal affect, normal mood. Skin: Dry, intact, warm. Normal color. No rashes. Albuterol Sulfate [Albuterol Inhaler] 2 puff IH Q4H PRN 08/03/18 [History] Amlodipine Besylate 5 mg PO DAILY 08/03/18 [History] Cholecalciferol (Vitamin D3) [Optimal D3] 50,000 unit PO QWEEK 08/03/18 [History] CloNIDine Patch [Catapres-Tts] 0.2 mg TD QWEEK 08/03/18 [History] Furosemide [Lasix] 40 mg PO DAILY 08/03/18 [History] Insulin Glargine,Hum.rec.anlog [Basaglar Kwikpen U-100] 35 unit SQ BID 08/03/18 [History] Insulin LISPRO [HumaLOG] 30 units SQ TID 08/03/18 [History] Losartan/Hydrochlorothiazide [Losartan-Hctz 100-25 mg Tab] 1 each PO DAILY 08/03/18 [History] OxyCODONE/APAP 10/325 [Percocet 10/325 MG] 1 each PO TID PRN 08/03/18 [History] Rivaroxaban [Xarelto] 15 mg PO DAILY 08/03/18 [History] Sertraline [Zoloft] 50 mg PO DAILY 08/03/18 [History] Sertraline [Zoloft] 100 mg PO DAILY 08/03/18 [History] Umeclidinium [place] [Incruse Ellipta] 1 puff IH DAILY 08/03/18 [History] Allergy/AdvReac Type Severity Reaction Status Date / Time No Known Allergies Allergy Verified 05/06/16 14:33 - Assessment and Plan (1) Sepsis Current Visit: Yes Status: Acute He should not had to sepsis criteria with acute kidney injury. Likely secondary to bacteremia and right foot infection. White blood cell count 18,000 with 8% bands today. Febrile overnight. Blood cultures drawn 09/01/18 are +2 out of 2 sets for group B strep, MSSA, and Proteus mirabilis. Qualifiers: Sepsis type: sepsis due to unspecified organism Qualified Code(s): A41.9 - Sepsis, unspecified organism SNOMED Code(s): 06140779 (2) Bacteremia Current Visit: Yes Status: Acute As an organism: Group B strep, MSSA, Proteus mirabilis. Source: Right foot infection. Blood cultures drawn 09/01/18 are +2 out of 2 sets. No repeat blood cultures have been obtained. Complicated due to hardware in the left wrist. No endocarditis stigmata noted on exam. The patient has one major and one minor modified [place] criteria. Currently on Vanc and Zosyn. SNOMED Code(s): 3780796 (3) Infection of right foot Current Visit: Yes Status: Acute Location: Right foot. Causative organism: GBS, MSSA, P. mirabilis. Likely secondary to chronic non-healing ulcers and uncontrolled DM. X-ray of the right foot 09/01/18 showed findings consistent with Charcot arthropathy/neuropathic foot not significantly changed from the prior studies and extensive soft tissue swelling suggesting cellulitis. MRI of the right foot 09/04/18 showed plantar soft tissue ulcer at the level of the cuboid with suspected interval soft tissue graft placement. There is edema of the graft which may reflect soft tissue infection. Suspected bilateral soft tissue ulceration with associated phlegmonous change at the level of the inframalleolar peroneal tendons. There is no tenosynovitis and complete full- thickness peroneal tendon tears. The tenosynovitis may be infectious. New multifocal marrow signal abnormality involving the talus, calcaneus, cuboid, and navicular suspicious for osteonecrosis and less likely osteomyelitis. Persistent marrow signal and abnormality in the cuboid which is suspicious for osteoarthritis and a chronic cuboid erosion or defect is noted. Podiatry consult. Per their note, purulent drainage expressed on exam. Planning for operative debridement later today. ESR greater than 130, CRP 198. Currently on vancomycin and Zosyn. SNOMED Code(s): 725037103 (4) Cellulitis Current Visit: Yes Status: Acute Location: Right foot. Causative organism: GBS, MSSA, P. mirabilis. Purulent. Likely secondary to chronic ulcers. Podiatry consulted. Currently on Vanc and Zosyn. Qualifiers: Site of cellulitis: unspecified site Qualified Code(s): L03.90 - Cellulitis, unspecified SNOMED Code(s): 192019438 (5) Chronic ulcer of right foot with fat layer exposed Current Visit: Yes Status: Acute Location: Right foot. Podiatry consulted. SNOMED Code(s): 144165021 (6) Acute kidney injury superimposed on chronic kidney disease Current Visit: No Status: Acute Serum creatinine 6.57 on admission with uremia and diminished urine output. Nephrology consulted. Temp HD line placed 09/02/18 and HD initiated. Avoid nephrotoxins as able. Dose-adjust medications. Will stop Vancomycin. SNOMED Code(s): 94335453 (7) Anemia Current Visit: Yes Status: Acute Qualifiers: Anemia type: other cause Other causes of anemia: other cause, not classified Qualified Code(s): D64.89 - Other specified anemias SNOMED Code(s): 241095255 (8) Elevated troponin Current Visit: Yes Status: Acute SNOMED Code(s): 873169384, 184961586, 288752681 (9) Hyponatremia Current Visit: Yes Status: Acute SNOMED Code(s): 27998886 (10) Pulmonary edema Current Visit: Yes Status: Acute Qualifiers: Chronicity: acute Qualified Code(s): J81.0 - Acute pulmonary edema SNOMED Code(s): 73152756 (11) Atrial fibrillation, chronic Current Visit: Yes Status: Chronic SNOMED Code(s): 537352659 (12) COPD (chronic obstructive pulmonary disease) Current Visit: Yes Status: Chronic Qualifiers: Emphysema type: unspecified Qualified Code(s): J43.9 - Emphysema, unspecified SNOMED Code(s): 33835517 (13) T2DM (type 2 diabetes mellitus) Current Visit: Yes Status: Chronic Check HgbA1C. Recommend aggressive glucose monitoring and control to promote wound healing and prevent re-infection. Management per the primary team. Qualifiers: Diabetes mellitus oysterman insulin use: without assisted use Diabetes mellitus complication status: with kidney complications Diabetes mellitus complication detail: with chronic kidney disease Chronic kidney disease stage: stage 3 (moderate) Qualified Code(s): E11.22 - Type 2 diabetes mellitus with diabetic chronic kidney disease; N18.3 - Chronic kidney disease, stage 3 (moderate) SNOMED Code(s): 90142655 - Recommendations Recommendations: EPP blood cultures 2 sets. Check rheumatoid factor. Await intraoperative cultures and findings. Get TTE. The patient will likely require a MAHESH prior to discharge. Wound care and activity restrictions per the podiatry team. AKA management per the nephrology team. Discontinue vancomycin and Zosyn. Start Cefazolin 1 gram IV daily. Dose-adjusted for HD status. Duration of treatment depends on the clinical picture. Monitor renal function and dose-adjust antibiotics. Past Med Surg Social Fam HX - Past Medical History Medical history: diabetes, hypertension, other Additional medical history: legally blind in right eye, Left kidney removal in 1999, fractured C4 in 2001 ( as stated by PT). Psychiatric history: no psych history - Past Surgical History Surgical History: other Additional surgical history: left kidney removed, bilat foot surgery - Social History Smoking Status: Current every day smoker Smokeless Tobacco Status: No Alcohol use: none Drug use: none - Family History Father Living Status: Hx Family Cancer: Yes (lung and brain) Consult Discharge Plan - Plan Instructions: Tamsulosin (By mouth) Referrals: José Miguel Negro MD [Primary Care Provider] - - Attending Attestation I have personally performed a face to face evaluation on this patient. I have reviewed and agree with the care plan. History and Exam by me shows: Assessment and Plan: 1. Sepsis 2. Bacteremia 3. Infection of right foot 4. Cellulitis 5. Chronic ulcer of right foot with fat layer exposed 6. CESILIA on CKD Recommendations: EPP blood cultures 2 sets. Check rheumatoid factor. Await intraoperative cultures and findings. Get TTE. The patient will likely require a MAHESH prior to discharge. Wound care and activity restrictions per the podiatry team. AKA management per the nephrology team. Discontinue vancomycin and Zosyn. Start Cefazolin 1 gram IV daily. Dose-adjusted for HD status. Duration of treatment depends on the clinical picture. Monitor renal function and dose-adjust antibiotics.
--- NOTE | 2018-09-06 12:17 | Internal Med Progress Note ---
Hospitalist Progress Note - Encounter Date of Encounter: 09/06/18 Time of Encounter: 12:13 - Subjective Interval History: Pt stated that he has not walked for two weeks and he is aware that he has a svere infection. Pt /co of righ shoulder pain and his pain is not well contorlled. - Exam Vitals: Temp Pulse Resp BP Pulse Ox 98.0 F 84 18 157/80 94 09/06/18 07:19 09/06/18 07:19 09/06/18 07:19 09/06/18 07:19 09/06/18 07:19 Exam: Gen: A+O x 3 Herat: s1, S2, RRR lungs; CTAB abd; OSft, NT/ND LE: right foot ahs labck escar with pruulent drainage on top and the lateral aspect as well, there is mild tenderness to palpation - Summary of Assessment and Plan Summary of Assessment and Plan: Thsi is a 48 yom with spesis from celluliits/osetomtyelis 1) sepsis: resolving slowly with OR today Pt has MRI showed enosynovivitis, also osteo We will ask ID to see the pt 2) bactremia: broup B strep, Proteus and also staph Polymicrobial infection consisted with foot infection we will cont vanc anc zosyn, await ID to see the pt 3) DM: cont sliding scale 4) code: full 5)COPD: cont duoneb 6) deblity: Pt has not walked for a week, pt will need PTOTa fter surgery 7)dispo: will repeat blood cultre, xr the left shoulder and better control the pain as well Time: 35 min - Time Spent with Patient Total time spent is greater than 50% in coordination of care (as documented) at patient's floor/unit and/or counseling patient: Internal Medicine: Result - Labs CBC & Chem 7: 09/06/18 03:45 09/06/18 03:45 Labs: Short CBC 09/06/18 Range/Units 03:45 WBC 18.0 H (4.3-11.1) K/mcL Hgb 7.8 L (12.9-16.9) g/dL Hct 23.3 L (37.5-50.1) % Plt Count 130 L (140-400) K/mcL Neutrophils # 15.5 H (1.6-8.9) K/mcL BMP 09/06/18 03:45 Sodium 127 L Potassium 4.4 Chloride 96 L Carbon Dioxide 24 BUN 51 H Creatinine 2.82 H Glucose 195 H Calcium 8.2 L - ABG Interpretation ABG results: PT/INR, D-dimer PT 13.3 Seconds (9.4-12.1) H 09/01/18 15:33 Consult Discharge Plan - Plan Instructions: Tamsulosin (By mouth) Referrals: José Miguel Negro MD [Primary Care Provider] -
[2018-09-06] MEDS ORDERED: *HR* FentaNYL (PF) 100 MCG/2 ML VIAL IVP PRN (12:18)
[2018-09-06] MEDS ORDERED: Bupivacaine/EPI 1:200k 0.25%PF 10 ML VIAL INFILT ONE (12:59)
[2018-09-06] MEDS ORDERED: Lidocaine 1% 20 ML MDV ONE (13:00)
[2018-09-06] MEDS ORDERED: Vancomycin 1,000 MG VIAL ONE (13:00)
[2018-09-06] MEDS ORDERED: *HR* Metoprolol 5 MG/5 ML VIAL IVP ONE (15:14)
[2018-09-06] MEDS ORDERED: Vancomycin 1,000 MG, 0.9 % Sodium Chloride 1,000 ML IR ONE ×2 (15:20→17:43)
[2018-09-06] MEDS ORDERED: ceFAZolin 1,000 MG in 0.9 % Sodium Chloride Mini Bag 100 ML IVPB SCH (16:00)
[2018-09-06] MEDS ORDERED: *HR* Propofol 200 MG/20 ML VIAL IVP ONE ×2 (16:19→16:44)
[2018-09-06] MEDS ORDERED: *HR* Dextrose 50 % in Water (Syg) 50 ML SYRINGE IVP PRN (17:43)
[2018-09-06] MEDS ORDERED: Naloxone 0.4 MG/ML INJ IVP PRN (17:43)
[2018-09-06] MEDS ORDERED: D5% in Water 1,000 ML IVC PRN (17:43)
[2018-09-06] MEDS ORDERED: 0.9 % Sodium Chloride 1,000 ML PRIME SCH (17:43)
[2018-09-06] MEDS ORDERED: Dextrose Gel 15 GM/37.5 ML TUBE PO PRN ×2 (17:43)
[2018-09-06] MEDS ORDERED: Ipratropium/Albuterol Neb 3 ML IH PRN (17:43)
[2018-09-06] MEDS: *HR* FentaNYL (PF) 100 MCG/2 ML VIAL IVP PRN ×2 (18:39→23:13)
--- NOTE | 2018-09-06 20:03 | Anesthesia Evaluation Post Op ---
Date of Encounter: 09/06/18 Time of Encounter: 20:03 - Vital Signs Vital Signs: Vital Signs/O2 Sat, Most Current Temp Pulse Resp BP Pulse Ox 98.9 F 96 20 123/76 96 09/06/18 18:08 09/06/18 18:08 09/06/18 18:08 09/06/18 18:08 09/06/18 18:08 - Lungs Lungs: Clear Ascult./Percussion - Airway Airway: Non-obstructed - Cardiovascular Regular Rate - Mental Status Mental Status: Baseline Status - Pain Pain Scale: 0 Pain Scale used: Numeric (1 - 10) - Nausea Vomiting Nausea Vomiting: Not Present - Discharge PostOp Status: Transfer Patient to floor
[2018-09-06] MEDS ORDERED: Insulin DETEMIR 100 UNIT/ML X5UNITS SQ SCH (21:00)
[2018-09-06] MEDS ORDERED: ceFAZolin 1,000 MG in Water for inj. (sterile) 20 ML 10 ML IVPB SCH (23:30)
[2018-09-07] MEDS ORDERED: Acetaminophen 325 MG TABLET PO ONE (00:10)
[2018-09-07] MEDS: *HR* FentaNYL (PF) 100 MCG/2 ML VIAL IVP PRN ×6 (03:33→21:31)
[2018-09-07 05:17] LABS: Mean Corpuscular Hemoglobin 29.2 pg (28.0-33.3); Mean Platelet Volume 9.9 fL (9.4-12.4); Red Cell Distribution Width 14.2 % (11.5-14.5)
[2018-09-07 05:18] LABS: Hemoglobin 6.8 g/dL (12.9-16.9); Mean Corpuscular HGB Conc 32.4 g/dL (31.6-35.5); Mean Corpuscular Volume 90.1 fL (83.0-100.0); Platelet Count 144 K/mcL (140-400); Red Blood Count 2.33 M/mcL (4.19-5.50)
[2018-09-07] MEDS ORDERED: ceFAZolin 1,000 MG in Water for inj. (sterile) 20 ML 10 ML IVP ONE (07:59)
[2018-09-07] MEDS: Insulin LISPRO 300 UNITS/3 ML VIAL SQ SCH ×7 (08:25→21:27)
[2018-09-07] MEDS ORDERED: 0.9 % Sodium Chloride 250 ML ONE ×2 (09:30→16:07)
[2018-09-07] MEDS ORDERED: Insulin DETEMIR 100 UNIT/ML X5UNITS SQ ONE (09:51)
--- NOTE | 2018-09-07 10:11 | Infectious Disease Progress No ---
ID Progress Note Date of Encounter: 09/07/18 Time of Encounter: 09:10 - Subjective Subjective: Patient seen and examined. No acute events noted overnight. Status post right foot irrigation and debridement and incision and drainage with plantar fasciectomy and debridement of the tarsal bone and application of external fixator 09/06/[address] Armstrong. Patient complains of pain at the surgical site this morning. Denies fevers or chills or rigors. Denies chest pain, shortness of breath, or cough. Denies nausea, vomiting, diarrhea, or constipation. Blanco catheter remains patent. He reports an adequate appetite. He denies any oral thrush or skin rashes. - Objective CBC & Chem 7: 09/08/18 03:30 09/08/18 10:17 - Line Documentation Line Documentation: Dialysis Catheter (Temporary dialysis catheter noted to the right neck with transparent dressing clean, dry, and intact. Currently access f or hemodialysis.), Blanco Catheter (Draining clear yellow urine.) - Exam Vitals: Temp Pulse Resp BP Pulse Ox 98.6 F 87 20 149/74 94 09/07/18 09:54 09/07/18 09:54 09/07/18 09:54 09/07/18 09:54 09/07/18 09:54 Exam: Head: Atraumatic, normal inspection, normocephalic. Eye: EOMI, PERRLA, no scleral icterus noted. ENT: Mucous membranes moist. No odontogenic infection noted. Neck: Normal inspection, no meningismus. Temporary dialysis catheter noted to the right neck. Respiratory: Clear to auscultation. No rales, respiratory distress, rhonchi, or wheezes noted. Cardiovascular: Regular rate and rhythm, S1 and S2 audible. No murmurs, rubs, or gallops. GI: Soft, obese, normal bowel sounds. Blanco catheter noted draining clear yellow urine. Extremities:1+ edema noted to the BLE. Right foot dressing with bloody drainage. External fixator noted. Neurological: Alert, oriented 3, no focal deficits. Psychiatric: normal affect, normal mood. Skin: Dry, intact, warm. Normal color. No rashes. - Assessment and Plan (1) Sepsis Current Visit: Yes Status: Acute The patient had two sepsis criteria with acute kidney injury. Likely secondary to bacteremia and right foot infection. WBC worse today, but bandemia resolved. Febrile overnight. Blood cultures drawn 09/01/18 are +2 out of 2 sets for group B strep, MSSA, and Proteus mirabilis. Repeat blood cultures drawn 09/06/18 are pending x 2 sets. Qualifiers: Sepsis type: sepsis due to unspecified organism Qualified Code(s): A41.9 - Sepsis, unspecified organism SNOMED Code(s): 54414588 (2) Bacteremia Current Visit: Yes Status: Acute As an organism: Group B strep, MSSA, Proteus mirabilis. Source: Right foot infection. Blood cultures drawn 09/01/18 are +2 out of 2 sets. Repeat blood cultures drawn 09/06/18 are pending x 2 sets. Complicated due to hardware in the left wrist and complicated right foot infection. No endocarditis stigmata noted on exam. Rheumatoid factor normal. The patient has one major and one minor modified [place] criteria. Currently on cefazolin. SNOMED Code(s): 4123401 (3) Infection of right foot Current Visit: Yes Status: Acute Location: Right foot. Causative organism: GBS, MSSA, P. mirabilis. Likely secondary to chronic non-healing ulcers and uncontrolled DM. X-ray of the right foot 09/01/18 showed findings consistent with Charcot arthropathy/neuropathic foot not significantly changed from the prior studies and extensive soft tissue swelling suggesting cellulitis. MRI of the right foot 09/04/18 showed plantar soft tissue ulcer at the level of the cuboid with suspected interval soft tissue graft placement. There is edema of the graft which may reflect soft tissue infection. Suspected bilateral soft tissue ulceration with associated phlegmonous change at the level of the inframalleolar peroneal tendons. There is no tenosynovitis and complete full- thickness peroneal tendon tears. The tenosynovitis may be infectious. New multifocal marrow signal abnormality involving the talus, calcaneus, cuboid, and navicular suspicious for osteonecrosis and less likely osteomyelitis. Persis tent marrow signal and abnormality in the cuboid which is suspicious for osteoarthritis and a chronic cuboid erosion or defect is noted. Podiatry consult. Per their note, purulent drainage expressed on exam. Is post right foot incision and drainage and irrigation and debridement, plantar fasciectomy, debridement of the tarsal bone, and application of external fixator 09/06/[address] Armstrong. Operative note reviewed. Gross purulence noted throughout the foot. Intraoperative cultures are pending. ESR greater than 130, CRP 198. Currently on cefazolin. SNOMED Code(s): 435621054 (4) Cellulitis Current Visit: Yes Status: Acute Location: Right foot. Causative organism: GBS, MSSA, P. mirabilis. Purulent. Likely secondary to chronic ulcers. Podiatry consulted. Status post I & D. Currently on cefazolin. Qualifiers: Site of cellulitis: unspecified site Qualified Code(s): L03.90 - Cellulitis, unspecified SNOMED Code(s): 479006483 (5) Chronic ulcer of right foot with fat layer exposed Current Visit: Yes Status: Acute Location: Right foot. Podiatry consulted. SNOMED Code(s): 679050441 (6) Acute kidney injury superimposed on chronic kidney disease Current Visit: No Status: Acute Serum creatinine 6.57 on admission with uremia and diminished urine output. Nephrology consulted. Temp HD line placed 09/02/18 and HD initiated. Avoid nephrotoxins as able. Dose-adjust medications. Vancomycin discontinued. SNOMED Code(s): 67909025 (7) Anemia Current Visit: Yes Status: Acute Qualifiers: Anemia type: other cause Other causes of anemia: other cause, not classified Qualified Code(s): D64.89 - Other specified anemias SNOMED Code(s): 109311172 (8) Elevated troponin Current Visit: Yes Status: Acute SNOMED Code(s): 625716084, 287248739, 11389 6004 (9) Hyponatremia Current Visit: Yes Status: Acute SNOMED Code(s): 32299528 (10) Pulmonary edema Current Visit: Yes Status: Acute Qualifiers: Chronicity: acute Qualified Code(s): J81.0 - Acute pulmonary edema SNOMED Code(s): 71512230 (11) Atrial fibrillation, chronic Current Visit: Yes Status: Chronic SNOMED Code(s): 006371995 (12) COPD (chronic obstructive pulmonary disease) Current Visit: Yes Status: Chronic Qualifiers: Emphysema type: unspecified Qualified Code(s): J43.9 - Emphysema, unspecified SNOMED Code(s): 91817845 (13) T2DM (type 2 diabetes mellitus) Current Visit: Yes Status: Chronic Check HgbA1C. Recommend aggressive glucose monitoring and control to promote wound healing and prevent re-infection. Management per the primary team. Qualifiers: Diabetes mellitus intermission coordinator insulin use: without intermission coordinator use Diabetes mellitus complication status: with kidney complications Diabetes mellitus complication detail: with chronic kidney disease Chronic kidney disease stage: stage 3 (moderate) Qualified Code(s): E11.22 - Type 2 diabetes mellitus with diabetic chronic kidney disease; N18.3 - Chronic kidney disease, stage 3 (moderate) SNOMED Code(s): 37959134 - Recommendations Recommendations: Await repeat blood cultures. Repeat blood cultures x 2. Await intraoperative cultures. Get TTE. The patient will likely require a MAHESH prior to discharge. Wound care and activity restrictions per the podiatry team. CESILIA management per the nephrology team. Continue Cefazolin 1 gram IV daily. Dose-adjusted for HD status. Start flagyl 500mg PO TID. Duration of treatment depends on the clinical picture. Monitor renal function and dose-adjust antibiotics. Avoid insertion of long-term IV access until repeat blood cultures are negative x 48 hours. multimedia services manager to assist with discharge planning. Consult Discharge Plan - Plan Instructions: Tamsulosin (By mouth) Referrals: José Miguel Negro MD [Primary Care Provider] - - Attending Attestation I have personally performed a face to face evaluation on this patient. I have reviewed and agree with the care plan. History and Exam by me shows: Assessment and Plan: 1. Sepsis 2. Bacteremia with group B streptococcus, MSSA and Proteus mirabilis likely source right foot infection 3. Infection of right foot status post I&D, plantar fasciotomy, debridement of tarsal bone and application of external fixator 09/06/2018 4. Cellulitis 5. Chronic ulcer of right foot with fat layer exposed 6. CESILIA on CKD Recommendations: Continue cefazolin Duration of treatment probably 6 weeks Monitor labs and for drug toxicity Patient will need a midline but we have to discuss with the nephrology team first.
[2018-09-07 10:27] LABS: Calcium 7.9 mg/dL (8.6-10.3)
--- NOTE | 2018-09-07 11:26 | Internal Med Progress Note ---
Hospitalist Progress Note - Encounter Date of Encounter: 09/07/18 Time of Encounter: 11:23 - Subjective Interval History: Pt feels better, no new issues, pt wants to go home. - Exam Vitals: Temp Pulse Resp BP Pulse Ox 98.6 F 86 21 159/84 95 09/07/18 10:09 09/07/18 10:09 09/07/18 10:09 09/07/18 10:09 09/07/18 10:09 Exam: Gen: A+O x 3 Herat: s1, S2, RRR lungs; CTAB abd; OSft, NT/ND LE: right foot now has dry gauze with blood drying, and also mechanical devices - Summary of Assessment and Plan Summary of Assessment and Plan: Shaneka is a 48 yom with spesis from celluliits/osetomtyelis 1) sepsis: resolving slowly with OR today Pt has MRI showed enosynovivitis, also osteo We will ask ID to see the pt --pt is improving post surgical, WBC 20 likely reactionary 2) bactremia: broup B strep, Proteus and also staph Polymicrobial infection consisted with foot infection ---pt is on cefzolin, ID on board --deffered to ID --TTE pending 3) DM: cont sliding scale, will increase the scale given the glucose is elevated 4) code: full 5)COPD: cont duoneb 6) deblity: Pt has not walked for a week, pt will need PTOTa fter surgery 7)dispo: Pt is improving, await ID final recommendation, then home with at home, is RN who wants to take care of him. time: 35 min - Time Spent with Patient Total time spent is greater than 50% in coordination of care (as documented) at patient's floor/unit and/or counseling patient: Internal Medicine: Result - Labs CBC & Chem 7: 09/07/18 04:55 09/07/18 09:52 Labs: Short CBC 09/07/18 Range/Units 04:55 WBC 25.0 H (4.3-11.1) K/mcL Hgb 6.8 L (12.9-16.9) g/dL Hct 21.0 L (37.5-50.1) % Plt Count 144 (140-400) K/mcL BMP 09/07/18 09:52 Sodium 122 L Potassium 5.0 Chloride 91 L Carbon Dioxide 25 BUN 49 H Creatinine 3.11 H Glucose 498 H Calcium 7.9 L - ABG Interpretation ABG results: PT/INR, D-dimer PT 13.3 Seconds (9.4-12.1) H 09/01/18 15:33 - Impressions Impressions Shoulder X-Ray 09/06/18 12:19 IMPRESSION: No acute abnormality. AC joint degenerative changes D/ / Ismael Junior MD / Ismael Junior MD Interpreting Provider: Ismael Junior MD Ankle X-Ray 09/06/18 15:21 IMPRESSION: Intraprocedural fluoroscopic spot images as above. See separate procedure report for more information. D/ / 09/06/2018 17:20:21 Josh Hernadez MD / loretta Interpreting Provider: Josh Hernadez MD Fluoroscopy 09/06/18 15:21 IMPRESSION: Intraprocedural fluoroscopic spot images as above. See separate procedure report for more information. D/ / 09/06/2018 17:20:21 Josh Hernadez MD / loretta Interpreting Provider: Josh Hernadez MD Foot X-Ray 09/06/18 15:21 IMPRESSION: Intraprocedural fluoroscopic spot images as above. See separate procedure report for more information. D/ / 09/06/2018 17:20:21 Johs Hernadez MD / loretta Interpreting Provider: Josh Hernadez MD Consult Discharge Plan - Plan Instructions: Tamsulosin (By mouth) Referrals: José Miguel Negro MD [Primary Care Provider] -
[2018-09-07] MEDS ORDERED: Silver Nitrate Applicator 1 STICK..EA. TP ONE (11:41)
--- NOTE | 2018-09-07 12:59 | Podiatry Consult Note ---
Date of Encounter: 09/07/18 Time of Encounter: 11:05 Assessment and Plan (1) Chronic ulcer of right foot with fat layer exposed Current visit: Yes Status: Acute History of Present Illness HPI: Mr. Perkins is a 48 year old male Past Med Surg Social Fam HX - Past Medical History Medical history: diabetes, hypertension, other Additional medical history: legally blind in right eye, Left kidney removal in 1999, fractured C4 in 2001 ( as stated by PT). Psychiatric history: no psych history - Past Surgical History Surgical History: other Additional surgical history: left kidney removed, bilat foot surgery - Social History Smoking Status: Current every day smoker Smokeless Tobacco Status: No Alcohol use: none Drug use: none - Family History Father Living Status: Hx Family Cancer: Yes (lung and brain) Medications and Allergies Albuterol Sulfate [Albuterol Inhaler] 2 puff IH Q4H PRN 08/03/18 [History] Amlodipine Besylate 5 mg PO DAILY 08/03/18 [History] Cholecalciferol (Vitamin D3) [Optimal D3] 50,000 unit PO QWEEK 08/03/18 [History] CloNIDine Patch [Catapres-Tts] 0.2 mg TD QWEEK 08/03/18 [History] Furosemide [Lasix] 40 mg PO DAILY 08/03/18 [History] Insulin Glargine,Hum.rec.anlog [Basaglar Kwikpen U-100] 35 unit SQ BID 08/03/18 [History] Insulin LISPRO [HumaLOG] 30 units SQ TID 08/03/18 [History] Losartan/Hydrochlorothiazide [Losartan-Hctz 100-25 mg Tab] 1 each PO DAILY 0 08/03/18 [History] OxyCODONE/APAP 10/325 [Percocet 10/325 MG] 1 each PO TID PRN 08/03/18 [History] Rivaroxaban [Xarelto] 15 mg PO DAILY 08/03/18 [History] Sertraline [Zoloft] 50 mg PO DAILY 08/03/18 [History] Sertraline [Zoloft] 100 mg PO DAILY 08/03/18 [History] Umeclidinium [place] [Incruse Ellipta] 1 puff IH DAILY 08/03/18 [History] Allergy/AdvReac Type Severity Reaction Status Date / Time No Known Allergies Allergy Verified 05/06/16 14:33 All Systems Reviewed: The remainder of the systems were reviewed and are negative Physical Exam - Constitutional Vitals: Temp Pulse Resp BP Pulse Ox 98.6 F 94 20 161/90 97 09/07/18 12:43 09/07/18 12:43 09/07/18 12:43 09/07/18 12:43 09/07/18 12:43 Results - Labs Result Diagrams: 09/07/18 04:55 09/07/18 09:52 Labs: Abnormal lab results WBC 25.0 K/mcL (4.3-11.1) H 09/07/18 04:55 RBC 2.33 M/mcL (4.19-5.50) L 09/07/18 04:55 Hgb 6.8 g/dL (12.9-16.9) L 09/07/18 04:55 Hct 21.0 % (37.5-50.1) L 09/07/18 04:55 MCV 82.6 fL (83.0-100.0) L 09/03/18 03:55 Plt Count 130 K/mcL (140-400) L 09/06/18 03:45 Immature Gran % 5.3 % (0-4) H 09/05/18 04:53 8.0 % (0-4) H 09/06/18 03:45 2.0 % (0) H 09/03/18 03:55 15.5 K/mcL (1.6-8.9) H 09/06/18 03:45 Nucleated RBCs/100 WBC 0.2 /100 WBC (0) H 09/04/18 04:00 Present (Not Present) A 09/06/18 03:45 Decreased (Normal) L 09/05/18 04:53 1+ (Not Present) A 09/02/18 10:05 Present (Not Present) A 09/03/18 03:55 1+ (Not Present) A 09/02/18 10:05 ESR >= 130 mm/hr (0-10) H 09/06/18 10:20 PT 13.3 Seconds (9.4-12.1) H 09/01/18 15:33 Sodium 122 mEq/L (136-145) L 09/07/18 09:52 Chloride 91 mEq/L (98-107) L 09/07/18 09:52 Carbon Dioxide 18 mEq/L (23-29) L 09/01/18 15:33 BUN 49 mg/dL (6-20) H 09/07/18 09:52 3.11 mg/dL (0.70-1.30) H 09/07/18 09:52 Est GFR ( Amer) 26 (> 60) L 09/07/18 09:52 Est GFR (Non-Af Amer) 22 (> 60) L 09/07/18 09:52 Glucose 498 mg/dL (70-105) H 09/07/18 09:52 POC Glucose 307 mg/dL (70-99) H 09/06/18 20:08 8.5 % (-5.6) H 09/04/18 04:00 303 (280-300) H 09/04/18 04:00 Calcium 7.9 mg/dL (8.6-10.3) L 09/07/18 09:52 0.3 mg/dL (0.0-0.2) H 09/01/18 15:33 122 Units/L (34-104) H 09/01/18 15:33 0.04 ng/mL (< 0.04) H* 09/03/18 01:00 198 mg/L (Less than 10) H 09/04/18 04:00 6.1 g/dL (6.4-8.9) L 09/01/18 15:33 2.7 g/dL (3.5-5.7) L 09/01/18 15:33 0.8 (1.1-2.2) L 09/01/18 15:33 [place] (Yellow) A 09/01/18 Unknown Cloudy (Clear) A 09/01/18 Unknown Ur Specific [place] 1.029 (1.010-1.025) H 09/01/18 Unknown 30 mg/dL (Neg-Trace) H 09/01/18 Unknown 100 mg/dL (Normal) H 09/01/18 Unknown Trace mg/dL (Negative) H 09/01/18 Unknown Trace (Negative) H 09/01/18 Unknown Moderate (Negative) H 09/01/18 Unknown 4.0 mg/dL (Normal) H 04/26/19 Unknown Ur Leukocyte Esterase Small (Negative) H 09/01/18 Unknown 5-15 per hpf (0-3) H 09/01/18 Unknown Ur Squamous Epith Cells Many per lpf (None-Few) H 09/01/18 Unknown Ur Culture Indicated? NO. (NO) A 09/01/18 Unknown Ur Microalbumin 24 Hr 351 mg/day (Less than 30) H 09/03/18 23:00 Microalb/Creat Ratio 290 mcg/mg (Less than 30) H 09/03/18 23:00 Ur Total Protein 24 Hr 2128 mg/day (50-80) H 09/03/18 23:00 Protein/Creatinin Ratio 1.76 mg/mg (0.00-0.20) H 09/03/18 23:00 Ur Sodium 24 Hour 33 mEq/day (40-220) L 09/03/18 23:00 Ur Chloride 24 Hour 20 mEq/day (110-250) L 09/03/18 23:00 Ur Phosphorus 24 Hr 0.2 g/day (0.4-1.3) L 09/03/18 23:00 Ur Urea Nitrogen 24 Hr 6 g/day (12-20) L 09/03/18 23:00 Ur Calcium 24 Hr 6 mg/day (100-300) L 09/03/18 23:00 185 mg/dL (1-14) H 09/03/18 23:00 U Free [place] Ch 110.00 mg/dL (0.14-2.42) H 09/02/18 23:00 U Free [place] Ch 19.80 mg/dL (0.02-0.67) H 09/02/18 23:00 Positive ng/mL (Zasqrr=564) H 09/01/18 16:29 Hep Bs Antibody 4.61 mIU/mL (10.00-) L 09/01/18 20:52 Staphylococcus sp PCR DETECTED (Not Detect) A 09/01/18 15:58 Staph aureus (PCR) DETECTED (Not Detect) A 09/01/18 15:58 Streptococcus sp PCR DETECTED (Not Detect) A 09/01/18 15:58 Group B Strep (PCR) DETECTED (Not Detect) A 09/01/18 15:58 Crossmatch See Detail 09/06/18 03:45 Crossmatch [place] See Detail 09/01/18 16:55 H & H 09/07/18 Range/Units 04:55 Hgb 6.8 L (12.9-16.9) g/dL Hct 21.0 L (37.5-50.1) % All other labs normal. Consult Discharge Plan - Plan Instructions: Tamsulosin (By mouth) Referrals: José Miguel Negro MD [Primary Care Provider] -
--- NOTE | 2018-09-07 13:04 | Podiatry Progress Note ---
Date of Encounter: 09/07/18 Time of Encounter: 11:05 - Assessment and Plan (1) Chronic ulcer of right foot with fat layer exposed Current Visit: Yes Status: Acute Assessment: -Post op day #1: right foot I&D extensive multiple areas below fascia, plantar fasciectomy, debridement of tarsal bone, gastroc recession, application of multiplane external fixation right Alanna Ferrell on 09/06/2018 -WBC 25.0 -Hgb 6.8, Hct 21.0, patient receiving blood transfusion -ESR >130 -CRP 198 -Wound culture right foot final: Proteus mirabilis and Strep agalactiae (Group B), and Staphylococcus aureus -Blood cultures x 2 final: Proteus mirabilis, Strep agalactiae (group B), and Staphylococcus aureus -Surgical biopsy and surgical wpound cultures preliminary -Second set of blood cultures preliminary -MRI: IMPRESSION: 1. Plantar soft tissue ulcer at the level of the cuboid with suspected interval soft tissue graft placement. There is edema of the graft which may reflect soft tissue infection. 2. Suspected lateral soft tissue ulceration with associated phlegmonous change at the level of the inframalleolar peroneal tendons. There is new tenosynovitis and complete full-thickness peroneal tendon tears. The tenosynovitis may be infectious. 3. New multifocal marrow signal abnormality involving the talus, calcaneus, cuboid and navicular, suspicious for osteonecrosis and less likely osteomyelitis. 4. Persistent marrow signal abnormality in the cuboid which is suspicious for osteomyelitis. A chronic cuboid erosion or defect is noted. 5. 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 6. Underlying neuropathic arthropathy. Plan: -Dressing removed -Large amount of blood oozing from surgical wound right foot lateral aspect -Sutures intact, some signs of dehiscence noted to surgical wound plantar aspect -Packed lateral open surgical wound with surgicel and surgifoam, and held with manual pressure, oozing continues -Dr. Ervin called to bedside -Packing removed and confirmed there is no pulsating areas of bleeding, blood oozing from site -Packed site with surgifoam and pressure dressing applied using ABD pads and 4x4 dry gauze -Secured with Kerlix and wrap. -All pin sites covered. -Keep extremity elevated on two pillows -Call for any saturation noted to dressing -Repeat H&H one hour after blood transfusion -I&D onboard, appreciate recommendations -Will continue to monitor Subjective Principal diagnosis: CESILIA Interval history: Post op day #1: right foot I&D extensive multiple areas below fascia, plantar fasciectomy, debridement of tarsal bone, gastroc recession, application of multiplane external fixation right Alanna Ferrell on 09/06/2018 Patient is alert and oriented, resting in bed, no acute distress noted. Patient denies any chest pain, shortness of breath, or calf pain. He denies any fever, chills, nausea, vomiting, or diarrhea. External fixation noted rle. Dressing saturated. Objective - Vital Signs Vital Signs: Vital Signs Temp Pulse Resp BP Pulse Ox 09/07/18 12:43 98.6 F 94 20 161/90 97 09/07/18 11:53 98.8 F 88 16 166/78 96 09/07/18 10:09 98.6 F 86 21 159/84 95 09/07/18 09:54 98.6 F 87 20 149/74 94 09/07/18 07:54 98.7 F 90 15 135/79 95 09/07/18 03:48 98.1 F 96 17 122/70 94 09/06/18 23:53 101.9 F H 104 17 126/67 93 09/06/18 18:08 98.9 F 96 20 123/76 96 09/06/18 13:05 97.4 F L 18 158/83 Intake and Output 09/06/18 09/07/18 09/07/18 23:59 07:59 15:59 Intake Total 880 / 1580 800 / 1270 470 / 1270 Output Total 1125 / 5100 300 / 550 250 / 550 Balance -245 / -3520 500 / 720 220 / 720 Intake: Oral 880 / 880 800 / 920 120 / 920 Blood Product 350 / 350 Rbcs Leuko Poor As-1 Unit 350 / 350 [id number] Output: Urine 0 / 0 0 / 0 Estimated Blood Loss 75 / 75 Catheter 1050 / 1425 300 / 550 250 / 550 Urethral (Blanco) 1050 / 1425 250 / 250 Other: Meal 2 pudding Breakfast Percent of Meal Consumed 100% 80% Weight 129 kg Blood Glucose* 307 462 334 - Exam Exam: Constitutional: Alert and oriented x 3, no acute distress noted, patient receiving blood transfusion Vascular: 05/12 DP pulse noted, cap refill less than seconds Neurological: Diminished protective sensation, abnormal proprioception Dermatological: External fixation RLE, dressing intact and saturated - Lab Result Diagrams: 09/07/18 04:55 09/07/18 09:52 Labs: Abnormal lab results WBC 25.0 K/mcL (4.3-11.1) H 09/07/18 04:55 RBC 2.33 M/mcL (4.19-5.50) L 09/07/18 04:55 Hgb 6.8 g/dL (12.9-16.9) L 09/07/18 04:55 Hct 21.0 % (37.5-50.1) L 09/07/18 04:55 MCV 82.6 fL (83.0-100.0) L 09/03/18 03:55 Plt Count 130 K/mcL (140-400) L 09/06/18 03:45 Immature Gran % 5.3 % (0-4) H 09/05/18 04:53 8.0 % (0-4) H 09/06/18 03:45 2.0 % (0) H 09/03/18 03:55 15.5 K/mcL (1.6-8.9) H 09/06/18 03:45 Nucleated RBCs/100 WBC 0.2 /100 WBC (0) H 09/04/18 04:00 Present (Not Present) A 09/06/18 03:45 Decreased (Normal) L 09/05/18 04:53 1+ (Not Present) A 09/02/18 10:05 Present (Not Present) A 09/03/18 03:55 1+ (Not Present) A 09/02/18 10:05 ESR >= 130 mm/hr (0-10) H 09/06/18 10:20 PT 13.3 Seconds (9.4-12.1) H 09/01/18 15:33 Sodium 122 mEq/L (136-145) L 09/07/18 09:52 Chloride 91 mEq/L (98-107) L 09/07/18 09:52 Carbon Dioxide 18 mEq/L (23-29) L 09/01/18 15:33 BUN 49 mg/dL (6-20) H 09/07/18 09:52 3.11 mg/dL (0.70-1.30) H 09/07/18 09:52 Est GFR ( Amer) 26 (> 60) L 09/07/18 09:52 Est GFR (Non-Af Amer) 22 (> 60) L 09/07/18 09:52 Glucose 498 mg/dL (70-105) H 09/07/18 09:52 POC Glucose 307 mg/dL (70-99) H 09/06/18 20:08 8.5 % (-5.6) H 09/04/18 04:00 303 (280-300) H 09/04/18 04:00 Calcium 7.9 mg/dL (8.6-10.3) L 09/07/18 09:52 0.3 mg/dL (0.0-0.2) H 09/01/18 15:33 122 Units/L (34-104) H 09/01/18 15:33 0.04 ng/mL (< 0.04) H* 09/03/18 01:00 198 mg/L (Less than 10) H 09/04/18 04:00 6.1 g/dL (6.4-8.9) L 09/01/18 15:33 2.7 g/dL (3.5-5.7) L 09/01/18 15:33 0.8 (1.1-2.2) L 09/01/18 15:33 [place] (Yellow) A 09/01/18 Unknown Cloudy (Clear) A 09/01/18 Unknown Ur Specific [place] 1.029 (1.010-1.025) H 09/01/18 Unknown 30 mg/dL (Neg-Trace) H 09/01/18 Unknown 100 mg/dL (Normal) H 09/01/18 Unknown Trace mg/dL (Negative) H 09/01/18 Unknown Trace (Negative) H 09/01/18 Unknown Moderate (Negative) H 09/01/18 Unknown 4.0 mg/dL (Normal) H 09/01/18 Unknown Ur Leukocyte Esterase Small (Negative) H 09/01/18 Unknown 5-15 per hpf (0-3) H 09/01/18 Unknown Ur Squamous Epith Cells Many per lpf (None-Few) H 09/01/18 Unknown Ur Culture Indicated? NO. (NO) A 09/01/18 Unknown Ur Microalbumin 24 Hr 351 mg/day (Less than 30) H 09/03/18 23:00 Microalb/Creat Ratio 290 mcg/mg (Less than 30) H 09/03/18 23:00 Ur Total Protein 24 Hr 2128 mg/day (50-80) H 09/03/18 23:00 Protein/Creatinin Ratio 1.76 mg/mg (0.00-0.20) H 09/03/18 23:00 Ur Sodium 24 Hour 33 mEq/day (40-220) L 09/03/18 23:00 Ur Chloride 24 Hour 20 mEq/day (110-250) L 09/03/18 23:00 Ur Phosphorus 24 Hr 0.2 g/day (0.4-1.3) L 09/03/18 23:00 Ur Urea Nitrogen 24 Hr 6 g/day (12-20) L 09/03/18 23:00 Ur Calcium 24 Hr 6 mg/day (100-300) L 09/03/18 23:00 185 mg/dL (1-14) H 09/03/18 23:00 U Free [place] Ch 110.00 mg/dL (0.14-2.42) H 09/02/18 23:00 U Free [place] Ch 19.80 mg/dL (0.02-0.67) H 09/02/18 23:00 Positive ng/mL (Gluzlf=943) H 09/01/18 16:29 Hep Bs Antibody 4.61 mIU/mL (10.00-) L 09/01/18 20:52 Staphylococcus sp PCR DETECTED (Not Detect) A 09/01/18 15:58 Staph aureus (PCR) DETECTED (Not Detect) A 09/01/18 15:58 Streptococcus sp PCR DETECTED (Not Detect) A 09/01/18 15:58 Group B Strep (PCR) DETECTED (Not Detect) A 09/01/18 15:58 Crossmatch See Detail 09/06/18 03:45 Crossmatch Prewarmed See Detail 09/01/18 16:55 Microbiology, Last 48 Hours 09/01/18 15:50 Blood Culture - Final Peripheral Venipuncture Strep agalactiae - (Group B) Proteus mirabilis Staphylococcus aureus 09/01/18 15:58 Blood Culture - Final Peripheral Venipuncture Strep agalactiae - (Group B) Proteus mirabilis Staphylococcus aureus 09/06/18 15:33 Anaerobic Culture - Preliminary Right Foot Culture is incubating. 09/06/18 15:33 Surgical Biopsy Culture - Preliminary Right Foot 09/06/18 15:33 Anaerobic Culture - Preliminary Right Foot Culture is incubating. 09/06/18 15:33 Surgical Biopsy Culture - Preliminary Right Foot 09/06/18 18:46 Blood Culture - Preliminary Peripheral Venipuncture Culture is incubating and being continuously monitored for growth. Final report to follow. 09/06/18 18:46 Blood Culture - Preliminary Peripheral Venipuncture Culture is incubating and being continuously monitored for growth. Final report to follow. 09/02/18 02:00 Wound Culture - Final Right Foot Proteus mirabilis Strep agalactiae - (Group B) Staphylococcus aureus Consult Discharge Plan - Plan Instructions: Tamsulosin (By mouth) Referrals: José Miguel Negro MD [Primary Care Provider] -
[2018-09-07] MEDS ORDERED: Insulin LISPRO 300 UNITS/3 ML VIAL SQ ONE (13:48)
[2018-09-07 14:51] LABS: Basophils % 0.2 %; Eosinophils # 0.1 K/mcL (0.0-0.6); Eosinophils % 0.3 %; Hematocrit 21.5 % (37.5-50.1); Hemoglobin 7.2 g/dL (12.9-16.9); Immature Granulocytes % 5.1 % (0-4); Lymphocytes # 1.1 K/mcL (0.6-4.6); Lymphocytes % 4.9 %; Mean Corpuscular HGB Conc 33.5 g/dL (31.6-35.5); Mean Corpuscular Volume 89.6 fL (83.0-100.0); Mean Platelet Volume 10.2 fL (9.4-12.4); Monocytes % 4.6 %; Platelet Count 164 K/mcL (140-400); Red Cell Distribution Width 13.9 % (11.5-14.5); Segmented Neutrophils % 84.9 %
[2018-09-07 14:52] LABS: Neutrophils # 18.9 K/mcL (1.6-8.9)
--- NOTE | 2018-09-07 15:18 | Event Note ---
Date of Encounter: 09/07/18 Time of Encounter: 15:16 - Nephrology Event Note Nephrology Chart Update Dialyzed on Tuesday (yesterday). Plan for next HD on Tuesday. When stable enough from an infection standpoint, I would recommend tentatively to plan for a Permacath placement. My colleague Dr. Johnson will be on-call starting tomorrow. Thank you.
[2018-09-07] MEDS: metroNIDAZOLE 500 MG TABLET PO SCH ×2 (15:34→21:26)
[2018-09-07] MEDS: ceFAZolin 1,000 MG in Water for inj. (sterile) 20 ML 10 ML IVPB SCH (15:34)
[2018-09-07] MEDS ORDERED: ceFAZolin 1,000 MG in 0.9 % Sodium Chloride Mini Bag 100 ML IVPB SCH (16:00)
[2018-09-07 16:12] LABS: INR 1.1; Prothrombin Time 12.7 Seconds (9.4-12.1)
--- NOTE | 2018-09-07 16:37 | Event Note ---
Date of Encounter: 09/07/18 Time of Encounter: 14:15 Dressing and pillow saturated. Dressing removed. Adsorbable hemostatic powder placed in wound bed and surgicel applied, bleeding appears controlled at this time. There is some bleeding noted from suture line lateral aspect of foot, surgicel applied and adequate hemostasis noted. Xeroform placed around all pin sites and covered with 4x4s. Pressure dressing applied using ABD and 4x4 dry gauze. Secured with [place] and . Toes left exposed and cap refill less than 3 seconds. 1/2 DP pulse noted. RLE elevated on 2 pillows, continue to keep elevated.
[2018-09-07 16:45] LABS: Toxic Granulation Present (Not Present)
[2018-09-07] MEDS: *HR* HYDROcodone/Acet 10/325 mg TABLET PO PRN (18:11)
[2018-09-07] MEDS ORDERED: Perflutren Lipid Microsphere 1.3 ML in 0.9 % Sodium Chloride 8.7 ML IVP ONE (19:17)
[2018-09-07] MEDS: Insulin DETEMIR 100 UNIT/ML X5UNITS SQ SCH (21:27)
[2018-09-07 22:06] LABS: Hematocrit 21.7 % (37.5-50.1); Hemoglobin 7.4 g/dL (12.9-16.9)
[2018-09-08] MEDS: *HR* HYDROcodone/Acet 10/325 mg TABLET PO PRN ×3 (00:18→16:53)
[2018-09-08] MEDS: *HR* FentaNYL (PF) 100 MCG/2 ML VIAL IVP PRN ×4 (03:32→21:50)
[2018-09-08 03:49] LABS: Basophils % 0.2 %; Eosinophils # 0.1 K/mcL (0.0-0.6); Eosinophils % 0.4 %; Hematocrit 20.2 % (37.5-50.1); Hemoglobin 6.8 g/dL (12.9-16.9); Immature Granulocytes % 4.3 % (0-4); Lymphocytes # 1.4 K/mcL (0.6-4.6); Lymphocytes % 6.6 %; Mean Corpuscular HGB Conc 33.7 g/dL (31.6-35.5); Mean Corpuscular Hemoglobin 29.6 pg (28.0-33.3); Mean Corpuscular Volume 87.8 fL (83.0-100.0); Mean Platelet Volume 9.8 fL (9.4-12.4); Monocytes # 0.9 K/mcL (0.0-1.3); Monocytes % 4.4 %; Platelet Count 181 K/mcL (140-400); Red Cell Distribution Width 13.7 % (11.5-14.5); Segmented Neutrophils % 84.1 %
[2018-09-08 04:09] LABS: Albumin 2.2 g/dL (3.5-5.7); Albumin/Globulin Ratio 0.5 (1.1-2.2); Bilirubin,Total 0.4 mg/dL (0.3-1.0); Globulin 4.5 g/dL (2.4-3.5); Potassium 4.8 mEq/L (3.5-5.1); Total Protein 6.7 g/dL (6.4-8.9)
[2018-09-08] MEDS ORDERED: 0.9 % Sodium Chloride 250 ML IVC PRN ×2 (06:09→18:29)
[2018-09-08] MEDS ORDERED: 0.9 % Sodium Chloride 1,000 ML ONE (07:47)
[2018-09-08] MEDS: metroNIDAZOLE 500 MG TABLET PO SCH ×3 (08:44→21:52)
[2018-09-08] MEDS: Insulin DETEMIR 100 UNIT/ML X5UNITS SQ SCH ×2 (08:44→21:38)
[2018-09-08] MEDS: Insulin LISPRO 300 UNITS/3 ML VIAL SQ SCH ×7 (08:47→21:47)
[2018-09-08] MEDS ORDERED: Insulin DETEMIR 100 UNIT/ML X5UNITS SQ SCH (09:00)
[2018-09-08] MEDS ORDERED: 0.9 % Sodium Chloride 250 ML ONE ×2 (10:01→12:29)
--- NOTE | 2018-09-08 10:41 | Infectious Disease Progress No ---
ID Progress Note Date of Encounter: 09/08/18 Time of Encounter: 09:55 - Subjective Subjective: Patient seen and examined. No acute events noted overnight. Status post right foot irrigation and debridement and incision and drainage with plantar fasciectomy and debridement of the tarsal bone and application of external fixator 09/06/[address] Ferrell. Patient complains of pain at the surgical site this morning and in the right shoulder. Denies fevers or chills or rigors. Denies chest pain, shortness of breath, or cough. Denies nausea, vomiting, diarrhea, or constipation. Last BM 4 days ago, which the patient states is normal for him. Blanco catheter remains patent. He reports an adequate appetite. He denies any oral thrush or skin rashes. - Objective CBC & Chem 7: 09/08/18 17:00 09/08/18 10:17 - Line Documentation Line Documentation: Dialysis Catheter (Temporary dialysis catheter noted to the right neck with transparent dressing clean, dry, and intact. Currently access for hemodialysis.), Blanco Catheter (Draining clear yellow urine.) - Exam Vitals: Temp Pulse Resp BP Pulse Ox 98 F 96 18 150/86 96 09/08/18 10:30 09/08/18 10:30 09/08/18 10:30 09/08/18 10:30 09/08/18 07:28 Exam: Head: Atraumatic, normal inspection, normocephalic. Eye: EOMI, PERRLA, no scleral icterus noted. ENT: Mucous membranes moist. No odontogenic infection noted. Neck: Normal inspection, no meningismus. Temporary dialysis catheter noted to the right neck. Respiratory: Clear to auscultation. No rales, respiratory distress, rhonchi, or wheezes noted. Cardiovascular: Regular rate and rhythm, S1 and S2 audible. No murmurs, rubs, or gallops. GI: Soft, obese, normal bowel sounds. Blanco catheter noted draining clear yellow urine. Extremities:1+ edema noted to the BLE. Right foot dressing C/D/I. External f ixator noted. Neurological: Alert, oriented 3, no focal deficits. Psychiatric: normal affect, normal mood. Skin: Dry, intact, warm. Normal color. No rashes. - Assessment and Plan (1) Sepsis Current Visit: Yes Status: Acute He should not had to sepsis criteria with acute kidney injury. Likely secondary to bacteremia and right foot infection. White blood cell count 18,000 with 8% bands today. Febrile overnight. Blood cultures drawn 09/01/18 are +2 out of 2 sets for group B strep, MSSA, and Proteus mirabilis. Repeat blood cultures drawn 09/06/18 are NGTD x 2 sets. Repeat blood cultures drawn 09/07/18 are pending x 2 sets. Qualifiers: Sepsis type: sepsis due to unspecified organism Qualified Code(s): A41.9 - Sepsis, unspecified organism SNOMED Code(s): 91369846 (2) Bacteremia Current Visit: Yes Status: Acute As an organism: Group B strep, MSSA, Proteus mirabilis. Source: Right foot infection. Blood cultures drawn 09/01/18 are +2 out of 2 sets. Repeat blood cultures drawn 09/06/18 are NGTD x 2 sets. Repeat blood cultures drawn 09/07/18 are pending x 2 sets. Complicated due to hardware in the left wrist. No endocarditis stigmata noted on exam. Rheumatoid factor normal. TTE negative for vegetations. The patient has one major and one minor modified Logan criteria. Currently on cefazolin. SNOMED Code(s): 4076544 (3) Infection of right foot Current Visit: Yes Status: Acute Location: Right foot. Causative organism: GBS, MSSA, P. mirabilis. Likely secondary to chronic non-healing ulcers and uncontrolled DM. X-ray of the right foot 09/01/18 showed findings consistent with Charcot arthropathy/neuropathic foot not significantly changed from the prior studies and extensive soft tissue swelling suggesting cellulitis. MRI of the right foot 09/04/18 showed plantar soft tissue ulcer at the level of the cuboid with suspected interval soft tissue graft placement. There is edema of the graft which may reflect soft tissue infection. Suspected bilateral soft tissue ulceration with associated phlegmonous change at the level of the inframalleolar peroneal tendons. There is no tenosynovitis and complete full- thickness peroneal tendon tears. The tenosynovitis may be infectious. New multifocal marrow signal abnormality involving the talus, calcaneus, cuboid, and navicular suspicious for osteonecrosis and less likely osteomyelitis. Persistent marrow signal and abnormality in the cuboid which is suspicious for osteoarthritis and a chronic cuboid erosion or defect is noted. Podiatry consult. Per their note, purulent drainage expressed on exam. Is post right foot incision and drainage and irrigation and debridement, plantar fasciectomy, debridement of the tarsal bone, and application of external fixator 09/06/[address] Armstrong. Operative note reviewed. Gross purulence noted throughout the foot. Intraoperative tissue and bone cultures positive for MSSA, GBS, and P. mirabilis. ESR greater than 130, CRP 198. Currently on cefazolin. SNOMED Code(s): 797854093 (4) Cellulitis Current Visit: Yes Status: Acute Location: Right foot. Causative organism: GBS, MSSA, P. mirabilis. Purulent. Likely secondary to chronic ulcers. Podiatry consulted. Status post I & D. Currently on cefazolin. Qualifiers: Site of cellulitis: unspecified site Qualified Code(s): L03.90 - Cellulitis, unspecified SNOMED Code(s): 198320141 (5) Chronic ulcer of right foot with fat layer exposed Current Visit: Yes Status: Acute Location: Right foot. Podiatry consulted. SNOMED Code(s): 302841903 (6) Acute kidney injury superimposed on chronic kidney disease Current Visit: No Status: Acute Serum creatinine 6.57 on admission with uremia and diminished urine output. Nephrology consulted. Temp HD line placed 09/02/18 and HD initiated. Avoid nephrotoxins as able. Dose-adjust medications. Vancomycin discontinued. SNOMED Code(s): 07293223 (7) Anemia Current Visit: Yes Status: Acute Qualifiers: Anemia type: other cause Other causes of anemia: other cause, not classif ied Qualified Code(s): D64.89 - Other specified anemias SNOMED Code(s): 713178995 (8) Elevated troponin Current Visit: Yes Status: Acute SNOMED Code(s): 599929699, 899517311, 698023908 (9) Hyponatremia Current Visit: Yes Status: Acute SNOMED Code(s): 82024131 (10) Pulmonary edema Current Visit: Yes Status: Acute Qualifiers: Chronicity: acute Qualified Code(s): J81.0 - Acute pulmonary edema SNOMED Code(s): 06171657 (11) Atrial fibrillation, chronic Current Visit: Yes Status: Chronic SNOMED Code(s): 286901198 (12) COPD (chronic obstructive pulmonary disease) Current Visit: Yes Status: Chronic Qualifiers: Emphysema type: unspecified Qualified Code(s): J43.9 - Emphysema, unspecified SNOMED Code(s): 74159782 (13) T2DM (type 2 diabetes mellitus) Current Visit: Yes Status: Chronic Check HgbA1C. Recommend aggressive glucose monitoring and control to promote wound healing and prevent re-infection. Management per the primary team. Qualifiers: Diabetes mellitus [facility] insulin use: without [facility] use Diabetes mellitus complication status: with kidney complications Diabetes mellitus com plication detail: with chronic kidney disease Chronic kidney disease stage: stage 3 (moderate) Qualified Code(s): E11.22 - Type 2 diabetes mellitus with diabetic chronic kidney disease; N18.3 - Chronic kidney disease, stage 3 (moderate) SNOMED Code(s): 08123278 - Recommendations Recommendations: Await repeat blood cultures. The patient will likely require a MAHESH prior to discharge. Wound care and activity restrictions per the podiatry team. CESILIA management per the nephrology team. Continue Cefazolin 1 gram IV daily. Dose-adjusted for HD status. Continue flagyl 500mg PO TID until anaerobic cultures finalize. Duration of treatment depends on the clinical picture. Monitor renal function and dose-adjust antibiotics. Avoid insertion of long-term IV access until repeat blood cultures are negative x 48 hours. director learning services to assist with discharge planning. Consult Discharge Plan - Plan Instructions: Tamsulosin (By mouth) Referrals: José Miguel Negro MD [Primary Care Provider] - - Attending Attestation I have personally performed a face to face evaluation on this patient. I have reviewed and agree with the care plan. History and Exam by me shows: Assessment and Plan: 1. Sepsis 2. Bacteremia with group B streptococcus, MSSA and Proteus mirabilis likely source right foot infection 3. Infection of right foot status post I&D, plantar fasciotomy, debridement of tarsal bone and application of external fixator 09/06/2018 4. Cellulitis 5. Chronic ulcer of right foot with fat layer exposed 6. CESILIA on CKD Recommendations: Continue cefazolin Duration of treatment probably 6 weeks Monitor labs and for drug toxicity Patient will need a midline but we have to discuss with the nephrology team first.
--- NOTE | 2018-09-08 10:44 | Internal Med Progress Note ---
Hospitalist Progress Note - Encounter Date of Encounter: 09/08/18 Time of Encounter: 10:41 - Subjective Interval History: I asked the pt and pt's answered for him, apparnelty pt had been had post op oozing, and I asked the pt, he stated that his parents all had bleeding issues. - Exam Vitals: Temp Pulse Resp BP Pulse Ox 98 F 96 18 150/86 96 09/08/18 10:30 09/08/18 10:30 09/08/18 10:30 09/08/18 10:30 09/08/18 07:28 Exam: Gen: A+O x 3 Herat: s1, S2, RRR lungs; CTAB abd; OSft, NT/ND LE: right foot now has dry gauze with blood drying, and also mechanical devices - Summary of Assessment and Plan Summary of Assessment and Plan: Shaneka is a 48 yom with spesis from celluliits/osetomtyelis 1) sepsis: resolving slowly with OR today Pt has MRI showed enosynovivitis, also osteo Pt is getting IV abx, and pt wbc still elevated, [facility] Podiatry on board, and ID switchig to cefozolin. 2) bactremia: broup B strep, Proteus and also staph Polymicrobial infection consisted with foot infection ---pt is on cefzolin, ID on board --deffered to ID --TTE is OK, probably needs MAHESH. 3) DM: cont sliding scale, will increase the scale given the glucose is elevated gluocse better controlled today. 4) code: full 5)COPD: cont duoneb 6) deblity: Pt has not walked for a week, pt will need PTOTa fter surgery 7)possible bleeding diathesis: We will check PTT, also [place] along with functional assay as well. Mean while, give pt 2 FFP emprically. time: 35min - Time Spent with Patient Total time spent is greater than 50% in coordination of care (as documented) at patient's floor/unit and/or counseling patient: Internal Medicine: Result - Labs CBC & Chem 7: 09/08/18 03:30 09/08/18 03:30 Labs: Short CBC 09/07/18 09/07/18 09/08/18 Range/Units 13:55 21:44 03:30 WBC 22.3 H 21.4 H (4.3-11.1) K/mcL Hgb 7.2 L 7.4 L 6.8 L (12.9-16.9) g/dL Hct 21.5 L 21.7 L 20.2 L (37.5-50.1) % Plt Count 164 181 (140-400) K/mcL Neutrophils # 18.9 H 18.0 H (1.6-8.9) K/mcL BMP 09/08/18 03:30 Sodium 128 L Potassium 4.8 Chloride 96 L Carbon Dioxide 25 BUN 54 H Creatinine 3.06 H Glucose 171 H Calcium 8.0 L Liver Function 09/08/18 Range/Units 03:30 Total Bilirubin 0.4 (0.3-1.0) mg/dL AST 9 L (13-39) Units/L ALT 7 (7-52) Units/L Alkaline Phosphatase 96 (34-104) Units/L Albumin 2.2 L (3.5-5.7) g/dL - ABG Interpretation ABG results: PT/INR, D-dimer PT 12.7 Seconds (9.4-12.1) H 09/07/18 15:50 - Impressions Impressions Echocardiogram 09/07/18 07:46 Impressions: LVEF 65-70%. Mild concentric left ventricular hypertrophy. Mild left ventricular diastolic dysfunction. Normal right ventricular structure and function. No significant valvular dysfunction. No pulmonary hypertension. Small pericardial effusion without echocardiographic evidence of tamponade. Non-diagnostic for valvular vegetation; consider MAHESH if clinically indicated. Left Ventricular Wall Motion: Rest Echo Findings All wall segments showed normal motion. Findings: Study Quality * Technically sub-optimal due to poor echocardiographic windows. ECG Findings * Sinus tachycardia. Left Ventricle * LVEF 65-70%. * Normal LV chamber size and systolic function. * Mild concentric left ventricular hypertrophy. * Mild left ventricular diastolic dysfunction. Right Ventricle * Normal right ventricular structure and function. Left Atrium * Normal left atrial size. Right Atrium * Normal right atrial size. Interatrial Septum * Interatrial septum not well evaluated. Aortic Valve * Aortic valve not well visualized. * No aortic stenosis. * No aortic regurgitation. Mitral Valve * Normal mitral valve structure. * No mitral stenosis. * Trace mitral regurgitation. Tricuspid Valve * Normal tricuspid valve structure. * No tricuspid stenosis. * Trace tricuspid regurgitation. * Estimated RVSP is 24 mmHg. * Estimated RA pressure is 3 mmHg. * No pulmonary hypertension. Pulmonic Valve * Pulmonic valve is not well visualized. Aorta * Normally sized aortic root. Pericardium * There is a small pericardial effusion present. * There is no echocardiographic evidence of tamponade. IVC * The IVC is not well evaluated. Consult Discharge Plan - Plan Instructions: Tamsulosin (By mouth) Referrals: José Miguel Negro MD [Primary Care Provider] -
[2018-09-08 10:47] LABS: Calcium 7.9 mg/dL (8.6-10.3); Potassium 4.8 mEq/L (3.5-5.1)
--- NOTE | 2018-09-08 11:29 | Podiatry Progress Note ---
Date of Encounter: 09/08/18 Time of Encounter: 10:10 - Assessment and Plan (1) Chronic ulcer of right foot with fat layer exposed Current Visit: Yes Status: Acute Assessment: -Post op day #2: right foot I&D extensive multiple areas below fascia, plantar fasciectomy, debridement of tarsal bone, gastroc recession, application of multiplane external fixation right LE by Dr. Ferrell on 09/06/2018 -WBC 21.4 -Hgb 6.8, Hct 20.2 patient received two units of blood yesterday -ESR >130 -CRP 198 -Wound culture right foot final: Proteus mirabilis and Strep agalactiae (Group B), and Staphylococcus aureus -Blood cultures x 2 final: Proteus mirabilis, Strep agalactiae (group B), and Staphylococcus aureus -Surgical biopsy final: Proteus mirabilis, Strep agalactiae (group B), and Staphylococcus aureus -Second set of blood cultures preliminary -MRI: IMPRESSION: 1. Plantar soft tissue ulcer at the level of the cuboid with suspected interval soft tissue graft placement. There is edema of the graft which may reflect soft tissue infection. 2. Suspected lateral soft tissue ulceration with associated phlegmonous change at the level of the inframalleolar peroneal tendons. There is new tenosynovitis and complete full-thickness peroneal tendon tears. The tenosynovitis may be infectious. 3. New multifocal marrow signal abnormality involving the talus, calcaneus, cuboid and navicular, suspicious for osteonecrosis and less likely osteomyelitis. 4. Persistent marrow signal abnormality in the cuboid which is suspicious for osteomyelitis. A chronic cuboid erosion or defect is noted. 5. 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 6. Underlying neuropathic arthropathy. Plan: -Dressing removed -Large blood clot noted to surgical wound lateral aspect and left intact -Minimal oozing noted from surgical suture site right lateral ankle -Sutures intact, some signs of dehiscence noted to surgical wound plantar aspect , maceration of tissue noted plantar aspect -Painted plantar aspect of foot with betadine -Reinforced lateral open wound with surgifoam -Surgifoam placed over lateral suture site -Pressure dressing applied using ABD pads and 4x4 dry gauze -Secured with Kerlix and wrap. -All pin sites covered with Xeroform and 4x4 -Keep extremity elevated on two pillows -Reinforce dressing as needed -I&D onboard, appreciate recommendations -Will continue to monitor Subjective Principal diagnosis: CESILIA Interval history: Post op day #2: right foot I&D extensive multiple areas below fascia, plantar fasciectomy, debridement of tarsal bone, gastroc recession, application of multiplane external fixation right LE by Dr. Ferrell on 09/06/2018 Patient is alert and oriented, resting in bed, no acute distress noted. Patient denies any chest pain, shortness of breath, or calf pain. He denies any fever, chills, nausea, vomiting, or diarrhea. External fixation noted rle. Dressing saturated and strike through noted. Objective - Vital Signs Vital Signs: Vital Signs Temp Pulse Resp BP Pulse Ox 09/08/18 10:30 98 F 96 18 150/86 09/08/18 10:15 98.9 F 99 99 146/83 09/08/18 07:28 99.6 F 92 16 161/81 96 09/08/18 04:54 98.2 F 84 17 178/75 97 09/08/18 00:33 98.6 F 85 17 149/79 97 09/07/18 20:32 99.1 F 100 17 151/77 95 09/07/18 19:49 98.7 F 101 16 156/83 97 09/07/18 16:33 99.2 F 102 16 162/91 95 09/07/18 16:18 99.6 F 102 15 156/94 97 09/07/18 12:43 98.6 F 94 20 161/90 97 09/07/18 11:53 98.8 F 88 16 166/78 96 Intake and Output 09/07/18 09/08/18 09/08/18 23:59 07:59 15:59 Intake Total 590 / 2000 480 / 480 Output Total 1000 / 1000 Balance 590 / 1000 -1000 / -520 480 / -520 Intake: Oral 240 / 1300 480 / 480 Blood Product 350 / 700 0 / 0 Rbcs Leuko Poor As-1 Unit 350 / 350 [id number] Rbcs Leuko Poor As-3 2nd Unit 0 / 0 [id number] Output: Catheter 1000 / 1000 Other: Meal Breakfast Percent of Meal Consumed 100% Weight 128.7 kg Blood Glucose* 255 181 Patient Weight 09/08/18 23:59 Weight 128.7 kg - Exam Exam: Constitutional: Alert and oriented x 3, no acute distress noted Vascular: 1/4 DP pulse noted, cap refill less than three seconds Neurological: Diminished protective sensation, abnormal proprioception Dermatological: External fixation RLE, dressing intact and saturated - Lab Result Diagrams: 09/08/18 03:30 09/08/18 10:17 Labs: Abnormal lab results WBC 21.4 K/mcL (4.3-11.1) H 09/08/18 03:30 RBC 2.30 M/mcL (4.19-5.50) L 09/08/18 03:30 Hgb 6.8 g/dL (12.9-16.9) L 09/08/18 03:30 Hct 20.2 % (37.5-50.1) L 09/08/18 03:30 MCV 82.6 fL (83.0-100.0) L 09/03/18 03:55 Plt Count 130 K/mcL (140-400) L 09/06/18 03:45 Immature Gran % 4.3 % (0-4) H 09/08/18 03:30 8.0 % (0-4) H 09/06/18 03:45 2.0 % (0) H 09/03/18 03:55 18.0 K/mcL (1.6-8.9) H 09/08/18 03:30 Nucleated RBCs/100 WBC 0.2 /100 WBC (0) H 09/04/18 04:00 Present (Not Present) A 09/07/18 13:55 Decreased (Normal) L 09/05/18 04:53 1+ (Not Present) A 09/02/18 10:05 Present (Not Present) A 09/03/18 03:55 1+ (Not Present) A 09/02/18 10:05 ESR >= 130 mm/hr (0-10) H 09/06/18 10:20 PT 12.7 Seconds (9.4-12.1) H 09/07/18 15:50 Sodium 125 mEq/L (136-145) L 09/08/18 10:17 Chloride 93 mEq/L (98-107) L 09/08/18 10:17 Carbon Dioxide 18 mEq/L (23-29) L 09/01/18 15:33 BUN 54 mg/dL (6-20) H 09/08/18 10:17 2.97 mg/dL (0.70-1.30) H 09/08/18 10:17 Est GFR ( Amer) 28 (> 60) L 09/08/18 10:17 Est GFR (Non-Af Amer) 23 (> 60) L 09/08/18 10:17 Glucose 273 mg/dL (70-105) H 09/08/18 10:17 POC Glucose 181 mg/dL (70-99) H 09/08/18 07:42 8.5 % (-5.6) H 09/04/18 04:00 303 (280-300) H 09/04/18 04:00 Calcium 7.9 mg/dL (8.6-10.3) L 09/08/18 10:17 0.3 mg/dL (0.0-0.2) H 09/01/18 15:33 AST 9 Units/L (13-39) L 09/08/18 03:30 122 Units/L (34-104) H 09/01/18 15:33 0.04 ng/mL (< 0.04) H* 09/03/18 01:00 198 mg/L (Less than 10) H 09/04/18 04:00 6.1 g/dL (6.4-8.9) L 09/01/18 15:33 2.2 g/dL (3.5-5.7) L 09/08/18 03:30 4.5 g/dL (2.4-3.5) H 09/08/18 03:30 0.5 (1.1-2.2) L 09/08/18 03:30 [place] (Yellow) A 09/01/18 Unknown Cloudy (Clear) A 09/01/18 Unknown Ur Specific [place] 1.029 (1.010-1.025) H 09/01/18 Unknown 30 mg/dL (Neg-Trace) H 09/01/18 Unknown 100 mg/dL (Normal) H 09/01/18 Unknown Trace mg/dL (Negative) H 09/01/18 Unknown Trace (Negative) H 09/01/18 Unknown Moderate (Negative) H 09/01/18 Unknown 4.0 mg/dL (Normal) H 09/01/18 Unknown Ur Leukocyte Esterase Small (Negative) H 09/01/18 Unknown 5-15 per hpf (0-3) H 09/01/18 Unknown Ur Squamous Epith Cells Many per lpf (None-Few) H 09/01/18 Unknown Ur Culture Indicated? NO. (NO) A 09/01/18 Unknown Ur Microalbumin 24 Hr 351 mg/day (Less than 30) H 09/03/18 23:00 Microalb/Creat Ratio 290 mcg/mg (Less than 30) H 09/03/18 23:00 Ur Total Protein 24 Hr 2128 mg/day (50-80) H 09/03/18 23:00 Protein/Creatinin Ratio 1.76 mg/mg (0.00-0.20) H 09/03/18 23:00 Ur Sodium 24 Hour 33 mEq/day (40-220) L 09/03/18 23:00 Ur Chloride 24 Hour 20 mEq/day (110-250) L 09/03/18 23:00 Ur Phosphorus 24 Hr 0.2 g/day (0.4-1.3) L 09/03/18 23:00 Ur Urea Nitrogen 24 Hr 6 g/day (12-20) L 09/03/18 23:00 Ur Calcium 24 Hr 6 mg/day (100-300) L 09/03/18 23:00 185 mg/dL (1-14) H 09/03/18 23:00 U Free [place] Ch 110.00 mg/dL (0.14-2.42) H 09/02/18 23:00 U Free [place] Ch 19.80 mg/dL (0.02-0.67) H 09/02/18 23:00 Positive ng/mL (Rngokf=546) H 09/01/18 16:29 Hep Bs Antibody 4.61 mIU/mL (10.00-) L 09/01/18 20:52 Staphylococcus sp PCR DETECTED (Not Detect) A 09/01/18 15:58 Staph aureus (PCR) DETECTED (Not Detect) A 09/01/18 15:58 Streptococcus sp PCR DETECTED (Not Detect) A 09/01/18 15:58 Group B Strep (PCR) DETECTED (Not Detect) A 09/01/18 15:58 Crossmatch See Detail 09/06/18 03:45 Crossmatch Prewarmed See Detail 09/01/18 16:55 Microbiology, Last 48 Hours 09/06/18 15:33 Surgical Biopsy Culture - Final Right Foot Proteus mirabilis Strep agalactiae - (Group B) Staphylococcus aureus 09/06/18 15:33 Surgical Biopsy Culture - Final Right Foot Proteus mirabilis Strep agalactiae - (Group B) Staphylococcus aureus 09/07/18 14:00 Blood Culture - Preliminary Peripheral Venipuncture Culture is incubating and being continuously monitored for growth. Final report to follow. 09/07/18 14:05 Blood Culture - Preliminary Peripheral Venipuncture Culture is incubating and being continuously monitored for growth. Final report to follow. 09/01/18 15:50 Blood Culture - Final Peripheral Venipuncture Strep agalactiae - (Group B) Proteus mirabilis Staphylococcus aureus 09/01/18 15:58 Blood Culture - Final Peripheral Venipuncture Strep agalactiae - (Group B) Proteus mirabilis Staphylococcus aureus 09/06/18 15:33 Anaerobic Culture - Preliminary Right Foot Culture is incubating. 09/06/18 15:33 Anaerobic Culture - Preliminary Right Foot Culture is incubating. 09/06/18 18:46 Blood Culture - Preliminary Peripheral Venipuncture Culture is incubating and being continuously monitored for growth. Final report to follow. 09/06/18 18:46 Blood Culture - Preliminary Peripheral Venipuncture Culture is incubating and being continuously monitored for growth. Final report to follow. 09/02/18 02:00 Wound Culture - Final Right Foot Proteus mirabilis Strep agalactiae - (Group B) Staphylococcus aureus Consult Discharge Plan - Plan Instructions: Tamsulosin (By mouth) Referrals: José Miguel Negro MD [Primary Care Provider] -
[2018-09-08] MEDS ORDERED: CloNIDine Patch 0.2 MG PATCH (WEEKLY) TD SCH (13:15)
[2018-09-08] MEDS: ceFAZolin 1,000 MG in Water for inj. (sterile) 20 ML 10 ML IVPB SCH (14:51)
[2018-09-08 17:19] LABS: Basophils % 0.2 %; Eosinophils # 0.1 K/mcL (0.0-0.6); Eosinophils % 0.3 %; Hematocrit 22.1 % (37.5-50.1); Hemoglobin 7.4 g/dL (12.9-16.9); Immature Granulocytes % 3.6 % (0-4); Lymphocytes # 1.4 K/mcL (0.6-4.6); Lymphocytes % 6.8 %; Mean Corpuscular HGB Conc 33.5 g/dL (31.6-35.5); Mean Corpuscular Hemoglobin 29.7 pg (28.0-33.3); Mean Corpuscular Volume 88.8 fL (83.0-100.0); Mean Platelet Volume 9.6 fL (9.4-12.4); Monocytes # 0.8 K/mcL (0.0-1.3); Monocytes % 3.7 %; Neutrophils # 18.1 K/mcL (1.6-8.9); Platelet Count 248 K/mcL (140-400); Red Blood Count 2.49 M/mcL (4.19-5.50); Red Cell Distribution Width 13.9 % (11.5-14.5); Segmented Neutrophils % 85.4 %
[2018-09-08] MEDS ORDERED: *HR* Heparin 10,000 UNIT/10 ML VIAL IV PRN (18:29)
--- NOTE | 2018-09-08 20:04 | Nephrology Progress Note ---
Date of Encounter: 09/08/18 Time of Encounter: 12:00 - Assessment and Plan (1) CESILIA (acute kidney injury) Current Visit: Yes Status: Acute SCr noted at 3.06, not much change from yesterday. Will proceed with HD today and then monitor for signs of renal recovery No more HD planned for now after today unless indicated Continue to avoid nephrotoxins if possible UOP noted at 1000cc in the past 24hrs which is good (2) Anemia Current Visit: Yes Status: Acute Hgb noted at 6.8 postop, agree with transfusion pRBCs today Qualifiers: Anemia type: other cause Other causes of anemia: other cause, not classified Qualified Code(s): D64.89 - Other specified anemias (3) Chronic ulcer of right foot with fat layer exposed Current Visit: Yes Status: Acute POD #2, care per podiatry (4) CKD (chronic kidney disease), stage III Current Visit: Yes Status: Acute Baseline CKD stage III with GFR in the 30-40s (5) Hyponatremia Current Visit: Yes Status: Acute Likely d/t CESILIA and edema, improving at 128 today (6) Solitary kidney, acquired Current Visit: Yes Status: Acute History of left nephrectomy Subjective Principal diagnosis: CESILIA Interval history: Interim events noted POD #2 extensive R foot debridement. Pt seen and examined with significant other at bedside. Pt complaining of shoulder pain present prior to this hospital stay. Objective - Vital Signs Vital signs: Vital Signs Temp Pulse Resp BP Pulse Ox 09/08/18 16:25 99.1 F 104 16 173/91 97 09/08/18 13:05 98 F 96 18 154/87 09/08/18 12:49 98 F 95 18 166/87 09/08/18 11:29 98.9 F 92 16 140/81 98 09/08/18 10:30 98 F 96 18 150/86 09/08/18 10:15 98.9 F 99 99 146/83 09/08/18 07:28 99.6 F 92 16 161/81 96 09/08/18 04:54 98.2 F 84 17 178/75 97 09/08/18 00:33 98.6 F 85 17 149/79 97 09/07/18 20:32 99.1 F 100 17 151/77 95 Intake and Output 05/03/19 05/03/19 05/03/19 07:59 15:59 23:59 Intake Total 1080 / 1080 Output Total 1000 / 1000 Balance -1000 / 80 1080 / 80 Intake: Oral 480 / 480 Blood Product 600 / 600 Plasma Unit [id number] 300 / 300 Rbcs Leuko Poor As-3 2nd Unit 300 / 300 [id number] Output: Catheter 1000 / 1000 Other: Meal Breakfast Percent of Meal Consumed 100% Weight 128.7 kg Blood Glucose* 181 249 328 Patient Weight 09/08/18 23:59 Weight 128.7 kg - General Appearance General appearance: Present: well-developed, well-nourished EENT: Present: ATNC, mucous membranes moist Neck: Present: no JVD, supple Respiratory: Present: clear Cardiology: Present: normal S1, normal S2 Dialysis Vascular Access: Venous Catheter (temp line) Gastrointestinal: Present: no tenderness, no guarding Integumentary: Present: warm and dry Neurologic: Present: no focal deficit Musculoskeletal: Present: deformities (R foot with dressing and mechanical d evices) Psychiatric: Present: mood/affect appropriate, cooperative - Lab 09/08/18 17:00 09/08/18 10:17 Most recent lab results 09/08/18 10:17 Calcium 7.9 L Consult Discharge Plan - Plan Instructions: Tamsulosin (By mouth) Referrals: José Miguel Negro MD [Primary Care Provider] -
[2018-09-09] MEDS: *HR* HYDROcodone/Acet 10/325 mg TABLET PO PRN ×2 (03:18→09:47)
[2018-09-09 03:45] LABS: Basophils % 0.2 %; Eosinophils % 0.2 %; Hematocrit 20.1 % (37.5-50.1); Hemoglobin 6.7 g/dL (12.9-16.9); Immature Granulocytes % 3.3 % (0-4); Lymphocytes # 1.4 K/mcL (0.6-4.6); Lymphocytes % 7.7 %; Mean Corpuscular HGB Conc 33.3 g/dL (31.6-35.5); Mean Corpuscular Hemoglobin 29.6 pg (28.0-33.3); Mean Corpuscular Volume 88.9 fL (83.0-100.0); Mean Platelet Volume 9.5 fL (9.4-12.4); Monocytes # 0.8 K/mcL (0.0-1.3); Monocytes % 4.3 %; Neutrophils # 15.5 K/mcL (1.6-8.9); Platelet Count 271 K/mcL (140-400); Red Blood Count 2.26 M/mcL (4.19-5.50); Segmented Neutrophils % 84.3 %
[2018-09-09 04:08] LABS: Albumin 2.3 g/dL (3.5-5.7); Albumin/Globulin Ratio 0.5 (1.1-2.2); Bilirubin,Total 0.4 mg/dL (0.3-1.0); Globulin 4.6 g/dL (2.4-3.5); Potassium 4.7 mEq/L (3.5-5.1); Total Protein 6.9 g/dL (6.4-8.9)
[2018-09-09] MEDS: metroNIDAZOLE 500 MG TABLET PO SCH ×3 (08:49→20:08)
[2018-09-09] MEDS: Insulin LISPRO 300 UNITS/3 ML VIAL SQ SCH ×7 (08:49→20:07)
[2018-09-09] MEDS: Insulin DETEMIR 100 UNIT/ML X5UNITS SQ SCH ×2 (08:50→20:06)
[2018-09-09] MEDS: *HR* FentaNYL (PF) 100 MCG/2 ML VIAL IVP PRN ×3 (08:53→16:44)
[2018-09-09] MEDS ORDERED: cloNIDine HCl 0.1 MG TABLET PO PRN (10:24)
--- NOTE | 2018-09-09 10:30 | Internal Med Progress Note ---
Hospitalist Progress Note - Encounter Date of Encounter: 09/09/18 Time of Encounter: 10:27 - Subjective Interval History: PT has no questions, stated that he is still in pain of 11/15. - Exam Vitals: Temp Pulse Resp BP Pulse Ox 99.1 F 88 17 141/79 96 09/09/18 07:52 09/09/18 07:52 09/09/18 07:52 09/09/18 07:52 09/09/18 07:52 Exam: Gen: A+O x 3 Herat: s1, S2, RRR lungs; CTAB abd; OSft, NT/ND LE: right foot now has dry gauze with blood drying, and also mechanical devices - Summary of Assessment and Plan Summary of Assessment and Plan: Shaneka is a 48 yom with spesis from celluliits/osetomtyelis 1) sepsis: resolving slowly with OR today Pt has MRI showed enosynovivitis, also osteo Pt is getting IV abx, and pt wbc still elevated, [facility] Podiatry on board, and ID switchig to cefozolin. will cont abx 2) bactremia: broup B strep, Proteus and also staph Polymicrobial infection consisted with foot infection ---pt is on cefzolin, ID on board --deffered to ID --TTE is OK, deffered to ID 3) DM: cont sliding scale, will increase the scale given the glucose is elevated gluocse better controlled today. 4) code: full 5)COPD: cont duoneb 6) deblity: Pt has not walked for a week, pt will need PTOTa fter surgery 7)possible bleeding diathesis: empricaly a trial of DDAVP, I have asked to see the pt. 8)dispo: Better pain control, trial of DDAVP, await hemonc to see pt. time: 35min - Time Spent with Patient Total time spent is greater than 50% in coordination of care (as documented) at patient's floor/unit and/or counseling patient: Internal Medicine: Result - Labs CBC & Chem 7: 09/09/18 03:20 09/09/18 03:20 Labs: Short CBC 09/08/18 09/09/18 Range/Units 17:00 03:20 WBC 21.2 H 18.4 H (4.3-11.1) K/mcL Hgb 7.4 L 6.7 L (12.9-16.9) g/dL Hct 22.1 L 20.1 L (37.5-50.1) % Plt Count 248 271 (140-400) K/mcL Neutrophils # 18.1 H 15.5 H (1.6-8.9) K/mcL BMP 09/08/18 09/09/18 10:17 03:20 Sodium 125 L 127 L Potassium 4.8 4.7 Chloride 93 L 94 L Carbon Dioxide 25 27 BUN 54 H 34 H Creatinine 2.97 H 2.43 H Glucose 273 H 376 H Calcium 7.9 L 8.0 L Liver Function 09/09/18 Range/Units 03:20 Total Bilirubin 0.4 (0.3-1.0) mg/dL AST 10 L (13-39) Units/L ALT 7 (7-52) Units/L Alkaline Phosphatase 95 (34-104) Units/L Albumin 2.3 L (3.5-5.7) g/dL - ABG Interpretation ABG results: PT/INR, D-dimer PT 12.7 Seconds (9.4-12.1) H 09/07/18 15:50 - Impressions Impressions Ankle X-Ray 09/06/18 15:21 IMPRESSION: Intraprocedural fluoroscopic spot images as above. See separate procedure report for more information. D/ / 09/06/2018 17:20:21 Josh Hernadez MD / loretta Interpreting Provider: Josh Hernadez MD Fluoroscopy 09/06/18 15:21 IMPRESSION: Intraprocedural fluoroscopic spot images as above. See separate procedure report for more information. D/ / 09/06/2018 17:20:21 Josh Hernadez MD / loretta Interpreting Provider: Josh Hernadez MD Foot X-Ray 09/06/18 15:21 IMPRESSION: Intraprocedural fluoroscopic spot images as above. See separate procedure report for more information. D/ / 09/06/2018 17:20:21 Josh Hernadez MD / loretta Interpreting Provider: Josh Hernadez MD Consult Discharge Plan - Plan Instructions: Tamsulosin (By mouth) Referrals: José Miguel Negro MD [Primary Care Provider] -
[2018-09-09] MEDS ORDERED: DESMOPRESSIN IVPB ONE (10:45)
[2018-09-09] MEDS ORDERED: SODIUM CHLORIDE 0.9% IVPB ONE (10:45)
[2018-09-09] MEDS ORDERED: 0.9 % Sodium Chloride 250 ML ONE (11:53)
--- NOTE | 2018-09-09 11:55 | Nephrology Progress Note ---
Date of Encounter: 09/09/18 Time of Encounter: 12:00 - Assessment and Plan (1) Chronic ulcer of right foot with fat layer exposed Current Visit: Yes Status: Acute POD #3, care per podiatry (2) CESILIA (acute kidney injury) Current Visit: Yes Status: Acute s/p Hd yesterday with improved SCr today as a result No more Hd treatments planned this weekend but will monitor for renal recovery s igns Continue to avoid nephrotoxins if possible UOP noted at 725cc in the past 24hrs (3) Anemia Current Visit: Yes Status: Acute Hgb noted at 6.7 and 6.8, 6.6 on repeats, agree with transfusion pRBCs today Qualifiers: Anemia type: other cause Other causes of anemia: other cause, not classified Qualified Code(s): D64.89 - Other specified anemias (4) CKD (chronic kidney disease), stage III Current Visit: Yes Status: Chronic Baseline CKD stage III with GFR in the 30-40s (5) Hyponatremia Current Visit: Yes Status: Acute Likely d/t CESILIA and edema, currently at 127 (6) Solitary kidney, acquired Current Visit: Yes Status: Acute History of left nephrectomy Subjective Principal diagnosis: CESILIA Interval history: POD #3 extensive R foot debridement. Pt seen and examined with significant other at bedside receiving blood but eager to go home soon despite being told of ongoing medical need. s/p HD yesterday Objective - Vital Signs Vital signs: Vital Signs Temp Pulse Resp BP Pulse Ox 09/09/18 11:07 98.1 F 89 16 155/82 94 09/09/18 07:52 99.1 F 88 17 141/79 96 09/09/18 04:35 98.4 F 103 17 120/63 95 09/08/18 23:19 99.5 F 106 18 118/65 94 09/08/18 21:10 98.9 F 15 97/59 09/08/18 20:50 94/58 09/08/18 20:35 101/52 09/08/18 20:20 101/59 09/08/18 20:05 100/64 09/08/18 19:50 111/64 09/08/18 19:35 116/67 09/08/18 19:20 115/64 09/08/18 19:05 122/64 09/08/18 18:50 119/68 09/08/18 18:35 132/72 09/08/18 18:20 117/71 09/08/18 18:05 135/67 09/08/18 17:50 146/71 09/08/18 17:35 140/68 09/08/18 17:20 99.9 F H 15 141/75 09/08/18 16:25 99.1 F 104 16 173/91 97 09/08/18 13:05 98 F 96 18 154/87 09/08/18 12:49 98 F 95 18 166/87 Intake and Output 09/08/18 09/09/18 09/09/18 23:59 07:59 15:59 Intake Total 860 / 1940 700 / 700 Output Total 3500 / 4500 550 / 725 175 / 725 Balance -2640 / -2560 -550 / -25 525 / -25 Intake: Oral 360 / 840 700 / 700 Intake, Rinseback and Flushes 500 / 500 Output: Urine 0 / 0 175 / 175 Total Dialysis (HD) Output 3500 / 3500 Catheter 550 / 550 Other: Meal Dinner Breakfast Percent of Meal Consumed 100% 100% # Bowel Movements 0 0 Weight 129.2 kg Blood Glucose* 279 358 314 Hemodialysis Net Fluid Removed 3000 (mL) - General Appearance General appearance: Present: well-developed, well-nourished EENT: Present: ATNC, mucous membranes moist Neck: Present: no JVD, supple Respiratory: Present: clear Cardiology: Present: no edema, normal S1, normal S2 Gastrointestinal: Present: no tenderness, no guarding Integumentary: Present: warm and dry Neurologic: Present: no focal deficit Musculoskeletal: Present: deformities (RLE with dressing and hardware) Psychiatric: Present: mood/affect appropriate - Lab 09/10/18 04:05 09/10/18 04:05 Most recent lab results 09/09/18 03:20 Calcium 8.0 L Consult Discharge Plan - Plan Instructions: Tamsulosin (By mouth) Referrals: José Miguel Negro MD [Primary Care Provider] -
[2018-09-09] MEDS: ceFAZolin 1,000 MG in Water for inj. (sterile) 20 ML 10 ML IVPB SCH (16:44)
[2018-09-09] MEDS: *HR* FentaNYL PATCH 25 MCG PATCH TD SCH (16:44)
[2018-09-09] MEDS ORDERED: Insulin LISPRO 300 UNITS/3 ML VIAL SQ ONE (17:04)
[2018-09-09 17:22] LABS: Hematocrit 20.8 % (37.5-50.1); Hemoglobin 6.8 g/dL (12.9-16.9)
[2018-09-09] MEDS: *HR* OxyCODONE Immed Rel 5 MG TABLET PO PRN (20:08)
[2018-09-10] MEDS: *HR* FentaNYL (PF) 100 MCG/2 ML VIAL IVP PRN ×4 (00:30→23:50)
[2018-09-10] MEDS: ceFAZolin 1,000 MG in Water for inj. (sterile) 20 ML 10 ML IVPB SCH ×2 (01:37→13:25)
[2018-09-10] MEDS: *HR* OxyCODONE Immed Rel 5 MG TABLET PO PRN ×2 (03:39→21:01)
[2018-09-10 04:23] LABS: Basophils % 0.2 %; Eosinophils # 0.1 K/mcL (0.0-0.6); Eosinophils % 0.4 %; Hemoglobin 6.6 g/dL (12.9-16.9); Immature Granulocytes % 3.7 % (0-4); Lymphocytes # 1.9 K/mcL (0.6-4.6); Lymphocytes % 9.5 %; Mean Corpuscular Hemoglobin 29.9 pg (28.0-33.3); Mean Corpuscular Volume 90.5 fL (83.0-100.0); Monocytes % 5.2 %; Neutrophils # 15.8 K/mcL (1.6-8.9); Platelet Count 365 K/mcL (140-400); Red Blood Count 2.21 M/mcL (4.19-5.50); Red Cell Distribution Width 13.9 % (11.5-14.5)
[2018-09-10 04:40] LABS: Albumin 2.3 g/dL (3.5-5.7); Albumin/Globulin Ratio 0.5 (1.1-2.2); Bilirubin,Total 0.3 mg/dL (0.3-1.0); Calcium 8.1 mg/dL (8.6-10.3); Globulin 4.7 g/dL (2.4-3.5); Potassium 5.2 mEq/L (3.5-5.1)
[2018-09-10] MEDS: metroNIDAZOLE 500 MG TABLET PO SCH ×3 (08:29→21:00)
[2018-09-10] MEDS: Insulin LISPRO 300 UNITS/3 ML VIAL SQ SCH ×7 (08:29→21:01)
[2018-09-10] MEDS: Insulin DETEMIR 100 UNIT/ML X5UNITS SQ SCH ×2 (08:30→21:00)
--- NOTE | 2018-09-10 08:56 | Oncology Inp Consult Note ---
Date of Encounter: 09/10/18 Time of Encounter: 08:00 Assessment and Plan (1) Anemia in chronic kidney disease Status: Acute Assessment and plan: Patient with CKD and acute renal failure, with anemia on epogn TID. Ferritin/iron profile not available. SPEP is nl. Rafa obtain complete anemia w/u Bleeding-post operative setting. Clinical hx not suggestive of bleeding disorder. Coag panel is normal. Infectious process with bacteremia on abx per ID. Platelet dysfunction due to uremia and a low Hgb/hct could contribute to inadequate hemostasis. Transfuse PRBC to improve Hgb/Hct-if ok with nephrology and avoid volume overload. If he continues bleeding with drop in Hgb/Hct--consider desmopressin or platelets/plasma. I do not think he currently needs these products. Plan discussed with patient and his . Qualifiers: Chronic kidney disease stage: stage 3 (moderate) Qualified Code(s): N18.3 - Chronic kidney disease, stage 3 (moderate); D63.1 - Anemia in chronic kidney disease - Data of Consult Requesting Physician: Petey Gregory Primary Care Provider: José Miguel Negro MD - Consult Narrative Reason for consult: Anemia, bleeding from rt foot, s/p surgery History of present illness: 48 yo male with medical hx significnat for DM, diabetic right foot ulcer, lc lulitis, hypertension, CKD, ARF, hx GI bleed, anemia. He had a wound culture obtained that grew out Proteus mirabilis, group B strep, and MSSA. BC was positive for these as well per ID notes. HE was taken to OR underwent right foot I&D, extensive multiple areas below fascia (per podiatry notes) and drainage of multiple abcess. Also uremic, planned for dialysis, but Cr improving per staff and patient had not required dialysis so far. Hematology consulted to r/o a bleeding condition. PAtient had a nephrectomy several yrs ag and denied any post operative complications or bleeding. Had dental extractions/denture and denied any bleeding associated. He had rt foot surgery that had drainage/bleeding which was ongoing for 3-4 days and then subsided per . Right foot is in dressing. Per podiatry notes--large clot noted and left intact- indicating hemostasis. Additionally minimal oozing noted. He has sharp pains for which he is on pain meds per nurse who is at beside and is not helping Past Med Surg Social Fam HX - Past Medical History Medical history: diabetes, hypertension, other Additional medical history: legally blind in right eye, Left kidney removal in 1999, fractured C4 in 2001 ( as stated by PT). Psychiatric history: no psych history - Past Surgical History Surgical History: other Additional surgical history: left kidney removed, bilat foot surgery - Social History Smoking Status: Current every day smoker Smokeless Tobacco Status: No Alcohol use: none Drug use: none - Family History Father Living Status: Hx Family Cancer: Yes (lung and brain) Medications and Allergies Albuterol Sulfate [Albuterol Inhaler] 2 puff IH Q4H PRN 08/03/18 [History] Amlodipine Besylate 5 mg PO DAILY 08/03/18 [History] Cholecalciferol (Vitamin D3) [Optimal D3] 50,000 unit PO QWEEK 08/03/18 [History] CloNIDine Patch [Catapres-Tts] 0.2 mg TD QWEEK 08/03/18 [History] Furosemide [Lasix] 40 mg PO DAILY 08/03/18 [History] Insulin Glargine,Hum.rec.anlog [Basaglar Kwikpen U-100] 35 unit SQ BID 08/03/18 [History] Insulin LISPRO [HumaLOG] 30 units SQ TID 08/03/18 [History] Losartan/Hydrochlorothiazide [Losartan-Hctz 100-25 mg Tab] 1 each PO DAILY 08/03/18 [History] OxyCODONE/APAP 10/325 [Percocet 10/325 MG] 1 each PO TID PRN 08/03/18 [History] Rivaroxaban [Xarelto] 15 mg PO DAILY 08/03/18 [History] Sertraline [Zoloft] 50 mg PO DAILY 08/03/18 [History] Sertraline [Zoloft] 100 mg PO DAILY 08/03/18 [History] Umeclidinium [place] [Incruse Ellipta] 1 puff IH DAILY 08/03/18 [History] Allergy/AdvReac Type Severity Reaction Status Date / Time No Known Allergies Allergy Verified 05/06/16 14:33 Additional comments: c/o pain otherwise comfortable, eating his breakfast. Constipation, no diarrhea or nausea. NO Gi bleeding Oncology - Exam - Constitutional General appearance: obese - Head Head exam: Present: atraumatic, normal inspection - Eye Additional comments: blindness - ENT ENT exam: Present: mucous membranes moist - Neck Neck exam: Present: full ROM - Respiratory Respiratory exam: Present: CTAB - GI/Abdominal GI/Abdominal exam: Present: normal bowel sounds, soft Additional comments: non tender - Extremities Exam Additional comments: rt foot findings as above in dressing - Neurological Exam Neurological exam: Present: alert, oriented X3 - Psychiatric Psychiatric exam: Present: normal affect Consult Discharge Plan - Plan Instructions: Tamsulosin (By mouth) Referrals: José Miguel Negro MD [Primary Care Provider] - Inpatient Charges Provider: Dr. Laine Pollard Consult - Inpatient: [id number]
[2018-09-10 09:06] LABS: Bilirubin,Urine Negative (Negative); Blood,Urine Large (Negative); Clarity,Urine Turbid (Clear); Color,Urine Yellow (Yellow); Glucose,Urine (UA) 100 mg/dL (Normal); Ketones,Urine Negative (Negative); Leukocyte Esterase,Urine Trace (Negative); Nitrite,Urine Negative (Negative); Protein,Urine 100 mg/dL (Neg-Trace); Specific Gravity,Urine 1.014 (1.010-1.025); Urobilinogen,Urine Normal (Normal)
[2018-09-10 09:11] LABS: Lactate Dehydrogenase 159 Units/L (140-271)
[2018-09-10 10:00] LABS: % Iron Saturation 5 % (20-55); Iron 11 mcg/dL (65-175); Transferrin 149 mg/dL (203-362)
[2018-09-10 10:18] LABS: Ferritin 489 ng/mL (20-250)
--- NOTE | 2018-09-10 10:22 | Internal Med Progress Note ---
Hospitalist Progress Note - Encounter Date of Encounter: 09/10/18 Time of Encounter: 10:20 - Exam Vitals: Temp Pulse Resp BP Pulse Ox 98.4 F 85 17 151/80 97 09/10/18 06:56 09/10/18 06:56 09/10/18 06:56 09/10/18 06:56 09/10/18 06:56 Exam: Gen: A+O x 3 Herat: s1, S2, RRR lungs; CTAB abd; OSft, NT/ND LE: right foot now has dry gauze with blood drying, and also mechanical devices - Summary of Assessment and Plan Summary of Assessment and Plan: Thsi is a 48 yom with spesis from celluliits/osetomtyelis 1) sepsis: resolving slowly with OR today Pt has MRI showed enosynovivitis, also osteo Pt is getting IV abx, and pt wbc still elevated, [facility] Podiatry on board, and ID switchig to cefozolin. will cont abx 2) bactremia: broup B strep, Proteus and also staph Polymicrobial infection consisted with foot infection ---pt is on cefzolin, ID on board --deffered to ID --TTE is OK, deffered to ID 3) DM: cont sliding scale, will increase the scale given the glucose is elevated gluocse better controlled today. 4) code: full 5)COPD: cont duoneb 6) deblity: Pt has not walked for a week, pt will need PTOTa fter surgery 7)possible bleeding diathesis: empricaly a trial of DDAVP, I have asked to see the pt. 8)dispo: still have not stablized hgb, will see how pt does with repeated blood transfusions and CT is pending for the foot. Time: 35min - Time Spent with Patient Total time spent is greater than 50% in coordination of care (as documented) at patient's floor/unit and/or counseling patient: Internal Medicine: Result - Labs CBC & Chem 7: 09/10/18 04:05 09/10/18 04:05 Labs: Short CBC 09/09/18 09/10/18 Range/Units 16:42 04:05 WBC 19.5 H (4.3-11.1) K/mcL Hgb 6.8 L 6.6 L (12.9-16.9) g/dL Hct 20.8 L 20.0 L (37.5-50.1) % Plt Count 365 (140-400) K/mcL Neutrophils # 15.8 H (1.6-8.9) K/mcL BMP 09/10/18 04:05 Sodium 125 L Potassium 5.2 H Chloride 94 L Carbon Dioxide 24 BUN 50 H Creatinine 2.90 H Glucose 275 H Calcium 8.1 L Liver Function 09/10/18 Range/Units 04:05 Total Bilirubin 0.3 (0.3-1.0) mg/dL AST 10 L (13-39) Units/L ALT 7 (7-52) Units/L Alkaline Phosphatase 78 (34-104) Units/L Albumin 2.3 L (3.5-5.7) g/dL Urine 09/10/18 Range/Units 07:30 Urine Color Yellow (Yellow) Urine Clarity Turbid A (Clear) Urine pH 6.0 (5.0-8.0) pH Units Ur Specific [place] 1.014 (1.010-1.025) Urine Protein 100 H (Neg-Trace) mg/dL Urine Glucose (UA) 100 H (Normal) mg/dL - ABG Interpretation ABG results: PT/INR, D-dimer PT 12.7 Seconds (9.4-12.1) H 09/07/18 15:50 Consult Discharge Plan - Plan Instructions: Tamsulosin (By mouth) Referrals: José Miguel Negro MD [Primary Care Provider] -
--- NOTE | 2018-09-10 11:37 | Event Note ---
Date of Encounter: 09/10/18 Time of Encounter: 11:36 Patient was evaluated today. Patient states that if he has to go back to surgery, he wants a below knee amputation. Dressing is no longer saturated with blood after nursing reinforcement. Will change dressing tomorrow and determine if repeat I&D is warranted or if wound vac will be placed. Repeat H&H and blood transfusion as needed if HgB less than 7. Will continue to monitor.
[2018-09-10] MEDS ORDERED: 0.9 % Sodium Chloride 250 ML ONE ×2 (12:00→16:48)
[2018-09-10 19:44] LABS: Folate 3.6 ng/mL (3.0-16.0)
[2018-09-10 20:21] LABS: Vitamin B12 > 1500 pg/mL (250-1100)
[2018-09-11] MEDS: ceFAZolin 1,000 MG in Water for inj. (sterile) 20 ML 10 ML IVPB SCH ×3 (02:20→22:57)
[2018-09-11] MEDS: *HR* OxyCODONE Immed Rel 5 MG TABLET PO PRN ×3 (02:22→16:58)
[2018-09-11 02:47] LABS: Basophils # 0.1 K/mcL (0.0-0.2); Basophils % 0.4 %; Eosinophils # 0.1 K/mcL (0.0-0.6); Eosinophils % 0.5 %; Hematocrit 23.4 % (37.5-50.1); Hemoglobin 7.9 g/dL (12.9-16.9); Immature Granulocytes % 3.1 % (0-4); Lymphocytes # 1.5 K/mcL (0.6-4.6); Lymphocytes % 8.8 %; Mean Corpuscular HGB Conc 33.8 g/dL (31.6-35.5); Mean Platelet Volume 8.8 fL (9.4-12.4); Monocytes # 1.1 K/mcL (0.0-1.3); Monocytes % 6.7 %; Neutrophils # 13.4 K/mcL (1.6-8.9); Platelet Count 443 K/mcL (140-400); Red Blood Count 2.63 M/mcL (4.19-5.50); Red Cell Distribution Width 13.8 % (11.5-14.5); Segmented Neutrophils % 80.5 %
[2018-09-11 03:05] LABS: Albumin 2.3 g/dL (3.5-5.7); Albumin/Globulin Ratio 0.5 (1.1-2.2); Bilirubin,Total 0.3 mg/dL (0.3-1.0); Potassium 5.4 mEq/L (3.5-5.1); Total Protein 7.3 g/dL (6.4-8.9)
[2018-09-11] MEDS: *HR* FentaNYL (PF) 100 MCG/2 ML VIAL IVP PRN ×3 (05:33→20:50)
--- NOTE | 2018-09-11 07:45 | Podiatry Progress Note ---
Date of Encounter: 09/11/18 Time of Encounter: 07:30 - Assessment and Plan (1) Osteomyelitis Current Visit: Yes Status: Acute discussed with patient's who says she is the POA the patient's current situation. discussed CT scan, osteomyelitis in the bone, culture results and prognosis which in my opinion is poor. As discussed with them pre-op I think he will ultimately require a below the knee amputation. she asks if can go in the OR and take another look to see if it is salvagable or not. discussed serious nature of his infection and the risks vs benefits of doing this as well as his condition including worsening of his condition and infection, blood clot, heart attack, , kidney damage, liver damage etc. discussed CT scan results and co ndition of the bone left, antibiotics do not appear to be enough to control/kill the infection that is in the bone and I do not think based on CT scan and clinical picture that his leg will be salvagable. t discussed an amputation of the leg now. they will discuss it together. Qualifiers: Osteomyelitis type: subacute Osteomyelitis location: foot Laterality: right Qualified Code(s): M86.271 - Subacute osteomyelitis, right ankle and foot Subjective Principal diagnosis: CESILIA Objective - Vital Signs Vital Signs: Vital Signs Temp Pulse Resp BP Pulse Ox 09/11/18 07:01 99.9 F H 91 18 137/80 97 09/11/18 03:54 98.6 F 91 18 170/98 96 09/10/18 23:13 98.4 F 80 17 136/79 98 09/10/18 20:25 98.8 F 82 16 140/84 98 09/10/18 18:19 98.9 F 79 17 136/83 98 09/10/18 17:19 98 F 18 153/74 95 09/10/18 17:00 98 F 81 18 150/80 95 09/10/18 16:14 98.4 F 79 16 138/85 96 09/10/18 15:00 98 F 79 18 153/78 95 09/10/18 12:14 98 F 91 18 168/91 95 09/10/18 11:25 98.5 F 85 16 148/83 97 Intake and Output 09/10/18 09/10/18 09/11/18 15:59 23:59 07:59 Intake Total 850 / 1160 300 / 1160 1000 / 1000 Output Total 300 / 300 Balance 850 / 1160 300 / 1160 700 / 700 Intake: IV Fluids Ancef 1,000 MG In Water for inj . (sterile) 10 ML @ 200 mls/hr IVPB Q12H FOR[facility]LY [facility], 1928–1983 Rx#:[id number] Oral 840 / 840 650 / 650 Blood Product 0 / 300 300 / 300 350 / 350 Rbcs Leuko Poor As-1 Unit 0 / 0 350 / 350 [id number] Rbcs Leuko Poor As-3 Ph Unit 0 / 300 300 / 300 [id number] Output: Urine 300 / 300 Other: Meal Lunch Percent of Meal Consumed 100% # Voids 1 # Urine Diapers 1 Weight 130.5 kg Blood Glucose* 248 308 305 - Lab Result Diagrams: 09/11/18 Unknown 09/11/18 Unknown Labs: Abnormal lab results WBC 16.7 K/mcL (4.3-11.1) H 09/11/18 Unknown RBC 2.63 M/mcL (4.19-5.50) L 09/11/18 Unknown Hgb 7.9 g/dL (12.9-16.9) L 09/11/18 Unknown Hct 23.4 % (37.5-50.1) L 09/11/18 Unknown MCV 82.6 fL (83.0-100.0) L 09/03/18 03:55 Plt Count 443 K/mcL (140-400) H 09/11/18 Unknown MPV 8.8 fL (9.4-12.4) L 09/11/18 Unknown Immature Gran % 4.3 % (0-4) H 09/08/18 03:30 8.0 % (0-4) H 09/06/18 03:45 2.0 % (0) H 09/03/18 03:55 13.4 K/mcL (1.6-8.9) H 09/11/18 Unknown Nucleated RBCs/100 WBC 0.2 /100 WBC (0) H 09/04/18 04:00 Present (Not Present) A 09/07/18 13:55 Decreased (Normal) L 09/05/18 04:53 1+ (Not Present) A 09/02/18 10:05 Present (Not Present) A 09/03/18 03:55 1+ (Not Present) A 09/02/18 10:05 ESR >= 130 mm/hr (0-10) H 09/06/18 10:20 PT 12.7 Seconds (9.4-12.1) H 09/07/18 15:50 724 mg/dL (169-393) H* 09/10/18 07:30 Sodium 123 mEq/L (136-145) L 09/11/18 Unknown Potassium 5.4 mEq/L (3.5-5.1) H 09/11/18 Unknown Chloride 93 mEq/L (98-107) L 09/11/18 Unknown Carbon Dioxide 18 mEq/L (23-29) L 09/01/18 15:33 BUN 56 mg/dL (6-20) H 09/11/18 Unknown 2.77 mg/dL (0.70-1.30) H 09/11/18 Unknown Est GFR ( Amer) 30 (> 60) L 09/11/18 Unknown Est GFR (Non-Af Amer) 25 (> 60) L 09/11/18 Unknown Glucose 357 mg/dL (70-105) H 09/11/18 Unknown POC Glucose 312 mg/dL (70-99) H 09/10/18 16:24 8.5 % (-5.6) H 09/04/18 04:00 303 (280-300) H 09/04/18 04:00 Calcium 8.0 mg/dL (8.6-10.3) L 09/11/18 Unknown Iron 11 mcg/dL (65-175) L 09/10/18 07:30 % Saturation 5 % (20-55) L 09/10/18 07:30 149 mg/dL (203-362) L 09/10/18 07:30 489 ng/mL (20-250) H 09/10/18 07:30 0.3 mg/dL (0.0-0.2) H 09/01/18 15:33 AST 10 Units/L (13-39) L 09/10/18 04:05 122 Units/L (34-104) H 09/01/18 15:33 0.04 ng/mL (< 0.04) H* 09/03/18 01:00 198 mg/L (Less than 10) H 09/04/18 04:00 6.1 g/dL (6.4-8.9) L 09/01/18 15:33 2.3 g/dL (3.5-5.7) L 09/11/18 Unknown 5.0 g/dL (2.4-3.5) H 09/11/18 Unknown 0.5 (1.1-2.2) L 09/11/18 Unknown Vitamin B12 > 1500 pg/mL (250-1100) H 09/10/18 07:50 [place] (Yellow) A 09/01/18 Unknown Turbid (Clear) A 09/10/18 07:30 Ur Specific [place] 1.029 (1.010-1.025) H 09/01/18 Unknown 100 mg/dL (Neg-Trace) H 09/10/18 07:30 100 mg/dL (Normal) H 09/10/18 07:30 Trace mg/dL (Negative) H 09/01/18 Unknown Large (Negative) H 09/10/18 07:30 Moderate (Negative) H 09/01/18 Unknown 4.0 mg/dL (Normal) H 09/01/18 Unknown Ur Leukocyte Esterase Trace (Negative) H 09/10/18 07:30 5-15 per hpf (0-3) H 09/01/18 Unknown Ur Squamous Epith Cells Many per lpf (None-Few) H 09/01/18 Unknown Ur Culture Indicated? NO. (NO) A 09/01/18 Unknown Ur Microalbumin 24 Hr 351 mg/day (Less than 30) H 09/03/18 23:00 Microalb/Creat Ratio 290 mcg/mg (Less than 30) H 09/03/18 23:00 Ur Total Protein 24 Hr 2128 mg/day (50-80) H 09/03/18 23:00 Protein/Creatinin Ratio 1.76 mg/mg (0.00-0.20) H 09/03/18 23:00 Ur Sodium 24 Hour 33 mEq/day (40-220) L 09/03/18 23:00 Ur Chloride 24 Hour 20 mEq/day (110-250) L 09/03/18 23:00 Ur Phosphorus 24 Hr 0.2 g/day (0.4-1.3) L 09/03/18 23:00 Ur Urea Nitrogen 24 Hr 6 g/day (12-20) L 09/03/18 23:00 Ur Calcium 24 Hr 6 mg/day (100-300) L 09/03/18 23:00 185 mg/dL (1-14) H 09/03/18 23:00 U Free [place]lla Light Ch 110.00 mg/dL (0.14-2.42) H 09/02/18 23:00 U Free Lambda Light Ch 19.80 mg/dL (0.02-0.67) H 09/02/18 23:00 Positive ng/mL (Tyaeyz=099) H 09/01/18 16:29 Hep Bs Antibody 4.61 mIU/mL (10.00-) L 09/01/18 20:52 Staphylococcus sp PCR DETECTED (Not Detect) A 09/01/18 15:58 Staph aureus (PCR) DETECTED (Not Detect) A 09/01/18 15:58 Streptococcus sp PCR DETECTED (Not Detect) A 09/01/18 15:58 Group B Strep (PCR) DETECTED (Not Detect) A 09/01/18 15:58 Crossmatch See Detail 09/10/18 07:30 Crossmatch Prewarmed See Detail 09/01/18 16:55 Microbiology, Last 48 Hours 09/06/18 15:33 Anaerobic Culture - Preliminary Right Foot At this time, no anaerobic growth is present. The culture will be finalized after 5 days of incubation. 09/06/18 15:33 Anaerobic Culture - Preliminary Right Foot At this time, no anaerobic growth is present. The culture will be finalized after 5 days of incubation. Consult Discharge Plan - Plan Instructions: Tamsulosin (By mouth) Referrals: José Miguel Negro MD [Primary Care Provider] -
[2018-09-11 08:44] LABS: Ristocetin Cofactor-VWF Active 344 % (51-215); Von Willebrand Factor Ag 345 % (52-214)
[2018-09-11] MEDS: metroNIDAZOLE 500 MG TABLET PO SCH ×3 (09:10→20:51)
[2018-09-11] MEDS: Insulin LISPRO 300 UNITS/3 ML VIAL SQ SCH ×8 (09:11→20:51)
[2018-09-11] MEDS: Insulin DETEMIR 100 UNIT/ML X5UNITS SQ SCH ×2 (09:13→20:51)
--- NOTE | 2018-09-11 09:59 | Infectious Disease Progress No ---
ID Progress Note Date of Encounter: 09/11/18 Time of Encounter: 09:58 - Subjective Subjective: Patient seen and examined. Weekend noted reviewed. Events noted. Status post right foot irrigation and debridement and incision and drainage with plantar fasciectomy and debridement of the tarsal bone and application of external fixator 09/06/[address] Ferrell. Had some persistent oozing of the surgical site over the weekend. Denies fevers, chills, or rigors. Denies chest pain, nevaeh rtness of breath, or cough. Continues to complain of right shoulder pain and pain at the surgical site. Denies nausea, vomiting, diarrhea, or constipation. Reports some urinary hesitancy since having his Blanco catheter removed. Denies oral thrush or new skin lesions. - Objective CBC & Chem 7: 09/12/18 04:45 09/12/18 04:45 - Line Documentation Line Documentation: Dialysis Catheter (Temporary dialysis catheter noted to the right neck with transparent dressing clean, dry, and intact. Currently access for hemodialysis.) - Exam Vitals: Temp Pulse Resp BP Pulse Ox 99.9 F H 91 18 137/80 97 09/11/18 07:01 09/11/18 07:01 09/11/18 07:01 09/11/18 07:01 09/11/18 07:01 Exam: Head: Atraumatic, normal inspection, normocephalic. Eye: EOMI, PERRLA, no scleral icterus noted. ENT: Mucous membranes moist. No odontogenic infection noted. Neck: Normal inspection, no meningismus. Temporary dialysis catheter noted to the right neck. Respiratory: Clear to auscultation. No rales, respiratory distress, rhonchi, or wheezes noted. Cardiovascular: Regular rate and rhythm, S1 and S2 audible. No murmurs, rubs, or gallops. GI: Soft, obese, normal bowel sounds. Extremities:1+ edema noted to the BLE. Right foot dressing with small amount of old bloody drainage noted. External fixator noted. Neurological: Alert, oriented 3, no focal deficits. Psychiatric: normal affect, normal mood. Skin: Dry, intact, warm. Normal color. No rashes. - Assessment and Plan (1) Sepsis Current Visit: Yes Status: Acute He should not had to sepsis criteria with acute kidney injury. Likely secondary to bacteremia and right foot infection. White blood cell count improved. Afebrile overnight. Blood cultures drawn 09/01/18 are +2 out of 2 sets for group B strep, MSSA, and Proteus mirabilis. Repeat blood cultures drawn 09/06/18 are NGTD x 2 sets. Repeat blood cultures drawn 09/07/18 are NGTD x 2 sets. Qualifiers: Sepsis type: sepsis due to unspecified organism Qualified Code(s): A41.9 - Sepsis, unspecified organism SNOMED Code(s): 29822469 (2) Bacteremia Current Visit: Yes Status: Acute As an organism: Group B strep, MSSA, Proteus mirabilis. Source: Right foot infection. Blood cultures drawn 09/01/18 are +2 out of 2 sets. Repeat blood cultures drawn 09/06/18 are NGTD x 2 sets. Repeat blood cultures drawn 09/07/18 are NGTD x 2 sets. Complicated due to hardware in the left wrist. No endocarditis stigmata noted on exam. Rheumatoid factor normal. TTE negative for vegetations. The patient has one major and one minor modified [place] criteria. Currently on cefazolin. SNOMED Code(s): 2480720 (3) Infection of right foot Current Visit: Yes Status: Acute Location: Right foot. Causative organism: GBS, MSSA, P. mirabilis. Likely secondary to chronic non-healing ulcers and uncontrolled DM. X-ray of the right foot 09/01/18 showed findings consistent with Charcot arthropathy/neuropathic foot not significantly changed from the prior studies and extensive soft tissue swelling suggesting cellulitis. MRI of the right foot 09/04/18 showed plantar soft tissue ulcer at the level of the cuboid with suspected interval soft tissue graft placement. There is edema of the graft which may reflect soft tissue infection. Suspected bilateral soft tissue ulceration with associated phlegmonous change at the level of the inframalleolar peroneal tendons. There is no tenosynovitis and complete full- thickness peroneal tendon tears. The tenosynovitis may be infectious. New multifocal marrow signal abnormality involving the talus, calcaneus, cuboid, and navicular suspicious for osteonecrosis and less likely osteomyelitis. Persistent marrow signal and abnormality in the cuboid which is suspicious for osteoarthritis and a chronic cuboid erosion or defect is noted. Podiatry consult. Per their note, purulent drainage expressed on exam. Is post right foot incision and drainage and irrigation and debridement, plantar fasciectomy, debridement of the tarsal bone, and application of external fixator 09/06/[address] Armstrong. Operative note reviewed. Gross purulence noted throughout the foot. Intraoperative tissue and bone cultures positive for MSSA, GBS, and P. mirabilis. ESR greater than 130, CRP 198. The patient has opted to undergo right BKA rather than pursue further attempts to salvage his foot. Currently on cefazolin. SNOMED Code(s): 374909532 (4) Cellulitis Current Visit: Yes Status: Acute Location: Right foot. Causative organism: GBS, MSSA, P. mirabilis. Purulent. Likely secondary to chronic ulcers. Podiatry consulted. Status post I & D. Currently on cefazolin. Qualifiers: Site of cellulitis: unspecified site Qualified Code(s): L03.90 - Cellu litis, unspecified SNOMED Code(s): 118766667 (5) Chronic ulcer of right foot with fat layer exposed Current Visit: Yes Status: Acute Location: Right foot. Podiatry consulted. SNOMED Code(s): 411608944 (6) Acute kidney injury superimposed on chronic kidney disease Current Visit: No Status: Acute Serum creatinine 6.57 on admission with uremia and diminished urine output. Nephrology consulted. Temp HD line placed 09/02/18 and HD initiated. Avoid nephrotoxins as able. Dose-adjust medications. Vancomycin discontinued. SNOMED Code(s): 47412824 (7) Anemia Current Visit: Yes Status: Acute Qualifiers: Anemia type: other cause Other causes of anemia: other cause, not classified Qualified Code(s): D64.89 - Other specified anemias SNOMED Code(s): 048068498 (8) Elevated troponin Current Visit: Yes Status: Acute SNOMED Code(s): 037238203, 504436972, 370706163 (9) Hyponatremia Current Visit: Yes Status: Acute SNOMED Code(s): 89345167 (10) Pulmonary edema Current Visit: Yes Status: Acute Qualifiers: Chronicity: acute Qualified Code(s): J81.0 - Acute pulmonary edema SNOMED Code(s): 15772104 (11) Atrial fibrillation, chronic Current Visit: Yes Status: Chronic SNOMED Code(s): 725687390 (12) COPD (chronic obstructive pulmonary disease) Current Visit: Yes Status: Chronic Qualifiers: Emphysema type: unspecified Qualified Code(s): J43.9 - Emphysema, unspecified SNOMED Code(s): 84840661 (13) T2DM (type 2 diabetes mellitus) Current Visit: Yes Status: Chronic Check HgbA1C. Recommend aggressive glucose monitoring and control to promote wound healing and prevent re-infection. Management per the primary team. Qualifiers: Diabetes mellitus terminal manager insulin use: without nursing home use Diabetes mellitus complication status: with kidney complications Diabetes mellitus complication detail: with chronic kidney disease Chronic kidney disease stage: stage 3 (moderate) Qualified Code(s): E11.22 - Type 2 diabetes mellitus with diabetic chronic kidney disease; N18.3 - Chronic kidney disease, stage 3 (moderate) SNOMED Code(s): 20422825 - Recommendations Recommendations: Await repeat blood cultures. The patient will likely require a MAHESH prior to discharge. Wound care and activity restrictions per the podiatry team. CESILIA management per the nephrology team. Vascular surgery consult for right BKA. Continue Cefazolin 1 gram IV daily. Dose-adjusted for HD status. Continue flagyl 500mg PO TID until anaerobic cultures finalize. Duration of treatment depends on the clinical picture, but likely a total of 14 days from the first set of negative blood cultures if MAHESH negative. Monitor renal function and dose-adjust antibiotics. Avoid insertion of long-term IV access until repeat blood cultures are negative x 48 hours. volunteer services manager to assist with discharge planning. Consult Discharge Plan - Plan Instructions: Tamsulosin (By mouth) Referrals: José Miguel Negro MD [Primary Care Provider] - - Attending Attestation I have personally performed a face to face evaluation on this patient. I have reviewed and agree with the care plan. History and Exam by me shows: Assessment and Plan: 1. Sepsis 2. Bacteremia with group B streptococcus, MSSA and Proteus mirabilis likely source right foot infection 3. Infection of right foot status post I&D, plantar fasciotomy, debridement of tarsal bone and application of external fixator 09/06/2018 4. Cellulitis 5. Chronic ulcer of right foot with fat layer exposed 6. CESILIA on CKD REcommendations: Await repeat blood cultures. The patient will likely require a MAHESH prior to discharge. Wound care and activity restrictions per the podiatry team. CESILIA management per the nephrology team. Vascular surgery consult for right BKA. Continue Cefazolin 1 gram IV daily. Dose-adjusted for HD status. Continue flagyl 500mg PO TID until anaerobic cultures finalize. Duration of treatment depends on the clinical picture, but likely a total of 14 days from the first set of negative blood cultures if MAHESH negative. Monitor renal function and dose-adjust antibiotics. Avoid insertion of long-term IV access until repeat blood cultures are negative x 48 hours. volunteer services manager to assist with discharge planning.
--- NOTE | 2018-09-11 10:19 | Podiatry Progress Note ---
Date of Encounter: 09/11/18 Time of Encounter: 10:00 - Assessment and Plan (1) Bacteremia Current Visit: Yes Status: Acute continue treatment with IV antibiotics Will plan for BKA with vascular to remove source of infection (2) Osteomyelitis Current Visit: Yes Status: Acute s/p right foot I&D extensive multiple areas below fascia plantar fasciectomy debridement of tarsal bone gastroc recession application of multiplane external fixation right LE on 09/06/18 CT on 09/10/18 1. Postoperative changes in the midfoot as described. Plantar 2.7 cm hematoma adjacent to the posterior margin of the midfoot ulcer. 2. Postoperative changes in the midfoot with resection of the talus and cuneiform is with external fixator placement. 3. Extensive intraosseous gas in the talus, calcaneus, and remnant midfoot bones. Correlate with the operative record for signs of infection. Prognosis and treatment options were discussed with patient per Was recommended a BKA due to extensive bacteremia and osteomyelitis Has decided to move forward with BKA Will consult vascular surgery at this time. At this time please leave dressing dry and intact No bleeding noted at this time Patient in stable condition and denies any questions Blood and surgical cultures positive for GBS , SA and proteus- being managed on IV antibiotics at this time. Qualifiers: Osteomyelitis type: subacute Osteomyelitis location: foot Laterality: right Qualified Code(s): M86.271 - Subacute osteomyelitis, right ankle and foot Subjective Principal diagnosis: CESILIA Interval history: Patient s/p right foot I&D extensive multiple areas below fascia plantar fasciectomy debridement of tarsal bone gastroc recession application of multiplane external fixation right LE per on 09/06/18 Patient resting comfortably in bed on arrival. at bedside. States they have decided to proceed with a BKA. Patient was advised per that due to extensive infection that a BKA was recommended. WBC 16.7 down from 19 Afebrile Stable condition at this time Dressing to RLE CDI. Objective - Vital Signs Vital Signs: Vital Signs Temp Pulse Resp BP Pulse Ox 09/11/18 07:01 99.9 F H 91 18 137/80 97 09/11/18 03:54 98.6 F 91 18 170/98 96 09/10/18 23:13 98.4 F 80 17 136/79 98 09/10/18 20:25 98.8 F 82 16 140/84 98 09/10/18 18:19 98.9 F 79 17 136/83 98 09/10/18 17:19 98 F 18 153/74 95 09/10/18 17:00 98 F 81 18 150/80 95 09/10/18 16:14 98.4 F 79 16 138/85 96 09/10/18 15:00 98 F 79 18 153/78 95 09/10/18 12:14 98 F 91 18 168/91 95 09/10/18 11:25 98.5 F 85 16 148/83 97 Intake and Output 09/10/18 09/11/18 09/11/18 23:59 07:59 15:59 Intake Total 300 / 1160 1000 / 1120 120 / 1120 Output Total 300 / 300 Balance 300 / 1160 700 / 820 120 / 820 Intake: Oral 650 / 770 120 / 770 Blood Product 300 / 300 350 / 350 Rbcs Leuko Poor As-1 Unit 0 / 0 350 / 350 [id number] Rbcs Leuko Poor As-3 Ph Unit 300 / 300 [id number] Output: Urine 300 / 300 Other: # Voids 1 # Urine Diapers 1 Weight 130.5 kg Blood Glucose* 308 305 - Exam Exam: CONSTITUTIONAL: Awake alert and oriented VASCULAR: toes warm, cap refill <3 seconds NEUROLOGICAL: minimal sensation to light or moderate touch Dressing to RLE CDI, external fixation device in place. No strikethrough bleeding. Will leave in place at this time. - Lab Result Diagrams: 09/11/18 Unknown 09/11/18 Unknown Labs: Abnormal lab results WBC 16.7 K/mcL (4.3-11.1) H 09/11/18 Unknown RBC 2.63 M/mcL (4.19-5.50) L 09/11/18 Unknown Hgb 7.9 g/dL (12.9-16.9) L 09/11/18 Unknown Hct 23.4 % (37.5-50.1) L 09/11/18 Unknown MCV 82.6 fL (83.0-100.0) L 09/03/18 03:55 Plt Count 443 K/mcL (140-400) H 09/11/18 Unknown MPV 8.8 fL (9.4-12.4) L 09/11/18 Unknown Immature Gran % 4.3 % (0-4) H 09/08/18 03:30 8.0 % (0-4) H 09/06/18 03:45 2.0 % (0) H 09/03/18 03:55 13.4 K/mcL (1.6-8.9) H 09/11/18 Unknown Nucleated RBCs/100 WBC 0.2 /100 WBC (0) H 09/04/18 04:00 Present (Not Present) A 09/07/18 13:55 Decreased (Normal) L 09/05/18 04:53 1+ (Not Present) A 09/02/18 10:05 Present (Not Present) A 09/03/18 03:55 1+ (Not Present) A 09/02/18 10:05 ESR >= 130 mm/hr (0-10) H 09/06/18 10:20 PT 12.7 Seconds (9.4-12.1) H 09/07/18 15:50 724 mg/dL (169-393) H* 09/10/18 07:30 Factor VIII Activity 762 % (56-191) H 09/08/18 17:00 von Willebrand Activity 344 % (51-215) H 09/08/18 17:00 von Willebrand Antigen 345 % (52-214) H 09/08/18 17:00 Sodium 123 mEq/L (136-145) L 09/11/18 Unknown Potassium 5.4 mEq/L (3.5-5.1) H 09/11/18 Unknown Chloride 93 mEq/L (98-107) L 09/11/18 Unknown Carbon Dioxide 18 mEq/L (23-29) L 09/01/18 15:33 BUN 56 mg/dL (6-20) H 09/11/18 Unknown 2.77 mg/dL (0.70-1.30) H 09/11/18 Unknown Est GFR ( Amer) 30 (> 60) L 09/11/18 Unknown Est GFR (Non-Af Amer) 25 (> 60) L 09/11/18 Unknown Glucose 357 mg/dL (70-105) H 09/11/18 Unknown POC Glucose 312 mg/dL (70-99) H 09/10/18 16:24 8.5 % (-5.6) H 09/04/18 04:00 303 (280-300) H 09/04/18 04:00 Calcium 8.0 mg/dL (8.6-10.3) L 09/11/18 Unknown Iron 11 mcg/dL (65-175) L 09/10/18 07:30 % Saturation 5 % (20-55) L 09/10/18 07:30 149 mg/dL (203-362) L 09/10/18 07:30 489 ng/mL (20-250) H 09/10/18 07:30 0.3 mg/dL (0.0-0.2) H 09/01/18 15:33 AST 10 Units/L (13-39) L 09/10/18 04:05 122 Units/L (34-104) H 09/01/18 15:33 0.04 ng/mL (< 0.04) H* 09/03/18 01:00 198 mg/L (Less than 10) H 09/04/18 04:00 6.1 g/dL (6.4-8.9) L 09/01/18 15:33 2.3 g/dL (3.5-5.7) L 09/11/18 Unknown 5.0 g/dL (2.4-3.5) H 09/11/18 Unknown 0.5 (1.1-2.2) L 09/11/18 Unknown Vitamin B12 > 1500 pg/mL (250-1100) H 09/10/18 07:50 [place] (Yellow) A 09/01/18 Unknown Turbid (Clear) A 09/10/18 07:30 Ur Specific [place] 1.029 (1.010-1.025) H 09/01/18 Unknown 100 mg/dL (Neg-Trace) H 09/10/18 07:30 100 mg/dL (Normal) H 09/10/18 07:30 Trace mg/dL (Negative) H 09/01/18 Unknown Large (Negative) H 09/10/18 07:30 Moderate (Negative) H 09/01/18 Unknown 4.0 mg/dL (Normal) H 09/01/18 Unknown Ur Leukocyte Esterase Trace (Negative) H 09/10/18 07:30 5-15 per hpf (0-3) H 09/01/18 Unknown Ur Squamous Epith Cells Many per lpf (None-Few) H 09/01/18 Unknown Ur Culture Indicated? NO. (NO) A 09/01/18 Unknown Ur Microalbumin 24 Hr 351 mg/day (Less than 30) H 09/03/18 23:00 Microalb/Creat Ratio 290 mcg/mg (Less than 30) H 09/03/18 23:00 Ur Total Protein 24 Hr 2128 mg/day (50-80) H 09/03/18 23:00 Protein/Creatinin Ratio 1.76 mg/mg (0.00-0.20) H 09/03/18 23:00 Ur Sodium 24 Hour 33 mEq/day (40-220) L 09/03/18 23:00 Ur Chloride 24 Hour 20 mEq/day (110-250) L 09/03/18 23:00 Ur Phosphorus 24 Hr 0.2 g/day (0.4-1.3) L 09/03/18 23:00 Ur Urea Nitrogen 24 Hr 6 g/day (12-20) L 09/03/18 23:00 Ur Calcium 24 Hr 6 mg/day (100-300) L 09/03/18 23:00 185 mg/dL (1-14) H 09/03/18 23:00 U Free [place] Light Ch 110.00 mg/dL (0.14-2.42) H 09/02/18 23:00 U Free Lambda Light Ch 19.80 mg/dL (0.02-0.67) H 09/02/18 23:00 Positive ng/mL (Bjsewg=697) H 09/01/18 16:29 Hep Bs Antibody 4.61 mIU/mL (10.00-) L 09/01/18 20:52 Staphylococcus sp PCR DETECTED (Not Detect) A 09/01/18 15:58 Staph aureus (PCR) DETECTED (Not Detect) A 09/01/18 15:58 Streptococcus sp PCR DETECTED (Not Detect) A 09/01/18 15:58 Group B Strep (PCR) DETECTED (Not Detect) A 09/01/18 15:58 Crossmatch See Detail 09/10/18 07:30 Crossmatch Prewarmed See Detail 09/01/18 16:55 Microbiology, Last 48 Hours 09/06/18 15:33 Anaerobic Culture - Preliminary Right Foot At this time, no anaerobic growth is present. The culture will be finalized after 5 days of incubation. 09/06/18 15:33 Anaerobic Culture - Preliminary Right Foot At this time, no anaerobic growth is present. The culture will be finalized after 5 days of incubation. Consult Discharge Plan - Plan Instructions: Tamsulosin (By mouth) Referrals: José Miguel Negro MD [Primary Care Provider] -
--- NOTE | 2018-09-11 11:07 | Internal Med Progress Note ---
Hospitalist Progress Note - Encounter Date of Encounter: 09/11/18 Time of Encounter: 11:04 - Subjective Interval History: Pt denies fever, chills, N/V or diarrhea. Denies chest pain or SOB. Female forensic science examiner at bedside. - Exam Vitals: Temp Pulse Resp BP Pulse Ox 99.9 F H 91 18 137/80 97 09/11/18 07:01 09/11/18 07:01 09/11/18 07:01 09/11/18 07:01 09/11/18 07:01 Exam: Head: Atraumatic, normal inspection, normocephalic. Missing some teeth. Eye: EOMI, PERRLA, no scleral icterus noted. ENT: Mucous membranes moist. No odontogenic infection noted. Neck: Normal inspection, no meningismus. Temporary dialysis catheter noted to the right neck. Respiratory: Clear to auscultation. No rales, respiratory distress, rhonchi, or wheezes noted. Cardiovascular: Regular rate and rhythm, S1 and S2 audible. No murmurs, rubs, or gallops. GI: Soft, obese, normal bowel sounds. Blanco catheter noted draining clear yellow urine. Extremities:1+ edema noted to the BLE. Right foot dressing C/D/I. External fixator noted. Neurological: Alert, oriented 3, no focal deficits. Psychiatric: normal affect, normal mood. Skin: Dry, intact, warm. Normal color. No rashes. Multiple skin tattoos. - Assessment and Plan (1) Osteomyelitis Current Visit: Yes Status: Acute Assessment and Plan: s/p I and D 09/06/[address] on 09/10/18 1. Postoperative changes in the midfoot as described. Plantar 2.7 cm hematoma adjacent to the posterior margin of the midfoot ulcer. 2. Postoperative changes in the midfoot with resection of the talus and cuneiform is with external fixator placement. 3. Extensive intraosseous gas in the talus, calcaneus, and remnant midfoot bones. Correlate with the operative record for signs of infection. Dr. Ferrell recommending BKA to the patient and pt is agreeable to having the procedure done. Pt being made NPO after midnight. Podiatry also consulting vascular surgery. Blood and surgical cultures positive for GBS , SA and proteus- being managed on Cefazolin at this time. ID also on board (2) Bacteremia Current Visit: Yes Status: Acute Assessment and Plan: As an organism: Group B strep, MSSA, Proteus mirabilis. Source: Right foot infection. TTE negative for vegetations. ID following and currently on cefazolin. (3) Atrial fibrillation, chronic Current Visit: Yes Status: Chronic Assessment and Plan: on Xarelto at home but on hold due to possible surgery (4) Hypotension Current Visit: No Status: Acute Assessment and Plan: On losartan, HCTZ, norvasc, and clonidine at home. BP currently stable. (5) Acute kidney injury superimposed on chronic kidney disease Current Visit: No Status: Acute Assessment and Plan: Pt has hx CKD stage III Nephrology assisting with management of CESILIA/CKD Will monitor renal function QD. (6) T2DM (type 2 diabetes mellitus) Current Visit: Yes Status: Chronic Assessment and Plan: Levemir 55 units QHS and SSI (7) COPD (chronic obstructive pulmonary disease) Current Visit: Yes Status: Chronic Assessment and Plan: Continue current respiratory regimen. (8) Anemia in chronic kidney disease Current Visit: Yes Status: Acute Assessment and Plan: Hgb up from 6.8 to 7.9 after transfusion 09/10/18. Will monitor Hgb daily. Will check iron studies and occult blood. Possibly due to chronic renal disease. (9) Hepatitis C Current Visit: Yes Status: Acute Assessment and Plan: Pt reports hx of hep C but unaware of hx of Hep B. He denies history of IV drug use in the past or present but initially was hesitant with his response. DVT Prophylaxis: SCD - Summary of Assessment and Plan Summary of Assessment and Plan: History of present illness: Danie Dixon The patient is a 48-year-old male who has had underlying CKD stage III secondary to long-standing type 2 diabetes mellitus and hypertension. He was recently hospitalized here with acute kidney injury requiring hemodialysis; sent home on 08/04/18. He has not seen any physician since that discharge; has an appointment to his nephrology next week. He has been developing progressing weakness and tiredness for the last couple weeks. It is associated with decreased urinary output. It was today morning when he developed confusion; after taking 1 tablet of Flexeril from his primary care physician. He has been suffering from chronic low back pain; taking Percocet at home. - Time Spent with Patient Total time spent is greater than 50% in coordination of care (as documented) at patient's floor/unit and/or counseling patient: less than 15 minutes Plan of Care Discussed with: patient Internal Medicine: Result - Labs CBC & Chem 7: 09/11/18 Unknown 09/11/18 Unknown Labs: Short CBC 09/11/18 Range/Units Unknown WBC 16.7 H (4.3-11.1) K/mcL Hgb 7.9 L (12.9-16.9) g/dL Hct 23.4 L (37.5-50.1) % Plt Count 443 H (140-400) K/mcL Neutrophils # 13.4 H (1.6-8.9) K/mcL BMP 09/11/18 Unknown Sodium 123 L Potassium 5.4 H Chloride 93 L Carbon Dioxide 24 BUN 56 H Creatinine 2.77 H Glucose 357 H Calcium 8.0 L Liver Function 09/11/18 Range/Units Unknown Total Bilirubin 0.3 (0.3-1.0) mg/dL AST 13 (13-39) Units/L ALT 7 (7-52) Units/L Alkaline Phosphatase 74 (34-104) Units/L Albumin 2.3 L (3.5-5.7) g/dL - ABG Interpretation ABG results: PT/INR, D-dimer PT 12.7 Seconds (9.4-12.1) H 09/07/18 15:50 Consult Discharge Plan - Plan Instructions: Tamsulosin (By mouth) Referrals: José Miguel Negro MD [Primary Care Provider] - (1) Osteomyelitis Qualifiers: Osteomyelitis type: subacute Osteomyelitis location: foot Laterality: right Qualified Code(s): M86.271 - Subacute osteomyelitis, right ankle and foot (4) Hypotension Qualifiers: Hypotension type: hypotension due to hypovolemia Qualified Code(s): I95.89 - Other hypotension; E86.1 - Hypovolemia (6) T2DM (type 2 diabetes mellitus) Qualifiers: Diabetes mellitus intermediate accountant insulin use: without fdc use Diabetes mellitus complication status: with kidney complications Diabetes mellitus complication detail: with chronic kidney disease Chronic kidney disease stage: stage 3 (moderate) Qualified Code(s): E11.22 - Type 2 diabetes mellitus with diabetic chronic kidney disease; N18.3 - Chronic kidney disease, stage 3 (modera te) (7) COPD (chronic obstructive pulmonary disease) Qualifiers: Emphysema type: unspecified Qualified Code(s): J43.9 - Emphysema, unspecified (8) Anemia in chronic kidney disease Qualifiers: Chronic kidney disease stage: stage 3 (moderate) Qualified Code(s): N18.3 - Chronic kidney disease, stage 3 (moderate); D63.1 - Anemia in chronic kidney disease
--- NOTE | 2018-09-11 16:03 | Vascular/Endovasc Consult Note ---
Date of Encounter: 09/11/18 Time of Encounter: 13:25 Assessment and Plan (1) Wound of left foot Current Visit: Yes Status: Acute Patient has dressing over left lateral foot wound. Patient has deformity of left foot and ankle or Charcot joint. (2) Chronic ulcer of right foot with fat layer exposed Current Visit: Yes Status: Acute Patient has chronic right foot wound. He has diffuse osteomyelitis and soft tissue infection. Patient was recommended to consider amputation and bacitracin surgery was consulted to discuss it with him today. After discussion today the patient wishes to proceed with the amputation as he had indicated to the other services. As explained to the patient our initial attempt will be for a below the knee amputation but he is aware that if there are infectious changes or tissue compromise he would require an [id number] amputation. Patient is also aware that he will require inpatient rehabilitation upon discharge from the hospital. (3) Bacteremia Current Visit: Yes Status: Acute Patient with bacteremia on initial blood cultures. Follow blood cultures are pending for final results. (4) Osteomyelitis Current Visit: Yes Status: Acute Patient with diffuse osteomyelitis of right foot and ankle. Patient is status post maximum effort for wound care and limb salvage. Due to the extensive nature of his infection and wound it was recommended to the patient by the podiatry service to consider amputation. Patient has done so and wishes to undergo amputation in order to facilitate his future medical care. The potential risks and benefits as well as complications and alternatives were reviewed with the patient. Our tentative plan is to offer the patient a right below the knee amputation on Tuesday afternoon of this week. Qualifiers: Osteomyelitis type: subacute Osteomyelitis location: foot Laterality: right Qualified Code(s): M86.271 - Subacute osteomyelitis, right ankle and foot - History of Present Illness Consult date: 09/11/18 Requesting physician: Nolan Ferrell Consult reason: Right foot infection and bacteremia Chief complaint: Right foot wounds and infection History of present illness: Mr. Perkins is a 48 year old male Was admitted to the hospital on September 01 with toxicity and hypotension as well as anemia and a history of blood in his bowel movements. This led to a prolonged hospitalization and multiple consultations. He was also started on hemodialysis. He had recently undergone debridement and external fixation for a Charcot joint at the right ankle with multiple wounds and soft tissue infection and extensive osteomyelitis. After a long discussion with the podiatry service the patient has opted now to proceed with amputation rather than further debridements and surgeries in an attempt to try to salvage the right foot. The patient states that he has been having ulcerations and infections of the right foot dating back to over 2-1/2 years ago. He states that there was nail care performed at an outside institution that initiated the infection. He has had previous surgery at an outside facility and then has been seen more recently here at [facility] by the podiatry department. The patient has known renal dysfunction and his renal function function had deteriorated to the point he required dialysis last week. He has a temporary hemodialysis catheter placed in late August. In addition the patient has a Charcot joint deformity of his left foot and there is an ulceration on the lateral aspect of the left foot. Initial blood cultures demonstrated active bacteremia. Follow-up cultures after treatment with intravenous antibiotics are pending at this time but there is no growth to date. Past Med Surg Social Fam HX - Past Medical History Medical history: diabetes, hypertension, other Additional medical history: legally blind in right eye, Left kidney removal in 1999, fractured C4 in 2001 ( as stated by PT). Psychiatric history: no psych history - Past Surgical History Surgical History: other Additional surgical history: left kidney removed, bilat foot surgery - Social History Smoking Status: Current every day smoker Smokeless Tobacco Status: No Alcohol use: none Drug use: none - Family History Father Living Status: Hx Family Cancer: Yes (lung and brain) Medications and Allergies Albuterol Sulfate [Albuterol Inhaler] 2 puff IH Q4H PRN 08/03/18 [History] Amlodipine Besylate 5 mg PO DAILY 08/03/18 [History] Cholecalciferol (Vitamin D3) [Optimal D3] 50,000 unit PO QWEEK 08/03/18 [History] CloNIDine Patch [Catapres-Tts] 0.2 mg TD QWEEK 08/03/18 [History] Furosemide [Lasix] 40 mg PO DAILY 08/03/18 [History] Insulin Glargine,Hum.rec.anlog [Basaglar Kwikpen U-100] 35 unit SQ BID 08/03/18 [History] Insulin LISPRO [HumaLOG] 30 units SQ TID 08/03/18 [History] Losartan/Hydrochlorothiazide [Losartan-Hctz 100-25 mg Tab] 1 each PO DAILY 08/03/18 [History] OxyCODONE/APAP 10/325 [Percocet 10/325 MG] 1 each PO TID PRN 08/03/18 [History] Rivaroxaban [Xarelto] 15 mg PO DAILY 08/03/18 [History] Sertraline [Zoloft] 50 mg PO DAILY 08/03/18 [History] Sertraline [Zoloft] 100 mg PO DAILY 08/03/18 [History] Umeclidinium Melcroft [Incruse Ellipta] 1 puff IH DAILY 08/03/18 [History] Allergy/AdvReac Type Severity Reaction Status Date / Time No Known Allergies Allergy Verified 05/06/16 14:33 All Systems Review: The remainder of the systems were reviewed and are negative Exam General: Present: Conversant, No Apparent Distress, Well developed, Well nourished, Other (Obese middle-aged white male) HEENT: Present: Atraumatic, Normocephaly, Trachea midline, Other (Temporary hemodialysis catheter in right internal jugular vein.) Neck: Absent: JVD, Midline deformity, Tracheal deviation Cardiac: Present: Reg Rate and Rhythm, Normal S1 and S2, No Murmur Lungs: Present: Normal Breath Sounds, No Wheeze, Rales, Rhonchi Neuro: Present: Alert and responsive, No focal deficits noted, Cranial nerves grossly intact Abdomen: Present: Soft, Non-tender, Other (Obese). Absent: Masses Vascular: Present: Normal capillary refill, Pulse, normal (In left lower extremity and at the right femoral and popliteal area. Unable to examine right foot and ankle due to the external fixator and overlying dressings.), Edema (Patient has bilateral edema at the ankle level and at the foot level.). Absent: Cyanosis Skin: Present: Other (Multiple tattoos on upper and lower extremities as well as torso.) Musculoskeletal: Present: No Chest Wall Tenderness Consult Discharge Plan - Plan Instructions: Tamsulosin (By mouth) Referrals: José Miguel Negro MD [Primary Care Provider] -
--- NOTE | 2018-09-11 17:24 | Nephrology Progress Note ---
Date of Encounter: 09/11/18 - Assessment and Plan (1) Chronic ulcer of right foot with fat layer exposed Current Visit: Yes Status: Acute (2) CESILIA (acute kidney injury) Current Visit: Yes Status: Acute (3) Anemia Current Visit: Yes Status: Acute Qualifiers: Qualified Code(s): D64.89 - Other specified anemias (4) CKD (chronic kidney disease), stage III Current Visit: Yes Status: Chronic (5) Hyponatremia Current Visit: Yes Status: Acute (6) Solitary kidney, acquired Current Visit: Yes Status: Acute Subjective Principal diagnosis: CESILIA Interval history: POD #3 extensive R foot debridement. Pt seen and examined with significant other at bedside receiving blood but eager to go home soon despite being told of ongoing medical need. s/p HD yesterday Objective - Vital Signs Vital signs: Vital Signs Temp Pulse Resp BP Pulse Ox 09/11/18 16:26 99.4 F 98 16 155/90 98 09/11/18 11:03 98.2 F 80 18 123/74 98 09/11/18 07:01 99.9 F H 91 18 137/80 97 09/11/18 03:54 98.6 F 91 18 170/98 96 09/10/18 23:13 98.4 F 80 17 136/79 98 09/10/18 20:25 98.8 F 82 16 140/84 98 09/10/18 18:19 98.9 F 79 17 136/83 98 Intake and Output 09/11/18 09/11/18 09/11/18 07:59 15:59 23:59 Intake Total 1000 / 1120 120 / 1120 Output Total 300 / 600 300 / 600 Balance 700 / 520 -180 / 520 Intake: Oral 650 / 770 120 / 770 Blood Product 350 / 350 Rbcs Leuko Poor As-1 Unit 350 / 350 [id number] Output: Urine 300 / 600 300 / 600 Other: # Voids 1 # Urine Diapers 1 Blood Glucose* 305 248 211 - Lab 09/11/18 Unknown 09/11/18 Unknown Consult Discharge Plan - Plan Instructions: Tamsulosin (By mouth) Referrals: José Miguel Negro MD [Primary Care Provider] -
[2018-09-11 18:30] LABS: Amphetamine Screen,Urine Negative ng/mL (Cutoff=1000); Barbiturate Screen,Urine Negative ng/mL (Cutoff=200); Benzodiazepines Screen,Urine Negative ng/mL (Cutoff=200); Cannabinoid Screen,Urine Negative ng/mL (Cutoff = 50); Cocaine Screen,Urine Negative ng/mL (Cutoff= 300); Opiate Screen,Urine Positive ng/mL (Cutoff=300); Phencyclidine Screen,Urine Negative ng/mL (Cutoff=25)
[2018-09-11 19:03] LABS: Hepatitis B Surface Antigen Nonreactive (Nonreactive)
[2018-09-11 19:34] LABS: Hepatitis A Antibody IgM Nonreactive (Nonreactive); Hepatitis B Core IgM Nonreactive (Nonreactive)
[2018-09-11 21:15] LABS: Hepatitis C Virus Antibody Reactive (Nonreactive)
[2018-09-12 05:09] LABS: Basophils # 0.1 K/mcL (0.0-0.2); Basophils % 0.3 %; Eosinophils # 0.1 K/mcL (0.0-0.6); Eosinophils % 0.7 %; Hematocrit 23.1 % (37.5-50.1); Hemoglobin 7.7 g/dL (12.9-16.9); Immature Granulocytes % 2.9 % (0-4); Lymphocytes # 1.4 K/mcL (0.6-4.6); Lymphocytes % 7.3 %; Mean Corpuscular HGB Conc 33.3 g/dL (31.6-35.5); Mean Corpuscular Hemoglobin 29.8 pg (28.0-33.3); Mean Corpuscular Volume 89.5 fL (83.0-100.0); Mean Platelet Volume 8.8 fL (9.4-12.4); Monocytes # 1.3 K/mcL (0.0-1.3); Monocytes % 6.9 %; Neutrophils # 15.2 K/mcL (1.6-8.9); Platelet Count 502 K/mcL (140-400); Red Blood Count 2.58 M/mcL (4.19-5.50); Red Cell Distribution Width 13.7 % (11.5-14.5); Segmented Neutrophils % 81.9 %
[2018-09-12 05:36] LABS: Alanine Aminotransferase 7 Units/L (7-52); Albumin 2.3 g/dL (3.5-5.7); Albumin/Globulin Ratio 0.4 (1.1-2.2); Alkaline Phosphatase 70 Units/L (34-104); Aspartate Amino Transferase 14 Units/L (13-39); BUN/Creatinine Ratio 22 (6-26); Bilirubin,Total 0.4 mg/dL (0.3-1.0); Blood Urea Nitrogen 65 mg/dL (6-20); Calcium 8.1 mg/dL (8.6-10.3); Carbon Dioxide 22 mEq/L (23-29); Chloride 96 mEq/L (98-107); Globulin 5.2 g/dL (2.4-3.5); Glucose 255 mg/dL (70-105); Iron < 10 mcg/dL (65-175); Osmolality,Calculated 287 (280-300); Potassium 5.7 mEq/L (3.5-5.1); Sodium 125 mEq/L (136-145); Total Protein 7.5 g/dL (6.4-8.9); Transferrin 141 mg/dL (203-362); eGFR For Non-African Americans 23 (> 60)
[2018-09-12] MEDS: *HR* FentaNYL (PF) 100 MCG/2 ML VIAL IVP PRN ×3 (05:49→17:30)
[2018-09-12] MEDS: Insulin LISPRO 300 UNITS/3 ML VIAL SQ SCH ×7 (08:08→21:15)
[2018-09-12] MEDS: *HR* OxyCODONE Immed Rel 5 MG TABLET PO PRN ×2 (08:09→21:12)
[2018-09-12] MEDS: ceFAZolin 1,000 MG in Water for inj. (sterile) 20 ML 10 ML IVPB SCH ×2 (08:10→21:14)
[2018-09-12] MEDS: Folic Acid 1 MG TABLET PO SCH (08:10)
[2018-09-12] MEDS: metroNIDAZOLE 500 MG TABLET PO SCH ×3 (08:10→21:13)
--- NOTE | 2018-09-12 08:11 | Internal Med Progress Note ---
Hospitalist Progress Note - Encounter Date of Encounter: 09/12/18 Time of Encounter: 08:10 - Subjective Interval History: Pt seen in HD today, denies acute complaints including no SOB, CP, N/V/D. Does say his left cole is starting to swell and feel painful. - Exam Vitals: Temp Pulse Resp BP Pulse Ox 98.1 F 86 18 145/85 99 09/12/18 07:54 09/12/18 07:54 09/12/18 07:54 09/12/18 07:54 09/12/18 07:54 Exam: General: NAD, good eye contact, chronically ill appearing Thoracic: Normal breath sounds b/l, no wheezing or crackles Cardio: Normal S1 and S2, regular rate and rhythm Abdomen: Soft, nontender Extremities: Warm. Does have mild edema b/l LE and deformed feet b/l Skin: skin of L foot w medial erythema and cole erythema, RLE to be amputated tomorrow Neuro: Awake, fully oriented. Speech fluent - Summary of Assessment and Plan Summary of Assessment and Plan: Santosh Perkins is a 48 M w hx CKD3 2/2 DM2 and HTN c/b CESILIA requiring HD, who p/w fatigue in context of RLE wound. Blood cultures positive for polymicrobial in fection (GBS, MSSA, proteus) which correlated with I&D 09/06 cultures, and thus pt scheduled for R BKA tomorrow. Polymicrobial osteomyelitis RLE and bacteremia: bacteria as above. TTE negative. - ID following - consider MAHESH - will need midline for abx - Ancef 1g q12h renal dosing Concern for LLE swelling: several items to discuss here. Foot itself has some swelling, and CT yesterday equivocal about inflammatory changes and possible osteo, rec's follow up MRI. Also, cole has erythema and swelling greater than opposite extremity. - MRI L foot - venous duplex LLE CESILIA on CKD3a: continues to require HD, Neph consulted and following A-Fib: resume xarelto 1 day after surgery DM2: home levemir 55 qhs, SSI COPD: home inhalers Anemia of CKD: maintain Hb>7 HCV: outpatient f/u Morbid obesity: BMI 41 PPx: SCD FEN: renal then NPO@MN, no MIVF Lines: HD CVC, PIV Consults: ID, Neph, Podiatry, VascSurg Code: Full Dispo: patient requires inpatient eval and management at this time. Anticipate 3-4 days. Will need SNF Internal Medicine: Result - Labs CBC & Chem 7: 09/12/18 04:45 09/12/18 04:45 Labs: Short CBC 09/12/18 Range/Units 04:45 WBC 18.5 H (4.3-11.1) K/mcL Hgb 7.7 L (12.9-16.9) g/dL Hct 23.1 L (37.5-50.1) % Plt Count 502 H (140-400) K/mcL Neutrophils # 15.2 H (1.6-8.9) K/mcL BMP 09/12/18 04:45 Sodium 125 L Potassium 5.7 H Chloride 96 L Carbon Dioxide 22 L BUN 65 H Creatinine 2.95 H Glucose 255 H Calcium 8.1 L Liver Function 09/12/18 Range/Units 04:45 Total Bilirubin 0.4 (0.3-1.0) mg/dL AST 14 (13-39) Units/L ALT 7 (7-52) Units/L Alkaline Phosphatase 70 (34-104) Units/L Albumin 2.3 L (3.5-5.7) g/dL - ABG Interpretation ABG results: PT/INR, D-dimer PT 12.7 Seconds (9.4-12.1) H 09/07/18 15:50 - Impressions Impressions Foot CT 09/11/18 17:00 IMPRESSION: 1. Dorsal and plantar subcutaneous edema in the midfoot compatible cellulitis. Questionable fluid collection plantar to the cuboid. 2. Questionable erosive changes along the plantar surface of the cuboid with osteomyelitis not excluded. Consider further evaluation with MRI. 3. Severe midfoot disorganization and fragmentation compatible with Charcot arthropathy. D/ / Greyson Harris MD / Greyson Harris MD Interpreting Provider: Greyson Harris MD Consult Discharge Plan - Plan Instructions: Tamsulosin (By mouth) Referrals: José Miguel Negro MD [Primary Care Provider] -
[2018-09-12] MEDS: Insulin DETEMIR 100 UNIT/ML X5UNITS SQ SCH ×2 (08:14→21:14)
[2018-09-12] MEDS ORDERED: 0.9 % Sodium Chloride 250 ML IVC PRN (08:21)
[2018-09-12] MEDS ORDERED: *HR* Heparin 10,000 UNIT/10 ML VIAL IV PRN (08:21)
--- NOTE | 2018-09-12 10:30 | Infectious Disease Progress No ---
ID Progress Note Date of Encounter: 09/12/18 Time of Encounter: 10:28 - Subjective Subjective: Patient seen and examined in the HD unit. Status post right foot irrigation and debridement and incision and drainage with plantar fasciectomy and debridement of the tarsal bone and application of external fixator 09/06/[address] Ferrell. Had some persistent oozing of the surgical site over the weekend. Denies fevers, chills, or rigors. Denies chest pain, shortness of breath, or cough. Continues to complain of pain at the surgical site and in the left foot. Denies nausea, vomiting, diarrhea, or constipation. Denies urinary complaints. Denies oral thrush or new skin lesions. Pending right BKA tomorrow. - Objective CBC & Chem 7: 09/13/18 03:50 09/13/18 03:50 - Line Documentation Line Documentation: Dialysis Catheter (Temporary dialysis catheter noted to the right neck with transparent dressing clean, dry, and intact. Currently access for hemodialysis.) - Exam Vitals: Temp Pulse Resp BP Pulse Ox 99.2 F 86 17 139/79 99 09/12/18 09:00 09/12/18 07:54 09/12/18 09:00 09/12/18 10:00 09/12/18 07:54 Exam: Head: Atraumatic, normal inspection, normocephalic. Eye: EOMI, PERRLA, no scleral icterus noted. ENT: Mucous membranes moist. No odontogenic infection noted. Neck: Normal inspection, no meningismus. Temporary dialysis catheter noted to the right neck. Respiratory: Clear to auscultation. No rales, respiratory distress, rhonchi, or wheezes noted. Cardiovascular: Regular rate and rhythm, S1 and S2 audible. No murmurs, rubs, or gallops. GI: Soft, obese, normal bowel sounds. Extremities:1+ edema noted to the BLE. Right foot dressing with small amount of old bloody drainage noted. External fixator noted. Allevyn dressing noted to the left foot. Neurological: Alert, oriented 3, no focal deficits. Psychiatric: normal affect, normal mood. Skin: Dry, intact, warm. Normal color. No rashes. - Assessment and Plan (1) Sepsis Current Visit: Yes Status: Acute He should not had to sepsis criteria with acute kidney injury. Likely secondary to bacteremia and right foot infection. White blood cell count worse this morning. Afebrile overnight. Blood cultures drawn 09/01/18 are +2 out of 2 sets for group B strep, MSSA, and Proteus mirabilis. Repeat blood cultures drawn 09/06/18 are negative x 2 sets. Repeat blood cultures drawn 09/07/18 are NGTD x 2 sets. Qualifiers: Sepsis type: sepsis due to unspecified organism Qualified Code(s): A41.9 - Sepsis, unspecified organism SNOMED Code(s): 79373731 (2) Bacteremia Current Visit: Yes Status: Acute Causative organism: Group B strep, MSSA, Proteus mirabilis. Source: Right foot infection. Blood cultures drawn 09/01/18 are +2 out of 2 sets. Repeat blood cultures drawn 09/06/18 are negative x 2 sets. Repeat blood cultures drawn 09/07/18 are NGTD x 2 sets. Complicated due to hardware in the left wrist. No endocarditis stigmata noted on exam. Rheumatoid factor normal. TTE negative for vegetations. The patient has one major and one minor modified [place] criteria. Currently on cefazolin. SNOMED Code(s): 4613041 (3) Infection of right foot Current Visit: Yes Status: Acute Location: Right foot. Causative organism: GBS, MSSA, P. mirabilis. Likely secondary to chronic non-healing ulcers and uncontrolled DM. X-ray of the right foot 09/01/18 showed findings consistent with Charcot arthropathy/neuropathic foot not significantly changed from the prior studies and extensive soft tissue swelling suggesting cellulitis. MRI of the right foot 09/04/18 showed plantar soft tissue ulcer at the level of the cuboid with suspected interval soft tissue graft placement. There is edema of the graft which may reflect soft tissue infection. Suspected bilateral soft tissue ulceration with associated phlegmonous change at the level of the inframalleolar peroneal tendons. There is no tenosynovitis and complete full-thickness peroneal tendon tears. The tenosynovitis may be infectious. New multifocal marrow signal abnormality involving the talus, calcaneus, cuboid, and navicular suspicious for osteonecrosis and less likely osteomyelitis. Persistent marrow signal and abnormality in the cuboid which is suspicious for osteoarthritis and a chronic cuboid erosion or defect is noted. Podiatry consulted. Per their note, purulent drainage expressed on exam. Status post right foot incision and drainage and irrigation and debridement, plantar fasciectomy, debridement of the tarsal bone, and application of external fixator 09/06/[address] Armstrong. Operative note reviewed. Gross purulence noted throughout the foot. Intraoperative tissue and bone cultures positive for MSSA, GBS, and P. mirabilis. ESR greater than 130, CRP 198. The patient has opted to undergo right BKA rather than pursue further attempts to salvage his foot. Currently on cefazolin and PO flagyl. SNOMED Code(s): 025376198 (4) Cellulitis Current Visit: Yes Status: Acute Location: Right foot. Causative organism: GBS, MSSA, P. mirabilis. Purulent. Likely secondary to chronic ulcers. Podiatry consulted. Status post I & D. Currently on cefazolin and flagyl. Qualifiers: Site of cellulitis: other site Qualified Code(s): L03.818 - Cellulitis of other sites SNOMED Code(s): 022223677 (5) Chronic ulcer of right foot with fat layer exposed Current Visit: Yes Status: Acute Location: Right foot. Podiatry consulted. SNOMED Code(s): 624736773 (6) Acute kidney injury superimposed on chronic kidney disease Current Visit: No Status: Acute Serum creatinine 6.57 on admission with uremia and diminished urine output. Nephrology consulted. Temp HD line placed 09/02/18 and HD initiated. Avoid nephrotoxins as able. Dose-adjust medications. Vancomycin discontinued. SNOMED Code(s): 74284795 (7) Anemia Current Visit: Yes Status: Acute Qualifiers: Anemia type: other cause Other causes of anemia: other cause, not classified Qualified Code(s): D64.89 - Other specified anemias SNOMED Code(s): 516495565 (8) Elevated troponin Current Visit: Yes Status: Acute SNOMED Code(s): 063622962, 129149908, 65845 6004 (9) Hyponatremia Current Visit: Yes Status: Acute SNOMED Code(s): 13124001 (10) Pulmonary edema Current Visit: Yes Status: Acute Qualifiers: Chronicity: acute Qualified Code(s): J81.0 - Acute pulmonary edema SNOMED Code(s): 90732157 (11) Atrial fibrillation, chronic Current Visit: Yes Status: Chronic SNOMED Code(s): 183193283 (12) COPD (chronic obstructive pulmonary disease) Current Visit: Yes Status: Chronic Qualifiers: Emphysema type: unspecified Qualified Code(s): J43.9 - Emphysema, unspecified SNOMED Code(s): 24706286 (13) T2DM (type 2 diabetes mellitus) Current Visit: Yes Status: Chronic HgbA1C 8.5%. Recommend aggressive glucose monitoring and control to promote wound healing and prevent re-infection. Management per the primary team. Qualifiers: Diabetes mellitus prison insulin use: without prison use Diabetes mellitus complication status: with kidney complications Diabetes mellitus complication detail: with chronic kidney disease Chronic kidney disease stage: stage 3 (moderate) Qualified Code(s): E11.22 - Type 2 diabetes mellitus with diabetic chronic kidney disease; N18.3 - Chronic kidney disease, stage 3 (moderate) SNOMED Code(s): 70564677 - Recommendations Recommendations: Await repeat blood cultures. The patient will likely require a MAHESH prior to discharge. Wound care and activity restrictions per the podiatry team. CESILIA management per the nephrology team. Vascular surgery consulted for right BKA. Continue Cefazolin 1 gram IV daily. Dose-adjusted for HD status. Continue flagyl 500mg PO TID until anaerobic cultures finalize. Duration of treatment depends on the clinical picture, but likely a total of 14 days from the first set of negative blood cultures if MAHESH negative. Monitor renal function and dose-adjust antibiotics. Consult VAT for EPIV placement prior to discharge. academic services coordinator to assist with discharge planning. Consult Discharge Plan - Plan Instructions: Tamsulosin (By mouth) Referrals: José Miguel Negro MD [Primary Care Provider] - - Attending Attestation I have personally performed a face to face evaluation on this patient. I have reviewed and agree with the care plan. History and Exam by me shows: Assessment and Plan: 1. Sepsis 2. Bacteremia with group B streptococcus, MSSA and Proteus mirabilis likely source right foot infection 3. Infection of right foot status post I&D, plantar fasciotomy, debridement of tarsal bone and application of external fixator 09/06/2018 4. Cellulitis 5. Chronic ulcer of right foot with fat layer exposed 6. CESILIA on CKD REcommendations: await MAHESH continue current antibiotics for now away surgery tomorrow monitor labs and for drug toxicity
[2018-09-12] MEDS: *HR* FentaNYL PATCH 25 MCG PATCH TD SCH (12:30)
--- NOTE | 2018-09-12 15:13 | Event Note ---
Date of Encounter: 09/12/18 Time of Encounter: 11:00 Hematology consulted over weekend for concern for some persistent oozing of the surgical site over the weekend which has since resolved. Clinical history with prior surgical interventions and coagulation results are not consistent with bleeding disorder. Planning for BKA tomorrow. Anemia workup revealed low folic acid, he has been started on supplementation. Otherwise, anemia likely multifactorial in the setting of CKD/CESILIA and sepsis. We will continue to follow along peripherally and monitor CBC, feel free to reach out with any other needs
--- NOTE | 2018-09-12 15:31 | Vascular/[facility] Progress Note ---
Date of Encounter: 09/12/18 Time of Encounter: 12:30 - Assessment and plan (1) Wound of left foot Current Visit: Yes Status: Acute Patient has dressing over left lateral foot wound. Patient has deformity of left foot and ankle or Charcot joint. Plan left below the knee amputation tomorrow. External fixator to be removed preoperatively. Patient is aware of surgical plans and need for extended care facility for rehabilitation and aggressive physical therapy assistance in the post amputation period. (2) Chronic ulcer of right foot with fat layer exposed Current Visit: Yes Status: Acute Patient has chronic right foot wound. He has diffuse osteomyelitis and soft tissue infection. Patient was recommended to consider amputation and bacitracin surgery was consulted to discuss it with him today. After discussion today the patient wishes to proceed with the amputation as he had indicated to the other services. As explained to the patient our initial attempt will be for a below t he knee amputation but he is aware that if there are infectious changes or tissue compromise he would require an [id number] amputation. Patient is also aware that he will require inpatient rehabilitation upon discharge from the hospital. (3) Bacteremia Current Visit: Yes Status: Acute Patient with bacteremia on initial blood cultures. Follow blood cultures are pending for final results. (4) Osteomyelitis Current Visit: Yes Status: Acute Patient with diffuse osteomyelitis of right foot and ankle. Patient is status post maximum effort for wound care and limb salvage. Due to the extensive nature of his infection and wound it was recommended to the patient by the podiatry service to consider amputation. Patient has done so and wishes to undergo amput ation in order to facilitate his future medical care. The potential risks and benefits as well as complications and alternatives were reviewed with the patient. Our tentative plan is to offer the patient a right below the knee amputation on Tuesday afternoon of this week. Qualifiers: Osteomyelitis type: subacute Osteomyelitis location: foot Laterality: right Qualified Code(s): M86.271 - Subacute osteomyelitis, right ankle and foot - Subjective Interval history: Patient has no new complaints. Vital Signs, Last 4 Hours Temp Resp BP 09/12/18 12:30 98.2 F 15 155/84 09/12/18 12:00 106/59 09/12/18 11:45 123/71 09/12/18 11:30 131/80 - Physical Examination General: Present: Conversant, No Apparent Distress Vascular: Present: Other (Vascular status is unchanged.) Results 09/12/18 04:45 09/12/18 04:45 Lab Results, Last 24 hours 09/12/18 09/12/18 04:45 04:45 WBC 18.5 H Hgb 7.7 L Hct 23.1 L Plt Count 502 H Sodium 125 L Potassium 5.7 H Chloride 96 L Carbon Dioxide 22 L BUN 65 H Creatinine 2.95 H Glucose 255 H Calcium 8.1 L Total Bilirubin 0.4 AST 14 ALT 7 Alkaline Phosphatase 70 Consult Discharge Plan - Plan Instructions: Tamsulosin (By mouth) Referrals: José Miguel Negro MD [Primary Care Provider] -
--- NOTE | 2018-09-12 15:54 | Podiatry Progress Note ---
Date of Encounter: 09/12/18 Time of Encounter: 15:30 - Assessment and Plan (1) Bacteremia Current Visit: Yes Status: Acute continue treatment with IV antibiotics Will plan for BKA with vascular to remove source of infection (2) Osteomyelitis Current Visit: Yes Status: Acute s/p right foot I&D extensive multiple areas below fascia plantar fasciectomy debridement of tarsal bone gastroc recession application of multiplane external fixation right LE on 09/06/18 CT on 09/10/18 1. Postoperative changes in the midfoot as described. Plantar 2.7 cm hematoma adjacent to the posterior margin of the midfoot ulcer. 2. Postoperative changes in the midfoot with resection of the talus and cuneiform is with external fixator placement. 3. Extensive intraosseous gas in the talus, calcaneus, and remnant midfoot bones. Correlate with the operative record for signs of infection. Prognosis and treatment options were discussed with patient per Was recommended a BKA due to extensive bacteremia and osteomyelitis Discussed surgical intervention. Ghassan will be in surgery with to remove external fixation device. Reviewed consent and possible outcomes. Denies any quesions. is POA and signed consent. Cleansed ruputured bullous lesion to left foot with saline, painted with betadine, applied dry bulk dressing. No appearance of infection. Continue to monitor. Patient in stable condition and denies any questions Blood and surgical cultures positive for GBS , SA and proteus- being managed on IV antibiotics at this time. Qualifiers: Osteomyelitis type: subacute Osteomyelitis location: foot Laterality: right Qualified Code(s): M86.271 - Subacute osteomyelitis, right ankle and foot Subjective Principal diagnosis: CESILIA Interval history: Patient s/p right foot I&D extensive multiple areas below fascia plantar fasciectomy debridement of tarsal bone gastroc recession application of multiplane external fixation right LE per on 09/06/18 Patient resting comfortably in bed on arrival. at bedside. Pending BKA tomorrow. Aware of planned intervention Afebrile Stable condition at this time Dressing to RLE CDI. Arterial duplex being performed at bedside Objective - Vital Signs Vital Signs: Vital Signs Temp Pulse Resp BP Pulse Ox 09/12/18 12:30 98.2 F 15 155/84 09/12/18 12:00 106/59 09/12/18 11:45 123/71 05/07/19 11:30 131/80 09/12/18 11:15 121/71 09/12/18 11:00 109/74 09/12/18 10:45 133/80 09/12/18 10:30 124/73 09/12/18 10:15 127/87 09/12/18 10:00 139/79 09/12/18 09:45 147/87 09/12/18 09:30 146/79 09/12/18 09:15 148/78 09/12/18 09:00 99.2 F 17 158/85 09/12/18 07:54 98.1 F 86 18 145/85 99 09/12/18 04:30 99.3 F 89 17 106/63 98 09/12/18 00:54 99.5 F 76 17 138/80 98 09/11/18 21:03 98.2 F 91 18 128/72 95 09/11/18 16:26 99.4 F 98 16 155/90 98 Intake and Output 09/11/18 09/12/18 09/12/18 23:59 07:59 15:59 Intake Total 250 / 1380 500 / 500 Output Total 3100 / 3100 Balance 250 / 780 -2600 / -2600 Intake: IV Fluids 10 20 Ancef 1,000 MG In Water for inj . (sterile) 10 ML @ 200 mls/hr IVPB Q12H [facility] Rx#:[id number] Oral 240 / 1010 0 / 0 Intake, Rinseback and Flushes 500 / 500 Output: Urine 600 / 600 Total Dialysis (HD) Output 2500 / 2500 Other: Meal pudding and ice cream Stool Size Moderate Stool Consistency formed # Bowel Movements 1 Weight 131 kg Blood Glucose* 268 268 157 Hemodialysis Net Fluid Removed 2000 (mL) Patient Weight 09/12/18 23:59 Weight 131 kg - Exam Exam: Fixator and dressing to RLE CDI Left lateral foot- stable ruptured bullous lesion. No drainage. No appearance of active infection. likely related to gross edema to BLE. [id number] with minimal depth, limited to breakdown of skin Awake alert and oriented Cap refill <3 seconds - Lab Result Diagrams: 09/12/18 04:45 09/12/18 04:45 Labs: Abnormal lab results WBC 18.5 K/mcL (4.3-11.1) H 09/12/18 04:45 RBC 2.58 M/mcL (4.19-5.50) L 09/12/18 04:45 Hgb 7.7 g/dL (12.9-16.9) L 09/12/18 04:45 Hct 23.1 % (37.5-50.1) L 09/12/18 04:45 MCV 82.6 fL (83.0-100.0) L 09/03/18 03:55 Plt Count 502 K/mcL (140-400) H 09/12/18 04:45 MPV 8.8 fL (9.4-12.4) L 09/12/18 04:45 Immature Gran % 4.3 % (0-4) H 09/08/18 03:30 8.0 % (0-4) H 09/06/18 03:45 2.0 % (0) H 09/03/18 03:55 15.2 K/mcL (1.6-8.9) H 09/12/18 04:45 Nucleated RBCs/100 WBC 0.2 /100 WBC (0) H 09/04/18 04:00 Present (Not Present) A 09/07/18 13:55 Decreased (Normal) L 09/05/18 04:53 1+ (Not Present) A 09/02/18 10:05 Present (Not Present) A 09/03/18 03:55 1+ (Not Present) A 09/02/18 10:05 ESR >= 130 mm/hr (0-10) H 09/06/18 10:20 369 mg/dL (30-200) H 09/10/18 07:30 PT 12.7 Seconds (9.4-12.1) H 09/07/18 15:50 724 mg/dL (169-393) H* 09/10/18 07:30 Factor VIII Activity 762 % (56-191) H 09/08/18 17:00 von Willebrand Activity 344 % (51-215) H 09/08/18 17:00 von Willebrand Antigen 345 % (52-214) H 09/08/18 17:00 Sodium 125 mEq/L (136-145) L 09/12/18 04:45 Potassium 5.7 mEq/L (3.5-5.1) H 09/12/18 04:45 Chloride 96 mEq/L (98-107) L 09/12/18 04:45 Carbon Dioxide 22 mEq/L (23-29) L 09/12/18 04:45 BUN 65 mg/dL (6-20) H 09/12/18 04:45 2.95 mg/dL (0.70-1.30) H 09/12/18 04:45 Est GFR ( Amer) 28 (> 60) L 09/12/18 04:45 Est GFR (Non-Af Amer) 23 (> 60) L 09/12/18 04:45 Glucose 255 mg/dL (70-105) H 09/12/18 04:45 POC Glucose 211 mg/dL (70-99) H 09/11/18 16:25 8.5 % (-5.6) H 09/04/18 04:00 303 (280-300) H 09/04/18 04:00 Calcium 8.1 mg/dL (8.6-10.3) L 09/12/18 04:45 Iron < 10 mcg/dL (65-175) L 09/12/18 04:45 % Saturation 5 % (20-55) L 09/10/18 07:30 141 mg/dL (203-362) L 09/12/18 04:45 489 ng/mL (20-250) H 09/10/18 07:30 0.3 mg/dL (0.0-0.2) H 09/01/18 15:33 AST 10 Units/L (13-39) L 09/10/18 04:05 122 Units/L (34-104) H 09/01/18 15:33 0.04 ng/mL (< 0.04) H* 09/03/18 01:00 198 mg/L (Less than 10) H 09/04/18 04:00 6.1 g/dL (6.4-8.9) L 09/01/18 15:33 2.3 g/dL (3.5-5.7) L 09/12/18 04:45 5.2 g/dL (2.4-3.5) H 09/12/18 04:45 0.4 (1.1-2.2) L 09/12/18 04:45 Vitamin B12 > 1500 pg/mL (250-1100) H 09/10/18 07:50 [place] (Yellow) A 09/01/18 Unknown Turbid (Clear) A 09/10/18 07:30 Ur Specific [place] 1.029 (1.010-1.025) H 09/01/18 Unknown 100 mg/dL (Neg-Trace) H 09/10/18 07:30 100 mg/dL (Normal) H 09/10/18 07:30 Trace mg/dL (Negative) H 09/01/18 Unknown Large (Negative) H 09/10/18 07:30 Moderate (Negative) H 09/01/18 Unknown 4.0 mg/dL (Normal) H 09/01/18 Unknown Ur Leukocyte Esterase Trace (Negative) H 09/10/18 07:30 5-15 per hpf (0-3) H 09/01/18 Unknown Ur Squamous Epith Cells Many per lpf (None-Few) H 09/01/18 Unknown Ur Culture Indicated? NO. (NO) A 09/01/18 Unknown Ur Microalbumin 24 Hr 351 mg/day (Less than 30) H 09/03/18 23:00 Microalb/Creat Ratio 290 mcg/mg (Less than 30) H 09/03/18 23:00 Ur Total Protein 24 Hr 2128 mg/day (50-80) H 09/03/18 23:00 Protein/Creatinin Ratio 1.76 mg/mg (0.00-0.20) H 09/03/18 23:00 Ur Sodium 24 Hour 33 mEq/day (40-220) L 09/03/18 23:00 Ur Chloride 24 Hour 20 mEq/day (110-250) L 09/03/18 23:00 Ur Phosphorus 24 Hr 0.2 g/day (0.4-1.3) L 09/03/18 23:00 Ur Urea Nitrogen 24 Hr 6 g/day (12-20) L 09/03/18 23:00 Ur Calcium 24 Hr 6 mg/day (100-300) L 09/03/18 23:00 185 mg/dL (1-14) H 09/03/18 23:00 U Free [place] Ch 110.00 mg/dL (0.14-2.42) H 09/02/18 23:00 U Free [place] Ch 19.80 mg/dL (0.02-0.67) H 09/02/18 23:00 Positive (Negative) A 09/11/18 18:40 Positive ng/mL (Jglhwc=268) H 09/11/18 15:45 Hep Bs Antibody 4.61 mIU/mL (10.00-) L 09/01/18 20:52 Hepatitis C Ab Screen Reactive (Nonreactive) H 09/11/18 15:45 Staphylococcus sp PCR DETECTED (Not Detect) A 09/01/18 15:58 Staph aureus (PCR) DETECTED (Not Detect) A 09/01/18 15:58 Streptococcus sp PCR DETECTED (Not Detect) A 09/01/18 15:58 Group B Strep (PCR) DETECTED (Not Detect) A 09/01/18 15:58 Crossmatch See Detail 09/10/18 07:30 Crossmatch Prewarmed See Detail 09/01/18 16:55 Microbiology, Last 48 Hours 09/07/18 14:05 Blood Culture - Final Peripheral Venipuncture No growth. Final report. 09/07/18 14:00 Blood Culture - Final Peripheral Venipuncture No growth. Final report. 09/06/18 15:33 Anaerobic Culture - Final Right Foot No anaerobes were recovered. 09/06/18 15:33 Anaerobic Culture - Final Right Foot No anaerobes were recovered. 09/06/18 18:46 Blood Culture - Final Peripheral Venipuncture No growth. Final report. 09/06/18 18:46 Blood Culture - Final Peripheral Venipuncture No growth. Final report. Consult Discharge Plan - Plan Instructions: Tamsulosin (By mouth) Referrals: José Miguel Negro MD [Primary Care Provider] -
--- NOTE | 2018-09-12 17:38 | Anesthesia Evaluation PreOp ---
Date of Encounter: 09/12/18 Time of Encounter: 18:51 - Past History Planned Operation: Removal External Fixator RLE , Right BKA Cardiac History: HTN, Arrhythmia (H/O A-Fib) Pulmonary History: Smoker (30 years), COPD, Snore CONDUCTOR YARD History: Denies Any Significant HX Other Medical History: Renal (CESILIA on CKD stage 3--on hemodialysis, solitary kidney on right), Diabetes Type II, Other (hyponatremia) Anesthesia History: No Prior Anesthetic Complications, Past Anesthesia (left n ephrectomy) Alcohol Use: none Drug use: none Medications and Allergies Albuterol Sulfate [Albuterol Inhaler] 2 puff IH Q4H PRN 08/03/18 [History] Amlodipine Besylate 5 mg PO DAILY 08/03/18 [History] Cholecalciferol (Vitamin D3) [Optimal D3] 50,000 unit PO QWEEK 08/03/18 [History] CloNIDine Patch [Catapres-Tts] 0.2 mg TD QWEEK 08/03/18 [History] Furosemide [Lasix] 40 mg PO DAILY 08/03/18 [History] Insulin Glargine,Hum.rec.anlog [Basaglar Kwikpen U-100] 35 unit SQ BID 08/03/18 [History] Insulin LISPRO [HumaLOG] 30 units SQ TID 08/03/18 [History] Losartan/Hydrochlorothiazide [Losartan-Hctz 100-25 mg Tab] 1 each PO DAILY 08/03/18 [History] OxyCODONE/APAP 10/325 [Percocet 10/325 MG] 1 each PO TID PRN 08/03/18 [History] Rivaroxaban [Xarelto] 15 mg PO DAILY 08/03/18 [History] Sertraline [Zoloft] 50 mg PO DAILY 08/03/18 [History] Sertraline [Zoloft] 100 mg PO DAILY 08/03/18 [History] Umeclidinium [place] [Incruse Ellipta] 1 puff IH DAILY 08/03/18 [History] Allergy/AdvReac Type Severity Reaction Status Date / Time No Known Allergies Allergy Verified 05/06/16 14:33 - Meds/Allergy Pre-op Review Medications Reviewed: Yes Allergies Reviewed: Yes Beta Blockers on Current Med List: No Anesthesia Results - Labs 09/12/18 04:45 09/12/18 04:45 - Imaging EKG: report reviewed (09/03/2018 SINUS RHYTHM WITH FIRST DEGREE AV BLOCK) Additional studies: 09/07/2018 Echo Impressions: LVEF 65-70%. Mild concentric left ventricular hypertrophy. Mild left ventricular diastolic dysfunction. Normal right ventricular structure and function. No significant valvular dysfunction. No pulmonary hypertension. Small pericardial effusion without echocardiographic evidence of tamponade. Non-diagnostic for valvular vegetation; consider MAHESH if clinically indicated. Anesthesia Exam Vital Signs/O2 Sat/Glucose, Most Recent Temp Pulse Resp BP Pulse Ox 98.3 F 85 17 132/82 98 09/12/18 16:09 09/12/18 16:09 09/12/18 16:09 09/12/18 16:09 09/12/18 16:09 Blood Glucose* 193 Height: 5'10"/1.78m Weight: 288 lbs/131 kg Pain Scale: 7 (RLE) Pain Scale Used: Numeric (1 - 10) - HEENT Pupil (Motor): EOMI Mallampati: III Teeth: Edentulous Oral Opening: Less than or equal to 3 - CONDUCTOR YARD LOC: Oriented CONDUCTOR YARD Motor: Normal RUE, Normal LUE, Normal LLE, Normal Face, Deficit RLE CONDUCTOR YARD Sensory: Normal: RUE, LUE, Deficit: RLE (neuropathy), LLE (neuropathy), Face (legally blind right eye) - Cardiac Rhythm: Regular Murmur: None - Pulmonary Breath Sounds: bilateral Clear Respiratory Effort: Symmetrical Anesthesia Assess/Plan ASA Score: 4 Level of consciousness: Cooperative, Oriented, Tranquil Anesthetic Plan: General Monitoring Plan: Standard Monitors Recovery Plan: PACU
--- NOTE | 2018-09-12 22:46 | Nephrology Progress Note ---
Date of Encounter: 09/12/18 Time of Encounter: 12:00 - Assessment and Plan (1) CESILIA (acute kidney injury) Current Visit: Yes Status: Acute SCr slightly worse off HD since tuesday at 2.95, GFR 23 Will continue HD today for electrolyte abnormalities with pending surgery tomorrow with UF as tolerated Continue to avoid nephrotoxins if possible UOP noted at 600cc in the past 24hrs (2) Chronic ulcer of right foot with fat layer exposed Current Visit: Yes Status: Acute POD #4, care per podiatry. Surgery tomorrow per pt (3) Anemia Current Visit: Yes Status: Acute Hgb noted at 7.7, will monitor Qualifiers: Anemia type: other cause Other causes of anemia: other cause, not classified Qualified Code(s): D64.89 - Other specified anemias (4) CKD (chronic kidney disease), stage III Current Visit: Yes Status: Chronic Baseline CKD stage III with GFR in the 30-40s (5) Hyponatremia Current Visit: Yes Status: Acute Likely d/t CESILIA and edema, currently at 125, should improve with HD today (6) Solitary kidney, acquired Current Visit: Yes Status: Acute History of left nephrectomy (7) Hyperkalemia Current Visit: No Status: Acute Potassium noted at 5.7, should improve with HD Continue renal diet Subjective Principal diagnosis: CSEILIA Interval history: POD#4 s/p extensive R foot debridement. Pt seen and examined on HD with no new complaints Objective - Vital Signs Vital signs: Vital Signs Temp Pulse Resp BP Pulse Ox 09/12/18 20:10 99.4 F 93 17 131/81 97 09/12/18 16:09 98.3 F 85 17 132/82 98 09/12/18 12:30 98.2 F 15 155/84 09/12/18 12:00 106/59 09/12/18 11:45 123/71 09/12/18 11:30 131/80 09/12/18 11:15 121/71 09/12/18 11:00 109/74 09/12/18 10:45 133/80 09/12/18 10:30 124/73 09/12/18 10:15 127/87 09/12/18 10:00 139/79 09/12/18 09:45 147/87 09/12/18 09:30 146/79 09/12/18 09:15 148/78 09/12/18 09:00 99.2 F 17 158/85 09/12/18 07:54 98.1 F 86 18 145/85 99 09/12/18 04:30 99.3 F 89 17 106/63 98 09/12/18 00:54 99.5 F 76 17 138/80 98 Intake and Output 09/12/18 09/12/18 09/12/18 07:59 15:59 23:59 Intake Total 500 / 860 360 / 860 Output Total 3700 / 3700 Balance -3200 / -2840 360 / -2840 Intake: Oral 0 / 360 360 / 360 Intake, Rinseback and Flushes 500 / 500 Output: Urine 1200 / 1200 Total Dialysis (HD) Output 2500 / 2500 Other: Meal Dinner Percent of Meal Consumed 100% # Bowel Movements 1 Weight 131 kg Blood Glucose* 268 157 161 Hemodialysis Net Fluid Removed 2000 (mL) Patient Weight 09/12/18 23:59 Weight 131 kg - General Appearance General appearance: Present: well-developed, well-nourished EENT: Present: ATNC, mucous membranes moist Neck: Present: no JVD, supple Respiratory: Present: clear Cardiology: Present: no edema (RLE with hardware), normal S1, normal S2 Dialysis Vascular Access: Venous Catheter (temp) Gastrointestinal: Present: no tenderness, no guarding Integumentary: Present: warm and dry Neurologic: Present: no focal deficit Musculoskeletal: Present: no deformities Psychiatric: Present: mood/affect appropriate - Lab 09/12/18 04:45 09/12/18 04:45 Consult Discharge Plan - Plan Instructions: Tamsulosin (By mouth) Referrals: José Miguel Negro MD [Primary Care Provider] -
[2018-09-13] MEDS: *HR* FentaNYL (PF) 100 MCG/2 ML VIAL IVP PRN ×5 (03:38→23:55)
[2018-09-13 04:04] LABS: Hematocrit 24.4 % (37.5-50.1); Hemoglobin 8.1 g/dL (12.9-16.9); Mean Corpuscular HGB Conc 33.2 g/dL (31.6-35.5); Mean Corpuscular Hemoglobin 30.1 pg (28.0-33.3); Mean Corpuscular Volume 90.7 fL (83.0-100.0); Mean Platelet Volume 8.6 fL (9.4-12.4); Platelet Count 557 K/mcL (140-400); Red Blood Count 2.69 M/mcL (4.19-5.50); Red Cell Distribution Width 13.5 % (11.5-14.5)
[2018-09-13 04:21] LABS: Calcium 8.1 mg/dL (8.6-10.3); Potassium 4.7 mEq/L (3.5-5.1)
[2018-09-13] MEDS ORDERED: HydrOXYzine 100 MG/2 ML VIAL IM ONE (07:59)
[2018-09-13] MEDS: metroNIDAZOLE 500 MG TABLET PO SCH (09:27)
[2018-09-13] MEDS: Folic Acid 1 MG TABLET PO SCH (09:27)
[2018-09-13] MEDS: *HR* OxyCODONE Immed Rel 5 MG TABLET PO PRN ×2 (09:28→19:22)
[2018-09-13] MEDS: ceFAZolin 1,000 MG in Water for inj. (sterile) 20 ML 10 ML IVPB SCH ×2 (09:29→22:11)
[2018-09-13] MEDS: Insulin DETEMIR 100 UNIT/ML X5UNITS SQ SCH ×2 (09:30→22:13)
[2018-09-13] MEDS: Insulin LISPRO 300 UNITS/3 ML VIAL SQ SCH ×7 (09:30→23:47)
--- NOTE | 2018-09-13 11:06 | Infectious Disease Progress No ---
ID Progress Note Date of Encounter: 09/13/18 Time of Encounter: 09:35 - Subjective Subjective: Patient seen and examined. Status post right foot irrigation and debridement and incision and drainage with plantar fasciectomy and debridement of the tarsal bone and application of external fixator 09/06/[address] Ferrell. Scheduled for right BKA later today. Denies fevers, chills, or rigors. Denies chest pain, shortness of breath, or cough. Continues to complain of pain at the surgical site. Denies nausea, vomiting, diarrhea, or constipation. States he is hungry and thirsty but NPO for surgery. Denies urinary complaints. Denies oral thrush or new skin lesions. - Objective CBC & Chem 7: 09/13/18 03:50 09/13/18 03:50 - Line Documentation Line Documentation: Dialysis Catheter (Temporary dialysis catheter noted to the right neck with transparent dressing clean, dry, and intact. Currently access for hemodialysis.) - Exam Vitals: Temp Pulse Resp BP Pulse Ox 98.1 F 78 17 135/85 96 09/13/18 07:29 09/13/18 07:29 09/13/18 07:29 09/13/18 07:29 09/13/18 09:46 Exam: Head: Atraumatic, normal inspection, normocephalic. Eye: EOMI, PERRLA, no scleral icterus noted. ENT: Mucous membranes moist. No odontogenic infection noted. Neck: Normal inspection, no meningismus. Temporary dialysis catheter noted to the right neck. Respiratory: Clear to auscultation. No rales, respiratory distress, rhonchi, or wheezes noted. Cardiovascular: Regular rate and rhythm, S1 and S2 audible. No murmurs, rubs, or gallops. GI: Soft, obese, normal bowel sounds. Extremities:1+ edema noted to the BLE. Right foot dressing with small amount of old bloody drainage noted. External fixator noted. Dressing noted to the left foot C/D/I. Neurological: Alert, oriented 3, no focal deficits. Psychiatric: normal affect, normal mood. Skin: Dry, intact, warm. Normal color. No rashes. - Assessment and Plan (1) Sepsis Current Visit: Yes Status: Acute He should not had to sepsis criteria with acute kidney injury. Likely secondary to bacteremia and right foot infection. White blood cell count improved. Afebrile overnight. Blood cultures drawn 09/01/18 are +2 out of 2 sets for group B strep, MSSA, and Proteus mirabilis. Repeat blood cultures drawn 09/06/18 are negative x 2 sets. Repeat blood cultures drawn 09/07/18 are negative x 2 sets. Qualifiers: Sepsis type: sepsis due to unspecified organism Qualified Code(s): A41.9 - Sepsis, unspecified organism SNOMED Code(s): 11297647 (2) Bacteremia Current Visit: Yes Status: Acute As an organism: Group B strep, MSSA, Proteus mirabilis. Source: Right foot infection. Blood cultures drawn 09/01/18 are +2 out of 2 sets. Repeat blood cultures drawn 09/06/18 are negative x 2 sets. Repeat blood cultures drawn 09/07/18 are negative x 2 sets. Complicated due to hardware in the left wrist. No endocarditis stigmata noted on exam. Rheumatoid factor normal. TTE negative for vegetations. The patient has one major and one minor modified [place] criteria. Currently on cefazolin. SNOMED Code(s): 7926367 (3) Infection of right foot Current Visit: Yes Status: Acute Location: Right foot. Causative organism: GBS, MSSA, P. mirabilis. Likely secondary to chronic non-healing ulcers and uncontrolled DM. X-ray of the right foot 09/01/18 showed findings consistent with Charcot arthropathy/neuropathic foot not significantly changed from the prior studies an d extensive soft tissue swelling suggesting cellulitis. MRI of the right foot 09/04/18 showed plantar soft tissue ulcer at the level of the cuboid with suspected interval soft tissue graft placement. There is edema of the graft which may reflect soft tissue infection. Suspected bilateral soft tissue ulceration with associated phlegmonous change at the level of the inframalleolar peroneal tendons. There is no tenosynovitis and complete full- thickness peroneal tendon tears. The tenosynovitis may be infectious. New multifocal marrow signal abnormality involving the talus, calcaneus, cuboid, and navicular suspicious for osteonecrosis and less likely osteomyelitis. Persistent marrow signal and abnormality in the cuboid which is suspicious for osteoarthritis and a chronic cuboid erosion or defect is noted. Podiatry consulted. Per their note, purulent drainage expressed on exam. Status post right foot incision and drainage and irrigation and debridement, plantar fasciectomy, debridement of the tarsal bone, and application of external fixator 09/06/[address] Armstrong. Operative note reviewed. Gross purulence noted throughout the foot. Intraoperative tissue and bone cultures positive for MSSA, GBS, and P. mirabilis. ESR greater than 130, CRP 198. The patient has opted to undergo right BKA rather than pursue further attempts to salvage his foot. Currently on cefazolin and PO flagyl. SNOMED Code(s): 072306240 (4) Cellulitis Current Visit: Yes Status: Acute Location: Right foot. Causative organism: GBS, MSSA, P. mirabilis. Purulent. Likely secondary to chronic ulcers. Podiatry consulted. Status post I & D. Currently on cefazolin and flagyl. Qualifiers: Site of cellulitis: other site Qualified Code(s): L03.818 - Cellulitis of other sites SNOMED Code(s): 055152606 (5) Chronic ulcer of right foot with fat layer exposed Current Visit: Yes Status: Acute Location: Right foot. Podiatry consulted. SNOMED Code(s): 036090713 (6) Acute kidney injury superimposed on chronic kidney disease Current Visit: No Status: Acute Serum creatinine 6.57 on admission with uremia and diminished urine output. Nephrology consulted. Temp HD line placed 09/02/18 and HD initiated. Avoid nephrotoxins as able. Dose-adjust medications. Vancomycin discontinued. SNOMED Code(s): 62098944 (7) Anemia Current Visit: Yes Status: Acute Qualifiers: Anemia type: other cause Other causes of anemia: other cause, not classified Qualified Code(s): D64.89 - Other specified anemias SNOMED Code(s): 496051984 (8) Elevated troponin Current Visit: Yes Status: Acute SNOMED Code(s): 490325142, 072779857, 033397542 (9) Hyponatremia Current Visit: Yes Status: Acute SNOMED Code(s): 44674207 (10) Pulmonary edema Current Visit: Yes Status: Acute Qualifiers: Chronicity: acute Qualified Code(s): J81.0 - Acute pulmonary edema SNOMED Code(s): 15445354 (11) Atrial fibrillation, chronic Current Visit: Yes Status: Chronic SNOMED Code(s): 288999767 (12) COPD (chronic obstructive pulmonary disease) Current Visit: Yes Status: Chronic Qualifiers: Emphysema type: unspecified Qualified Code(s): J43.9 - Emphysema, unspecified SNOMED Code(s): 29379076 (13) T2DM (type 2 diabetes mellitus) Current Visit: Yes Status: Chronic HgbA1C 8.5%. Recommend aggressive glucose monitoring and control to promote wound healing and prevent re-infection. Management per the primary team. Qualifiers: Diabetes mellitus fdc insulin use: without manager intermediate use Diabetes mellitus complication status: with kidney complications Diabetes mellitus complication detail: with chronic kidney disease Chronic kidney disease stage: stage 3 (moderate) Qualified Code(s): E11.22 - Type 2 diabetes mellitus with diabetic chronic kidney disease; N18.3 - Chronic kidney disease, stage 3 (moderate) SNOMED Code(s): 23592813 (14) Hepatitis C Current Visit: Yes Status: Acute Qualifiers: Viral hepatitis chronicity: chronic Hepatic coma status: without hepatic coma Qualified Code(s): B18.2 - Chronic viral hepatitis C SNOMED Code(s): 43780899 - Recommendations Recommendations: Await repeat blood cultures. The patient will likely require a MAHESH prior to discharge. Wound care and activity restrictions per the podiatry team. CESILIA management per the nephrology team. Vascular surgery consult for right BKA. Continue Cefazolin 1 gram IV daily. Dose-adjusted for HD status. Discontinue flagyl. Duration of treatment depends on the clinical picture, but likely a total of 14 days from the first set of negative blood cultures if MAHESH negative. Monitor renal function and dose-adjust antibiotics. Avoid insertion of long-term IV access until final discharge arrangements made. access services assistant to assist with discharge planning. Consult Discharge Plan - Plan Instructions: Tamsulosin (By mouth) Referrals: José Miguel Negro MD [Primary Care Provider] - - Attending Attestation I have personally performed a face to face evaluation on this patient. I have reviewed and agree with the care plan. History and Exam by me shows: Assessment and Plan: 1. Sepsis 2. Bacteremia with group B streptococcus, MSSA and Proteus mirabilis likely source right foot infection 3. Infection of right foot status post I&D, plantar fasciotomy, debridement of tarsal bone and application of external fixator 09/06/2018 4. Cellulitis 5. Chronic ulcer of right foot with fat layer exposed 6. CESILIA on CKD REcommendations: await MAHESH continue current antibiotics for now Going to surgery later today monitor labs and for drug toxicity
[2018-09-13] MEDS ORDERED: *HR* FentaNYL (PF) 100 MCG/2 ML VIAL ONE ×4 (14:29→19:41)
[2018-09-13] MEDS ORDERED: *HR* Succinylcholine 200 MG/10 ML VIAL IVP ONE (14:30)
[2018-09-13] MEDS ORDERED: Lidocaine -MPF 2% 2 ML VIAL ONE (14:30)
[2018-09-13] MEDS ORDERED: *HR* Midazolam HCl 2 MG/2 ML VIAL ONE (14:30)
[2018-09-13] MEDS ORDERED: *HR* Propofol 200 MG/20 ML VIAL IVP ONE (14:30)
[2018-09-13] MEDS ORDERED: *HR* Rocuronium Bromide 50 MG/5 ML VIAL ONE (14:30)
[2018-09-13 15:04] LABS: Plt Function Epi Closure Time 104 Seconds (73-172)
--- NOTE | 2018-09-13 15:54 | Operative Note ---
Date of procedure: 09/13/18 Pre-op diagnosis: external fixation right lower extremity Post-op diagnosis: same Procedure: removal of right leg external fixator Implants: none Complications: none Anesthesia: GETA Local Anesthetics: 0.25% Sensorcaine HCL with Epinephrine 1:200,000 SubQ (cc) Surgeon: Nolan Ferrell Was there an language assistant present: No Estimated blood loss (cc): 15 Specimen: none Condition: stable Disposition: PACU Procedure in Detail: Indications: 48-year-old male with right right diabetic foot infection which is not salvageable ring brought to the operating room for removal of external fixator and subsequent amputation of the right lower extremity. Nature of the above procedure, risks versus benefits potential complications consequences of surgery and his condition were discussed at length. Patient wishes to move forward with this procedure and amputation of his leg. All questions have been answered informed consent was signed. Pins and pin sites were prepped with Betadine. The following procedure then began. Removal of right lower extremity external fixator under anesthesia. With the right lower extremity pins and pin sites prepped, the bolt cutters were utilized to cut the skinny wires and half pins and the external fixation device was removed without incident. Pressure was held at the pin sites for 2 minutes and then re-evaluated. Adequate hemostasis was present. The leg was then reprepped for the definitive procedure.
[2018-09-13] MEDS ORDERED: *HR* HYDROMORPHONE 2 MG/ML VIAL ONE (16:14)
[2018-09-13] MEDS ORDERED: KETAMINE HCL 50 MG/ML SYRINGE IV ONE (16:32)
[2018-09-13] MEDS ORDERED: Acetaminophen IV 1,000 MG/100 ML INFUS..BTL ONE (16:33)
[2018-09-13] MEDS ORDERED: ceFAZolin 1,000 MG, Sodium Chloride IRRigation 1,000 ML IR ONE ×2 (17:30→20:34)
[2018-09-13] MEDS ORDERED: Ondansetron 4 MG/2 ML VIAL IVP ONE (18:51)
--- NOTE | 2018-09-13 18:57 | Operative Note ---
Date of procedure: 09/13/18 Pre-op diagnosis: Charcot joint and diffuse osteomyelitis of right foot and ankle Post-op diagnosis: same Procedure: Right below the knee amputation Complications: None Anesthesia: GETA Surgeon: Marcus Johnson Was there an licensed physical therapist assistant present: No Estimated blood loss (cc): 200 Specimen: Right [id number] amputation Condition: stable Disposition: PACU Procedure in Detail: History This patient is a 48-year-old white male with a long history of diabetes and lower extremity wounds particularly of the right foot and ankle. Patient has had multiple procedures and wound care. He has gone on to develop severe and diffuse osteomyelitis. Due to the destructive nature of the lesions he was judged to be non-reconstructive O and amputation was requested. Procedure After informed consent was obtained patient was taken the operating room. General endotracheal anesthesia was established. The patient had an external fixator placed last week and this was removed by Dr. Ferrell. Then the right lower extremity was sterilely prepped and draped. A timeout protocol was observed. A posterior based flap incision was then made in the proximal calf. Dissection was carried circumferentially down to and through the fascia. The patient had significant edema present complicating the dissection. The patient was also found to have marked inflammation in the deep tissue where the neurovascular bundles were fused together. The patient did have excellent pulsatile flow in these vessels. All muscles were viable. There is no findings of abscess or purulence. The muscles were divided by compartment. When encountering the neurovascular bundles they were individually identified and ligated and divided. The periosteum was raised on the fibula and a section of the fibula was removed. The muscle dissection was then completed and the periosteum was raised on the tibia. This was then divided and specimen submitted. The edges of the divided tibia were then rasped smooth. The area was copiously irrigated with antibiotic containing solution. Hemostasis was achieved. The wound was then closed in layers using interrupted Vicryl sutures and eliana for the skin. A bulky dry dressing was applied. The patient was extubated in the operating room and taken to recovery room in stable condition.
[2018-09-13] MEDS: *HR* HYDROmorphone (PF) 1 MG/ML SYRINGE IVP PRN ×4 (19:08→19:28)
--- NOTE | 2018-09-13 19:13 | Internal Med Progress Note ---
Hospitalist Progress Note - Encounter Date of Encounter: 09/13/18 Time of Encounter: 11:00 - Subjective Interval History: Patient scheduled for left BKA today - Exam Vitals: Temp Pulse Resp BP Pulse Ox 99.5 F 98 16 116/68 100 09/13/18 18:53 09/13/18 18:53 09/13/18 18:53 09/13/18 18:53 09/13/18 18:53 Exam: Gen.: Nonacute distress, alert and oriented 3 ENT: Mucosal membranes moist Respiratory: Lungs are clear to auscultation bilaterally without any wheezing rhonchi or rales Cardiovascular: Normal S1 and S2 regular rate rhythm no murmurs rubs or gallops Abdomen: Soft, nontender and nondistended with positive bowel sounds Skin: Normal color - Assessment and Plan (1) Osteomyelitis Current Visit: Yes Status: Acute Assessment and Plan: Polymicrobial osteomyelitis RLE and bacteremia: bacteria as above. TTE negative. CT on 09/10/18 1. Postoperative changes in the midfoot as described. Plantar 2.7 cm hematoma adjacent to the posterior margin of the midfoot ulcer. 2. Postoperative changes in the midfoot with resection of the talus and cuneiform is with external fixator placement. 3. Extensive intraosseous gas in the talus, calcaneus, and remnant midfoot bones. Correlate with the operative record for signs of infection. Dr. Ferrell recommending BKA to the patient and pt is agreeable to having the procedure done. Pt being made NPO after midnight. Podiatry also consulting vascular surgery. Blood and surgical cultures positive for GBS , SA and proteus- being managed on Cefazolin at this time. ID also on board (2) Anemia in chronic kidney disease Current Visit: Yes Status: Acute Assessment and Plan: Hemoglobin 8.1 today continue to monitor (3) Atrial fibrillation, chronic Current Visit: Yes Status: Chronic Assessment and Plan: on Xarelto at home but on hold due to possible surgery (4) COPD (chronic obstructive pulmonary disease) Current Visit: Yes Status: Chronic Assessment and Plan: Continue current respiratory regimen. - Time Spent with Patient Total time spent is greater than 50% in coordination of care (as documented) at patient's floor/unit and/or counseling patient: Internal Medicine: Result - Labs CBC & Chem 7: 09/13/18 03:50 09/13/18 03:50 Labs: Short CBC 09/13/18 Range/Units 03:50 WBC 14.3 H (4.3-11.1) K/mcL Hgb 8.1 L (12.9-16.9) g/dL Hct 24.4 L (37.5-50.1) % Plt Count 557 H (140-400) K/mcL BMP 09/13/18 03:50 Sodium 130 L Potassium 4.7 Chloride 95 L Carbon Dioxide 26 BUN 50 H Creatinine 2.47 H Glucose 221 H Calcium 8.1 L - ABG Interpretation ABG results: PT/INR, D-dimer PT 12.7 Seconds (9.4-12.1) H 09/07/18 15:50 Consult Discharge Plan - Plan Instructions: Tamsulosin (By mouth) Referrals: José Miguel Negro MD [Primary Care Provider] - (1) Osteomyelitis Qualifiers: Osteomyelitis type: subacute Osteomyelitis location: foot Laterality: right Qualified Code(s): M86.271 - Subacute osteomyelitis, right ankle and foot (2) Anemia in chronic kidney disease Qualifiers: Chronic kidney disease stage: stage 3 (moderate) Qualified Code(s): N18.3 - Chronic kidney disease, stage 3 (moderate); D63.1 - Anemia in chronic kidney disease (4) COPD (chronic obstructive pulmonary disease) Qualifiers: Emphysema type: unspecified Qualified Code(s): J43.9 - Emphysema, unspecified
--- NOTE | 2018-09-13 20:18 | Anesthesia Evaluation Post Op ---
Date of Encounter: 09/13/18 Time of Encounter: 20:16 - Vital Signs Vital Signs: Vital Signs/O2 Sat, Most Current Temp Pulse Resp BP Pulse Ox 96.9 F L 95 14 133/76 99 09/13/18 20:03 09/13/18 20:03 09/13/18 20:03 09/13/18 20:03 09/13/18 20:03 - Lungs Lungs: Clear Ascult./Percussion - Airway Airway: Non-obstructed - Cardiovascular Regular Rate - Mental Status Mental Status: Alert & Oriented, Answers Appropriately - Pain Pain Scale: 5 Pain Scale used: Numeric (1 - 10) - Nausea Vomiting Nausea Vomiting: Not Present - Hydration Hydration: Ice chips, Has not voided - Discharge PostOp Status: Transfer Patient to floor
[2018-09-13] MEDS ORDERED: Ipratropium/Albuterol Neb 3 ML IH PRN (20:34)
[2018-09-13] MEDS ORDERED: Naloxone 0.4 MG/ML INJ IVP PRN (20:34)
[2018-09-13] MEDS ORDERED: 0.9 % Sodium Chloride 1,000 ML PRIME SCH (20:34)
[2018-09-13] MEDS ORDERED: D5% in Water 1,000 ML IVC PRN (20:34)
[2018-09-13] MEDS ORDERED: 0.9 % Sodium Chloride 250 ML IVC PRN (20:34)
[2018-09-13] MEDS ORDERED: *HR* FentaNYL (PF) 100 MCG/2 ML VIAL IVP PRN (20:34)
[2018-09-13] MEDS ORDERED: Dextrose Gel 15 GM/37.5 ML TUBE PO PRN ×2 (20:34)
[2018-09-13] MEDS ORDERED: *HR* Dextrose 50 % in Water (Syg) 50 ML SYRINGE IVP PRN (20:34)
[2018-09-13 21:30] LABS: Basophils % 0.3 %; Eosinophils # 0.1 K/mcL (0.0-0.6); Eosinophils % 0.8 %; Hematocrit 21.3 % (37.5-50.1); Immature Granulocytes % 1.4 % (0-4); Lymphocytes # 1.4 K/mcL (0.6-4.6); Lymphocytes % 10.3 %; Mean Corpuscular HGB Conc 32.9 g/dL (31.6-35.5); Mean Corpuscular Hemoglobin 29.8 pg (28.0-33.3); Mean Corpuscular Volume 90.6 fL (83.0-100.0); Mean Platelet Volume 8.4 fL (9.4-12.4); Monocytes # 0.9 K/mcL (0.0-1.3); Monocytes % 7.1 %; Neutrophils # 10.6 K/mcL (1.6-8.9); Platelet Count 521 K/mcL (140-400); Red Blood Count 2.35 M/mcL (4.19-5.50); Red Cell Distribution Width 13.3 % (11.5-14.5); Segmented Neutrophils % 80.1 %
--- NOTE | 2018-09-13 22:35 | Nephrology Progress Note ---
Date of Encounter: 09/13/18 Time of Encounter: 12:00 - Assessment and Plan (1) CESILIA (acute kidney injury) Current Visit: Yes Status: Acute (2) Chronic ulcer of right foot with fat layer exposed Current Visit: Yes Status: Acute (3) Anemia Current Visit: Yes Status: Acute Qualifiers: Anemia type: other cause Other causes of anemia: other cause, not classified Qualified Code(s): D64.89 - Other specified anemias (4) CKD (chronic kidney disease), stage III Current Visit: Yes Status: Chronic (5) Hyponatremia Current Visit: Yes Status: Acute (6) Solitary kidney, acquired Current Visit: Yes Status: Acute (7) Hyperkalemia Current Visit: No Status: Acute Subjective Principal diagnosis: CESILIA Interval history: POD#5 s/p extensive R foot debridement. Pt seen and examined with at bedside awaiting surgery today. s/p HD yesterday Objective - Vital Signs Vital signs: Vital Signs Temp Pulse Resp BP Pulse Ox 09/13/18 21:15 98.5 F 105 18 157/54 95 09/13/18 21:00 98.7 F 100 16 165/84 97 09/13/18 20:45 98.9 F 101 16 154/77 96 09/13/18 20:03 96.9 F L 95 14 133/76 99 09/13/18 19:53 96.9 F L 93 16 146/82 99 09/13/18 19:43 96 18 152/86 98 09/13/18 19:33 98 18 139/70 98 09/13/18 19:23 97.0 F L 101 16 129/76 98 09/13/18 19:13 102 16 147/95 98 09/13/18 19:03 101 18 130/81 97 09/13/18 18:53 99.5 F 98 16 116/68 100 09/13/18 16:17 98.3 F 71 17 109/66 91 09/13/18 11:55 99.5 F 75 17 127/82 96 09/13/18 09:46 96 09/13/18 07:29 98.1 F 78 17 135/85 96 09/13/18 04:10 98.2 F 82 17 127/81 96 09/12/18 23:53 98.2 F 86 17 138/84 95 Intake and Output 09/13/18 09/13/18 09/13/18 07:59 15:59 23:59 Intake Total 10 10 Output Total 1000 / 1210 210 / 1210 Balance -990 / -1200 -210 / -1200 Intake: IV Fluids 10 Ancef 1,000 MG In Water for inj . (sterile) 10 ML @ 200 mls/hr IVPB Q12H NOHEMI Rx#:[id number] Oral 0 / 0 Output: Urine 0 / 0 Estimated Blood Loss 210 / 210 Straight Cath 1000 / 1000 Other: Blood Glucose* 187 74 126 - Lab 09/13/18 21:15 09/13/18 03:50 Consult Discharge Plan - Plan Instructions: Tamsulosin (By mouth) Referrals: José Miguel Negro MD [Primary Care Provider] -
[2018-09-14] MEDS: *HR* FentaNYL (PF) 100 MCG/2 ML VIAL IVP PRN ×5 (03:57→23:35)
[2018-09-14 04:33] LABS: Calcium 7.9 mg/dL (8.6-10.3)
[2018-09-14] MEDS: ceFAZolin 1,000 MG in Water for inj. (sterile) 20 ML 10 ML IVPB SCH ×2 (08:23→23:55)
[2018-09-14] MEDS: Folic Acid 1 MG TABLET PO SCH (08:24)
[2018-09-14] MEDS: Insulin LISPRO 300 UNITS/3 ML VIAL SQ SCH ×7 (08:25→23:36)
[2018-09-14] MEDS: Insulin DETEMIR 100 UNIT/ML X5UNITS SQ SCH ×2 (08:25→23:36)
--- NOTE | 2018-09-14 08:42 | Vascular/[facility] Progress Note ---
Date of Encounter: 09/14/18 Time of Encounter: 08:40 - Assessment and plan (1) Wound of left foot Current Visit: Yes Status: Acute Patient has dressing over left lateral foot wound. Patient has deformity of left foot and ankle or Charcot joint. Plan left below the knee amputation tomorrow. External fixator to be removed preoperatively. Patient is aware of surgical plans and need for extended care facility for rehabilitation and aggressive physical therapy assistance in the post amputation period. (2) Chronic ulcer of right foot with fat layer exposed Current Visit: Yes Status: Acute Patient is postoperative day #1 following right [id number] dictation for Charcot joint and extensive osteomyelitis of right foot and ankle. Patient will need to go to [facility] when medically cleared. (3) Bacteremia Current Visit: Yes Status: Acute Patient with bacteremia on initial blood cultures. Follow blood cultures are pending for final results. (4) Osteomyelitis Current Visit: Yes Status: Acute Patient with diffuse osteomyelitis of right foot and ankle. Patient is status post maximum effort for wound care and limb salvage. Due to the extensive nature of his infection and wound it was recommended to the patient by the podiatry service to consider amputation. Patient has done so and wishes to undergo amputation in order to facilitate his future medical care. The potential risks and benefits as well as complications and alternatives were reviewed with the patient. Our tentative plan is to offer the patient a right below the knee amputation on Tuesday afternoon of this week. Qualifiers: Osteomyelitis type: subacute Osteomyelitis location: foot Laterality: right Qualified Code(s): M86.271 - Subacute osteomyelitis, right ankle and foot - Subjective Interval history: Patient is postoperative day #1 following right [id number] amputation. The patient complains of postoperative surgical site pain as expected as well as phantom limb sensation as expected. Patient is hemodynamically stable. Of note the patient's hemoglobin is 7.0. I will defer decisions regarding timing of transfusion to medical service as this would be best accomplished during dialysis treatments. Vital Signs, Last 4 Hours Temp Pulse Resp BP Pulse Ox 09/14/18 08:00 99.5 F 96 16 160/82 95 - Physical Examination General: Present: Conversant, No Apparent Distress Vascular: Present: Amputation(s) (Right BKA dressing is intact.) Results 09/13/18 21:15 09/14/18 04:00 Lab Results, Last 24 hours 09/13/18 09/14/18 21:15 04:00 WBC 13.2 H Hgb 7.0 L Hct 21.3 L Plt Count 521 H Sodium 130 L Potassium 5.0 Chloride 97 L Carbon Dioxide 25 BUN 53 H Creatinine 2.59 H Glucose 304 H Calcium 7.9 L Consult Discharge Plan - Plan Instructions: Tamsulosin (By mouth) Referrals: José Miguel Negro MD [Primary Care Provider] - Marcus Johnson MD [Partnered Physician] - (Follow-up in vascular surgery clinic with Dr. Johnson in 6 weeks for staple removal.)
--- NOTE | 2018-09-14 08:43 | Internal Med Progress Note ---
Hospitalist Progress Note - Encounter Date of Encounter: 09/14/18 Time of Encounter: 11:00 - Subjective Interval History: Patient is a 48-year-old male who presented with right lower extremity wound found to have polymicrobial osteomyelitis of right lower extremity with bacteremia of the same. Patient now postop day 1 right BKA - Exam Vitals: Temp Pulse Resp BP Pulse Ox 99.5 F 96 16 160/82 95 09/14/18 08:00 09/14/18 08:00 09/14/18 08:00 09/14/18 08:00 09/14/18 08:00 Exam: Gen.: Nonacute distress, alert and oriented 3 ENT: Mucosal membranes moist Respiratory: Lungs are clear to auscultation bilaterally without any wheezing rhonchi or rales Cardiovascular: Normal S1 and S2 regular rate rhythm no murmurs rubs or gallops Abdomen: Soft, nontender and nondistended with positive bowel sounds Skin: Normal color - Assessment and Plan (1) Osteomyelitis Current Visit: Yes Status: Acute Assessment and Plan: Patient found to have Polymicrobial(GBS, MSSA, proteus) osteomyelitis now postop day 1 right BKA Vascor surgery following an appreciate recommendations (2) Bacteremia Current Visit: Yes Status: Acute Assessment and Plan: Blood cultures positive for polymicrobial infection (GBS, MSSA, proteus) Repeat blood cultures negative TTE negative for vegetations. ID following with recommendations to continue cefazolin. (3) Anemia in chronic kidney disease Current Visit: Yes Status: Acute Assessment and Plan: Hemoglobin 6.6 this morning and will be transfused 2 units of packed red blood cells (4) Atrial fibrillation, chronic Current Visit: Yes Status: Chronic Assessment and Plan: Patient Xarelto was held due to surgery Patient also with acute on chronic anemia as above Will continue holding until hemoglobin stabilizes and okay per surgery to restart (5) Acute kidney injury superimposed on chronic kidney disease Current Visit: No Status: Acute Assessment and Plan: Temp HD line placed 09/02/18 and HD initiated. Nephrology following and appreciate recommendations (6) Sepsis Current Visit: Yes Status: Acute Assessment and Plan: Resolved; secondary to the above (7) Obesity Current Visit: Yes Status: Acute Assessment and Plan: BMI 41.8 - Time Spent with Patient Total time spent is greater than 50% in coordination of care (as documented) at patient's floor/unit and/or counseling patient: Internal Medicine: Result - Labs CBC & Chem 7: 09/14/18 10:52 09/14/18 04:00 Labs: Short CBC 09/13/18 Range/Units 21:15 WBC 13.2 H (4.3-11.1) K/mcL Hgb 7.0 L (12.9-16.9) g/dL Hct 21.3 L (37.5-50.1) % Plt Count 521 H (140-400) K/mcL Neutrophils # 10.6 H (1.6-8.9) K/mcL BMP 09/14/18 04:00 Sodium 130 L Potassium 5.0 Chloride 97 L Carbon Dioxide 25 BUN 53 H Creatinine 2.59 H Glucose 304 H Calcium 7.9 L - ABG Interpretation ABG results: PT/INR, D-dimer PT 12.7 Seconds (9.4-12.1) H 09/07/18 15:50 Consult Discharge Plan - Plan Instructions: Tamsulosin (By mouth) Referrals: José Miguel Negro MD [Primary Care Provider] - aMrcus Johnson MD [Partnered Physician] - (Follow-up in vascular surgery clinic with Dr. Johnson in 6 weeks for staple removal.) (1) Osteomyelitis Qualifiers: Osteomyelitis type: subacute Osteomyelitis location: foot Laterality: right Qualified Code(s): M86.271 - Subacute osteomyelitis, right ankle and foot (3) Anemia in chronic kidney disease Qualifiers: Chronic kidney disease stage: stage 3 (moderate) Qualified Code(s): N18.3 - Chronic kidney disease, stage 3 (moderate); D63.1 - Anemia in chronic kidney disease (6) Sepsis Qualifiers: Sepsis type: sepsis due to unspecified organism Qualified Code(s): A41.9 - Sepsis, unspecified organism
--- NOTE | 2018-09-14 10:22 | Infectious Disease Progress No ---
ID Progress Note Date of Encounter: 09/14/18 Time of Encounter: 09:25 - Subjective Subjective: Patient seen and examined. Status post right foot irrigation and debridement and incision and drainage with plantar fasciectomy and debridement of the tarsal bone and application of external fixator 09/06/[address] Ferrell. Status post right BKA 09/13/[address] Johnson. Denies fevers, chills, or rigors. Denies chest pain, shortness of breath, or cough. Complains of pain at the BKA site and phantom limb pain. Denies nausea, vomiting, diarrhea, or constipation. States his appetite is good. Urinary retention overnight and required straight catheterization. Denies oral thrush or new skin lesions. MRI of the left foot pending. - Objective CBC & Chem 7: 09/14/18 10:52 09/14/18 04:00 - Line Documentation Line Documentation: Dialysis Catheter (Temporary dialysis catheter noted to the right neck with transparent dressing clean, dry, and intact.) - Exam Vitals: Temp Pulse Resp BP Pulse Ox 99.5 F 96 16 160/82 95 09/14/18 08:00 09/14/18 08:00 09/14/18 08:00 09/14/18 08:00 09/14/18 08:44 Exam: Head: Atraumatic, normal inspection, normocephalic. Eye: EOMI, PERRLA, no scleral icterus noted. ENT: Mucous membranes moist. No odontogenic infection noted. Neck: Normal inspection, no meningismus. Temporary dialysis catheter noted to the right neck. Respiratory: Clear to auscultation. No rales, respiratory distress, rhonchi, or wheezes noted. Cardiovascular: Regular rate and rhythm, S1 and S2 audible. No murmurs, rubs, or gallops. GI: Soft, obese, normal bowel sounds. Extremities:1+ edema noted to the BLE. Right BKA dressing noted C/D/I. Dressing noted to the left foot C/D/I. Neurological: Alert, oriented 3, no focal deficits. Psychiatric: normal affect, normal mood. Skin: Dry, intact, warm. Normal color. No rashes. - Assessment and Plan (1) Sepsis Current Visit: Yes Status: Acute The patient had two sepsis criteria with acute kidney injury. Likely secondary to bacteremia and right foot infection. White blood cell count improved. Afebrile overnight. Blood cultures drawn 09/01/18 are +2 out of 2 sets for group B strep, MSSA, and Proteus mirabilis. Repeat blood cultures drawn 09/06/18 are negative x 2 sets. Repeat blood cultures drawn 09/07/18 are negative x 2 sets. Qualifiers: Sepsis type: sepsis due to unspecified organism Qualified Code(s): A41.9 - Sepsis, unspecified organism SNOMED Code(s): 44498907 (2) Bacteremia Current Visit: Yes Status: Acute Causative organism: Group B strep, MSSA, Proteus mirabilis. Source: Right foot infection. Blood cultures drawn 09/01/18 are +2 out of 2 sets. Repeat blood cultures drawn 09/06/18 are negative x 2 sets. Repeat blood cultures drawn 09/07/18 are negative x 2 sets. Complicated due to hardware in the left wrist. No endocarditis stigmata noted on exam. Rheumatoid factor normal. TTE negative for vegetations. The patient has one major and one minor modified [place] criteria. Currently on cefazolin. SNOMED Code(s): 2104479 (3) Infection of right foot Current Visit: Yes Status: Acute Location: Right foot. Causative organism: GBS, MSSA, P. mirabilis. Likely secondary to chronic non-healing ulcers and uncontrolled DM. X-ray of the right foot 09/01/18 showed findings consistent with Charcot arthropathy/neuropathic foot not significantly changed from the prior studies and extensive soft tissue swelling suggesting cellulitis. MRI of the right foot 09/04/18 showed plantar soft tissue ulcer at the level of the cuboid with suspected interval soft tissue graft placement. There is edema of the graft which may reflect soft tissue infection. Suspected bilateral soft tissue ulceration with associated phlegmonous change at the level of the inframalleolar peroneal tendons. There is no tenosynovitis and complete full- thickness peroneal tendon tears. The tenosynovitis may be infectious. New multifocal marrow signal abnormality involving the talus, calcaneus, cuboid, and navicular suspicious for osteonecrosis and less likely osteomyelitis. Persistent marrow signal and abnormality in the cuboid which is suspicious for osteoarthritis and a chronic cuboid erosion or defect is noted. Podiatry consulted. Per their note, purulent drainage expressed on exam. Status post right foot incision and drainage and irrigation and debridement, plantar fasciectomy, debridement of the tarsal bone, and application of external fixator 09/06/[address] Armstrong. Operative note reviewed. Gross purulence noted throughout the foot. Intraoperative tissue and bone cultures positive for MSSA, GBS, and P. mirabilis. ESR greater than 130, CRP 198. Status post right BKA 09/13/18. SNOMED Code(s): 525900721 (4) Cellulitis Current Visit: Yes Status: Acute Location: Right foot. Causative organism: GBS, MSSA, P. mirabilis. Purulent. Likely secondary to chronic ulcers. Podiatry consulted. Status post I & D and right BKA. Qualifiers: Site of cellulitis: other site Qualified Code(s): L03.818 - Cellulitis of other sites SNOMED Code(s): 359937598 (5) Wound of left foot Current Visit: Yes Status: Acute Location: Left lateral foot. Etiology: Unclear. CT of the left foot showed plantar subcutaneous edema in the midfoot compatible with cellulitis with a questionable fluid collection plantar to the cuboid bone. Questionable erosive changes along the plantar surface of the cuboid with osteomyelitis not excluded. Severe midfoot disorganization and fragmentation compatible with Charcot arthropathy was noted. MRI of the left foot pending completion. Podiatry consulted and following. SNOMED Code(s): 970998326, 271065393 (6) Chronic ulcer of right foot with fat layer exposed Current Visit: Yes Status: Acute Location: Right foot. Podiatry consulted. SNOMED Code(s): 551248264 (7) Acute kidney injury superimposed on chronic kidney disease Current Visit: No Status: Acute Serum creatinine 6.57 on admission with uremia and diminished urine output. Nephrology consulted. Temp HD line placed 09/02/18 and HD initiated. Avoid nephrotoxins as able. Dose-adjust medications. Vancomycin discontinued. SNOMED Code(s): 02809678 (8) Anemia Current Visit: Yes Status: Acute Qualifiers: Anemia type: other cause Other causes of anemia: other cause, not classified Qualified Code(s): D64.89 - Other specified anemias SNOMED Code(s): 642187892 (9) Elevated troponin Current Visit: Yes Status: Acute SNOMED Code(s): 760868971, 906349343, 049947768 (10) Hyponatremia Current Visit: Yes Status: Acute SNOMED Code(s): 88051143 (11) Pulmonary edema Current Visit: Yes Status: Acute Qualifiers: Chronicity: acute Qualified Code(s): J81.0 - Acute pulmonary edema SNOMED Code(s): 71710658 (12) Atrial fibrillation, chronic Current Visit: Yes Status: Chronic SNOMED Code(s): 837828849 (13) COPD (chronic obstructive pulmonary disease) Current Visit: Yes Status: Chronic Qualifiers: Emphysema type: unspecified Qualified Code(s): J43.9 - Emphysema, unspecified SNOMED Code(s): 32860451 (14) T2DM (type 2 diabetes mellitus) Current Visit: Yes Status: Chronic HgbA1C 8.5%. Recommend aggressive glucose monitoring and control to promote wound healing and prevent re-infection. Management per the primary team. Qualifiers: Diabetes mellitus lung splitter insulin use: without lung splitter use Diabetes mellitus complication status: with kidney complications Diabetes mellitus complication detail: with chronic kidney disease Chronic kidney disease stage: stage 3 (moderate) Qualified Code(s): E11.22 - Type 2 diabetes mellitus with diabetic chronic kidney disease; N18.3 - Chronic kidney disease, stage 3 (moderate) SNOMED Code(s): 01457943 (15) Hepatitis C Current Visit: Yes Status: Acute Qualifiers: Viral hepatitis chronicity: chronic Hepatic coma status: without hepatic coma Qualified Code(s): B18.2 - Chronic viral hepatitis C SNOMED Code(s): 97980708 - Recommendations Recommendations: Await MRI of the left foot. The patient will likely require a MAHESH prior to discharge. Wound care and activity restrictions per the podiatry team. CESILIA management per the nephrology team. Continue Cefazolin 1 gram IV daily. Dose-adjusted for HD status. Duration of treatment depends on the clinical picture pending MAHESH results and M RI left foot. Monitor renal function and dose-adjust antibiotics. Avoid insertion of long-term IV access until final discharge arrangements made. director of patient financial services to assist with discharge planning. Consult Discharge Plan - Plan Instructions: Tamsulosin (By mouth) Referrals: José Miguel Negro MD [Primary Care Provider] - Marcus Johnson MD [Partnered Physician] - (Follow-up in vascular surgery clinic with Dr. Johnson in 6 weeks for staple removal.) - Attending Attestation I have personally performed a face to face evaluation on this patient. I have reviewed and agree with the care plan. History and Exam by me shows: Assessment and Plan: 1. Sepsis 2. Bacteremia with group B streptococcus, MSSA and Proteus mirabilis likely source right foot infection 3. Infection of right foot status post I&D, plantar fasciotomy, debridement of tarsal bone and application of external fixator 09/06/2018 4. Cellulitis 5. Chronic ulcer of right foot with fat layer exposed 6. CESILIA on CKD 7. left foot abscess REcommendations: await MAHESH continue current antibiotics for now Need to drain left foot abscess If we think this is on the fluid collection I still would like to be aspirated and sent for analysis
[2018-09-14 11:11] LABS: Basophils % 0.2 %; Eosinophils # 0.1 K/mcL (0.0-0.6); Eosinophils % 1.1 %; Hematocrit 20.5 % (37.5-50.1); Hemoglobin 6.6 g/dL (12.9-16.9); Immature Granulocytes % 2.5 % (0-4); Lymphocytes # 1.4 K/mcL (0.6-4.6); Lymphocytes % 11.4 %; Mean Corpuscular HGB Conc 32.2 g/dL (31.6-35.5); Mean Corpuscular Hemoglobin 29.2 pg (28.0-33.3); Mean Corpuscular Volume 90.7 fL (83.0-100.0); Mean Platelet Volume 8.2 fL (9.4-12.4); Monocytes # 1.1 K/mcL (0.0-1.3); Neutrophils # 9.1 K/mcL (1.6-8.9); Platelet Count 546 K/mcL (140-400); Red Blood Count 2.26 M/mcL (4.19-5.50); Red Cell Distribution Width 13.4 % (11.5-14.5); Segmented Neutrophils % 75.8 %
[2018-09-14] MEDS ORDERED: CloNIDine Patch 0.2 MG PATCH (WEEKLY) TD SCH (11:30)
[2018-09-14] MEDS: *HR* FentaNYL PATCH 25 MCG PATCH TD SCH (12:37)
--- NOTE | 2018-09-14 15:16 | Nephrology Progress Note ---
Date of Encounter: 09/14/18 Time of Encounter: 12:00 - Assessment and Plan (1) CESILIA (acute kidney injury) Current Visit: Yes Status: Acute SCr fairly stable after last HD 09/12/18, will hold off today Will continue to reassess HD need daily but renal recovery might be imminent Continue to avoid nephrotoxins if possible UOP noted at 1000cc in the past 24hrs and over a liter today so far (2) Chronic ulcer of right foot with fat layer exposed Current Visit: Yes Status: Acute s/p R BKA by Dr Johnson Podiatry following, wound care for both extremities Continue abx per ID (3) Anemia Current Visit: Yes Status: Acute Hgb noted at 6.6, will monitor Transfusion parameters per primary team Qualifiers: Anemia type: other cause Other causes of anemia: other cause, not classified Qualified Code(s): D64.89 - Other specified anemias (4) CKD (chronic kidney disease), stage III Current Visit: Yes Status: Chronic Baseline CKD stage III with GFR in the 30-40s (5) Hyponatremia Current Visit: Yes Status: Acute Likely d/t CESILIA and edema, currently at 130, stable (6) Solitary kidney, acquired Current Visit: Yes Status: Acute History of left nephrectomy (7) Hyperkalemia Current Visit: No Status: Acute Potassium noted at 5.0, will monitor Continue renal diet Subjective Principal diagnosis: CESILIA Interval history: POD#6 s/p extensive R foot debridement and POD #1 s/p R BKA. Pt seen and examin ed with at bedside with complaints of R leg pain. urine retention overnight requiring straight cath with UOP of 1000cc in 24hrs Objective - Vital Signs Vital signs: Vital Signs Temp Pulse Resp BP Pulse Ox 09/14/18 11:29 98.8 F 99 18 167/84 97 09/14/18 08:44 95 09/14/18 08:00 99.5 F 96 16 160/82 95 09/14/18 04:22 98.3 F 100 17 149/84 93 09/13/18 23:50 98.9 F 108 16 160/92 95 09/13/18 23:45 98.8 F 100 16 140/85 94 09/13/18 22:45 98.9 F 99 18 132/87 93 09/13/18 22:15 98.9 F 110 18 137/86 95 09/13/18 21:45 98.6 F 105 18 146/56 96 09/13/18 21:40 95 09/13/18 21:30 98.5 F 110 16 134/79 96 09/13/18 21:15 98.5 F 105 18 157/54 95 09/13/18 21:00 98.7 F 100 16 165/84 97 09/13/18 20:45 98.9 F 101 16 154/77 96 09/13/18 20:03 96.9 F L 95 14 133/76 99 09/13/18 19:53 96.9 F L 93 16 146/82 99 09/13/18 19:43 96 18 152/86 98 09/13/18 19:33 98 18 139/70 98 09/13/18 19:23 97.0 F L 101 16 129/76 98 09/13/18 19:13 102 16 147/95 98 09/13/18 19:03 101 18 130/81 97 09/13/18 18:53 99.5 F 98 16 116/68 100 09/13/18 16:17 98.3 F 71 17 109/66 91 Intake and Output 09/13/18 09/14/18 09/14/18 23:59 07:59 15:59 Intake Total 230 / 240 240 / 280 40 / 280 Output Total 210 / 1210 1400 / 1400 Balance 20 / -970 -1160 / -1120 40 / -1120 Intake: IV Fluids 10 10 Ancef 1,000 MG In Water for inj . (sterile) 10 ML @ 200 mls/hr IVPB Q12H [facility] Rx#:[id number] Oral 220 / 220 240 / 270 30 / 270 Output: Urine 0 / 0 Estimated Blood Loss 210 / 210 Straight Cath 1400 / 1400 Other: Blood Glucose* 358 348 227 - General Appearance General appearance: Present: well-developed, well-nourished EENT: Present: ATNC, mucous membranes moist Neck: Present: no JVD, supple Respiratory: Present: clear (ant bilat) Cardiology: Present: edema (R BKA, both legs with dressing), normal S1, normal S2 Dialysis Vascular Access: Venous Catheter (temp) Gastrointestinal: Present: no tenderness, no guarding Integumentary: Present: warm and dry Neurologic: Present: no focal deficit Musculoskeletal: Present: no deformities - Lab 09/14/18 10:52 09/14/18 04:00 Most recent lab results 09/14/18 04:00 Calcium 7.9 L Consult Discharge Plan - Plan Instructions: Tamsulosin (By mouth) Referrals: José Miguel Negro MD [Primary Care Provider] - Marcus Johnson MD [Partnered Physician] - (Follow-up in vascular surgery clinic with Dr. Johnson in 6 weeks for staple removal.)
--- NOTE | 2018-09-14 15:58 | Podiatry Progress Note ---
Date of Encounter: 09/14/18 Time of Encounter: 14:00 - Assessment and Plan (1) Bacteremia Current Visit: Yes Status: Acute continue treatment with IV antibiotics ID on board WBC trending down S/p BKA right (2) Osteomyelitis Current Visit: Yes Status: Acute s/p BKA of the right Qualifiers: Osteomyelitis type: subacute Osteomyelitis location: foot Laterality: left Qualified Code(s): M86.272 - Subacute osteomyelitis, left ankle and foot (3) Abscess of left foot Current Visit: Yes Status: Acute ASSESSMENT: Plan: New noted abscess of the lateral border left foot on 09/12 exam patient had a dry ruptured bullous lesion to lateral aspect of left foot Today there was noted to be an increase in the drainage from the wound On assessment there is a noted opening measuring 0.3cmx0.3cm with thick yellow drainage , area was palpated and a moderate amount of serosang drainage mixed with purulent fluid was released Area was probed, there is undermining/tunneling noted to extend proximally toward lateral malleolus MRI and xray demonstrate fluid collection and possible abscess Cultures were obtained at bedside and provided to nurse SPoke with ID regarding abscess findings Spoke with , will plan for I&D of abscess of left foot tomorrow morning NPO after midnight. Spoke with family regarding plan, patient and POA verbalize understanding Subjective Principal diagnosis: CESILIA Interval history: s/p BKA right foot Resting comfortably. states he has continued to sleep a lot since surgery Denies any complaints, states there is mild pain at the incision site Continuing to follow related to concern of abscess of left foot. Denies any known fevers, chills, n/v or fls. Objective - Vital Signs Vital Signs: Vital Signs Temp Pulse Resp BP Pulse Ox 09/14/18 11:29 98.8 F 99 18 167/84 97 09/14/18 08:44 95 09/14/18 08:00 99.5 F 96 16 160/82 95 09/14/18 04:22 98.3 F 100 17 149/84 93 09/13/18 23:50 98.9 F 108 16 160/92 95 09/13/18 23:45 98.8 F 100 16 140/85 94 09/13/18 22:45 98.9 F 99 18 132/87 93 09/13/18 22:15 98.9 F 110 18 137/86 95 09/13/18 21:45 98.6 F 105 18 146/56 96 09/13/18 21:40 95 09/13/18 21:30 98.5 F 110 16 134/79 96 09/13/18 21:15 98.5 F 105 18 157/54 95 09/13/18 21:00 98.7 F 100 16 165/84 97 09/13/18 20:45 98.9 F 101 16 154/77 96 09/13/18 20:03 96.9 F L 95 14 133/76 99 09/13/18 19:53 96.9 F L 93 16 146/82 99 09/13/18 19:43 96 18 152/86 98 09/13/18 19:33 98 18 139/70 98 09/13/18 19:23 97.0 F L 101 16 129/76 98 09/13/18 19:13 102 16 147/95 98 09/13/18 19:03 101 18 130/81 97 09/13/18 18:53 99.5 F 98 16 116/68 100 09/13/18 16:17 98.3 F 71 17 109/66 91 Intake and Output 09/13/18 09/14/18 09/14/18 23:59 07:59 15:59 Intake Total 230 / 240 240 / 280 40 / 280 Output Total 210 / 1210 1400 / 1400 Balance 20 / -970 -1160 / -1120 40 / -1120 Intake: IV Fluids 10 10 Ancef 1,000 MG In Water for inj . (sterile) 10 ML @ 200 mls/hr IVPB Q12H [facility] Rx#:[id number] Oral 220 / 220 240 / 270 30 / 270 Output: Urine 0 / 0 Estimated Blood Loss 210 / 210 Straight Cath 1400 / 1400 Other: Blood Glucose* 358 348 227 - Exam Exam: Left lateral foot- ruptured bullous lesion left lateral border of foot. SMall opening noted to distal border of wound, 0.3cmx0.3cm with purulent drainage. With palpation a moderate amount of thick yellow drainage with serosang fluid mix released from wound. There is mild surrounding warmth and erythema. There is undermining/tunneling 5cm toward the lateral malleolus. No odor. CONSTITUTIONAL: Awake alert and oriented VASCULAR: Pulses palpable, warm toes to tibia, Cap refill <3 seconds NEUROLOGICAL: Diminished sensation to light or moderate touch. - Lab Result Diagrams: 09/15/18 04:50 09/15/18 08:26 Labs: Abnormal lab results WBC 12.0 K/mcL (4.3-11.1) H 09/14/18 10:52 RBC 2.26 M/mcL (4.19-5.50) L 09/14/18 10:52 Hgb 6.6 g/dL (12.9-16.9) L 09/14/18 10:52 Hct 20.5 % (37.5-50.1) L 09/14/18 10:52 MCV 82.6 fL (83.0-100.0) L 09/03/18 03:55 Plt Count 546 K/mcL (140-400) H 09/14/18 10:52 MPV 8.2 fL (9.4-12.4) L 09/14/18 10:52 Immature Gran % 4.3 % (0-4) H 09/08/18 03:30 8.0 % (0-4) H 09/06/18 03:45 2.0 % (0) H 09/03/18 03:55 9.1 K/mcL (1.6-8.9) H 09/14/18 10:52 Nucleated RBCs/100 WBC 0.2 /100 WBC (0) H 09/04/18 04:00 Present (Not Present) A 09/07/18 13:55 Decreased (Normal) L 09/05/18 04:53 1+ (Not Present) A 09/02/18 10:05 Present (Not Present) A 09/03/18 03:55 1+ (Not Present) A 09/02/18 10:05 ESR >= 130 mm/hr (0-10) H 09/06/18 10:20 369 mg/dL (30-200) H 09/10/18 07:30 PT 12.7 Seconds (9.4-12.1) H 09/07/18 15:50 724 mg/dL (169-393) H* 09/10/18 07:30 Factor VIII Activity 762 % (56-191) H 09/08/18 17:00 von Willebrand Activity 344 % (51-215) H 09/08/18 17:00 von Willebrand Antigen 345 % (52-214) H 09/08/18 17:00 Sodium 130 mEq/L (136-145) L 09/14/18 04:00 Potassium 5.7 mEq/L (3.5-5.1) H 09/12/18 04:45 Chloride 97 mEq/L (98-107) L 09/14/18 04:00 Carbon Dioxide 22 mEq/L (23-29) L 09/12/18 04:45 BUN 53 mg/dL (6-20) H 09/14/18 04:00 2.59 mg/dL (0.70-1.30) H 09/14/18 04:00 Est GFR ( Amer) 32 (> 60) L 09/14/18 04:00 Est GFR (Non-Af Amer) 27 (> 60) L 09/14/18 04:00 Glucose 304 mg/dL (70-105) H 09/14/18 04:00 POC Glucose 348 mg/dL (70-99) H 09/14/18 07:58 8.5 % (-5.6) H 09/04/18 04:00 303 (280-300) H 09/04/18 04:00 Calcium 7.9 mg/dL (8.6-10.3) L 09/14/18 04:00 Iron < 10 mcg/dL (65-175) L 09/12/18 04:45 % Saturation 5 % (20-55) L 09/10/18 07:30 141 mg/dL (203-362) L 09/12/18 04:45 489 ng/mL (20-250) H 09/10/18 07:30 0.3 mg/dL (0.0-0.2) H 09/01/18 15:33 AST 10 Units/L (13-39) L 09/10/18 04:05 122 Units/L (34-104) H 09/01/18 15:33 0.04 ng/mL (< 0.04) H* 09/03/18 01:00 198 mg/L (Less than 10) H 09/04/18 04:00 6.1 g/dL (6.4-8.9) L 09/01/18 15:33 2.3 g/dL (3.5-5.7) L 09/12/18 04:45 5.2 g/dL (2.4-3.5) H 09/12/18 04:45 0.4 (1.1-2.2) L 09/12/18 04:45 Vitamin B12 > 1500 pg/mL (250-1100) H 09/10/18 07:50 [place] (Yellow) A 09/01/18 Unknown Turbid (Clear) A 09/10/18 07:30 Ur Specific [place] 1.029 (1.010-1.025) H 09/01/18 Unknown 100 mg/dL (Neg-Trace) H 09/10/18 07:30 100 mg/dL (Normal) H 09/10/18 07:30 Trace mg/dL (Negative) H 09/01/18 Unknown Large (Negative) H 09/10/18 07:30 Moderate (Negative) H 09/01/18 Unknown 4.0 mg/dL (Normal) H 09/01/18 Unknown Ur Leukocyte Esterase Trace (Negative) H 09/10/18 07:30 5-15 per hpf (0-3) H 09/01/18 Unknown Ur Squamous Epith Cells Many per lpf (None-Few) H 09/01/18 Unknown Ur Culture Indicated? NO. (NO) A 09/01/18 Unknown Ur Microalbumin 24 Hr 351 mg/day (Less than 30) H 09/03/18 23:00 Microalb/Creat Ratio 290 mcg/mg (Less than 30) H 09/03/18 23:00 Ur Total Protein 24 Hr 2128 mg/day (50-80) H 09/03/18 23:00 Protein/Creatinin Ratio 1.76 mg/mg (0.00-0.20) H 09/03/18 23:00 Ur Sodium 24 Hour 33 mEq/day (40-220) L 09/03/18 23:00 Ur Chloride 24 Hour 20 mEq/day (110-250) L 09/03/18 23:00 Ur Phosphorus 24 Hr 0.2 g/day (0.4-1.3) L 09/03/18 23:00 Ur Urea Nitrogen 24 Hr 6 g/day (12-20) L 09/03/18 23:00 Ur Calcium 24 Hr 6 mg/day (100-300) L 09/03/18 23:00 185 mg/dL (1-14) H 09/03/18 23:00 U Free [place] Ch 110.00 mg/dL (0.14-2.42) H 09/02/18 23:00 U Free [place] Light Ch 19.80 mg/dL (0.02-0.67) H 09/02/18 23:00 Positive (Negative) A 09/11/18 18:40 Positive ng/mL (Mbrwzk=845) H 09/11/18 15:45 Hep Bs Antibody 4.61 mIU/mL (10.00-) L 09/01/18 20:52 Hepatitis C Ab Screen Reactive (Nonreactive) H 09/11/18 15:45 Staphylococcus sp PCR DETECTED (Not Detect) A 09/01/18 15:58 Staph aureus (PCR) DETECTED (Not Detect) A 09/01/18 15:58 Streptococcus sp PCR DETECTED (Not Detect) A 09/01/18 15:58 Group B Strep (PCR) DETECTED (Not Detect) A 09/01/18 15:58 Crossmatch See Detail 09/10/18 07:30 Crossmatch Prewarmed See Detail 09/01/18 16:55 Microbiology, Last 48 Hours 09/07/18 14:05 Blood Culture - Final Peripheral Venipuncture No growth. Final report. 09/07/18 14:00 Blood Culture - Final Peripheral Venipuncture No growth. Final report. Consult Discharge Plan - Plan Instructions: Tamsulosin (By mouth) Additional Instructions: daily dressing changes to right BKA Referrals: José Miguel Negro MD [Primary Care Provider] - Marcus Johnson MD [Partnered Physician] - (Follow-up in vascular surgery clinic with Dr. Johnson in 6 weeks for staple removal.)
[2018-09-14] MEDS ORDERED: 0.9 % Sodium Chloride 250 ML ONE (17:58)
--- NOTE | 2018-09-14 19:41 | Anesthesia Evaluation PreOp ---
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 HX Other Medical History: Renal (CESILIA on CKD stage 3--on hemodialysis, solitary kidney on right), Diabetes Type II, Other (obesity BMI=41.8) Anesthesia History: No Prior Anesthetic Complications, Past Anesthesia Alcohol Use: none Drug use: none Medications and Allergies Albuterol Sulfate [Albuterol Inhaler] 2 puff IH Q4H PRN 08/03/18 [History] Amlodipine Besylate 5 mg PO DAILY 08/03/18 [History] Cholecalciferol (Vitamin D3) [Optimal D3] 50,000 unit PO QWEEK 08/03/18 [History] CloNIDine Patch [Catapres-Tts] 0.2 mg TD QWEEK 08/03/18 [History] Furosemide [Lasix] 40 mg PO DAILY 08/03/18 [History] Insulin Glargine,Hum.rec.anlog [Basaglar Kwikpen U-100] 35 unit SQ BID 08/03/18 [History] Insulin LISPRO [HumaLOG] 30 units SQ TID 08/03/18 [History] Losartan/Hydrochlorothiazide [Losartan-Hctz 100-25 mg Tab] 1 each PO DAILY 08/03/18 [History] OxyCODONE/APAP 10/325 [Percocet 10/325 MG] 1 each PO TID PRN 08/03/18 [History] Rivaroxaban [Xarelto] 15 mg PO DAILY 08/03/18 [History] Sertraline [Zoloft] 50 mg PO DAILY 08/03/18 [History] Sertraline [Zoloft] 100 mg PO DAILY 08/03/18 [History] Umeclidinium [place] [Incruse Ellipta] 1 puff IH DAILY 08/03/18 [History] Allergy/AdvReac Type Severity Reaction Status Date / Time No Known Allergies Allergy Verified 05/06/16 14:33 - Meds/Allergy Pre-op Review Medications Reviewed: Yes Allergies Reviewed: Yes Beta Blockers on Current Med List: No Anesthesia Results - Labs 09/14/18 10:52 09/14/18 04:00 - Imaging EKG: report reviewed (09/03/2018 SINUS RHYTHM WITH FIRST DEGREE AV BLOCK) Additional studies: 09/07/2018 Echo Impressions: LVEF 65-70%. Mild concentric left ventricular hypertrophy. Mild left ventricular diastolic dysfunction. Normal right ventricular structure and function. No significant valvular dysfunction. No pulmonary hypertension. Small pericardial effusion without echocardiographic evidence of tamponade. Non-diagnostic for valvular vegetation; consider MAHESH if clinically indicated. Anesthesia Exam Vital Signs/O2 Sat, Most Current Temp Pulse Resp BP Pulse Ox 98.7 F 101 22 164/93 96 09/14/18 18:07 09/14/18 18:07 09/14/18 18:07 09/14/18 18:07 09/14/18 18:04 Height: 5'10"/1.78m Weight: 291 lbs/132 kg - HEENT Pupil (Motor): EOMI Mallampati: III Teeth: Edentulous Oral Opening: Greater than 3 - TABLE WORKER PACKAGER LOC: Oriented TABLE WORKER PACKAGER Motor: Normal RUE, Normal LUE, Normal RLE, Normal LLE, Normal Face TABLE WORKER PACKAGER Sensory: Normal: RUE, LUE, RLE, LLE, Face - Cardiac Rhythm: Regular Murmur: None - Pulmonary Breath Sounds: bilateral Clear Respiratory Effort: Symmetrical Anesthesia Assess/Plan ASA Score: 4 Level of consciousness: Cooperative, Oriented, Tranquil Anesthetic Plan: General Monitoring Plan: Standard Monitors Recovery Plan: PACU
[2018-09-15 00:04] LABS: Hematocrit 21.5 % (37.5-50.1)
[2018-09-15] MEDS: *HR* OxyCODONE Immed Rel 5 MG TABLET PO PRN ×4 (02:03→22:29)
[2018-09-15] MEDS: *HR* FentaNYL (PF) 100 MCG/2 ML VIAL IVP PRN ×3 (05:02→20:29)
[2018-09-15 05:18] LABS: Basophils % 0.4 %; Eosinophils # 0.1 K/mcL (0.0-0.6); Hematocrit 20.3 % (37.5-50.1); Hemoglobin 6.7 g/dL (12.9-16.9); Immature Granulocytes % 2.7 % (0-4); Lymphocytes # 1.4 K/mcL (0.6-4.6); Lymphocytes % 12.5 %; Mean Platelet Volume 8.1 fL (9.4-12.4); Monocytes % 8.6 %; Neutrophils # 8.3 K/mcL (1.6-8.9); Platelet Count 473 K/mcL (140-400); Red Blood Count 2.23 M/mcL (4.19-5.50); Red Cell Distribution Width 13.5 % (11.5-14.5); Segmented Neutrophils % 74.8 %
[2018-09-15] MEDS ORDERED: Lidocaine -MPF 2% 2 ML VIAL ONE (06:39)
[2018-09-15] MEDS ORDERED: *HR* FentaNYL (PF) 100 MCG/2 ML VIAL ONE ×2 (06:40→08:17)
[2018-09-15] MEDS ORDERED: *HR* Midazolam HCl 2 MG/2 ML VIAL ONE (06:40)
[2018-09-15] MEDS ORDERED: *HR* Propofol 200 MG/20 ML VIAL IVP ONE ×3 (06:40→06:57)
[2018-09-15] MEDS ORDERED: Propofol 500 MG/50 ML INFUS..BTL ONE (06:41)
[2018-09-15] MEDS ORDERED: Ondansetron 4 MG/2 ML VIAL ONE (07:12)
[2018-09-15] MEDS ORDERED: Dexamethasone 4 MG/ML VIAL ONE (07:12)
[2018-09-15] MEDS ORDERED: Lidocaine 1% 20 ML MDV ONE (07:23)
[2018-09-15] MEDS ORDERED: Bupivacaine-MPF 0.25% 10 ML VIAL ONE (07:23)
[2018-09-15] MEDS ORDERED: Vancomycin 1,000 MG VIAL ONE (07:24)
[2018-09-15] MEDS ORDERED: Vancomycin 1,000 MG, 0.9 % Sodium Chloride 1,000 ML IR ONE (07:45)
--- NOTE | 2018-09-15 07:55 | Podiatry Progress Note ---
Date of Encounter: 09/15/18 Time of Encounter: 07:15 - Assessment and Plan (1) Osteomyelitis Current Visit: Yes Status: Acute discussed condition with patient and who is his power of trust and estates attorney. Discussed the infection present in the surgical procedure incision and drainage, removal of nonviable tissue/bone and sending some of the bone and soft tissue to the lab. Discussed with patient and he is at risk for limb loss and there are no guarantees that he will keep this leg. We discussed it is imperative that he stop smoking and that his A1c be under control. Other risks versus benefits of surgery discussed including but not limited to persistent infection loss of leg heart attack blood clot lack of procedure to produce desired outcome pulmonary embolism need for further surgery etc. no guarantees could be made that he would not lose his leg like he did on the other side as this is a diabetic foot infection. All questions were answered and the informed consent was signed. Qualifiers: Osteomyelitis type: subacute Osteomyelitis location: foot Laterality: left Qualified Code(s): M86.272 - Subacute osteomyelitis, left ankle and foot (2) Abscess of left foot Current Visit: Yes Status: Acute see above Subjective Principal diagnosis: Abscess left foot Interval history: Patient had blister and it drained fluid out bedside underlying skin was previously intact. No erythema or evidence of infection or drainage. Patient subsequently developed a small break in the skin and has developed some purulent drainage. Objective - Vital Signs Vital Signs: Vital Signs Temp Pulse Resp BP Pulse Ox 09/15/18 04:40 99.2 F 86 17 168/92 95 09/15/18 00:22 98.1 F 92 17 148/90 95 09/14/18 21:11 99.5 F 90 20 156/88 96 09/14/18 20:14 99.8 F H 96 17 159/93 94 09/14/18 18:07 98.7 F 101 22 164/93 09/14/18 18:04 99.0 F 99 18 158/93 96 09/14/18 15:52 98.8 F 94 20 147/85 94 09/14/18 11:29 98.8 F 99 18 167/84 97 09/14/18 08:44 95 09/14/18 08:00 99.5 F 96 16 160/82 95 Intake and Output 09/14/18 09/14/18 09/15/18 15:59 23:59 07:59 Intake Total 40 / 1240 960 / 1240 Output Total 1450 / 2850 1400 / 1400 Balance 40 / -1610 -490 / -1610 -1400 / -1400 Intake: IV Fluids Ancef 1,000 MG In Water for inj . (sterile) 10 ML @ 200 mls/hr IVPB Q12H [facility] Rx#:[id number] Oral 30 / 630 360 / 630 Blood Product 600 / 600 Rbcs Leuko Poor As-1 Unit 600 / 600 [id number] Output: Catheter 1450 / 1450 1400 / 1400 Urethral (Blanco) 1100 / 1100 Other: Meal ada vinnie ice crream Percent of Meal Consumed 100% Blood Glucose* 227 267 235 - Exam Exam: Well-developed and nourished male in no acute distress Right leg amputation. 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 Some purulent drainage able to be expressed from the pinhole opening. No erythema of the skin. MRI-concern for abscess - Lab Result Diagrams: 09/15/18 04:50 09/14/18 04:00 Labs: Abnormal lab results WBC 12.0 K/mcL (4.3-11.1) H 09/14/18 10:52 RBC 2.23 M/mcL (4.19-5.50) L 09/15/18 04:50 Hgb 6.7 g/dL (12.9-16.9) L 09/15/18 04:50 Hct 20.3 % (37.5-50.1) L 09/15/18 04:50 MCV 82.6 fL (83.0-100.0) L 09/03/18 03:55 Plt Count 473 K/mcL (140-400) H 09/15/18 04:50 MPV 8.1 fL (9.4-12.4) L 09/15/18 04:50 Immature Gran % 4.3 % (0-4) H 09/08/18 03:30 8.0 % (0-4) H 09/06/18 03:45 2.0 % (0) H 09/03/18 03:55 9.1 K/mcL (1.6-8.9) H 09/14/18 10:52 Nucleated RBCs/100 WBC 0.2 /100 WBC (0) H 09/04/18 04:00 Present (Not Present) A 09/07/18 13:55 Decreased (Normal) L 09/05/18 04:53 1+ (Not Present) A 09/02/18 10:05 Present (Not Present) A 09/03/18 03:55 1+ (Not Present) A 09/02/18 10:05 ESR >= 130 mm/hr (0-10) H 09/06/18 10:20 369 mg/dL (30-200) H 09/10/18 07:30 PT 12.7 Seconds (9.4-12.1) H 09/07/18 15:50 724 mg/dL (169-393) H* 09/10/18 07:30 Factor VIII Activity 762 % (56-191) H 09/08/18 17:00 von Willebrand Activity 344 % (51-215) H 09/08/18 17:00 von Willebrand Antigen 345 % (52-214) H 09/08/18 17:00 Sodium 130 mEq/L (136-145) L 09/14/18 04:00 Potassium 5.7 mEq/L (3.5-5.1) H 09/12/18 04:45 Chloride 97 mEq/L (98-107) L 09/14/18 04:00 Carbon Dioxide 22 mEq/L (23-29) L 09/12/18 04:45 BUN 53 mg/dL (6-20) H 09/14/18 04:00 2.59 mg/dL (0.70-1.30) H 09/14/18 04:00 Est GFR ( Amer) 32 (> 60) L 09/14/18 04:00 Est GFR (Non-Af Amer) 27 (> 60) L 09/14/18 04:00 Glucose 304 mg/dL (70-105) H 09/14/18 04:00 POC Glucose 348 mg/dL (70-99) H 09/14/18 07:58 8.5 % (-5.6) H 09/04/18 04:00 303 (280-300) H 09/04/18 04:00 Calcium 7.9 mg/dL (8.6-10.3) L 09/14/18 04:00 Iron < 10 mcg/dL (65-175) L 09/12/18 04:45 % Saturation 5 % (20-55) L 09/10/18 07:30 141 mg/dL (203-362) L 09/12/18 04:45 489 ng/mL (20-250) H 09/10/18 07:30 0.3 mg/dL (0.0-0.2) H 09/01/18 15:33 AST 10 Units/L (13-39) L 09/10/18 04:05 122 Units/L (34-104) H 09/01/18 15:33 0.04 ng/mL (< 0.04) H* 09/03/18 01:00 198 mg/L (Less than 10) H 09/04/18 04:00 6.1 g/dL (6.4-8.9) L 09/01/18 15:33 2.3 g/dL (3.5-5.7) L 09/12/18 04:45 5.2 g/dL (2.4-3.5) H 09/12/18 04:45 0.4 (1.1-2.2) L 09/12/18 04:45 Vitamin B12 > 1500 pg/mL (250-1100) H 09/10/18 07:50 Riley (Yellow) A 09/01/18 Unknown Turbid (Clear) A 09/10/18 07:30 Ur Specific [place]on 1.029 (1.010-1.025) H 09/01/18 Unknown 100 mg/dL (Neg-Trace) H 09/10/18 07:30 100 mg/dL (Normal) H 09/10/18 07:30 Trace mg/dL (Negative) H 09/01/18 Unknown Large (Negative) H 09/10/18 07:30 Moderate (Negative) H 09/01/18 Unknown 4.0 mg/dL (Normal) H 09/01/18 Unknown Ur Leukocyte Esterase Trace (Negative) H 09/10/18 07:30 5-15 per hpf (0-3) H 09/01/18 Unknown Ur Squamous Epith Cells Many per lpf (None-Few) H 09/01/18 Unknown Ur Culture Indicated? NO. (NO) A 09/01/18 Unknown Ur Microalbumin 24 Hr 351 mg/day (Less than 30) H 09/03/18 23:00 Microalb/Creat Ratio 290 mcg/mg (Less than 30) H 09/03/18 23:00 Ur Total Protein 24 Hr 2128 mg/day (50-80) H 09/03/18 23:00 Protein/Creatinin Ratio 1.76 mg/mg (0.00-0.20) H 09/03/18 23:00 Ur Sodium 24 Hour 33 mEq/day (40-220) L 09/03/18 23:00 Ur Chloride 24 Hour 20 mEq/day (110-250) L 09/03/18 23:00 Ur Phosphorus 24 Hr 0.2 g/day (0.4-1.3) L 09/03/18 23:00 Ur Urea Nitrogen 24 Hr 6 g/day (12-20) L 09/03/18 23:00 Ur Calcium 24 Hr 6 mg/day (100-300) L 09/03/18 23:00 185 mg/dL (1-14) H 09/03/18 23:00 U Free [place] Light Ch 110.00 mg/dL (0.14-2.42) H 09/02/18 23:00 U Free Lambda Light Ch 19.80 mg/dL (0.02-0.67) H 09/02/18 23:00 Positive (Negative) A 09/11/18 18:40 Positive ng/mL (Botekh=777) H 09/11/18 15:45 Hep Bs Antibody 4.61 mIU/mL (10.00-) L 09/01/18 20:52 Hepatitis C Ab Screen Reactive (Nonreactive) H 09/11/18 15:45 Staphylococcus sp PCR DETECTED (Not Detect) A 09/01/18 15:58 Staph aureus (PCR) DETECTED (Not Detect) A 09/01/18 15:58 Streptococcus sp PCR DETECTED (Not Detect) A 09/01/18 15:58 Group B Strep (PCR) DETECTED (Not Detect) A 09/01/18 15:58 Crossmatch See Detail 09/14/18 16:25 Crossmatch Prewarmed See Detail 09/01/18 16:55 Microbiology, Last 48 Hours 09/14/18 15:19 Gram Stain - Final Left Foot 09/14/18 15:19 Anaerobic Culture - Preliminary Left Foot Culture is incubating. 09/14/18 15:19 Wound Culture - Preliminary Left Foot Culture is incubating. Consult Discharge Plan - Plan Instructions: Tamsulosin (By mouth) Referrals: José Miguel Negro MD [Primary Care Provider] - Marcus Johnson MD [Partnered Physician] - (Follow-up in vascular surgery clinic with Dr. Johnson in 6 weeks for staple removal.)
[2018-09-15] MEDS ORDERED: Acetaminophen IV 1,000 MG/100 ML INFUS..BTL ONE (08:24)
[2018-09-15 08:41] LABS: Calcium 8.3 mg/dL (8.6-10.3); Potassium 5.3 mEq/L (3.5-5.1)
--- NOTE | 2018-09-15 08:47 | Operative Note ---
Date of procedure: 09/15/18 Pre-op diagnosis: left foot abscess, possible osteomyelitis cuboid Post-op diagnosis: same Procedure: incision and drainage left foot bone biopsy cuboid Implants: none Complications: none Anesthesia: GETA Local Anesthetics: 1% Lidocaine HCL SubQ (cc) Surgeon: Nolan Ferrell Was there an it assistant present: No Estimated blood loss (cc): 20 Specimen: L foot culture swab, L foot tissue-micro, left cuboid bone-micro and path Condition: stable Disposition: PACU Procedure in Detail: Indications: 48-year-old diabetic male uncontrolled and on dialysis had a superficial blister develop on the left lateral foot and subsequently developed pinpoint lesion and infection in the lateral foot. MRI was concerning for abscess in the plantar foot and osteomyelitis of the cuboid. Patient has a history of Charcot and rocker-bottom foot deformity. Patient being brought to the operating room for the above procedures after having the nature the procedures, risks first benefits potential complications consequences of surgery in his condition discussed at length. No guarantees were made as to the outcome of any procedure. 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 All her questions have been answered and informed consent was signed patient was taken from the preoperative holding area and to the operating room placed in the operative table in the supine position. 1% lidocaine plain was injected into the patient's left foot and ankle after the foot was prepped with Betadine. A tourniquet was applied but not inflated during the entire procedure. Incision and drainage of left foot, bone biopsy cuboid Attention was directed to the patient's lateral foot were #15 blade was used to make an incision distal and proximal to and over the pinpoint lesion which had had purulent drainage expressed. Culture swabs were used to culture this fluid and they were sent to microbiology. There was some devitalized tissue in the area of the pinhole lesion which was chopra and dark in nature and the tissue was excised. The tissue was sent to microbiology. The area was probed and explored there was a couple cc of purulent drainage expressed. There was some tunneling into the plantar foot. An incision was made on the plantar aspect of the foot full-thickness and serous drainage was expressed from the plantar aspect of the foot which was consistent with fluid from bursal sac formation in the above Charcot joint. There was no purulent drainage expressed from the plantar aspect of the foot. The pulse lavage which contained vancomycin in the irrigation was used to irrigate the plantar foot and then the lateral foot. No further purulence or devitalized tissue was present. No drainage could be expressed at either site. The Bovie was used to cauterize any bleeders present. The cuboid bone plantarly below the level of the fascia was able to be palpated and the Jamshidi needle was used to biopsy the bone and specimens of bone were sent to microbiology and pathology. Retention sutures were placed in the lateral and plantar incisions and the wounds were packed open with half-inch iodoform packing. Adequate hemostasis was present. Sterile bandage was applied consisting of 4 x 4 gauze Kerlix and an Miles wrap. Patient tolerated the anesthesia and the procedure well and was escorted to the recovery room with vital signs stable. He will return to the floor where he will continue IV antibiotics.
--- NOTE | 2018-09-15 09:45 | Anesthesia Evaluation Post Op ---
Date of Encounter: 09/15/18 Time of Encounter: 09:35 - Vital Signs Vital Signs: Vital Signs/O2 Sat/Glucose, Most Current Temp Pulse Resp BP Pulse Ox 09/15/18 09:31 98.5 F 84 14 140/79 99 09/15/18 09:21 98.5 F 84 15 136/72 98 09/15/18 09:11 85 14 139/80 93 09/15/18 09:01 86 14 137/76 92 09/15/18 08:51 97.1 F L 86 16 145/88 100 - Lungs Lungs: Clear Ascult./Percussion - Airway Airway: Non-obstructed - Cardiovascular Regular Rate - Mental Status Mental Status: Alert & Oriented, Answers Appropriately - Pain Pain Scale: 0 - Nausea Vomiting Nausea Vomiting: Not Present - Hydration Hydration: Ice chips, Has not voided - Discharge PostOp Status: Transfer Patient to floor
[2018-09-15] MEDS: Insulin DETEMIR 100 UNIT/ML X5UNITS SQ SCH ×2 (10:09→21:25)
[2018-09-15] MEDS: Folic Acid 1 MG TABLET PO SCH (10:09)
[2018-09-15] MEDS: Insulin LISPRO 300 UNITS/3 ML VIAL SQ SCH ×7 (10:10→21:24)
[2018-09-15] MEDS: ceFAZolin 1,000 MG in Water for inj. (sterile) 20 ML 10 ML IVPB SCH ×2 (10:10→16:28)
--- NOTE | 2018-09-15 10:24 | Internal Med Progress Note ---
Hospitalist Progress Note - Encounter Date of Encounter: 09/15/18 Time of Encounter: 11:00 - Subjective Interval History: Patient is a 48-year-old male who presented with right lower extremity wound found to have polymicrobial osteomyelitis of right lower extremity with bacteremia of the same. Patient now postop day 2 right BKA This morning, patient went for incision and drainage of left foot per podiatry recommendations In addition, patient continues to have acute on chronic anemia despite transfusion of 9 units of packed red blood cells; will need to transfuse 2 additional units of packed red blood cells - Exam Vitals: Temp Pulse Resp BP Pulse Ox 98.5 F 84 14 140/79 99 09/15/18 09:31 09/15/18 09:31 09/15/18 09:31 09/15/18 09:31 09/15/18 09:31 Exam: Gen.: Nonacute distress, alert and oriented 3 ENT: Mucosal membranes moist Respiratory: Lungs are clear to auscultation bilaterally without any wheezing rhonchi or rales Cardiovascular: Normal S1 and S2 regular rate rhythm no murmurs rubs or gallops Abdomen: Soft, nontender and nondistended with positive bowel sounds Skin: Normal color - Assessment and Plan (1) Osteomyelitis Current Visit: Yes Status: Acute Assessment and Plan: Patient found to have Polymicrobial(GBS, MSSA, proteus) osteomyelitis now postop day 2 right BKA Vascor surgery following an appreciate recommendations (2) Bacteremia Current Visit: Yes Status: Acute Assessment and Plan: Blood cultures positive for polymicrobial infection (GBS, MSSA, proteus) Repeat blood cultures negative TTE negative for vegetations. ID following with recommendations to continue cefazolin. (3) Anemia in chronic kidney disease Current Visit: Yes Status: Acute Assessment and Plan: Patient now postop day 2 right BKA In addition, patient continues to have acute on chronic anemia despite transfusion of 9 units of packed red blood cells; will need to transfuse 2 additional units of packed red blood cells Hemoglobin 6.7 this morning and will be transfused 2 units of packed red blood cells Will continue to monitor H&H (4) Atrial fibrillation, chronic Current Visit: Yes Status: Chronic Assessment and Plan: Patient Xarelto was held due to surgery Patient also with acute on chronic anemia as above Will continue holding until hemoglobin stabilizes and okay per surgery to restart (5) Acute kidney injury superimposed on chronic kidney disease Current Visit: No Status: Acute Assessment and Plan: Temp HD line placed 09/02/18 and HD initiated. Nephrology following and appreciate recommendations (6) Sepsis Current Visit: Yes Status: Acute Assessment and Plan: Resolved; secondary to the above (7) Obesity Current Visit: Yes Status: Acute Assessment and Plan: BMI 41.8 DVT Prophylaxis: SCD - Time Spent with Patient Total time spent is greater than 50% in coordination of care (as documented) at patient's floor/unit and/or counseling patient: Internal Medicine: Result - Labs CBC & Chem 7: 09/15/18 04:50 09/15/18 08:26 Labs: Short CBC 09/14/18 09/14/18 09/15/18 Range/Units 10:52 23:40 04:50 WBC 12.0 H 11.0 (4.3-11.1) K/mcL Hgb 6.6 L 7.0 L 6.7 L (12.9-16.9) g/dL Hct 20.5 L 21.5 L 20.3 L (37.5-50.1) % Plt Count 546 H 473 H (140-400) K/mcL Neutrophils # 9.1 H 8.3 (1.6-8.9) K/mcL BMP 09/15/18 08:26 Sodium 128 L Potassium 5.3 H Chloride 98 Carbon Dioxide 26 BUN 46 H Creatinine 2.25 H Glucose 286 H Calcium 8.3 L - ABG Interpretation ABG results: PT/INR, D-dimer PT 12.7 Seconds (9.4-12.1) H 09/07/18 15:50 - Impressions Impressions Foot X-Ray 09/14/18 13:31 IMPRESSION: 1. Charcot arthropathy, with severe midfoot disorganization and fragmentation, as demonstrated on previous exams. 2. Significant plantar surface soft tissue swelling, which is secondary to an abscess, seen on the MRI foot obtained earlier today. 3. No radiographic changes of osteomyelitis, although, there is known osteomyelitis within the cuboid bone. D/ / Carlitos Fuchs MD / Carlitos Fuchs MD Interpreting Provider: Carlitos Fuchs MD Foot MRI 09/14/18 15:12 IMPRESSION: 1. Large plantar subcutaneous fluid collection most consistent with abscess. This is contiguous with the mid and hindfoot articulations and measures approximately 8.4 x 5.6 x 3.1 cm. 2. Marrow signal changes within the cuboid which abuts the fluid collection, most consistent with osteomyelitis. 3. Septic arthritis throughout the mid and hindfoot cannot be excluded given the continuity with the plantar subcutaneous fluid collection. 4. Erosive change within the posterior malleolus. Considerations include Charcot arthropathy and osteomyelitis. Aspiration of the tibiotalar joint is suggested. 5. Peroneal and medial flexor tenosynovitis, possibly infectious. 6. 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 D/ / 09/14/2018 11:51:43 Tyshawn Estes MD / Liliya Esparza Interpreting Provider: Tyshawn Estes MD Consult Discharge Plan - Plan Instructions: Tamsulosin (By mouth) Additional Instructions: daily dressing changes to right BKA Referrals: José Miguel Negro MD [Primary Care Provider] - Marcus Johnson MD [Partnered Physician] - (Follow-up in vascular surgery clinic with Dr. Johsnon in 6 weeks for staple removal.) (1) Osteomyelitis Qualifiers: Osteomyelitis type: subacute Osteomyelitis location: foot Laterality: left Qualified Code(s): M86.272 - Subacute osteomyelitis, left ankle and foot (3) Anemia in chronic kidney disease Qualifiers: Chronic kidney disease stage: stage 3 (moderate) Qualified Code(s): N18.3 - Chronic kidney disease, stage 3 (moderate); D63.1 - Anemia in chronic kidney disease (6) Sepsis Qualifiers: Sepsis type: sepsis due to unspecified organism Qualified Code(s): A41.9 - Sepsis, unspecified organism
--- NOTE | 2018-09-15 11:13 | Urology - Consult Note ---
Date of Encounter: 09/15/18 Time of Encounter: 10:00 - Assessment and Plan (1) Urinary retention Current Visit: Yes Status: Acute Assessment and plan: Patient is a 48-year-old male who presents with urinary retention. Patient leila rosenbaum has a neurogenic bladder secondary to chronic, uncontrolled diabetes mellitus. We discussed continuing Flomax daily, as it was started by the primary team during this hospital stay. We will also continue with Blanco decompression and plan for an outpatient voiding trial in 1-2 weeks as well as to discuss other options to manage his voiding dysfunction. (2) Solitary kidney, acquired Current Visit: Yes Status: Acute (3) Erectile dysfunction Current Visit: Yes Status: Acute Assessment and plan: Patient is a 48-year-old male who presents with a history of erectile dysfunction. We discussed the erectile dysfunction may also be directly related to uncontrolled diabetes mellitus. Patient reports he is tried Viagra without improvement. I counseled patient there are other alternatives that we could possibly discuss at his outpatient follow-up. Qualifiers: Erectile dysfunction type: due to other secondary cause Qualified Code(s): N52.1 - Erectile dysfunction due to diseases classified elsewhere Urology CN:[facility] Consult date: 09/15/18 Reason for consult Urology: Other (urinary retention) Requesting physician: Henrik Lerner History of present illness: Patient is a 48-year-old male who presents with a history of acute urinary retention. Patient presented to the emergency department with complaints of oliguria and progressive weakness. Patient has a known history of stage III chronic kidney disease and has a long-standing history of uncontrolled type 2 diabetes mellitus and hypertension. Patient follows regularly with podiatry for diabetic foot care, and he recently underwent surgery with Dr. Ferrell for a diabetic foot abscess. Patient has a solitary kidney and is status post left nephrectomy due to a nonfunctioning kidney. Patient underwent renal ultrasound that was reassuring and showed proper Blanco placement. Patient has been straight catheterized multiple times during this hospital stay and now has an indwelling Blanco. Nurse reports each catheterization yielded over a liter of urine. Patient is following with nephrology and has undergone hemodialysis, patient is not established with a urologist. Patient also expresses concern for erectile dysfunction and wishes to further address this at an outpatient follow- up. Patient states he experiences daytime urinary frequency, urgency and hesitancy. Patient also reports weak stream and feeling of incomplete voids at baseline. Patient denies any dysuria, gross hematuria or incontinence. Currently, patient is resting comfortably in bed, and Blanco catheter is indwel ling draining transparent, clear yellow urine into bedside bag. Patient denies any known family history of prostate cancer, renal cancer or other malignancy. Past Med Surg Social Fam HX - Past Medical History Medical history: diabetes, hypertension, other Additional medical history: legally blind in right eye, Left kidney removal in 1999, fractured C4 in 2001 ( as stated by PT). Psychiatric history: no psych history - Past Surgical History Surgical History: other Additional surgical history: left kidney removed, bilat foot surgery - Social History Smoking Status: Current every day smoker Smokeless Tobacco Status: No Alcohol use: none Drug use: none - Family History Father Living Status: Hx Family Cancer: Yes (lung and brain) Medications and Allergies Albuterol Sulfate [Albuterol Inhaler] 2 puff IH Q4H PRN 08/03/18 [History] Amlodipine Besylate 5 mg PO DAILY 08/03/18 [History] Cholecalciferol (Vitamin D3) [Optimal D3] 50,000 unit PO QWEEK 08/03/18 [History ] CloNIDine Patch [Catapres-Tts] 0.2 mg TD QWEEK 08/03/18 [History] Furosemide [Lasix] 40 mg PO DAILY 08/03/18 [History] Insulin Glargine,Hum.rec.anlog [Basaglar Kwikpen U-100] 35 unit SQ BID 08/03/18 [History] Insulin LISPRO [HumaLOG] 30 units SQ TID 08/03/18 [History] Losartan/Hydrochlorothiazide [Losartan-Hctz 100-25 mg Tab] 1 each PO DAILY 08/03/18 [History] OxyCODONE/APAP 10/325 [Percocet 10/325 MG] 1 each PO TID PRN 08/03/18 [History] Rivaroxaban [Xarelto] 15 mg PO DAILY 08/03/18 [History] Sertraline [Zoloft] 50 mg PO DAILY 08/03/18 [History] Sertraline [Zoloft] 100 mg PO DAILY 08/03/18 [History] Umeclidinium [place] [Incruse Ellipta] 1 puff IH DAILY 08/03/18 [History] Allergy/AdvReac Type Severity Reaction Status Date / Time No Known Allergies Allergy Verified 05/06/16 14:33 Review of Systems - Constitutional no chills, no fatigue, no fever(s) - EENT Nose, mouth and throat: no dizziness, no headache(s) - Cardiovascular no chest pain, no diaphoresis, no dyspnea - Respiratory no cough, no dyspnea - Gastrointestinal no abdominal pain, no nausea, no vomiting - Genitourinary change in urinary stream, difficulty urinating, erectile dysfunction, nocturia, post void dribbling, urinary frequency, urinary hesitancy, urinary urgency, no dysuria, no flank pain, no hematuria, no urinary incontinence - Musculoskeletal no back pain, no muscle weakness - Integumentary no erythema, no rash - Neurological no confusion, no syncope - Psychiatric no anxiety, no confusion - Hematologic/Lymphatic no easy bleeding, no easy bruising - Allergic/Immunologic no throat swelling, no wheezing Exam Initial Vital Signs Temp Pulse Resp BP Pulse Ox 97.6 F 63 14 81/49 91 09/01/18 15:28 09/01/18 15:28 09/01/18 15:28 09/01/18 15:28 09/01/18 15:28 - General physical appearance Present: well developed, no distress, no pain - Eyes Present: PERRL, normal ocular movement - ENT Present: normal nares, no hearing loss - Neck Present: no masses, trachea midline, no lymphadenopathy - Respiratory Present: normal respiratory effort - Cardiovascular Cardiovascular exam IM: RRR - Abdomen Abdomen: Present: soft, non tender - Genitourinary other (Blanco catheter indwelling and draining transparent, clearly urine into b edside bag) - Integumentary Present: no rash, no abnormal pigmentation - Neurologic Present: normal coordination - Musculoskeletal Present: other (normal posture ) Urology Results - Labs 09/15/18 04:50 09/15/18 08:26 Abnormal lab results WBC 12.0 K/mcL (4.3-11.1) H 09/14/18 10:52 RBC 2.23 M/mcL (4.19-5.50) L 09/15/18 04:50 Hgb 6.7 g/dL (12.9-16.9) L 09/15/18 04:50 Hct 20.3 % (37.5-50.1) L 09/15/18 04:50 MCV 82.6 fL (83.0-100.0) L 09/03/18 03:55 Plt Count 473 K/mcL (140-400) H 09/15/18 04:50 MPV 8.1 fL (9.4-12.4) L 09/15/18 04:50 Immature Gran % 4.3 % (0-4) H 09/08/18 03:30 8.0 % (0-4) H 09/06/18 03:45 2.0 % (0) H 09/03/18 03:55 9.1 K/mcL (1.6-8.9) H 09/14/18 10:52 Nucleated RBCs/100 WBC 0.2 /100 WBC (0) H 09/04/18 04:00 Present (Not Present) A 09/07/18 13:55 Decreased (Normal) L 09/05/18 04:53 1+ (Not Present) A 09/02/18 10:05 Present (Not Present) A 09/03/18 03:55 1+ (Not Present) A 09/02/18 10:05 ESR >= 130 mm/hr (0-10) H 09/06/18 10:20 369 mg/dL (30-200) H 09/10/18 07:30 PT 12.7 Seconds (9.4-12.1) H 09/07/18 15:50 724 mg/dL (169-393) H* 09/10/18 07:30 Factor VIII Activity 762 % (56-191) H 09/08/18 17:00 von Willebrand Activity 344 % (51-215) H 09/08/18 17:00 von Willebrand Antigen 345 % (52-214) H 09/08/18 17:00 Sodium 128 mEq/L (136-145) L 09/15/18 08:26 Potassium 5.3 mEq/L (3.5-5.1) H 09/15/18 08:26 Chloride 97 mEq/L (98-107) L 09/14/18 04:00 Carbon Dioxide 22 mEq/L (23-29) L 09/12/18 04:45 BUN 46 mg/dL (6-20) H 09/15/18 08:26 2.25 mg/dL (0.70-1.30) H 09/15/18 08:26 Est GFR ( Amer) 38 (> 60) L 09/15/18 08:26 Est GFR (Non-Af Amer) 31 (> 60) L 09/15/18 08:26 Glucose 286 mg/dL (70-105) H 09/15/18 08:26 POC Glucose 294 mg/dL (70-99) H 09/15/18 10:07 8.5 % (-5.6) H 09/04/18 04:00 303 (280-300) H 09/04/18 04:00 Calcium 8.3 mg/dL (8.6-10.3) L 09/15/18 08:26 Iron < 10 mcg/dL (65-175) L 09/12/18 04:45 % Saturation 5 % (20-55) L 09/10/18 07:30 141 mg/dL (203-362) L 09/12/18 04:45 489 ng/mL (20-250) H 09/10/18 07:30 0.3 mg/dL (0.0-0.2) H 09/01/18 15:33 AST 10 Units/L (13-39) L 09/10/18 04:05 122 Units/L (34-104) H 09/01/18 15:33 0.04 ng/mL (< 0.04) H* 09/03/18 01:00 198 mg/L (Less than 10) H 09/04/18 04:00 6.1 g/dL (6.4-8.9) L 09/01/18 15:33 2.3 g/dL (3.5-5.7) L 09/12/18 04:45 5.2 g/dL (2.4-3.5) H 09/12/18 04:45 0.4 (1.1-2.2) L 09/12/18 04:45 Vitamin B12 > 1500 pg/mL (250-1100) H 09/10/18 07:50 [place] (Yellow) A 09/01/18 Unknown Turbid (Clear) A 09/10/18 07:30 Ur Specific [place] 1.029 (1.010-1.025) H 09/01/18 Unknown 100 mg/dL (Neg-Trace) H 09/10/18 07:30 100 mg/dL (Normal) H 09/10/18 07:30 Trace mg/dL (Negative) H 09/01/18 Unknown Large (Negative) H 09/10/18 07:30 Moderate (Negative) H 09/01/18 Unknown 4.0 mg/dL (Normal) H 09/01/18 Unknown Ur Leukocyte Esterase Trace (Negative) H 09/10/18 07:30 5-15 per hpf (0-3) H 09/01/18 Unknown Ur Squamous Epith Cells Many per lpf (None-Few) H 09/01/18 Unknown Ur Culture Indicated? NO. (NO) A 09/01/18 Unknown Ur Microalbumin 24 Hr 351 mg/day (Less than 30) H 09/03/18 23:00 Microalb/Creat Ratio 290 mcg/mg (Less than 30) H 09/03/18 23:00 Ur Total Protein 24 Hr 2128 mg/day (50-80) H 09/03/18 23:00 Protein/Creatinin Ratio 1.76 mg/mg (0.00-0.20) H 09/03/18 23:00 Ur Sodium 24 Hour 33 mEq/day (40-220) L 09/03/18 23:00 Ur Chloride 24 Hour 20 mEq/day (110-250) L 09/03/18 23:00 Ur Phosphorus 24 Hr 0.2 g/day (0.4-1.3) L 09/03/18 23:00 Ur Urea Nitrogen 24 Hr 6 g/day (12-20) L 09/03/18 23:00 Ur Calcium 24 Hr 6 mg/day (100-300) L 09/03/18 23:00 185 mg/dL (1-14) H 09/03/18 23:00 U Free [place] Ch 110.00 mg/dL (0.14-2.42) H 09/02/18 23:00 U Free [place] Ch 19.80 mg/dL (0.02-0.67) H 09/02/18 23:00 Positive (Negative) A 09/11/18 18:40 Positive ng/mL (Aqhvga=837) H 09/11/18 15:45 Hep Bs Antibody 4.61 mIU/mL (10.00-) L 09/01/18 20:52 Hepatitis C Ab Screen Reactive (Nonreactive) H 09/11/18 15:45 Staphylococcus sp PCR DETECTED (Not Detect) A 09/01/18 15:58 Staph aureus (PCR) DETECTED (Not Detect) A 09/01/18 15:58 Streptococcus sp PCR DETECTED (Not Detect) A 09/01/18 15:58 Group B Strep (PCR) DETECTED (Not Detect) A 09/01/18 15:58 Crossmatch See Detail 09/14/18 16:25 Crossmatch Prewarmed See Detail 09/01/18 16:55 Diabetes panel 09/15/18 Range/Units 08:26 Sodium 128 L (136-145) mEq/L Potassium 5.3 H (3.5-5.1) mEq/L Chloride 98 (98-107) mEq/L Carbon Dioxide 26 (23-29) mEq/L BUN 46 H (6-20) mg/dL Creatinine 2.25 H (0.70-1.30) mg/dL Glucose 286 H (70-105) mg/dL Calcium 8.3 L (8.6-10.3) mg/dL Calcium panel 09/15/18 Range/Units 08:26 Calcium 8.3 L (8.6-10.3) mg/dL Pituitary panel 09/15/18 Range/Units 08:26 Sodium 128 L (136-145) mEq/L Potassium 5.3 H (3.5-5.1) mEq/L Chloride 98 (98-107) mEq/L Carbon Dioxide 26 (23-29) mEq/L BUN 46 H (6-20) mg/dL Creatinine 2.25 H (0.70-1.30) mg/dL Glucose 286 H (70-105) mg/dL Calcium 8.3 L (8.6-10.3) mg/dL Adrenal panel 09/15/18 Range/Units 08:26 Sodium 128 L (136-145) mEq/L Potassium 5.3 H (3.5-5.1) mEq/L Chloride 98 (98-107) mEq/L Carbon Dioxide 26 (23-29) mEq/L BUN 46 H (6-20) mg/dL Creatinine 2.25 H (0.70-1.30) mg/dL Glucose 286 H (70-105) mg/dL Calcium 8.3 L (8.6-10.3) mg/dL All other labs normal. - Imaging CT scan - abdomen: report reviewed US - kidney/bladder: report reviewed Consult Discharge Plan - Plan Instructions: Tamsulosin (By mouth) Referrals: José Miguel Negro MD [Primary Care Provider] - Marcus Johnson MD [Partnered Physician] - (Follow-up in vascular surgery clinic with Dr. Johnson in 6 weeks for staple removal.)
[2018-09-15] MEDS ORDERED: Insulin DETEMIR 100 UNIT/ML X5UNITS SQ ONE (12:01)
--- NOTE | 2018-09-15 13:02 | Vascular/[facility] Progress Note ---
Date of Encounter: 09/15/18 Time of Encounter: 12:58 - Assessment and plan (1) Wound of left foot Current Visit: Yes Status: Acute Patient has dressing over left lateral foot wound. Patient has deformity of left foot and ankle or Charcot joint. Plan left below the knee amputation tomorrow. External fixator to be removed preoperatively. Patient is aware of surgical plans and need for extended care facility for rehabilitation and aggressive physical therapy assistance in the post amputation period. (2) Chronic ulcer of right foot with fat layer exposed Current Visit: Yes Status: Acute Patient is postoperative day #2 following right [id number] dictation for Charcot joint and extensive osteomyelitis of right foot and ankle. Patient will need to go to [facility] when medically cleared. Begin daily dressing changes. (3) Bacteremia Current Visit: Yes Status: Acute Patient with bacteremia on initial blood cultures. Follow blood cultures are pending for final results. (4) Osteomyelitis Current Visit: Yes Status: Acute Patient with diffuse osteomyelitis of right foot and ankle. Patient is status post maximum effort for wound care and limb salvage. Due to the extensive nature of his infection and wound it was recommended to the patient by the podiatry service to consider amputation. Patient has done so and wishes to undergo amputation in order to facilitate his future medical care. The potential risks and benefits as well as complications and alternatives were reviewed with the patient. Our tentative plan is to offer the patient a right below the knee amputation on Tuesday afternoon of this week. Qualifiers: Osteomyelitis type: subacute Osteomyelitis location: foot Laterality: left Qualified Code(s): M86.272 - Subacute osteomyelitis, left ankle and foot - Subjective Interval history: Patient is postoperative day #2 following right [id number] amputation. The patient complains of postoperative surgical site pain as expected as well as phantom limb sensation as expected. Patient is hemodynamically stable. Vital Signs, Last 4 Hours Temp Pulse Resp BP Pulse Ox 09/15/18 10:49 97.5 F L 80 20 150/84 96 09/15/18 09:31 98.5 F 84 14 140/79 99 09/15/18 09:21 98.5 F 84 15 136/72 98 09/15/18 09:11 85 14 139/80 93 09/15/18 09:01 86 14 137/76 92 - Physical Examination Vascular: Present: Amputation(s) (dressing removed-eliana intact-no ischemia- small clear colored blebs on posterior flap-no hematoma-good skin perfusion.) Results 09/15/18 04:50 09/15/18 08:26 Lab Results, Last 24 hours 09/14/18 09/15/18 09/15/18 23:40 04:50 08:26 WBC 11.0 Hgb 7.0 L 6.7 L Hct 21.5 L 20.3 L Plt Count 473 H Sodium 128 L Potassium 5.3 H Chloride 98 Carbon Dioxide 26 BUN 46 H Creatinine 2.25 H Glucose 286 H Calcium 8.3 L Consult Discharge Plan - Plan Instructions: Tamsulosin (By mouth) Additional Instructions: daily dressing changes to right BKA Referrals: José Miguel Negro MD [Primary Care Provider] - Marcus Johnson MD [Partnered Physician] - (Follow-up in vascular surgery clinic with Dr. Johnson in 6 weeks for staple removal.)
--- NOTE | 2018-09-15 13:11 | Nephrology Progress Note ---
Date of Encounter: 09/15/18 Time of Encounter: 13:11 - Assessment and Plan (1) CESILIA (acute kidney injury) Current Visit: Yes Status: Acute SCr decreasing slightly last HD 09/12/18, will hold off today Will continue to reassess HD need daily but renal recovery might be imminent Continue to avoid nephrotoxins if possible (2) Hyperkalemia Current Visit: No Status: Acute Potassium noted at 5.3, will monitor Continue renal diet (3) Anemia Current Visit: Yes Status: Acute Hgb noted. will monitor Transfusion parameters per primary team Qualifiers: Anemia type: other cause Other causes of anemia: other cause, not classified Qualified Code(s): D64.89 - Other specified anemias (4) CKD (chronic kidney disease), stage III Current Visit: Yes Status: Chronic (5) Hyponatremia Current Visit: Yes Status: Acute (6) Solitary kidney, acquired Current Visit: Yes Status: Acute (7) Chronic ulcer of right foot with fat layer exposed Current Visit: Yes Status: Resolved Subjective Principal diagnosis: Abscess left foot Interval history: Mr. Perkins was seen. No new complaint. ROS seem stable. Objective - Vital Signs Vital signs: Vital Signs Temp Pulse Resp BP Pulse Ox 09/15/18 10:49 97.5 F L 80 20 150/84 96 09/15/18 09:31 98.5 F 84 14 140/79 99 09/15/18 09:21 98.5 F 84 15 136/72 98 09/15/18 09:11 85 14 139/80 93 09/15/18 09:01 86 14 137/76 92 09/15/18 08:51 97.1 F L 86 16 145/88 100 09/15/18 04:40 99.2 F 86 17 168/92 95 09/15/18 00:22 98.1 F 92 17 148/90 95 09/14/18 21:11 99.5 F 90 20 156/88 96 09/14/18 20:14 99.8 F H 96 17 159/93 94 09/14/18 18:07 98.7 F 101 22 164/93 09/14/18 18:04 99.0 F 99 18 158/93 96 09/14/18 15:52 98.8 F 94 20 147/85 94 Intake and Output 09/14/18 09/15/18 09/15/18 23:59 07:59 15:59 Intake Total 970 / 1250 Output Total 1450 / 2850 1400 / 1870 470 / 1870 Balance -480 / -1600 -1400 / -1870 -470 / -1870 Intake: IV Fluids Ancef 1,000 MG In Water for inj . (sterile) 10 ML @ 200 mls/hr IVPB Q12H [facility] Rx#:[id number] Oral 360 / 630 Blood Product 600 / 600 Rbcs Leuko Poor As-1 Unit 600 / 600 [id number] Output: Estimated Blood Loss Urine Amount (Catheter) 450 / 450 Catheter 1450 / 1450 1400 / 1400 Urethral (Blanco) 1100 / 1100 Other: Meal ada vinnie ice crream Percent of Meal Consumed 100% Blood Glucose* 267 235 356 - General Appearance General appearance: Present: well-developed, well-nourished EENT: Present: ATNC Neck: Present: supple Cardiology: Present: regular rate Neurologic: Present: alert and oriented x3 Psychiatric: Present: mood/affect appropriate - Lab 09/15/18 04:50 09/15/18 08:26 Most recent lab results 09/15/18 08:26 Calcium 8.3 L Consult Discharge Plan - Plan Instructions: Tamsulosin (By mouth) Additional Instructions: daily dressing changes to right BKA Referrals: José Miguel Negro MD [Primary Care Provider] - Marcus Johnson MD [Partnered Physician] - (Follow-up in vascular surgery clinic with Dr. Johnson in 6 weeks for staple removal.)
[2018-09-15] MEDS ORDERED: 0.9 % Sodium Chloride 250 ML ONE ×2 (13:23→17:14)
[2018-09-15] MEDS ORDERED: *HR* FentaNYL PATCH 25 MCG PATCH TD SCH (13:30)
--- NOTE | 2018-09-15 14:56 | Infectious Disease Progress No ---
ID Progress Note Date of Encounter: 09/15/18 Time of Encounter: 09:55 - Subjective Subjective: Patient seen and examined. Status post right foot irrigation and debridement and incision and drainage with plantar fasciectomy and debridement of the tarsal bone and application of external fixator 09/06/[address] Ferrell. Status post right BKA 09/13/[address] Johnson. Status post left foot I & D 09/15/18. Denies fevers, chills, or rigors. Denies chest pain, shortness of breath, or cough. Complains of pain at the BKA site and phantom limb pain. Denies nausea, vomiting, diarrhea, or constipation. States his appetite is good. Urinary retention overnight and required straight catheterization so vo replaced. Denies oral thrush or new skin lesions. States he is hungry and wants to eat. - Objective CBC & Chem 7: 09/15/18 04:50 09/15/18 08:26 - Line Documentation Line Documentation: Dialysis Catheter (Temporary dialysis catheter noted to the right neck with transparent dressing clean, dry, and intact.), Vo Catheter (draining clear yellow urine) - Exam Vitals: Temp Pulse Resp BP Pulse Ox 98.1 F 82 20 151/82 94 09/15/18 13:40 09/15/18 13:40 09/15/18 13:40 09/15/18 13:40 09/15/18 13:40 Exam: Head: Atraumatic, normal inspection, normocephalic. Eye: EOMI, PERRLA, no scleral icterus noted. ENT: Mucous membranes moist. No odontogenic infection noted. Neck: Normal inspection, no meningismus. Temporary dialysis catheter noted to the right neck. Respiratory: Clear to auscultation. No rales, respiratory distress, rhonchi, or wheezes noted. Cardiovascular: Regular rate and rhythm, S1 and S2 audible. No murmurs, rubs, or gallops. GI: Soft, obese, normal bowel sounds. Vo draining clear yellow urin. Extremities: 1+ edema noted to the BLE. Right BKA dressing noted C/D/I. Post-op dressing noted to the left foot C/D/I. Neurological: Alert, oriented 3, no focal deficits. Psychiatric: normal affect, normal mood. Skin: Dry, intact, warm. Normal color. No rashes. - Assessment and Plan (1) Sepsis Current Visit: Yes Status: Acute The patient had two sepsis criteria with acute kidney injury. Likely secondary to bacteremia and right foot infection. White blood cell count normal. Afebrile overnight. Blood cultures drawn 09/01/18 are +2 out of 2 sets for group B strep, MSSA, and Proteus mirabilis. Repeat blood cultures drawn 09/06/18 are negative x 2 sets. Repeat blood cultures drawn 09/07/18 are negative x 2 sets. Qualifiers: Sepsis type: sepsis due to unspecified organism Qualified Code(s): A41.9 - Sepsis, unspecified organism SNOMED Code(s): 53929445 (2) Bacteremia Current Visit: Yes Status: Acute Causative organism: Group B strep, MSSA, Proteus mirabilis. Source: Right foot infection. Blood cultures drawn 09/01/18 are +2 out of 2 sets. Repeat blood cultures drawn 09/06/18 are negative x 2 sets. Repeat blood cultures drawn 09/07/18 are negative x 2 sets. Complicated due to hardware in the left wrist. No endocarditis stigmata noted on exam. Rheumatoid factor normal. TTE negative for vegetations. The patient has one major and one minor modified Warren criteria. Currently on cefazolin. SNOMED Code(s): 4793204 (3) Infection of right foot Current Visit: Yes Status: Resolved Location: Right foot. Causative organism: GBS, MSSA, P. mirabilis. Likely secondary to chronic non-healing ulcers and uncontrolled DM. X-ray of the right foot 09/01/18 showed findings consistent with Charcot arthropathy/neuropathic foot not significantly changed from the prior studies and extensive soft tissue swelling suggesting cellulitis. MRI of the right foot 09/04/18 showed plantar soft tissue ulcer at the level of the cuboid with suspected interval soft tissue graft placement. There is edema of the graft which may reflect soft tissue infection. Suspected bilateral soft tissue ulceration with associated phlegmonous change at the level of the inframalleolar peroneal tendons. There is no tenosynovitis and complete full- thickness peroneal tendon tears. The tenosynovitis may be infectious. New multifocal marrow signal abnormality involving the talus, calcaneus, cuboid, and navicular suspicious for osteonecrosis and less likely osteomyelitis. Persistent marrow signal and abnormality in the cuboid which is suspicious for osteoarthritis and a chronic cuboid erosion or defect is noted. Podiatry consulted. Per their note, purulent drainage expressed on exam. Status post right foot incision and drainage and irrigation and debridement, plantar fasciectomy, debridement of the tarsal bone, and application of external fixator 09/06/[address] Armstrong. Operative note reviewed. Gross purulence noted throughout the foot. Intraoperative tissue and bone cultures positive for MSSA, GBS, and P. mirabilis. ESR greater than 130, CRP 198. Status post right BKA 09/13/18. SNOMED Code(s): 084740637 (4) Cellulitis Current Visit: Yes Status: Resolved Location: Right foot. Causative organism: GBS, MSSA, P. mirabilis. Purulent. Likely secondary to chronic ulcers. Podiatry consulted. Status post I & D and right BKA. Qualifiers: Site of cellulitis: other site Qualified Code(s): L03.818 - Cellulitis of other sites SNOMED Code(s): 315262540 (5) Wound of left foot Current Visit: Yes Status: Acute Location: Left lateral foot. Etiology: Unclear. CT of the left foot showed plantar subcutaneous edema in the midfoot compatible with cellulitis with a questionable fluid collection plantar to the cuboid bone. Questionable erosive changes along the plantar surface of the cuboid with osteomyelitis not excluded. Severe midfoot disorganization and fragmentation compatible with Charcot arthropathy was noted. MRI of the left foot showed findings concerning for abscess. Podiatry consulted and following. Status post I & D left foot 09/15/[address] Ferrell. Intra-op cultures pending. Currently on cefazolin. SNOMED Code(s): 310270707, 133492965 (6) Chronic ulcer of right foot with fat layer exposed Current Visit: Yes Status: Resolved Location: Right foot. Podiatry consulted. Status post right BKA. SNOMED Code(s): 271741559 (7) Acute kidney injury superimposed on chronic kidney disease Current Visit: No Status: Acute Serum creatinine 6.57 on admission with uremia and diminished urine output. Nephrology consulted. Temp HD line placed 09/02/18 and HD initiated. Avoid nephrotoxins as able. Dose-adjust medications. Vancomycin discontinued. SNOMED Code(s): 82998648 (8) Anemia Current Visit: Yes Status: Acute Qualifiers: Anemia type: other cause Other causes of anemia: other cause, not classified Qualified Code(s): D64.89 - Other specified anemias SNOMED Code(s): 948408590 (9) Elevated troponin Current Visit: Yes Status: Acute SNOMED Code(s): 120958321, 553206909, 166671442 (10) Hyponatremia Current Visit: Yes Status: Acute SNOMED Code(s): 89868542 (11) Pulmonary edema Current Visit: Yes Status: Acute Qualifiers: Chronicity: acute Qualified Code(s): J81.0 - Acute pulmonary edema SNOMED Code(s): 39368803 (12) Atrial fibrillation, chronic Current Visit: Yes Status: Chronic SNOMED Code(s): 314777002 (13) COPD (chronic obstructive pulmonary disease) Current Visit: Yes Status: Chronic Qualifiers: Emphysema type: unspecified Qualified Code(s): J43.9 - Emphysema, unspecified SNOMED Code(s): 23060258 (14) T2DM (type 2 diabetes mellitus) Current Visit: Yes Status: Chronic HgbA1C 8.5%. Recommend aggressive glucose monitoring and control to promote wound healing and prevent re-infection. Management per the primary team. Qualifiers: Diabetes mellitus terminologist insulin use: without terminologist use Diabetes mellitus complication status: with kidney complications Diabetes mellitus complication detail: with chronic kidney disease Chronic kidney disease stage: stage 3 (moderate) Qualified Code(s): E11.22 - Type 2 diabetes mellitus with diabetic chronic kidney disease; N18.3 - Chronic kidney disease, stage 3 (moderate) SNOMED Code(s): 53303495 (15) Hepatitis C Current Visit: Yes Status: Acute Qualifiers: Viral hepatitis chronicity: chronic Hepatic coma status: without hepatic coma Qualified Code(s): B18.2 - Chronic viral hepatitis C SNOMED Code(s): 60671111 (16) Urinary retention Current Visit: Yes Status: Acute Urology consulted. SNOMED Code(s): 968875174 - Recommendations Recommendations: Await left foot intra-op cultures. The patient will likely require a MAHESH prior to discharge. Wound care and activity restrictions per the podiatry team. CESILIA management per the nephrology team. Continue Cefazolin 1 gram IV Q12H. Dose-adjusted for HD status. Duration of treatment depends on the clinical picture pending MAHESH results and left foot cultures. Monitor renal function and dose-adjust antibiotics. Avoid insertion of long-term IV access until final discharge arrangements made. social services analyst to assist with discharge planning. Consult Discharge Plan - Plan Instructions: Tamsulosin (By mouth) Additional Instructions: daily dressing changes to right BKA Referrals: José Miguel Negro MD [Primary Care Provider] - Marcus Johnson MD [Partnered Physician] - (Follow-up in vascular surgery clinic with Dr. Johnson in 6 weeks for staple removal.) - Attending Attestation I have personally performed a face to face evaluation on this patient. I have reviewed and agree with the care plan. History and Exam by me shows: Assessment and Plan: 1. Sepsis 2. Bacteremia with group B streptococcus, MSSA and Proteus mirabilis likely source right foot infection 3. Infection of right foot status post I&D, plantar fasciotomy, debridement of tarsal bone and application of external fixator 09/06/2018 4. Cellulitis 5. Chronic ulcer of right foot with fat layer exposed 6. CESILIA on CKD 7. left foot abscess status post I&D by Dr. Ferrell 09/15/2018. Intra-Op cult ures pending. Recommendations: Continue cefazolin 1 g increased to IV every 8 hours based on improving kidney function Continue levofloxacin dose adjust based on the creatinine clearance Continue to observe off dialysis Await Intra-Op cultures Duration of treatment depends on the Intra-Op cultures and a MAHESH findings
[2018-09-16] MEDS: ceFAZolin 1,000 MG in Water for inj. (sterile) 20 ML 10 ML IVPB SCH ×3 (00:09→16:18)
[2018-09-16] MEDS: *HR* FentaNYL (PF) 100 MCG/2 ML VIAL IVP PRN ×3 (00:11→12:00)
[2018-09-16] MEDS: cloNIDine HCl 0.1 MG TABLET PO PRN ×2 (00:44→08:36)
[2018-09-16] MEDS: *HR* OxyCODONE Immed Rel 5 MG TABLET PO PRN ×4 (03:21→20:53)
[2018-09-16 06:24] LABS: Basophils % 0.3 %; Eosinophils % 0.1 %; Hematocrit 22.3 % (37.5-50.1); Hemoglobin 7.4 g/dL (12.9-16.9); Immature Granulocytes % 2.5 % (0-4); Lymphocytes # 1.3 K/mcL (0.6-4.6); Lymphocytes % 9.5 %; Mean Corpuscular HGB Conc 33.2 g/dL (31.6-35.5); Mean Corpuscular Volume 87.5 fL (83.0-100.0); Mean Platelet Volume 8.4 fL (9.4-12.4); Monocytes % 6.9 %; Platelet Count 471 K/mcL (140-400); Red Blood Count 2.55 M/mcL (4.19-5.50); Red Cell Distribution Width 13.9 % (11.5-14.5); Segmented Neutrophils % 80.7 %
--- NOTE | 2018-09-16 08:35 | Urology Progress Note ---
Date of Encounter: 09/16/18 Time of Encounter: 08:34 - Assessment and Plan (1) Urinary retention Current Visit: Yes Status: Acute Assessment and plan: Discharge with [place] catheter in place. Patient can follow up with urology in 1-2 weeks. We will likely teach the patient intermittent catheterization as he states he has had difficulty with hesitancy and emptying over the last year. He likely has some component of neurogenic bladder from diabetes. Urology sign off. Progress Note Narrative: Patient tolerating the catheter well. Objective Initial Vital Signs Temp Pulse Resp BP Pulse Ox 97.6 F 63 14 81/49 91 09/01/18 15:28 09/01/18 15:28 09/01/18 15:28 09/01/18 15:28 09/01/18 15:28 - General physical appearance Present: no distress - Additional Exam Blanco catheter draining clear urine - Labs 09/16/18 06:09 09/15/18 08:26 Diabetes panel 09/15/18 Range/Units 08:26 Sodium 128 L (136-145) mEq/L Potassium 5.3 H (3.5-5.1) mEq/L Chloride 98 (98-107) mEq/L Carbon Dioxide 26 (23-29) mEq/L BUN 46 H (6-20) mg/dL Creatinine 2.25 H (0.70-1.30) mg/dL Glucose 286 H (70-105) mg/dL Calcium 8.3 L (8.6-10.3) mg/dL Calcium panel 09/15/18 Range/Units 08:26 Calcium 8.3 L (8.6-10.3) mg/dL Pituitary panel 09/15/18 Range/Units 08:26 Sodium 128 L (136-145) mEq/L Potassium 5.3 H (3.5-5.1) mEq/L Chloride 98 (98-107) mEq/L Carbon Dioxide 26 (23-29) mEq/L BUN 46 H (6-20) mg/dL Creatinine 2.25 H (0.70-1.30) mg/dL Glucose 286 H (70-105) mg/dL Calcium 8.3 L (8.6-10.3) mg/dL Adrenal panel 09/15/18 Range/Units 08:26 Sodium 128 L (136-145) mEq/L Potassium 5.3 H (3.5-5.1) mEq/L Chloride 98 (98-107) mEq/L Carbon Dioxide 26 (23-29) mEq/L BUN 46 H (6-20) mg/dL Creatinine 2.25 H (0.70-1.30) mg/dL Glucose 286 H (70-105) mg/dL Calcium 8.3 L (8.6-10.3) mg/dL Consult Discharge Plan - Plan Instructions: Tamsulosin (By mouth) Additional Instructions: daily dressing changes to right BKA Referrals: José Miguel Negro MD [Primary Care Provider] - Marcus Johnson MD [Partnered Physician] - (Follow-up in vascular surgery clinic with Dr. Johnson in 6 weeks for staple removal.)
[2018-09-16] MEDS: Folic Acid 1 MG TABLET PO SCH (08:36)
[2018-09-16] MEDS: Insulin LISPRO 300 UNITS/3 ML VIAL SQ SCH ×7 (08:37→20:55)
[2018-09-16] MEDS: Insulin DETEMIR 100 UNIT/ML X5UNITS SQ SCH ×2 (08:42→20:54)
--- NOTE | 2018-09-16 09:36 | Nephrology Progress Note ---
Date of Encounter: 09/16/18 Time of Encounter: 09:36 - Assessment and Plan (1) CESILIA (acute kidney injury) Current Visit: Yes Status: Acute SCr decreasing slightly last HD 09/12/18, will hold off today Will continue to reassess HD need daily but renal recovery might be imminent Continue to avoid nephrotoxins if possible Will give gentle fluid secondary to post atn diuresis. (2) Hyperkalemia Current Visit: No Status: Acute (3) Anemia Current Visit: Yes Status: Acute Qualifiers: Anemia type: other cause Other causes of anemia: other cause, not classifie d Qualified Code(s): D64.89 - Other specified anemias (4) CKD (chronic kidney disease), stage III Current Visit: Yes Status: Chronic (5) Hyponatremia Current Visit: Yes Status: Acute (6) Solitary kidney, acquired Current Visit: Yes Status: Acute (7) Chronic ulcer of right foot with fat layer exposed Current Visit: Yes Status: Resolved Subjective Principal diagnosis: Abscess left foot Interval history: Mr. Perkins was seen. No new complaint. ROS seem stable. is at his bedside. Objective - Vital Signs Vital signs: Vital Signs Temp Pulse Resp BP Pulse Ox 09/16/18 07:35 98.6 F 65 18 168/84 96 09/16/18 04:52 97.8 F 71 17 181/97 96 09/16/18 00:12 99.1 F 84 17 168/80 97 09/15/18 19:37 97.4 F L 82 17 175/93 97 09/15/18 17:40 98.8 F 88 175/85 09/15/18 17:25 97.8 F 70 20 94 09/15/18 17:21 98.1 F 69 18 95 09/15/18 13:55 98.2 F 84 20 155/80 09/15/18 13:40 98.1 F 82 20 151/82 94 09/15/18 13:36 99.0 F 20 158/85 96 09/15/18 12:40 98.4 F 92 20 152/84 95 09/15/18 11:40 98.4 F 88 18 148/82 94 09/15/18 10:49 97.5 F L 80 20 150/84 96 09/15/18 10:10 98.3 F 86 18 148/84 94 09/15/18 09:40 98.4 F 82 18 159/89 100 Intake and Output 09/15/18 09/16/18 09/16/18 23:59 07:59 15:59 Intake Total 760 / 1050 Output Total 750 / 2620 Balance 10 / 1570 Intake: IV Fluids Ancef 1,000 MG In Water for inj . (sterile) 10 ML @ 200 mls/hr IVPB Q8HR [facility] Rx#:[id number] Blood Product 750 / 1000 Rbcs Leuko Poor As-1 Unit 500 / 500 [id number] Rbcs Leuko Poor As-3 Ph Unit 250 / 500 [id number] Output: Catheter 750 / 2150 Other: Blood Glucose* 501 440 - General Appearance General appearance: Present: well-developed, well-nourished EENT: Present: ATNC Cardiology: Present: regular rate Integumentary: Present: warm and dry Neurologic: Present: alert and oriented x3 Musculoskeletal: Present: no cyanosis Psychiatric: Present: mood/affect appropriate - Lab 09/16/18 12:28 09/16/18 12:28 Consult Discharge Plan - Plan Instructions: Tamsulosin (By mouth) Additional Instructions: daily dressing changes to right BKA Referrals: José Miguel Negro MD [Primary Care Provider] - Marcus Johnson MD [Partnered Physician] - (Follow-up in vascular surgery clinic with Dr. Johnson in 6 weeks for staple removal.)
--- NOTE | 2018-09-16 10:48 | Internal Med Progress Note ---
Hospitalist Progress Note - Encounter Date of Encounter: 09/16/18 Time of Encounter: 11:00 - Subjective Interval History: Patient is a 48-year-old male who presented with right lower extremity wound found to have polymicrobial osteomyelitis of right lower extremity with bacteremia of the same. Patient now postop day 3 right BKA Patient also status post incision and drainage on 09/15/18 of left foot In addition, patient continues to have acute on chronic anemia despite transfusion of 11 units of packed red blood cells; his hemoglobin is 7.4 this morning - Exam Vitals: Temp Pulse Resp BP Pulse Ox 98.6 F 65 18 168/84 96 09/16/18 07:35 09/16/18 07:35 09/16/18 07:35 09/16/18 07:35 09/16/18 07:35 Exam: Gen.: Nonacute distress, alert and oriented 3 ENT: Mucosal membranes moist Respiratory: Lungs are clear to auscultation bilaterally without any wheezing rhonchi or rales Cardiovascular: Normal S1 and S2 regular rate rhythm no murmurs rubs or gallops Abdomen: Soft, nontender and nondistended with positive bowel sounds Skin: Normal color - Assessment and Plan (1) Osteomyelitis Current Visit: Yes Status: Acute Assessment and Plan: Patient found to have Polymicrobial(GBS, MSSA, proteus) osteomyelitis now postop day 3 right BKA Vascor surgery following an appreciate recommendations (2) Bacteremia Current Visit: Yes Status: Acute Assessment and Plan: Blood cultures positive for polymicrobial infection (GBS, MSSA, proteus) Repeat blood cultures negative TTE negative for vegetations. ID following with recommendations to continue cefazolin. (3) Anemia in chronic kidney disease Current Visit: Yes Status: Acute Assessment and Plan: Patient now postop day 3 right BKA He continues to have acute on chronic anemia despite transfusion of 11 units of packed red blood cells Hemoglobin is 7.4 this morning Will continue to monitor H&H (4) Atrial fibrillation, chronic Current Visit: Yes Status: Chronic Assessment and Plan: Patient Xarelto was held due to surgery Patient also with acute on chronic anemia as above Will continue holding until hemoglobin stabilizes and okay per surgery to restart (5) Acute kidney injury superimposed on chronic kidney disease Current Visit: No Status: Acute Assessment and Plan: Temp HD line placed 09/02/18 and HD initiated. Patient being reassessed for hemodialysis need daily; renal recovery might be imminent per nephrology Nephrology following and appreciate recommendations (6) Sepsis Current Visit: Yes Status: Acute Assessment and Plan: Resolved; secondary to the above (7) Obesity Current Visit: Yes Status: Acute Assessment and Plan: BMI 41.8 DVT Prophylaxis: SCD - Time Spent with Patient Total time spent is greater than 50% in coordination of care (as documented) at patient's floor/unit and/or counseling patient: Internal Medicine: Result - Labs CBC & Chem 7: 09/16/18 12:28 09/16/18 12:28 Labs: Short CBC 09/16/18 Range/Units 06:09 WBC 13.7 H (4.3-11.1) K/mcL Hgb 7.4 L (12.9-16.9) g/dL Hct 22.3 L (37.5-50.1) % Plt Count 471 H (140-400) K/mcL Neutrophils # 11.0 H (1.6-8.9) K/mcL - ABG Interpretation ABG results: PT/INR, D-dimer PT 12.7 Seconds (9.4-12.1) H 09/07/18 15:50 Consult Discharge Plan - Plan Instructions: Tamsulosin (By mouth) Additional Instructions: daily dressing changes to right BKA Referrals: José Miguel Negro MD [Primary Care Provider] - Marcus Johnson MD [Partnered Physician] - (Follow-up in vascular surgery clinic with Dr. Johnson in 6 weeks for staple removal.) (1) Osteomyelitis Qualifiers: Osteomyelitis type: subacute Osteomyelitis location: foot Laterality: left Qualified Code(s): M86.272 - Subacute osteomyelitis, left ankle and foot (3) Anemia in chronic kidney disease Qualifiers: Chronic kidney disease stage: stage 3 (moderate) Qualified Code(s): N18.3 - Chronic kidney disease, stage 3 (moderate); D63.1 - Anemia in chronic kidney disease (6) Sepsis Qualifiers: Sepsis type: sepsis due to unspecified organism Qualified Code(s): A41.9 - Sepsis, unspecified organism
[2018-09-16 12:41] LABS: Hematocrit 23.8 % (37.5-50.1); Hemoglobin 7.9 g/dL (12.9-16.9)
[2018-09-16 13:00] LABS: Calcium 8.4 mg/dL (8.6-10.3); Potassium 5.3 mEq/L (3.5-5.1)
--- NOTE | 2018-09-16 14:06 | Vascular/Endovas Progress Note ---
Date of Encounter: 09/16/18 Time of Encounter: 13:00 - Assessment and plan (1) Chronic ulcer of right foot with fat layer exposed Current Visit: Yes Status: Resolved The patient is postoperative day #3 after a right below-knee amputation. His wound is healing. He is inadequate pain control. His medications will be adjusted to improve his pain relief. - Subjective Interval history: The patient is alert. He reports incomplete pain relief. He denies chest pain shortness breath. He denies fevers or chills. Vital Signs, Last 4 Hours Temp Pulse Resp BP Pulse Ox 09/16/18 11:39 97.6 F 62 20 152/82 97 - Physical Examination General: Present: Conversant Cardiac: Present: Reg Rate and Rhythm Lungs: Present: Normal Breath Sounds Neuro: Present: Alert and responsive Vascular: Present: Surgical incisions (Clean, dry and intact without erythema or drainage, 2 bullae are present on the inferior portion of the wound. Wound margins appeared to be healing.) Abdomen: Present: Soft Results 09/16/18 12:28 09/16/18 12:28 Lab Results, Last 24 hours 09/16/18 09/16/18 09/16/18 06:09 12:28 12:28 WBC 13.7 H Hgb 7.4 L 7.9 L Hct 22.3 L 23.8 L Plt Count 471 H Sodium 128 L Potassium 5.3 H Chloride 101 Carbon Dioxide 26 BUN 54 H Creatinine 2.19 H Glucose 292 H Calcium 8.4 L Consult Discharge Plan - Plan Instructions: Tamsulosin (By mouth) Additional Instructions: daily dressing changes to right BKA Referrals: José Miguel Negro MD [Primary Care Provider] - Marcus Johnson MD [Partnered Physician] - (Follow-up in vascular surgery clinic with Dr. Johnson in 6 weeks for staple removal.)
[2018-09-16] MEDS ORDERED: 0.9 % Sodium Chloride 1,000 ML IVC SCH (15:15)
[2018-09-16 20:25] LABS: Hematocrit 23.4 % (37.5-50.1); Hemoglobin 7.7 g/dL (12.9-16.9)
[2018-09-17] MEDS: ceFAZolin 1,000 MG in Water for inj. (sterile) 20 ML 10 ML IVPB SCH ×3 (01:10→15:58)
[2018-09-17] MEDS: *HR* OxyCODONE Immed Rel 5 MG TABLET PO PRN ×4 (01:12→15:58)
[2018-09-17 02:24] LABS: Basophils # 0.1 K/mcL (0.0-0.2); Basophils % 0.5 %; Eosinophils # 0.1 K/mcL (0.0-0.6); Eosinophils % 1.1 %; Hematocrit 22.7 % (37.5-50.1); Hemoglobin 7.3 g/dL (12.9-16.9); Lymphocytes # 1.8 K/mcL (0.6-4.6); Lymphocytes % 15.2 %; Mean Corpuscular HGB Conc 32.2 g/dL (31.6-35.5); Mean Corpuscular Volume 90.1 fL (83.0-100.0); Mean Platelet Volume 8.5 fL (9.4-12.4); Monocytes # 0.8 K/mcL (0.0-1.3); Monocytes % 6.8 %; Neutrophils # 8.3 K/mcL (1.6-8.9); Platelet Count 432 K/mcL (140-400); Red Blood Count 2.52 M/mcL (4.19-5.50); Segmented Neutrophils % 71.4 %
[2018-09-17] MEDS: Insulin DETEMIR 100 UNIT/ML X5UNITS SQ SCH ×2 (08:21→20:28)
[2018-09-17] MEDS: Folic Acid 1 MG TABLET PO SCH (08:21)
[2018-09-17] MEDS: Insulin LISPRO 300 UNITS/3 ML VIAL SQ SCH ×7 (08:21→20:09)
--- NOTE | 2018-09-17 09:10 | Internal Med Progress Note ---
Hospitalist Progress Note - Encounter Date of Encounter: 09/17/18 Time of Encounter: 11:00 - Subjective Interval History: Patient is a 48-year-old male who presented with right lower extremity wound found to have polymicrobial osteomyelitis of right lower extremity with bacteremia of the same. Patient now postop day 4 right BKA Patient also status post incision and drainage on 09/15/18 of left foot Patient also with acute on chronic anemia despite transfusion of 11 units of packed red blood cells;hemoglobin 7.3 this morning from 7.9 yesterday - Exam Vitals: Temp Pulse Resp BP Pulse Ox 98 F 68 20 140/63 98 09/17/18 07:14 09/17/18 07:14 09/17/18 07:14 09/17/18 07:14 09/17/18 07:14 Exam: Gen.: Nonacute distress, alert and oriented 3 ENT: Mucosal membranes moist Respiratory: Lungs are clear to auscultation bilaterally without any wheezing rhonchi or rales Cardiovascular: Normal S1 and S2 regular rate rhythm no murmurs rubs or gallops Abdomen: Soft, nontender and nondistended with positive bowel sounds Skin: Normal color - Assessment and Plan (1) Osteomyelitis Current Visit: Yes Status: Acute Assessment and Plan: Patient found to have Polymicrobial(GBS, MSSA, proteus) osteomyelitis now postop day 4 right BKA Surgical pathology pending Vascular surgery following an appreciate recommendations (2) Bacteremia Current Visit: Yes Status: Acute Assessment and Plan: Blood cultures positive for polymicrobial infection (GBS, MSSA, proteus) Repeat blood cultures negative TTE negative for vegetations. ID following with recommendations to continue cefazolin. (3) Anemia in chronic kidney disease Current Visit: Yes Status: Acute Assessment and Plan: Patient now postop day 4 right BKA Patient also with acute on chronic anemia despite transfusion of 11 units of packed red blood cells Hemoglobin 7.3 this morning from 7.9 yesterday Will continue to monitor H&H (4) Atrial fibrillation, chronic Current Visit: Yes Status: Chronic Assessment and Plan: Patient Xarelto was held due to surgery Patient also with acute on chronic anemia as above Will continue holding until hemoglobin stabilizes and okay per surgery to restart (5) Acute kidney injury superimposed on chronic kidney disease Current Visit: No Status: Acute Assessment and Plan: Temp HD line placed 09/02/18 and HD initiated. Patient being reassessed for hemodialysis need daily; renal recovery might be imminent per nephrology Nephrology following and appreciate recommendations (6) Sepsis Current Visit: Yes Status: Resolved Assessment and Plan: Resolved; secondary to the above (7) Obesity Current Visit: Yes Status: Acute Assessment and Plan: BMI 41.8 DVT Prophylaxis: SCD - Time Spent with Patient Total time spent is greater than 50% in coordination of care (as documented) at patient's floor/unit and/or counseling patient: Internal Medicine: Result - Labs CBC & Chem 7: 09/17/18 01:30 09/17/18 01:50 Labs: Short CBC 09/16/18 09/16/18 09/17/18 Range/Units 12:28 19:40 01:30 WBC 11.6 H (4.3-11.1) K/mcL Hgb 7.9 L 7.7 L 7.3 L (12.9-16.9) g/dL Hct 23.8 L 23.4 L 22.7 L (37.5-50.1) % Plt Count 432 H (140-400) K/mcL Neutrophils # 8.3 (1.6-8.9) K/mcL BMP 09/16/18 12:28 Sodium 128 L Potassium 5.3 H Chloride 101 Carbon Dioxide 26 BUN 54 H Creatinine 2.19 H Glucose 292 H Calcium 8.4 L - ABG Interpretation ABG results: PT/INR, D-dimer PT 12.7 Seconds (9.4-12.1) H 09/07/18 15:50 Consult Discharge Plan - Plan Instructions: Tamsulosin (By mouth) Additional Instructions: daily dressing changes to right BKA Referrals: José Miguel Negro MD [Primary Care Provider] - Marcus Johnson MD [Partnered Physician] - (Follow-up in vascular surgery clinic with Dr. Johnson in 6 weeks for staple removal.) (1) Osteomyelitis Qualifiers: Osteomyelitis type: subacute Osteomyelitis location: foot Laterality: left Qualified Code(s): M86.272 - Subacute osteomyelitis, left ankle and foot (3) Anemia in chronic kidney disease Qualifiers: Chronic kidney disease stage: stage 3 (moderate) Qualified Code(s): N18.3 - Chronic kidney disease, stage 3 (moderate); D63.1 - Anemia in chronic kidney disease (6) Sepsis Qualifiers: Sepsis type: sepsis due to unspecified organism Qualified Code(s): A41.9 - Sepsis, unspecified organism
--- NOTE | 2018-09-17 09:58 | Podiatry Progress Note ---
Date of Encounter: 09/17/18 Time of Encounter: 09:15 - Assessment and Plan (1) Osteomyelitis Current Visit: Yes Status: Acute f/u cultures, bone micro and path Qualifiers: Osteomyelitis type: subacute Osteomyelitis location: foot Laterality: left Qualified Code(s): M86.272 - Subacute osteomyelitis, left ankle and foot (2) Abscess of left foot Current Visit: Yes Status: Acute s/p incision and drainage left foot. patients says she changed the bandage yesterday before the nurse got to it. patient says he feels alright and pain controlled. denies feeling like he experienced f/c/n/v/sob/cp/calf pain. no erythema of the skin. no purulence expressed. there is some serous drainage on the packing. no pain with calf squeeze. no fluctuance. absent protective sensation. rocker bottom type charcot deformity. appears to be doing well given situation. discussed with them at this time the foot looks good without signs of infection.when patient is discharged will use a lginate on the wound sites changed daily. he will need to follow up in wound care with me post-discharge. discussed with to let nurse change dressings. iodoform packing placed this morning. Subjective Principal diagnosis: Abscess left foot Objective - Vital Signs Vital Signs: Vital Signs Temp Pulse Resp BP Pulse Ox 09/17/18 07:14 98 F 68 20 140/63 98 09/17/18 04:19 98.2 F 65 20 147/84 94 09/17/18 00:04 98.5 F 72 20 155/77 97 09/16/18 19:23 98.0 F 94 20 175/75 96 09/16/18 16:03 97.9 F 64 20 152/80 97 09/16/18 11:39 97.6 F 62 20 152/82 97 Intake and Output 09/16/18 09/17/18 09/17/18 23:59 07:59 15:59 Intake Total Output Total 550 / 550 900 / 900 Balance -540 / -520 -890 / -890 Intake: IV Fluids Ancef 1,000 MG In Water for inj . (sterile) 10 ML @ 200 mls/hr IVPB Q8HR [facility] Rx#:[id number] Output: Urine 900 / 900 Catheter 550 / 550 Other: Weight 131.6 kg Blood Glucose* 237 289 Patient Weight 09/17/18 23:59 Weight 131.6 kg - Lab Result Diagrams: 09/17/18 01:30 09/16/18 12:28 Labs: Abnormal lab results WBC 11.6 K/mcL (4.3-11.1) H 09/17/18 01:30 RBC 2.52 M/mcL (4.19-5.50) L 09/17/18 01:30 Hgb 7.3 g/dL (12.9-16.9) L 09/17/18 01:30 Hct 22.7 % (37.5-50.1) L 09/17/18 01:30 MCV 82.6 fL (83.0-100.0) L 09/03/18 03:55 Plt Count 432 K/mcL (140-400) H 09/17/18 01:30 MPV 8.5 fL (9.4-12.4) L 09/17/18 01:30 Immature Gran % 5.0 % (0-4) H 09/17/18 01:30 8.0 % (0-4) H 09/06/18 03:45 2.0 % (0) H 09/03/18 03:55 11.0 K/mcL (1.6-8.9) H 09/16/18 06:09 Nucleated RBCs/100 WBC 0.2 /100 WBC (0) H 09/04/18 04:00 Present (Not Present) A 09/07/18 13:55 Decreased (Normal) L 09/05/18 04:53 1+ (Not Present) A 09/02/18 10:05 Present (Not Present) A 09/03/18 03:55 1+ (Not Present) A 09/02/18 10:05 ESR >= 130 mm/hr (0-10) H 09/06/18 10:20 369 mg/dL (30-200) H 09/10/18 07:30 PT 12.7 Seconds (9.4-12.1) H 09/07/18 15:50 724 mg/dL (169-393) H* 09/10/18 07:30 Factor VIII Activity 762 % (56-191) H 09/08/18 17:00 von Willebrand Activity 344 % (51-215) H 09/08/18 17:00 von Willebrand Antigen 345 % (52-214) H 09/08/18 17:00 Sodium 128 mEq/L (136-145) L 09/16/18 12:28 Potassium 5.3 mEq/L (3.5-5.1) H 09/16/18 12:28 Chloride 97 mEq/L (98-107) L 09/14/18 04:00 Carbon Dioxide 22 mEq/L (23-29) L 09/12/18 04:45 BUN 54 mg/dL (6-20) H 09/16/18 12:28 2.19 mg/dL (0.70-1.30) H 09/16/18 12:28 Est GFR ( Amer) 39 (> 60) L 09/16/18 12:28 Est GFR (Non-Af Amer) 32 (> 60) L 09/16/18 12:28 Glucose 292 mg/dL (70-105) H 09/16/18 12:28 POC Glucose 237 mg/dL (70-99) H 09/16/18 19:26 8.5 % (-5.6) H 09/04/18 04:00 303 (280-300) H 09/04/18 04:00 Calcium 8.4 mg/dL (8.6-10.3) L 09/16/18 12:28 Iron < 10 mcg/dL (65-175) L 09/12/18 04:45 % Saturation 5 % (20-55) L 09/10/18 07:30 141 mg/dL (203-362) L 09/12/18 04:45 489 ng/mL (20-250) H 09/10/18 07:30 0.3 mg/dL (0.0-0.2) H 09/01/18 15:33 AST 10 Units/L (13-39) L 09/10/18 04:05 122 Units/L (34-104) H 09/01/18 15:33 0.04 ng/mL (< 0.04) H* 09/03/18 01:00 198 mg/L (Less than 10) H 09/04/18 04:00 6.1 g/dL (6.4-8.9) L 09/01/18 15:33 2.3 g/dL (3.5-5.7) L 09/12/18 04:45 5.2 g/dL (2.4-3.5) H 09/12/18 04:45 0.4 (1.1-2.2) L 09/12/18 04:45 Vitamin B12 > 1500 pg/mL (250-1100) H 09/10/18 07:50 [place] (Yellow) A 09/01/18 Unknown Turbid (Clear) A 09/10/18 07:30 Ur Specific [place] 1.029 (1.010-1.025) H 09/01/18 Unknown 100 mg/dL (Neg-Trace) H 09/10/18 07:30 100 mg/dL (Normal) H 09/10/18 07:30 Trace mg/dL (Negative) H 09/01/18 Unknown Large (Negative) H 09/10/18 07:30 Moderate (Negative) H 09/01/18 Unknown 4.0 mg/dL (Normal) H 09/01/18 Unknown Ur Leukocyte Esterase Trace (Negative) H 09/10/18 07:30 5-15 per hpf (0-3) H 09/01/18 Unknown Ur Squamous Epith Cells Many per lpf (None-Few) H 09/01/18 Unknown Ur Culture Indicated? NO. (NO) A 09/01/18 Unknown Ur Microalbumin 24 Hr 351 mg/day (Less than 30) H 09/03/18 23:00 Microalb/Creat Ratio 290 mcg/mg (Less than 30) H 09/03/18 23:00 Ur Total Protein 24 Hr 2128 mg/day (50-80) H 09/03/18 23:00 Protein/Creatinin Ratio 1.76 mg/mg (0.00-0.20) H 09/03/18 23:00 Ur Sodium 24 Hour 33 mEq/day (40-220) L 09/03/18 23:00 Ur Chloride 24 Hour 20 mEq/day (110-250) L 09/03/18 23:00 Ur Phosphorus 24 Hr 0.2 g/day (0.4-1.3) L 09/03/18 23:00 Ur Urea Nitrogen 24 Hr 6 g/day (12-20) L 09/03/18 23:00 Ur Calcium 24 Hr 6 mg/day (100-300) L 09/03/18 23:00 185 mg/dL (1-14) H 09/03/18 23:00 U Free [place] Light Ch 110.00 mg/dL (0.14-2.42) H 09/02/18 23:00 U Free [place] Light Ch 19.80 mg/dL (0.02-0.67) H 09/02/18 23:00 Positive (Negative) A 09/11/18 18:40 Positive ng/mL (Sgfkah=011) H 09/11/18 15:45 Hep Bs Antibody 4.61 mIU/mL (10.00-) L 09/01/18 20:52 Hepatitis C Ab Screen Reactive (Nonreactive) H 09/11/18 15:45 Staphylococcus sp PCR DETECTED (Not Detect) A 09/01/18 15:58 Staph aureus (PCR) DETECTED (Not Detect) A 09/01/18 15:58 Streptococcus sp PCR DETECTED (Not Detect) A 09/01/18 15:58 Group B Strep (PCR) DETECTED (Not Detect) A 09/01/18 15:58 Crossmatch See Detail 09/14/18 16:25 Crossmatch Prewarmed See Detail 09/01/18 16:55 Microbiology, Last 48 Hours 09/15/18 08:26 Surgical Biopsy Culture - Preliminary Other-Specify in Comments 09/15/18 08:26 Wound Culture - Preliminary Left Foot No growth. 09/15/18 08:26 Surgical Biopsy Culture - Preliminary Left Foot 09/14/18 15:19 Wound Culture - Preliminary Left Foot Culture is incubating. 09/15/18 08:26 Anaerobic Culture - Preliminary Left Foot Culture is incubating. 09/15/18 08:26 Wound Culture - Final Left Foot Consult Discharge Plan - Plan Instructions: Tamsulosin (By mouth) Additional Instructions: daily dressing changes to right BKA Referrals: José Miguel Negro MD [Primary Care Provider] - Marcus Johnson MD [Partnered Physician] - (Follow-up in vascular surgery clinic with Dr. Johnson in 6 weeks for staple removal.)
[2018-09-17 10:05] LABS: Albumin 2.3 g/dL (3.5-5.7); Calcium 8.5 mg/dL (8.6-10.3); Phosphorous 4.7 mg/dL (2.7-4.5); Potassium 5.9 mEq/L (3.5-5.1)
[2018-09-17] MEDS: *HR* FentaNYL PATCH 25 MCG PATCH TD SCH (11:09)
--- NOTE | 2018-09-17 11:10 | Nephrology Progress Note ---
Date of Encounter: 09/17/18 Time of Encounter: 11:10 - Assessment and Plan (1) CESILIA (acute kidney injury) Current Visit: Yes Status: Acute SCr at a platau. Looking at his serum creatinine since 2016 it is possible that this is his new baseline. last HD 09/12/18, will hold off today. He may no longer need HD as an inpatient. Medical management of his hyperkalemia. Will continue to reassess HD need daily but renal recovery might be imminent Continue to avoid nephrotoxins if possible Will give gentle fluid secondary to post ATN diuresis. (2) Hyperkalemia Current Visit: No Status: Acute (3) Anemia Current Visit: Yes Status: Acute Hgb noted. will monitor Transfusion parameters per primary team Start oral iron. Change EPo to aranesp. Qualifiers: Anemia type: other cause Other causes of anemia: other cause, not classified Qualified Code(s): D64.89 - Other specified anemias (4) CKD (chronic kidney disease), stage III Current Visit: Yes Status: Chronic (5) Hyponatremia Current Visit: Yes Status: Acute (6) Solitary kidney, acquired Current Visit: Yes Status: Acute (7) Chronic ulcer of right foot with fat layer exposed Current Visit: Yes Status: Resolved (8) Vitamin D deficiency Current Visit: Yes Status: Acute Start weekly vitamin d for 4 months. Subjective Principal diagnosis: Abscess left foot Interval history: Mr. Perkins was seen. No new complaint. ROS seem stable. is at his bedside. Objective - Vital Signs Vital signs: Vital Signs Temp Pulse Resp BP Pulse Ox 09/17/18 07:14 98 F 68 20 140/63 98 09/17/18 04:19 98.2 F 65 20 147/84 94 09/17/18 00:04 98.5 F 72 20 155/77 97 09/16/18 19:23 98.0 F 94 20 175/75 96 09/16/18 16:03 97.9 F 64 20 152/80 97 09/16/18 11:39 97.6 F 62 20 152/82 97 Intake and Output 09/16/18 09/17/18 09/17/18 23:59 07:59 15:59 Intake Total 10 / 490 480 / 490 Output Total 550 / 550 900 / 900 Balance -540 / -520 -890 / -410 480 / -410 Intake: IV Fluids Ancef 1,000 MG In Water for inj . (sterile) 10 ML @ 200 mls/hr IVPB Q8HR [facility] Rx#:[id number] Oral 480 / 480 Output: Urine 900 / 900 Catheter 550 / 550 Other: Meal Breakfast Percent of Meal Consumed 100% Weight 131.6 kg Blood Glucose* 237 289 Patient Weight 09/17/18 23:59 Weight 131.6 kg - General Appearance General appearance: Present: well-developed, well-nourished, obese EENT: Present: ATNC Neck: Present: supple Cardiology: Present: regular rate Gastrointestinal: Present: obese Neurologic: Present: alert and oriented x3 Psychiatric: Present: mood/affect appropriate - Lab 09/17/18 01:30 09/17/18 01:50 Most recent lab results 09/17/18 01:50 Calcium 8.5 L Phosphorus 4.7 H Consult Discharge Plan - Plan Instructions: Tamsulosin (By mouth) Additional Instructions: daily dressing changes to right BKA Referrals: José Miguel Negro MD [Primary Care Provider] - Marcus Johnson MD [Partnered Physician] - (Follow-up in vascular surgery cl inic with Dr. Johnson in 6 weeks for staple removal.)
[2018-09-17] MEDS ORDERED: 0.9 % Sodium Chloride 1,000 ML IVC SCH (11:15)
--- NOTE | 2018-09-17 14:42 | Vascular/[facility] Progress Note ---
Date of Encounter: 09/17/18 Time of Encounter: 11:10 - Assessment and plan (1) Chronic ulcer of right foot with fat layer exposed Current Visit: Yes Status: Resolved The patient is postoperative day #4 after a right below-knee amputation. He is healing well. He may be discharged from a vascular surgery perspective. He will follow-up with Dr. Johnson. - Subjective Interval history: The patient is alert. He reports incomplete pain relief. He denies chest pain shortness breath. He denies fevers or chills. Vital Signs, Last 4 Hours Temp Pulse Resp BP Pulse Ox 09/17/18 12:48 98.7 F 73 20 156/81 97 - Physical Examination Cardiac: Present: Reg Rate and Rhythm Lungs: Present: Normal Breath Sounds Vascular: Present: Surgical incisions (Incision clean, dry and intact without erythema or drainage, superficial bullae present on the inferior aspect of the wound.) Results 09/18/18 04:25 09/18/18 04:25 Lab Results, Last 24 hours 09/16/18 09/17/18 09/17/18 19:40 01:30 01:50 WBC 11.6 H Hgb 7.7 L 7.3 L Hct 23.4 L 22.7 L Plt Count 432 H Sodium 131 L Potassium 5.9 H Chloride 102 Carbon Dioxide 25 BUN 62 H Creatinine 2.28 H Glucose 271 H Calcium 8.5 L Consult Discharge Plan - Plan Instructions: Tamsulosin (By mouth) Additional Instructions: daily dressing changes to right BKA Referrals: José Miguel Negro MD [Primary Care Provider] - Marcus Johnson MD [Partnered Physician] - (Follow-up in vascular surgery clinic with Dr. Johnson in 6 weeks for staple removal.)
[2018-09-17] MEDS: *HR* OxyCODONE/APAP 10/325 TABLET PO PRN (20:19)
[2018-09-18] MEDS: *HR* OxyCODONE Immed Rel 5 MG TABLET PO PRN ×4 (00:14→16:45)
[2018-09-18] MEDS: ceFAZolin 1,000 MG in Water for inj. (sterile) 20 ML 10 ML IVPB SCH ×3 (00:15→16:35)
[2018-09-18] MEDS: *HR* OxyCODONE/APAP 10/325 TABLET PO PRN ×2 (04:21→21:17)
[2018-09-18 05:06] LABS: Hematocrit 23.2 % (37.5-50.1); Hemoglobin 7.5 g/dL (12.9-16.9); Mean Corpuscular HGB Conc 32.3 g/dL (31.6-35.5); Mean Corpuscular Hemoglobin 28.7 pg (28.0-33.3); Mean Corpuscular Volume 88.9 fL (83.0-100.0); Mean Platelet Volume 8.5 fL (9.4-12.4); Platelet Count 433 K/mcL (140-400); Red Blood Count 2.61 M/mcL (4.19-5.50); Red Cell Distribution Width 13.7 % (11.5-14.5)
[2018-09-18 05:26] LABS: Albumin 2.3 g/dL (3.5-5.7); Calcium 8.5 mg/dL (8.6-10.3); Phosphorous 4.9 mg/dL (2.7-4.5); Potassium 5.4 mEq/L (3.5-5.1)
[2018-09-18 05:31] LABS: Lymphocytes # 1.8 K/mcL (0.6-4.6); Monocytes # 0.2 K/mcL (0.0-1.3); Platelet Estimate Normal (Normal)
[2018-09-18] MEDS: Insulin LISPRO 300 UNITS/3 ML VIAL SQ SCH ×7 (08:13→21:12)
[2018-09-18] MEDS: Insulin DETEMIR 100 UNIT/ML X5UNITS SQ SCH ×2 (08:13→21:16)
[2018-09-18] MEDS: Folic Acid 1 MG TABLET PO SCH (08:14)
--- NOTE | 2018-09-18 11:06 | Nephrology Progress Note ---
Date of Encounter: 09/18/18 Time of Encounter: 11:06 - Assessment and Plan (1) CESILIA (acute kidney injury) Current Visit: Yes Status: Acute SCr at a plateau. Looking at his serum creatinine since 2016 it is possible that this is his new baseline. Last HD 09/12/18, will hold off today. He no longer need HD. Ok to discontinue nontunneled HD catheter. Medical management of his hyperkalemia. Will add loop diuretic for hyperkalemia and hypertension. Continue to avoid nephrotoxins if possible (2) Hypertension Current Visit: No Status: Acute Patient with uncontrolled BP. Adding furosemide for diuresis. Add back amlodipine today. add back losartan 50mg po daily starting Tuesday if renal function continues to recover/remains stable. Qualifiers: Hypertension type: unspecified Qualified Code(s): I10 - Essential (primary) hypertension (3) Hyperkalemia Current Visit: No Status: Acute Recommend lokelma 10g po daily as an outpatient. He should have his labs monitored weekly for 2 weeks. (4) Anemia Current Visit: Yes Status: Acute Hgb noted. will monitor Transfusion parameters per primary team continue oral iron. Continue aranesp. Qualifiers: Anemia type: other cause Other causes of anemia: other cause, not classified Qualified Code(s): D64.89 - Other specified anemias (5) CKD (chronic kidney disease), stage III Current Visit: Yes Status: Chronic (6) Hyponatremia Current Visit: Yes Status: Acute (7) Solitary kidney, acquired Current Visit: Yes Status: Acute (8) Chronic ulcer of right foot with fat layer exposed Current Visit: Yes Status: Resolved (9) Vitamin D deficiency Current Visit: Yes Status: Acute Subjective Principal diagnosis: Abscess left foot Interval history: Mr. Perkins was seen. No new complaint. ROS seem stable. is at his bedside. Objective - Vital Signs Vital signs: Vital Signs Temp Pulse Resp BP Pulse Ox 09/18/18 07:58 98.3 F 72 18 173/84 98 09/18/18 05:02 98.6 F 78 16 159/84 97 09/18/18 00:24 98.4 F 74 18 182/91 99 09/17/18 19:16 98.7 F 76 18 163/80 98 09/17/18 16:53 158/79 09/17/18 16:33 97.8 F 71 20 158/79 99 09/17/18 12:48 98.7 F 73 20 156/81 97 Intake and Output 09/17/18 09/18/18 09/18/18 23:59 07:59 15:59 Intake Total 250 / 750 1010 / 1250 240 / 1250 Output Total 2150 / 3050 625 / 1725 1100 / 1725 Balance -1900 / -2300 385 / -475 -860 / -475 Intake: IV Fluids 1010 / 1010 0.9 % Sodium Chloride 1,000 ML 1000 / 1000 @ 75 mls/hr IVC .[id number] [facility] Rx #:[id number] Ancef 1,000 MG In Water for inj . (sterile) 10 ML @ 200 mls/hr IVPB Q8HR [facility] Rx#:[id number] Oral 240 / 720 240 / 240 Output: Urine 750 / 1650 Catheter 1400 / 1400 625 / 1725 1100 / 1725 Other: Meal Dinner Breakfast Percent of Meal Consumed 100% 100% # Bowel Movements 6 Blood Glucose* 129 221 - General Appearance General appearance: Present: well-developed, well-nourished, obese EENT: Present: ATNC Neck: Present: supple Respiratory: Present: course breath sounds Cardiology: Present: edema, regular rate Gastrointestinal: Present: obese Integumentary: Present: warm and dry Neurologic: Present: alert and oriented x3 Musculoskeletal: Present: no cyanosis Psychiatric: Present: mood/affect appropriate - Lab 09/18/18 04:25 09/18/18 04:25 Most recent lab results 09/18/18 04:25 Calcium 8.5 L Phosphorus 4.9 H Consult Discharge Plan - Plan Instructions: Tamsulosin (By mouth) Additional Instructions: daily dressing changes to right BKA Referrals: José Miguel Negro MD [Primary Care Provider] - Marcus Johnson MD [Partnered Physician] - (Follow-up in vascular surgery clinic with Dr. Johnson in 6 weeks for staple removal.)
[2018-09-18] MEDS ORDERED: Furosemide 20 MG TABLET PO PRN (11:18)
[2018-09-18] MEDS: amLODIPine 5 MG TABLET PO SCH (12:01)
--- NOTE | 2018-09-18 13:48 | Event Note ---
Date of Encounter: 09/18/18 Time of Encounter: 13:47 Patient is postoperative day #5 following a right below-knee amputation. Patient is tentatively scheduled to be discharged to home with home physical therapy later today. Patient is to follow-up in the vascular surgery clinic in 6 weeks.
--- NOTE | 2018-09-18 14:10 | Infectious Disease Progress No ---
ID Progress Note Date of Encounter: 09/18/18 Time of Encounter: 14:09 - Subjective Subjective: Patient seen and examined. Status post right foot irrigation and debridement and incision and drainage with plantar fasciectomy and debridement of the tarsal bone and application of external fixator 09/06/[address] Ferrell. Status post right BKA 09/13/[address] Johnson. Status post left foot I & D 09/15/18. Denies fevers, chills, or rigors. Denies chest pain, shortness of breath, or cough. Complains of pain at the BKA site and phantom limb pain. Denies nausea, vomiting, diarrhea, or constipation. States his appetite is good. Urinary retention overnight and required straight catheterization so vo replaced. Denies oral thrush or new skin lesions. States he is hungry and wants to eat. - Objective CBC & Chem 7: 09/18/18 04:25 09/18/18 04:25 - Line Documentation Line Documentation: Dialysis Catheter (Temporary dialysis catheter noted to the right neck with transparent dressing clean, dry, and intact.), Vo Catheter (draining clear yellow urine) - Exam Vitals: Temp Pulse Resp BP Pulse Ox 97.5 F L 91 18 142/70 98 09/18/18 11:21 09/18/18 11:21 09/18/18 11:21 09/18/18 11:21 09/18/18 11:21 Exam: GENERAL: Comfortable. Laying in bed NAD HEENT: YON, EOMI LUNGS: Good air sounds bilaterally, no wheezing or rhonchi CV: RRR, S1 S2 ABDOMEN: Soft, nontender, + bowel sounds EXT: Right BKA, left foot surgically repaired NEURO: A&OX3; no focal deficit - Assessment and Plan (1) Sepsis Current Visit: Yes Status: Resolved The patient had two sepsis criteria with acute kidney injury. Likely secondary to bacteremia and right foot infection. White blood cell count normal. Afebrile overnight. Blood cultures drawn 09/01/18 are +2 out of 2 sets for group B strep, MSSA, and Proteus mirabilis. Repeat blood cultures drawn 09/06/18 are negative x 2 sets. Repeat blood cultures drawn 09/07/18 are negative x 2 sets. Qualifiers: Sepsis type: sepsis due to unspecified organism Qualified Code(s): A41.9 - Sepsis, unspecified organism SNOMED Code(s): 57899162 (2) Bacteremia Current Visit: Yes Status: Acute Causative organism: Group B strep, MSSA, Proteus mirabilis. Source: Right foot infection. Blood cultures drawn 09/01/18 are +2 out of 2 sets. Repeat blood cultures drawn 09/06/18 are negative x 2 sets. Repeat blood cultures drawn 09/07/18 are negative x 2 sets. Complicated due to hardware in the left wrist. No endocarditis stigmata noted on exam. Rheumatoid factor normal. TTE negative for vegetations. The patient has one major and one minor modified [place] criteria. Currently on cefazolin. SNOMED Code(s): 7230432 (3) Infection of right foot Current Visit: Yes Status: Resolved Location: Right foot. Causative organism: GBS, MSSA, P. mirabilis. Likely secondary to chronic non-healing ulcers and uncontrolled DM. X-ray of the right foot 09/01/18 showed findings consistent with Charcot arthropathy/neuropathic foot not significantly changed from the prior studies and extensive soft tissue swelling suggesting cellulitis. MRI of the right foot 09/04/18 showed plantar soft tissue ulcer at the level of the cuboid with suspected interval soft tissue graft placement. There is edema of the graft which may reflect soft tissue infection. Suspected bilateral soft tissue ulceration with associated phlegmonous change at the level of the inframalleolar peroneal tendons. There is no tenosynovitis and complete full- thickness peroneal tendon tears. The tenosynovitis may be infectious. New multifocal marrow signal abnormality involving the talus, calcaneus, cuboid, and navicular suspicious for osteonecrosis and less likely osteomyelitis. Persistent marrow signal and abnormality in the cuboid which is suspicious for osteoarthritis and a chronic cuboid erosion or defect is noted. Podiatry consulted. Per their note, purulent drainage expressed on exam. Status post right foot incision and drainage and irrigation and debridement, plantar fasciectomy, debridement of the tarsal bone, and application of external fixator 09/06/[address] Armstorng. Operative note reviewed. Gross purulence noted throughout the foot. Intraoperative tissue and bone cultures positive for MSSA, GBS, and P. mirabilis. ESR greater than 130, CRP 198. Status post right BKA 09/13/18. Cultures growing 2 different kinds of gram-positive cocci likely to be staph aureus and strep as well but is not finalized. I will not change antibiotics since patient is stable. If the cultures are positive for MRSA or different kind of gram-positive cocci and make the changes necessary. For now continue cefazolin dose adjust based on the creatinine clearance. Duration of treatment 6 weeks. SNOMED Code(s): 126994780 (4) Cellulitis Current Visit: Yes Status: Resolved Location: Right foot. Causative organism: GBS, MSSA, P. mirabilis. Purulent. Likely secondary to chronic ulcers. Podiatry consulted. Status post I & D and right BKA. Qualifiers: Site of cellulitis: other site Qualified Code(s): L03.818 - Cellulitis of other sites SNOMED Code(s): 769746786 (5) Wound of left foot Current Visit: Yes Status: Acute Location: Left lateral foot. Etiology: Unclear. CT of the left foot showed plantar subcutaneous edema in the midfoot compatible with cellulitis with a questionable fluid collection plantar to the cuboid bone. Questionable erosive changes along the plantar surface of the cuboid with osteomyelitis not excluded. Severe midfoot disorganization and fragmentation compatible with Charcot arthropathy was noted. MRI of the left foot showed findings concerning for abscess. Podiatry consulted and following. Status post I & D left foot 09/15/[address] Nataly danielson. Intra-op cultures pending. Currently on cefazolin. SNOMED Code(s): 437258133, 851633906 (6) Chronic ulcer of right foot with fat layer exposed Current Visit: Yes Status: Resolved Location: Right foot. Podiatry consulted. Status post right BKA. SNOMED Code(s): 634183661 (7) Acute kidney injury superimposed on chronic kidney disease Current Visit: No Status: Acute Serum creatinine 6.57 on admission with uremia and diminished urine output. Nephrology consulted. Temp HD line placed 09/02/18 and HD initiated. Avoid nephrotoxins as able. Dose-adjust medications. Vancomycin discontinued. SNOMED Code(s): 87868751 (8) Anemia Current Visit: Yes Status: Acute Qualifiers: Anemia type: other cause Other causes of anemia: other cause, not classifie d Qualified Code(s): D64.89 - Other specified anemias SNOMED Code(s): 439904368 (9) Elevated troponin Current Visit: Yes Status: Acute SNOMED Code(s): 708772759, 555503119, 535748494 (10) Hyponatremia Current Visit: Yes Status: Acute SNOMED Code(s): 25094335 (11) Pulmonary edema Current Visit: Yes Status: Acute Qualifiers: Chronicity: acute Qualified Code(s): J81.0 - Acute pulmonary edema SNOMED Code(s): 76363602 (12) Atrial fibrillation, chronic Current Visit: Yes Status: Chronic SNOMED Code(s): 280034808 (13) COPD (chronic obstructive pulmonary disease) Current Visit: Yes Status: Chronic Qualifiers: Emphysema type: unspecified Qualified Code(s): J43.9 - Emphysema, unspecified SNOMED Code(s): 61826006 (14) T2DM (type 2 diabetes mellitus) Current Visit: Yes Status: Chronic HgbA1C 8.5%. Recommend aggressive glucose monitoring and control to promote wound healing and prevent re-infection. Management per the primary team. Qualifiers: Diabetes mellitus mold runner insulin use: without senior living use Diabetes mellitus complication status: with kidney complications Diabetes mellitus complication detail: with chronic kidney disease Chronic kidney disease stage: stage 3 (moderate) Qualified Code(s): E11.22 - Type 2 diabetes mellitus with diabetic chronic kidney disease; N18.3 - Chronic kidney disease, stage 3 (moderate) SNOMED Code(s): 12510924 (15) Hepatitis C Current Visit: Yes Status: Acute Qualifiers: Viral hepatitis chronicity: chronic Hepatic coma status: without hepatic coma Qualified Code(s): B18.2 - Chronic viral hepatitis C SNOMED Code(s): 60993507 (16) Urinary retention Current Visit: Yes Status: Acute Urology consulted. SNOMED Code(s): 053703464 Consult Discharge Plan - Plan Instructions: Tamsulosin (By mouth) Additional Instructions: daily dressing changes to right BKA Referrals: José Miguel Negro MD [Primary Care Provider] - Marcus Johnson MD [Partnered Physician] - (Follow-up in vascular surgery clinic with Dr. Johnson in 6 weeks for staple removal.)
--- NOTE | 2018-09-18 17:03 | Internal Med Progress Note ---
Hospitalist Progress Note - Encounter Date of Encounter: 09/18/18 Time of Encounter: 11:00 - Subjective Interval History: Patient is a 48-year-old male who presented with right lower extremity wound found to have polymicrobial osteomyelitis of right lower extremity with bacteremia of the same. Patient now postop day 5 right BKA Patient also status post incision and drainage on 09/15/18 of left foot and surgical biopsy cultures growing gram-positive cocci with sensitivities pending In addition patient's acute blood loss anemia stable with a hemoglobin of 7.5 this morning status post 11 units of packed red blood cells. - Exam Vitals: Temp Pulse Resp BP Pulse Ox 98.4 F 79 18 178/96 98 09/18/18 15:44 09/18/18 15:44 09/18/18 15:44 09/18/18 15:44 09/18/18 15:44 Exam: Gen.: Nonacute distress, alert and oriented 3 ENT: Mucosal membranes moist Respiratory: Lungs are clear to auscultation bilaterally without any wheezing rhonchi or rales Cardiovascular: Normal S1 and S2 regular rate rhythm no murmurs rubs or gallops Abdomen: Soft, nontender and nondistended with positive bowel sounds Skin: Normal color - Assessment and Plan (1) Osteomyelitis Current Visit: Yes Status: Acute Assessment and Plan: Patient found to have Polymicrobial(GBS, MSSA, proteus) osteomyelitis now postop day 5 right BKA Vascular surgery with recommendations for follow-up as an outpatient (2) Abscess of left foot Current Visit: Yes Status: Acute Assessment and Plan: Patient also status post incision and drainage on 09/15/18 of left foot and surgical biopsy cultures growing gram-positive cocci with sensitivities pending Infectious disease with recommendations to continue IV cefazolin for now until sensitivities resulted (3) Bacteremia Current Visit: Yes Status: Acute Assessment and Plan: Blood cultures positive for polymicrobial infection (GBS, MSSA, proteus) Repeat blood cultures negative TTE negative for vegetations. ID following with recommendations to continue cefazolin. (4) Anemia in chronic kidney disease Current Visit: Yes Status: Acute Assessment and Plan: Patient now postop day 4 right BKA Patient also with acute on chronic anemia despite transfusion of 11 units of packed red blood cells Hemoglobin 7.5 this morning Will continue to monitor H&H (5) Atrial fibrillation, chronic Current Visit: Yes Status: Chronic Assessment and Plan: Patient Jessa was held due to surgery Patient also with acute on chronic anemia as above Will continue holding until hemoglobin stabilizes and okay per surgery to r martha (6) Acute kidney injury superimposed on chronic kidney disease Current Visit: No Status: Acute Assessment and Plan: Temp HD line placed 09/02/18 and HD initiated. Patient being reassessed for hemodialysis need daily; renal recovery might be imminent per nephrology Nephrology following and appreciate recommendations (7) Sepsis Current Visit: Yes Status: Resolved Assessment and Plan: Resolved; secondary to the above (8) Obesity Current Visit: Yes Status: Acute Assessment and Plan: BMI 41.8 - Time Spent with Patient Total time spent is greater than 50% in coordination of care (as documented) at patient's floor/unit and/or counseling patient: Internal Medicine: Result - Labs CBC & Chem 7: 09/18/18 04:25 09/18/18 04:25 Labs: Short CBC 09/18/18 Range/Units 04:25 WBC 11.0 (4.3-11.1) K/mcL Hgb 7.5 L (12.9-16.9) g/dL Hct 23.2 L (37.5-50.1) % Plt Count 433 H (140-400) K/mcL Neutrophils # 9.0 H (1.6-8.9) K/mcL BMP 09/18/18 04:25 Sodium 133 L Potassium 5.4 H Chloride 104 Carbon Dioxide 22 L BUN 64 H Creatinine 2.02 H Glucose 240 H Calcium 8.5 L Liver Function 09/18/18 Range/Units 04:25 Albumin 2.3 L (3.5-5.7) g/dL - ABG Interpretation ABG results: PT/INR, D-dimer PT 12.7 Seconds (9.4-12.1) H 09/07/18 15:50 Consult Discharge Plan - Plan Instructions: Tamsulosin (By mouth) Additional Instructions: daily dressing changes to right BKA Referrals: José Miguel Negro MD [Primary Care Provider] - Marcus Johnson MD [Partnered Physician] - (Follow-up in vascular surgery clinic with Dr. Johnson in 6 weeks for staple removal.) (1) Osteomyelitis Qualifiers: Osteomyelitis type: subacute Osteomyelitis location: foot Laterality: left Qualified Code(s): M86.272 - Subacute osteomyelitis, left ankle and foot (4) Anemia in chronic kidney disease Qualifiers: Chronic kidney disease stage: stage 3 (moderate) Qualified Code(s): N18.3 - Chronic kidney disease, stage 3 (moderate); D63.1 - Anemia in chronic kidney disease (7) Sepsis Qualifiers: Sepsis type: sepsis due to unspecified organism Qualified Code(s): A41.9 - Sepsis, unspecified organism
--- NOTE | 2018-09-18 17:07 | Podiatry Progress Note ---
Date of Encounter: 09/19/18 Time of Encounter: 14:45 - Assessment and Plan (1) Osteomyelitis Current Visit: Yes Status: Acute Assessment: S/P incision and drainage left foot and bone biopsy cuboid on 09/[address] Ferrell Wound cultures returned staph auricularis and staph epidermis Plan: Removed old dressing and packing Cleansed with 0.9 NS Packing openings with 1/4 inch iodaform gauze Painted maceration with betadine Covered with 4x4 dry gauze, kerlix, and secured with bandage Once discharged follow up with Dr. Ferrell in wound care clinic. Please make appointment prior to d/c Continue daily dressing changes at home Qualifiers: Osteomyelitis type: subacute Osteomyelitis location: foot Laterality: left Qualified Code(s): M86.272 - Subacute osteomyelitis, left ankle and foot Subjective Principal diagnosis: Abscess left foot Interval history: Patient awake in bed. at bedside. Denies any fevers, chills, nausea, vomiting, or diarrhea. Denies any chest pain, calf pain, or shortness of breath. Denies any acute overnight events. States he is supposed to go home today. Objective - Vital Signs Vital Signs: Vital Signs Temp Pulse Resp BP Pulse Ox 09/18/18 15:44 98.4 F 79 18 178/96 98 09/18/18 11:21 97.5 F L 91 18 142/70 98 09/18/18 07:58 98.3 F 72 18 173/84 98 09/18/18 05:02 98.6 F 78 16 159/84 97 09/18/18 00:24 98.4 F 74 18 182/91 99 09/17/18 19:16 98.7 F 76 18 163/80 98 Intake and Output 09/18/18 09/18/18 09/18/18 07:59 15:59 23:59 Intake Total 1010 / 1500 490 / 1500 Output Total 625 / 3225 2600 / 3225 Balance 385 / -1725 -2110 / -1725 Intake: IV Fluids 1010 / 1020 10 / 1020 0.9 % Sodium Chloride 1,000 ML 1000 / 1000 @ 75 mls/hr IVC .[id number] [facility] Rx #:[id number] Ancef 1,000 MG In Water for inj . (sterile) 10 ML @ 200 mls/hr IVPB Q8HR [facility] Rx#:[id number] Oral 480 / 480 Output: Catheter 625 / 3225 2600 / 3225 Other: Meal Lunch Percent of Meal Consumed 90% Blood Glucose* 221 147 - Exam Exam: Constitiutional: Alert and oriented x 3. Well nourished. No acute distress noted Vascular: 1/4 DP/PT LLE, CFT <3 sec to all digits LLE, warm to warm from tibia to toes, right BKA, no calf pain with squeeze LLE Neurologic: Absent sensation to touch, normal plantar response Dermatologic:Incision noted to left lateral malleolus, opening noted with packing, incision noted to plantar midfoot with opening with packing noted, maceration noted to periwound opening. Musculoskeletal: 2/5 muscle strength and normal tone LLE - Lab Result Diagrams: 09/19/18 07:20 09/18/18 04:25 Labs: Abnormal lab results WBC 11.6 K/mcL (4.3-11.1) H 09/17/18 01:30 RBC 2.61 M/mcL (4.19-5.50) L 09/18/18 04:25 Hgb 7.5 g/dL (12.9-16.9) L 09/18/18 04:25 Hct 23.2 % (37.5-50.1) L 09/18/18 04:25 MCV 82.6 fL (83.0-100.0) L 09/03/18 03:55 Plt Count 433 K/mcL (140-400) H 09/18/18 04:25 MPV 8.5 fL (9.4-12.4) L 09/18/18 04:25 Immature Gran % 5.0 % (0-4) H 09/17/18 01:30 8.0 % (0-4) H 09/06/18 03:45 2.0 % (0) H 09/03/18 03:55 9.0 K/mcL (1.6-8.9) H 09/18/18 04:25 Nucleated RBCs/100 WBC 0.2 /100 WBC (0) H 09/04/18 04:00 Present (Not Present) A 09/07/18 13:55 Decreased (Normal) L 09/05/18 04:53 1+ (Not Present) A 09/02/18 10:05 Present (Not Present) A 09/03/18 03:55 1+ (Not Present) A 09/02/18 10:05 ESR >= 130 mm/hr (0-10) H 09/06/18 10:20 369 mg/dL (30-200) H 09/10/18 07:30 PT 12.7 Seconds (9.4-12.1) H 09/07/18 15:50 724 mg/dL (169-393) H* 09/10/18 07:30 Factor VIII Activity 762 % (56-191) H 09/08/18 17:00 von Willebrand Activity 344 % (51-215) H 09/08/18 17:00 von Willebrand Antigen 345 % (52-214) H 09/08/18 17:00 Sodium 133 mEq/L (136-145) L 09/18/18 04:25 Potassium 5.4 mEq/L (3.5-5.1) H 09/18/18 04:25 Chloride 97 mEq/L (98-107) L 09/14/18 04:00 Carbon Dioxide 22 mEq/L (23-29) L 09/18/18 04:25 BUN 64 mg/dL (6-20) H 09/18/18 04:25 2.02 mg/dL (0.70-1.30) H 09/18/18 04:25 Est GFR ( Amer) 43 (> 60) L 09/18/18 04:25 Est GFR (Non-Af Amer) 36 (> 60) L 09/18/18 04:25 32 (6-26) H 09/18/18 04:25 Glucose 240 mg/dL (70-105) H 09/18/18 04:25 POC Glucose 147 mg/dL (70-99) H 09/18/18 15:48 8.5 % (-5.6) H 09/04/18 04:00 302 (280-300) H 09/18/18 04:25 Calcium 8.5 mg/dL (8.6-10.3) L 09/18/18 04:25 Phosphorus 4.9 mg/dL (2.7-4.5) H 09/18/18 04:25 Iron < 10 mcg/dL (65-175) L 09/12/18 04:45 % Saturation 5 % (20-55) L 09/10/18 07:30 141 mg/dL (203-362) L 09/12/18 04:45 489 ng/mL (20-250) H 09/10/18 07:30 0.3 mg/dL (0.0-0.2) H 09/01/18 15:33 AST 10 Units/L (13-39) L 09/10/18 04:05 122 Units/L (34-104) H 09/01/18 15:33 0.04 ng/mL (< 0.04) H* 09/03/18 01:00 198 mg/L (Less than 10) H 09/04/18 04:00 6.1 g/dL (6.4-8.9) L 09/01/18 15:33 5.2 g/dL (2.4-3.5) H 09/12/18 04:45 2.3 g/dL (3.5-5.7) L 09/18/18 04:25 0.4 (1.1-2.2) L 09/12/18 04:45 Vitamin B12 > 1500 pg/mL (250-1100) H 09/10/18 07:50 [place] (Yellow) A 09/01/18 Unknown Turbid (Clear) A 09/10/18 07:30 Ur Specific [place] 1.029 (1.010-1.025) H 09/01/18 Unknown 100 mg/dL (Neg-Trace) H 09/10/18 07:30 100 mg/dL (Normal) H 09/10/18 07:30 Trace mg/dL (Negative) H 09/01/18 Unknown Large (Negative) H 09/10/18 07:30 Moderate (Negative) H 09/01/18 Unknown 4.0 mg/dL (Normal) H 09/01/18 Unknown Ur Leukocyte Esterase Trace (Negative) H 09/10/18 07:30 5-15 per hpf (0-3) H 09/01/18 Unknown Ur Squamous Epith Cells Many per lpf (None-Few) H 09/01/18 Unknown Ur Culture Indicated? NO. (NO) A 09/01/18 Unknown Ur Microalbumin 24 Hr 351 mg/day (Less than 30) H 09/03/18 23:00 Microalb/Creat Ratio 290 mcg/mg (Less than 30) H 09/03/18 23:00 Ur Total Protein 24 Hr 2128 mg/day (50-80) H 09/03/18 23:00 Protein/Creatinin Ratio 1.76 mg/mg (0.00-0.20) H 09/03/18 23:00 Ur Sodium 24 Hour 33 mEq/day (40-220) L 09/03/18 23:00 Ur Chloride 24 Hour 20 mEq/day (110-250) L 09/03/18 23:00 Ur Phosphorus 24 Hr 0.2 g/day (0.4-1.3) L 09/03/18 23:00 Ur Urea Nitrogen 24 Hr 6 g/day (12-20) L 09/03/18 23:00 Ur Calcium 24 Hr 6 mg/day (100-300) L 09/03/18 23:00 185 mg/dL (1-14) H 09/03/18 23:00 U Free [place] Ch 110.00 mg/dL (0.14-2.42) H 09/02/18 23:00 U Free [place] Ch 19.80 mg/dL (0.02-0.67) H 09/02/18 23:00 Positive (Negative) A 09/11/18 18:40 Positive ng/mL (Wlnlqm=937) H 09/11/18 15:45 Hep Bs Antibody 4.61 mIU/mL (10.00-) L 09/01/18 20:52 Hepatitis C Ab Screen Reactive (Nonreactive) H 09/11/18 15:45 Staphylococcus sp PCR DETECTED (Not Detect) A 09/01/18 15:58 Staph aureus (PCR) DETECTED (Not Detect) A 09/01/18 15:58 Streptococcus sp PCR DETECTED (Not Detect) A 09/01/18 15:58 Group B Strep (PCR) DETECTED (Not Detect) A 09/01/18 15:58 Crossmatch See Detail 09/14/18 16:25 Crossmatch Prewarmed See Detail 09/01/18 16:55 Microbiology, Last 48 Hours 09/15/18 08:26 Anaerobic Culture - Preliminary Left Foot At this time, no anaerobic growth is present. The culture will be finalized after 5 days of incubation. 09/14/18 15:19 Anaerobic Culture - Preliminary Left Foot At this time, no anaerobic growth is present. The culture will be finalized after 5 days of incubation. 09/15/18 08:26 Surgical Biopsy Culture - Preliminary Left Foot Gram Positive Cocci Gram Positive Cocci#2 09/15/18 08:26 Surgical Biopsy Culture - Preliminary Other-Specify in Comments 09/15/18 08:26 Wound Culture - Final Left Foot No growth. Consult Discharge Plan - Plan Instructions: Tamsulosin (By mouth) Additional Instructions: daily dressing changes to right BKA Referrals: José Miguel Negro MD [Primary Care Provider] - Marcus Johnson MD [Partnered Physician] - (Follow-up in vascular surgery clinic with Dr. Johnson in 6 weeks for staple removal.)
[2018-09-19] MEDS: ceFAZolin 1,000 MG in Water for inj. (sterile) 20 ML 10 ML IVPB SCH ×2 (00:08→09:00)
[2018-09-19] MEDS: *HR* OxyCODONE Immed Rel 5 MG TABLET PO PRN ×2 (00:08→22:05)
[2018-09-19] MEDS: *HR* OxyCODONE/APAP 10/325 TABLET PO PRN ×4 (04:09→18:20)
[2018-09-19 07:41] LABS: Hematocrit 24.4 % (37.5-50.1); Hemoglobin 7.9 g/dL (12.9-16.9); Mean Corpuscular HGB Conc 32.4 g/dL (31.6-35.5); Mean Corpuscular Hemoglobin 28.9 pg (28.0-33.3); Mean Corpuscular Volume 89.4 fL (83.0-100.0); Mean Platelet Volume 8.3 fL (9.4-12.4); Neutrophils # 7.5 K/mcL (1.6-8.9); Platelet Count 409 K/mcL (140-400); Red Blood Count 2.73 M/mcL (4.19-5.50); Red Cell Distribution Width 13.7 % (11.5-14.5)
[2018-09-19 08:03] LABS: Eosinophils # 0.4 K/mcL (0.0-0.6); Lymphocytes # 1.9 K/mcL (0.6-4.6); Monocytes # 0.9 K/mcL (0.0-1.3); Platelet Estimate Normal (Normal)
[2018-09-19] MEDS: Folic Acid 1 MG TABLET PO SCH (09:00)
[2018-09-19] MEDS: amLODIPine 5 MG TABLET PO SCH (09:01)
[2018-09-19] MEDS: Insulin LISPRO 300 UNITS/3 ML VIAL SQ SCH ×7 (09:02→22:01)
[2018-09-19] MEDS: Insulin DETEMIR 100 UNIT/ML X5UNITS SQ SCH ×2 (09:08→22:07)
[2018-09-19 09:36] LABS: Albumin 2.4 g/dL (3.5-5.7); Calcium 8.2 mg/dL (8.6-10.3); Phosphorous 4.5 mg/dL (2.7-4.5); Potassium 5.1 mEq/L (3.5-5.1)
--- NOTE | 2018-09-19 10:55 | Physician Discharge Referral ---
Home Health/Hosp Referral Info Transfer to: Home Health - Diagnosis (1) Osteomyelitis Status: Acute (2) Abscess of left foot Status: Acute (3) Bacteremia Status: Acute (4) Anemia in chronic kidney disease Status: Acute (5) Atrial fibrillation, chronic Status: Chronic (6) Acute kidney injury superimposed on chronic kidney disease Status: Acute (7) Sepsis Status: Resolved (8) Obesity Status: Acute - Respiratory Orders Smoking Cessation: Smoking cessation has been advised. For more information, call the [place] Tobacco Quit Line at 6-333-YSIV-NOW. - Services Needed Following services are medically necessary services: Nursing, Home Health Aide, Physical Therapy, Occupational Therapy, Home Infusion - Transfer Medications Home Medications: Albuterol Sulfate [Albuterol Inhaler] 2 puff IH Q4H PRN 08/03/18 [History] Amlodipine Besylate 5 mg PO DAILY 08/03/18 [History] Cholecalciferol (Vitamin D3) [Optimal D3] 50,000 unit PO QWEEK 08/03/18 [History] CloNIDine Patch [Catapres-Tts] 0.2 mg TD QWEEK 08/03/18 [History] Furosemide [Lasix] 40 mg PO DAILY 08/03/18 [History] Insulin Glargine,Hum.rec.anlog [Basaglar Kwikpen U-100] 35 unit SQ BID 08/03/18 [History] Insulin LISPRO [HumaLOG] 30 units SQ TID 08/03/18 [History] Losartan/Hydrochlorothiazide [Losartan-Hctz 100-25 mg Tab] 1 each PO DAILY 08/03/18 [History] OxyCODONE/APAP 10/325 [Percocet 10/325 MG] 1 each PO TID PRN 08/03/18 [History] Rivaroxaban [Xarelto] 15 mg PO DAILY 08/03/18 [History] Sertraline [Zoloft] 50 mg PO DAILY 08/03/18 [History] Sertraline [Zoloft] 100 mg PO DAILY 08/03/18 [History] Umeclidinium [place] [Incruse Ellipta] 1 puff IH DAILY 08/03/18 [History] Allergies/Adverse Reactions: Allergy/AdvReac Type Severity Reaction Status Date / Time No Known Allergies Allergy Verified 05/06/16 14:33 Certification: Further, I certify that my clinical findings support that this patient is homebound (i.e. absences from home require considerable and taxing effort and are for medical reasons or mandaen services or infrequently or short duration when for other reasons) because: Homebound Reason: Patient requires assistance of a person or device to safely leave home Attestation: My signature below is to certify that this patient is under my care and that I, or nurse practitioner, or a physician's pharmacy affairs assistant working with me, has a [id number] encounter with this patient.
--- NOTE | 2018-09-19 10:55 | Discharge Summary ---
Orders not resulted at time of discharge: Pending orders 09/14/18 15:19 Culture,Anaerobic [RM] Routine 09/15/18 08:26 Culture,Anaerobic [RM] Routine 09/15/18 09:22 Surgical Pathology [PTH] Routine 09/20/18 04:00 Renal Function Panel AM 0400 09/21/18 04:00 Renal Function Panel AM 0400 09/22/18 04:00 Renal Function Panel AM 0400 09/23/18 04:00 Renal Function Panel AM 0400 09/24/18 04:00 Renal Function Panel AM 0400 Date of Encounter: 09/19/18 Time of Encounter: 11:00 - Discharge Diagnosis (1) Osteomyelitis Priority: Primary Status: Acute Qualifiers: Osteomyelitis type: subacute Osteomyelitis location: foot Laterality: left Qualified Code(s): M86.272 - Subacute osteomyelitis, left ankle and foot (2) Abscess of left foot Priority: Primary Status: Acute (3) Bacteremia Priority: Primary Status: Acute (4) Anemia in chronic kidney disease Priority: Primary Status: Acute Qualifiers: Chronic kidney disease stage: stage 3 (moderate) Qualified Code(s): N18.3 - Chronic kidney disease, stage 3 (moderate); D63.1 - Anemia in chronic kidney disease (5) Atrial fibrillation, chronic Priority: Secondary Status: Chronic (6) Acute kidney injury superimposed on chronic kidney disease Priority: Primary Status: Acute (7) Sepsis Priority: Primary Status: Resolved Qualifiers: Sepsis type: sepsis due to unspecified organism Qualified Code(s): A41.9 - Sepsis, unspecified organism (8) Obesity Priority: Secondary Status: Acute Qualifiers: Body mass index: unspecified BMI Qualified Code(s): E66.9 - Obesity, unspecified Hospital course: Patient is a 48-year-old male who presented due to abnormal labs and altered mental status and found to have right lower extremity infected wound in addition to polymicrobial osteomyelitis of right lower extremity with bacteremia of the same. During patients prolonged hospital stay, he was treated for sepsis which was secondary to osteomyelitis and bacteremia due to polymicrobial organisms Group B strep, MSSA, Proteus mirabilis. Infectious disease was consulted and patient was on a prolonged course of IV antibiotics. Vascular surgery was consulted and patient is now status post right BKA. Patient was also found to have abscess on left foot and podiatry was consulted with recommendations for incision and drainage which cultures revealed staph aureus. In addition patient also with acute on chronic blood loss anemia and was transfused please 11 units of packed red blood cells. In addition patient also with acute on chronic kidney disease and had a temporary hemanalysis line placed for dialysis; renal function recovered a hemodialysis discontinued. Patient will be discharged on a prolonged course of IV antibiotics and oral antibiotics per infectious disease recommendations. - Time Spent with Patient Total time spent providing and/or coordinating discharge services: - Discharge Medications Prescriptions: New ceFAZolin [Ancef] 2,000 mg IVPB Q8HR #90 vial Doxycycline Hyclate [Doxy 100] 100 mg IV BID 30 Days #60 vial Ferrous Sulfate 325 mg PO DAILY@0800 #30 tablet Tamsulosin [Flomax] 0.4 mg PO DAILY #30 capsule amLODIPine [Norvasc] 5 mg PO DAILY #30 tablet Continued Cholecalciferol (Vitamin D3) [Optimal D3] 50,000 unit PO QWEEK Albuterol Sulfate [Albuterol Inhaler] 2 puff IH Q4H PRN PRN Reason: SOB/WHEEZING Sertraline [Zoloft] 100 mg PO DAILY Sertraline [Zoloft] 50 mg PO DAILY Losartan/Hydrochlorothiazide [Losartan-Hctz 100-25 mg Tab] 1 each PO DAILY Umeclidinium [place] [Incruse Ellipta] 1 puff IH DAILY Insulin LISPRO [HumaLOG] 30 units SQ TID Furosemide [Lasix] 40 mg PO DAILY Insulin Glargine,Hum.rec.anlog [Basaglar Kwikpen U-100] 35 unit SQ BID CloNIDine Patch [Catapres-Tts] 0.2 mg TD QWEEK Amlodipine Besylate 5 mg PO DAILY Rivaroxaban [Xarelto] 15 mg PO DAILY OxyCODONE/APAP 10/325 [Percocet 10/325 MG] 1 each PO TID PRN 3 Days #21 tablet PRN Reason: Pain Home Medications: Albuterol Sulfate [Albuterol Inhaler] 2 puff IH Q4H PRN 08/03/18 [History] Amlodipine Besylate 5 mg PO DAILY 08/03/18 [History] Cholecalciferol (Vitamin D3) [Optimal D3] 50,000 unit PO QWEEK 08/03/18 [History] CloNIDine Patch [Catapres-Tts] 0.2 mg TD QWEEK 08/03/18 [History] Furosemide [Lasix] 40 mg PO DAILY 08/03/18 [History] Insulin Glargine,Hum.rec.anlog [Basaglar Kwikpen U-100] 35 unit SQ BID 08/03/18 [History] Insulin LISPRO [HumaLOG] 30 units SQ TID 08/03/18 [History] Losartan/Hydrochlorothiazide [Losartan-Hctz 100-25 mg Tab] 1 each PO DAILY 08/03/18 [History] Rivaroxaban [Xarelto] 15 mg PO DAILY 08/03/18 [History] Sertraline [Zoloft] 50 mg PO DAILY 08/03/18 [History] Sertraline [Zoloft] 100 mg PO DAILY 08/03/18 [History] Umeclidinium [place] [Incruse Ellipta] 1 puff IH DAILY 08/03/18 [History] Doxycycline Hyclate [Doxy 100] 100 mg IV BID 30 Days #60 vial 09/19/18 [Rx] Ferrous Sulfate 325 mg PO DAILY@0800 #30 tablet 09/19/18 [Rx] OxyCODONE/APAP 10/325 [Percocet 10/325 MG] 1 each PO TID PRN 3 Days #21 tablet 09/19/18 [Rx] Tamsulosin [Flomax] 0.4 mg PO DAILY #30 capsule 09/19/18 [Rx] amLODIPine [Norvasc] 5 mg PO DAILY #30 tablet 09/19/18 [Rx] ceFAZolin [Ancef] 2,000 mg IVPB Q8HR #90 vial 09/19/18 [Rx] Allergies/Adverse Reactions: Allergy/AdvReac Type Severity Reaction Status Date / Time No Known Allergies Allergy Verified 05/06/16 14:33 Date of admission: 09/01/18 19:13 Primary care physician: José Miguel Negro MD Consults: 09/01/18 16:52 Consult to Nephrology [CONS] Stat Consulting Provider: [facility]/KISHAN/BENIGNO/SHWETHA Reason for Consult: CESILIA Call Completed: Yes 09/02/18 00:01 Consult to Wound Care [CONS] Routine Reason for Consult: Need recommendations for daily wound care Call Completed: No 09/02/18 07:41 Consult to Interventional Radiology [CONS] Routine Consulting Provider: Radiology Interventional [facility] Reason for Consult: Please assist in placing a temporary HD catheter. Thank you. I'll call the after-hours line. Call Completed: Yes 09/02/18 07:45 Consult to Dialysis [CONS] ONCE 09/04/18 06:30 Consult to Dialysis [CONS] ONCE 09/04/18 10:47 Consult to Podiatry [CONS] Routine Consulting Provider: [facility] Reason for Consult: Rt foot infection; T2DM/Charcot arthropathy... Time Notified: 10:45 Call Completed: Yes 09/05/18 14:31 Consult to Infectious Diseases [CONS] Routine Consulting Provider: Infectious [facility] Reason for Consult: Diabetic. Polymicrobial infection of R foot (Charcot's) Time Notified: 14:30 Call Completed: Yes 09/06/18 07:15 Consult to Dialysis [CONS] ONCE 09/08/18 06:15 Consult to Dialysis [CONS] ONCE 09/09/18 10:22 Consult to Oncology Hematology [CONS] Routine Consulting Provider: Claude Peña Reason for Consult: bleeding diathesis Call Completed: Yes 09/11/18 10:15 Consult to Vascular Surgery [CONS] Routine Consulting Provider: Vascular Surgery [facility] Reason for Consult: right BKA Call Completed: Yes 09/12/18 08:30 Consult to Dialysis [CONS] ONCE 09/13/18 20:34 Consult to Ostomy Care Nurse [CONS] Routine Reason for SW Consult: post op amputation 09/14/18 08:38 Consult to Physical Therapy [CONS] Routine Comment: Evaluate, develop and implement POC Reason for Consult: s/p right BKA Does patient have active BEDREST order?: No Is patient medically & hemodynamically stable?: Yes Patient assessed for mobility or mobilized this visit?: No 09/14/18 11:06 Consult to Occupational Therapy [CONS] Routine Comment: Evaluate, develop and implement POC Reason for Consult: new above right AKA Does patient have active BEDREST order?: No Is patient medically & hemodynamically stable?: Yes 09/14/18 17:32 Consult to Urology [CONS] Routine Consulting Provider: Urology [facility] Reason for Consult: acute urinary retention Time Notified: 17:33 Call Completed: Yes - Constitutional Vitals: Temp Pulse Resp BP Pulse Ox 98.4 F 81 17 167/85 97 09/19/18 06:57 09/19/18 06:57 09/19/18 06:57 09/19/18 06:57 09/19/18 06:57 General appearance: Present: A&O X 3, answers questions appropriately Exam: Gen.: Nonacute distress, alert and oriented 3 Skin: Normal color - Patient Status Disposition: Home Health Service Condition: Fair - Discharge Instructions Instructions: Tamsulosin (By mouth) Follow Up With: Valencia Peralta CNP [Advanced Practice Nurse] - 09/27/18 2:25 pm José Miguel Negro MD [Primary Care Provider] - Marcus Johnson MD [Partnered Physician] - (Follow-up in vascular surgery clinic with Dr. Johnson in 6 weeks for staple removal.) Additional Instructions: daily dressing changes to right BKA
--- NOTE | 2018-09-19 10:56 | Infectious Disease Progress No ---
ID Progress Note Date of Encounter: 09/19/18 Time of Encounter: 09:40 - Subjective Subjective: Patient seen and examined. Status post right foot irrigation and debridement and incision and drainage with plantar fasciectomy and debridement of the tarsal bone and application of external fixator 09/06/[address] Ferrell. Status post right BKA 09/13/[address] Johnson. Status post left foot I & D 09/15/18. Denies fevers, chills, or rigors. Denies chest pain, shortness of breath, or cough. Complains of pain at the BKA site and phantom limb pain. Denies nausea, vomiting, diarrhea, or constipation. States his appetite is good. Blanco patent. Denies oral thrush or new skin lesions. - Objective CBC & Chem 7: 09/19/18 07:20 09/21/18 05:15 - Line Documentation Line Documentation: Blanco Catheter (draining clear yellow urine) - Exam Vitals: Temp Pulse Resp BP Pulse Ox 98.4 F 81 17 167/85 97 09/19/18 06:57 09/19/18 06:57 09/19/18 06:57 09/19/18 06:57 09/19/18 06:57 Exam: Head: Atraumatic, normal inspection, normocephalic. Eye: EOMI, PERRLA, no scleral icterus noted. ENT: Mucous membranes moist. No odontogenic infection noted. Neck: Normal inspection, no meningismus. Respiratory: Clear to auscultation. No rales, respiratory distress, rhonchi, or wheezes noted. Cardiovascular: Regular rate and rhythm, S1 and S2 audible. No murmurs, rubs, or gallops. GI: Soft, obese, normal bowel sounds. Blanco draining clear yellow urine. Extremities: Right BKA dressing noted C/D/I. Post-op dressing noted to the left foot C/D/I. Neurological: Alert, oriented 3, no focal deficits. Psychiatric: normal affect, normal mood. Skin: Dry, intact, warm. Normal color. No rashes. - Assessment and Plan (1) Sepsis Status: Resolved The patient had two sepsis criteria with acute kidney injury. Likely secondary to bacteremia and right foot infection. White blood cell count normal. Afebrile overnight. Blood cultures drawn 09/01/18 are +2 out of 2 sets for group B strep, MSSA, and Proteus mirabilis. Repeat blood cultures drawn 09/06/18 are negative x 2 sets. Repeat blood cultures drawn 09/07/18 are negative x 2 sets. Qualifiers: Sepsis type: sepsis due to unspecified organism Qualified Code(s): A41.9 - Sepsis, unspecified organism SNOMED Code(s): 74138961 (2) Bacteremia Status: Acute Causative organism: Group B strep, MSSA, Proteus mirabilis. Source: Right foot infection. Blood cultures drawn 09/01/18 are +2 out of 2 sets. Repeat blood cultures drawn 09/06/18 are negative x 2 sets. Repeat blood cultures drawn 09/07/18 are negative x 2 sets. Complicated due to hardware in the left wrist. No endocarditis stigmata noted on exam. Rheumatoid factor normal. TTE negative for vegetations. The patient has one major and one minor modified [place] criteria. Currently on cefazolin. SNOMED Code(s): 0112321 (3) Infection of right foot Status: Resolved Location: Right foot. Causative organism: GBS, MSSA, P. mirabilis. Likely secondary to chronic non-healing ulcers and uncontrolled DM. X-ray of the right foot 09/01/18 showed findings consistent with Charcot arthropathy/neuropathic foot not significantly changed from the prior studies and extensive soft tissue swelling suggesting cellulitis. MRI of the right foot 09/04/18 showed plantar soft tissue ulcer at the level of the cuboid with suspected interval soft tissue graft placement. There is edema of the graft which may reflect soft tissue infection. Suspected bilateral soft tissue ulceration with associated phlegmonous change at the level of the inframalleolar peroneal tendons. There is no tenosynovitis and complete full- thickness peroneal tendon tears. The tenosynovitis may be infectious. New multifocal marrow signal abnormality involving the talus, calcaneus, cuboid, and navicular suspicious for osteonecrosis and less likely osteomyelitis. Persistent marrow signal and abnormality in the cuboid which is suspicious for osteoarthritis and a chronic cuboid erosion or defect is noted. Podiatry consulted. Per their note, purulent drainage expressed on exam. Status post right foot incision and drainage and irrigation and debridement, plantar fasciectomy, debridement of the tarsal bone, and application of external fixator 09/06/[address] Armstrong. Operative note reviewed. Gross purulence noted throughout the foot. Intraoperative tissue and bone cultures positive for MSSA, GBS, and P. mirabilis. ESR greater than 130, CRP 198. Status post right BKA 09/13/18. SNOMED Code(s): 674390559 (4) Cellulitis Status: Resolved Location: Right foot. Causative organism: GBS, MSSA, P. mirabilis. Purulent. Likely secondary to chronic ulcers. Podiatry consulted. Status post I & D and right BKA. Qualifiers: Site of cellulitis: extremity Site of cellulitis of extremity: lower e xtremity Laterality: right SNOMED Code(s): 458985851 (5) Wound of left foot Status: Acute Location: Left lateral foot. Etiology: Unclear. CT of the left foot showed plantar subcutaneous edema in the midfoot compatible with cellulitis with a questionable fluid collection plantar to the cuboid bone. Questionable erosive changes along the plantar surface of the cuboid with osteomyelitis not excluded. Severe midfoot disorganization and fragmentation compatible with Charcot arthropathy was noted. MRI of the left foot showed findings concerning for abscess. Podiatry consulted and following. Status post I & D left foot 09/15/[address] Ferrell. Intra-op tissue cultures positive for S. epi and S. auricularis, but bone cultures are negative. Currently on cefazolin. SNOMED Code(s): 645058922, 176063549 (6) Chronic ulcer of right foot with fat layer exposed Status: Resolved Location: Right foot. Podiatry consulted. Status post right BKA. SNOMED Code(s): 347456799 (7) Acute kidney injury superimposed on chronic kidney disease Status: Acute Serum creatinine 6.57 on admission with uremia and diminished urine output. Nephrology consulted. Temp HD line placed 09/02/18 and HD initiated. Last HD 4 days ago. Avoid nephrotoxins as able. Dose-adjust medications. Vancomycin discontinued. SNOMED Code(s): 37998757 (8) Anemia Status: Acute Qualifiers: Anemia type: other cause Other causes of anemia: other cause, not classified Qualified Code(s): D64.89 - Other specified anemias SNOMED Code(s): 403669441 (9) Elevated troponin Status: Acute SNOMED Code(s): 267183398, 160190231, 199923345 (10) Hyponatremia Status: Acute SNOMED Code(s): 18736569 (11) Pulmonary edema Status: Acute Qualifiers: Chronicity: acute Qualified Code(s): J81.0 - Acute pulmonary edema SNOMED Code(s): 99209580 (12) Atrial fibrillation, chronic Status: Chronic SNOMED Code(s): 688501055 (13) COPD (chronic obstructive pulmonary disease) Status: Chronic Qualifiers: Emphysema type: unspecified Qualified Code(s): J43.9 - Emphysema, unspecified SNOMED Code(s): 74212251 (14) T2DM (type 2 diabetes mellitus) Status: Chronic HgbA1C 8.5%. Recommend aggressive glucose monitoring and control to promote wound healing and prevent re-infection. Management per the primary team. Qualifiers: Diabetes mellitus jail insulin use: without long lines operator use Diabetes mellitus complication status: with kidney complications Diabetes mellitus complication detail: with chronic kidney disease Chronic kidney disease stage: stage 3 (moderate) Qualified Code(s): E11.22 - Type 2 diabetes mellitus with diabetic chronic kidney disease; N18.3 - Chronic kidney disease, stage 3 (moderate) SNOMED Code(s): 36891374 (15) Hepatitis C Status: Acute Qualifiers: Viral hepatitis chronicity: chronic Hepatic coma status: without hepatic coma Qualified Code(s): B18.2 - Chronic viral hepatitis C SNOMED Code(s): 01057598 (16) Urinary retention Status: Acute Urology consulted. Blanco placed. SNOMED Code(s): 195601246 - Recommendations Recommendations: The patient will likely require a MAHESH prior to discharge. Wound care and activity restrictions per the podiatry team. CESILIA management per the nephrology team. Continue cefazolin, but increase to 2 grams IV Q8H. Start doxycycline 100mg PO BID. Duration of treatment depends on the clinical picture pending MAHESH results, but likely 2 weeks from the most recent surgery if MAHESH negative. Monitor renal function and dose-adjust antibiotics. director of child welfare services to assist with discharge planning. Consult VAT for EPIV placement. Will need weekly CBC, BUN/Cr, ESR, and CRP. Will need weekly IV care per protocol. Follow up with ID 09/27/18 at 1425. Consult Discharge Plan - Plan Instructions: Tamsulosin (By mouth), Below the Knee Amputation (DC) Additional Instructions: daily dressing changes to right BKA Referrals: Nolan Ferrell DPM [Partnered Physician] - 10/05/18 10:30 am (Follow up in Wound care [id number]) Valencia Peralta CNP [Advanced Practice Nurse] - 09/27/18 2:25 pm José Miguel Negro MD [Primary Care Provider] - 09/28/18 1:45 pm Marcus Johnson MD [Partnered Physician] - 10/25/18 9:40 am (Follow-up in vascular surgery clinic with Dr. Johnson in 6 weeks for staple removal.) Prescriptions: ceFAZolin [Ancef] 2,000 mg IVPB Q8HR #90 vial Doxycycline 100 mg PO BID 14 Days #28 capsule Ferrous Sulfate 325 mg PO DAILY@0800 #30 tablet Tamsulosin [Flomax] 0.4 mg PO DAILY #30 capsule amLODIPine [Norvasc] 5 mg PO DAILY #30 tablet OxyCODONE/APAP 10/325 [Percocet 10/325 MG] 1 each PO TID PRN 3 Days #21 tablet PRN Reason: Pain - Attending Attestation I have personally performed a face to face evaluation on this patient. I have reviewed and agree with the care plan. History and Exam by me shows: Assessment and Plan: 1. Sepsis 2. Bacteremia with group B streptococcus, MSSA and Proteus mirabilis likely source right foot infection 3. Infection of right foot status post I&D, plantar fasciotomy, debridement of tarsal bone and application of external fixator 09/06/2018 4. Cellulitis 5. Chronic ulcer of right foot with fat layer exposed 6. CESILIA on CKD 7. left foot abscess status post I&D by Dr. Ferrell 09/15/2018. Intra-Op cu ltures pending. Recommendations: Continue cefazolin 2 g increased to IV every 8 hours based on improving kidney function Continue levofloxacin dose adjust based on the creatinine clearance Continue to observe off dialysis Await Intra-Op cultures Duration of treatment depends on the Intra-Op cultures and a MAHESH findings
--- NOTE | 2018-09-19 12:15 | Nephrology Progress Note ---
Date of Encounter: 09/19/18 Time of Encounter: 12:15 - Assessment and Plan (1) CESILIA (acute kidney injury) Current Visit: Yes Status: Acute SCr at a plateau. Looking at his serum creatinine since 2016 it is possible that this is his new baseline. Last HD 09/12/18. He no longer need HD. Ok to discontinue nontunneled HD catheter. Medical management of his hyperkalemia. Will add loop diuretic for hyperkalemia and hypertension. Continue to avoid nephrotoxins if possible (2) Hypertension Current Visit: No Status: Acute Patient with uncontrolled BP. Adding furosemide for diuresis. Added back amlodipine 09/18/2018 added back losartan 100 mg po daily starting Titrate blood pressure as needed. Qualifiers: Hypertension type: unspecified Qualified Code(s): I10 - Essential (primary) hypertension (3) Hyperkalemia Current Visit: No Status: Acute (4) Anemia Current Visit: Yes Status: Acute Qualifiers: Anemia type: other cause Other causes of anemia: other cause, not classified Qualified Code(s): D64.89 - Other specified anemias (5) CKD (chronic kidney disease), stage III Current Visit: Yes Status: Chronic (6) Hyponatremia Current Visit: Yes Status: Acute (7) Solitary kidney, acquired Current Visit: Yes Status: Acute (8) Chronic ulcer of right foot with fat layer exposed Current Visit: Yes Status: Resolved (9) Vitamin D deficiency Current Visit: Yes Status: Acute Subjective Principal diagnosis: Abscess left foot Interval history: Mr. Perkins was seen. No new complaint. ROS seem stable. Objective - Vital Signs Vital signs: Vital Signs Temp Pulse Resp BP Pulse Ox 09/19/18 06:57 98.4 F 81 17 167/85 97 09/19/18 04:44 97.5 F L 85 18 176/91 97 09/18/18 23:56 99.6 F 78 18 182/95 98 09/18/18 19:26 98.1 F 79 18 162/89 97 09/18/18 15:44 98.4 F 79 18 178/96 98 Intake and Output 09/18/18 09/19/18 09/19/18 23:59 07:59 15:59 Intake Total 1510 Output Total 1575 / 1575 Balance 1715 -1565 / -1555 1555 Intake: IV Fluids 1029 Ancef 1,000 MG In Water for inj . (sterile) 10 ML @ 200 mls/hr IVPB Q8HR [facility] Rx#:[id number] Output: Urine 1225 / 1225 Catheter 350 / 350 Other: Weight 125.1 kg Blood Glucose* 189 307 Patient Weight 09/19/18 23:59 Weight 125.1 kg - General Appearance General appearance: Present: well-developed, well-nourished EENT: Present: ATNC Neck: Present: supple Cardiology: Present: regular rate Integumentary: Present: warm and dry Neurologic: Present: alert and oriented x3 Musculoskeletal: Present: no cyanosis Psychiatric: Present: mood/affect appropriate - Lab 09/19/18 07:20 09/19/18 09:09 Most recent lab results 09/19/18 09:09 Calcium 8.2 L Phosphorus 4.5 Consult Discharge Plan - Plan Instructions: Tamsulosin (By mouth) Additional Instructions: daily dressing changes to right BKA Referrals: Valencia Peralta CNP [Advanced Practice Nurse] - 09/27/18 2:25 pm José Miguel Negro MD [Primary Care Provider] - Marcus Johnson MD [Partnered Physician] - (Follow-up in vascular surgery clinic with Dr. Johnson in 6 weeks for staple removal.) Prescriptions: ceFAZolin [Ancef] 2,000 mg IVPB Q8HR #90 vial Doxycycline Hyclate [Doxy 100] 100 mg IV BID 30 Days #60 vial Ferrous Sulfate 325 mg PO DAILY@0800 #30 tablet Tamsulosin [Flomax] 0.4 mg PO DAILY #30 capsule amLODIPine [Norvasc] 5 mg PO DAILY #30 tablet OxyCODONE/APAP 10/325 [Percocet 10/325 MG] 1 each PO TID PRN 3 Days #21 tablet PRN Reason: Pain
[2018-09-19] MEDS: *HR* Rivaroxaban 15 MG TABLET PO SCH (15:58)
[2018-09-19] MEDS: Furosemide 20 MG TABLET PO SCH (15:58)
[2018-09-19] MEDS: ceFAZolin 2,000 MG in 0.9 % Sodium Chloride 100 ML IVPB SCH (15:58)
[2018-09-19] MEDS ORDERED: Furosemide 20 MG TABLET PO SCH (21:00)
[2018-09-19] MEDS: Doxycycline 100 MG CAPSULE PO SCH (22:05)
[2018-09-19] MEDS: cloNIDine HCl 0.1 MG TABLET PO PRN (22:05)
[2018-09-20] MEDS: ceFAZolin 2,000 MG in 0.9 % Sodium Chloride 100 ML IVPB SCH ×3 (00:18→15:01)
[2018-09-20 06:25] LABS: Albumin 2.5 g/dL (3.5-5.7); Calcium 8.7 mg/dL (8.6-10.3); Phosphorous 4.7 mg/dL (2.7-4.5); Potassium 4.9 mEq/L (3.5-5.1)
[2018-09-20] MEDS: *HR* OxyCODONE Immed Rel 5 MG TABLET PO PRN ×2 (07:22→14:56)
[2018-09-20] MEDS: Furosemide 20 MG TABLET PO SCH ×2 (07:22→16:52)
[2018-09-20] MEDS: amLODIPine 5 MG TABLET PO SCH (07:23)
[2018-09-20] MEDS: Doxycycline 100 MG CAPSULE PO SCH ×2 (07:23→20:39)
[2018-09-20] MEDS: Folic Acid 1 MG TABLET PO SCH (07:23)
[2018-09-20] MEDS: Insulin LISPRO 300 UNITS/3 ML VIAL SQ SCH ×7 (07:28→20:39)
[2018-09-20] MEDS: Insulin DETEMIR 100 UNIT/ML X5UNITS SQ SCH ×2 (07:53→20:39)
--- NOTE | 2018-09-20 10:18 | Infectious Disease Progress No ---
ID Progress Note Date of Encounter: 09/20/18 Time of Encounter: 09:35 - Subjective Subjective: Patient seen and examined. Status post right foot irrigation and debridement and incision and drainage with plantar fasciectomy and debridement of the tarsal bone and application of external fixator 09/06/[address] Ferrell. Status post right BKA 09/13/[address] Johnosn. Status post left foot I & D 09/15/18. Denies fevers, chills, or rigors. Denies chest pain, shortness of breath, or cough. Complains of pain at the BKA site and phantom limb pain and soreness in the left foot surgical site. Denies nausea, vomiting, diarrhea, or constipation. States his appetite is good. Blanco patent. Denies oral thrush or new skin lesions. NPO for MAHESH later today. - Objective CBC & Chem 7: 09/19/18 07:20 09/20/18 05:32 - Line Documentation Line Documentation: Blanco Catheter (draining clear yellow urine) - Exam Vitals: Temp Pulse Resp BP Pulse Ox 99.3 F 74 20 169/83 97 09/20/18 06:39 09/20/18 06:39 09/20/18 06:39 09/20/18 06:39 09/20/18 09:51 Exam: Head: Atraumatic, normal inspection, normocephalic. Eye: EOMI, PERRLA, no scleral icterus noted. ENT: Mucous membranes moist. No odontogenic infection noted. Neck: Normal inspection, no meningismus. Respiratory: Clear to auscultation. No rales, respiratory distress, rhonchi, or wheezes noted. Cardiovascular: Regular rate and rhythm, S1 and S2 audible. No murmurs, rubs, or gallops. GI: Soft, obese, normal bowel sounds. Blanco draining clear yellow urine. Extremities: Right BKA dressing noted C/D/I. Post-op dressing noted to the left foot C/D/I. Neurological: Alert, oriented 3, no focal deficits. Psychiatric: normal affect, normal mood. Skin: Dry, intact, warm. Normal color. No rashes. - Assessment and Plan (1) Sepsis Current Visit: Yes Status: Resolved The patient had two sepsis criteria with acute kidney injury. Likely secondary to bacteremia and right foot infection. White blood cell count normal. Afebrile overnight. Blood cultures drawn 09/01/18 are +2 out of 2 sets for group B strep, MSSA, and Proteus mirabilis. Repeat blood cultures drawn 09/06/18 are negative x 2 sets. Repeat blood cultures drawn 09/07/18 are negative x 2 sets. Qualifiers: Sepsis type: sepsis due to unspecified organism Qualified Code(s): A41.9 - Sepsis, unspecified organism SNOMED Code(s): 95366989 (2) Bacteremia Current Visit: Yes Status: Acute Causative organism: Group B strep, MSSA, Proteus mirabilis. Source: Right foot infection. Blood cultures drawn 09/01/18 are +2 out of 2 sets. Repeat blood cultures drawn 09/06/18 are negative x 2 sets. Repeat blood cultures drawn 09/07/18 are negative x 2 sets. Complicated due to hardware in the left wrist. No endocarditis stigmata noted on exam. Rheumatoid factor normal. TTE negative for vegetations. MAHESH scheduled for today. The patient has one major and one minor modified [place] criteria. Currently on cefazolin. SNOMED Code(s): 9978247 (3) Infection of right foot Current Visit: Yes Status: Resolved Location: Right foot. Causative organism: GBS, MSSA, P. mirabilis. Likely secondary to chronic non-healing ulcers and uncontrolled DM. X-ray of the right foot 09/01/18 showed findings consistent with Charcot arthropathy/neuropathic foot not significantly changed from the prior studies and extensive soft tissue swelling suggesting cellulitis. MRI of the right foot 09/04/18 showed plantar soft tissue ulcer at the level of the cuboid with suspected interval soft tissue graft placement. There is edema of the graft which may reflect soft tissue infection. Suspected bilateral soft tissue ulceration with associated phlegmonous change at the level of the inframalleolar peroneal tendons. There is no tenosynovitis and complete full- thickness peroneal tendon tears. The tenosynovitis may be infectious. New multifocal marrow signal abnormality involving the talus, calcaneus, cuboid, and navicular suspicious for osteonecrosis and less likely osteomyelitis. Persistent marrow signal and abnormality in the cuboid which is suspicious for osteoarthritis and a chronic cuboid erosion or defect is noted. Podiatry consulted. Per their note, purulent drainage expressed on exam. Status post right foot incision and drainage and irrigation and debridement, plantar fasciectomy, debridement of the tarsal bone, and application of external fixator 09/06/[address] Armstrong. Operative note reviewed. Gross purulence noted throughout the foot. Intraoperative tissue and bone cultures positive for MSSA, GBS, and P. mirabilis. ESR greater than 130, CRP 198. Status post right BKA 09/13/18. SNOMED Code(s): 698675855 (4) Cellulitis Current Visit: Yes Status: Resolved Location: Right foot. Causative organism: GBS, MSSA, P. mirabilis. Purulent. Likely secondary to chronic ulcers. Podiatry consulted. Status post I & D and right BKA. Qualifiers: Site of cellulitis: extremity Site of cellulitis of extremity: lower extremity Laterality: right Qualified Code(s): L03.115 - Cellulitis of right lower limb SNOMED Code(s): 966411957 (5) Wound of left foot Current Visit: Yes Status: Acute Location: Left lateral foot. Etiology: Unclear. CT of the left foot showed plantar subcutaneous edema in the midfoot compatible with cellulitis with a questionable fluid collection plantar to the cuboid bone. Questionable erosive changes along the plantar surface of the cuboid with osteomyelitis not excluded. Severe midfoot disorganization and fragmentation compatible with Charcot arthropathy was noted. MRI of the left foot showed findings concerning for abscess. Podiatry consulted and following. Status post I & D left foot 09/15/[address] Ferrell. Intra-op tissue cultures positive for S. epi and S. auricularis, but bone cultures are negative. Currently on cefazolin and PO doxycycline. SNOMED Code(s): 154977280, 494717846 (6) Chronic ulcer of right foot with fat layer exposed Current Visit: Yes Status: Resolved Location: Right foot. Podiatry consulted. Status post right BKA. SNOMED Code(s): 807613615 (7) Acute kidney injury superimposed on chronic kidney disease Current Visit: No Status: Acute Serum creatinine 6.57 on admission with uremia and diminished urine output. Nephrology consulted and signed off. Temp HD line placed 09/02/18 and HD initiated. Last HD 5 days ago. Avoid nephrotoxins as able. Dose-adjust medications. Vancomycin discontinued. SNOMED Code(s): 34335266 (8) Anemia Current Visit: Yes Status: Acute Qualifiers: Anemia type: other cause Other causes of anemia: other cause, not classified Qualified Code(s): D64.89 - Other specified anemias SNOMED Code(s): 068605273 (9) Elevated troponin Current Visit: Yes Status: Acute SNOMED Code(s): 084942052, 673880036, 44 0256915 (10) Hyponatremia Current Visit: Yes Status: Acute SNOMED Code(s): 92469259 (11) Pulmonary edema Current Visit: Yes Status: Acute Qualifiers: Chronicity: acute Qualified Code(s): J81.0 - Acute pulmonary edema SNOMED Code(s): 67323422 (12) Atrial fibrillation, chronic Current Visit: Yes Status: Chronic SNOMED Code(s): 570323249 (13) COPD (chronic obstructive pulmonary disease) Current Visit: Yes Status: Chronic Qualifiers: Emphysema type: unspecified Qualified Code(s): J43.9 - Emphysema, unspecified SNOMED Code(s): 22339172 (14) T2DM (type 2 diabetes mellitus) Current Visit: Yes Status: Chronic HgbA1C 8.5%. Recommend aggressive glucose monitoring and control to promote wound healing and prevent re-infection. Management per the primary team. Qualifiers: Diabetes mellitus [facility] insulin use: without terminal gauger supervisor use Diabetes mellitus complication status: with kidney complications Diabetes mellitus complication detail: with chronic kidney disease Chronic kidney disease stage: stage 3 (moderate) Qualified Code(s): E11.22 - Type 2 diabetes mellitus with diabetic chronic kidney disease; N18.3 - Chronic kidney disease, stage 3 (moderate) SNOMED Code(s): 26628960 (15) Hepatitis C Current Visit: Yes Status: Acute Qualifiers: Viral hepatitis chronicity: chronic Hepatic coma status: without hepatic coma Qualified Code(s): B18.2 - Chronic viral hepatitis C SNOMED Code(s): 54126359 (16) Urinary retention Current Visit: Yes Status: Acute Urology consulted. Blanco placed. SNOMED Code(s): 159108332 - Recommendations Recommendations: Await MAHESH results. Wound care and activity restrictions per the podiatry team. CESILIA management per the nephrology team. Continue cefazolin 2 grams IV Q8H. Continue doxycycline 100mg PO BID. Duration of treatment depends on the clinical picture pending MAHESH results, but likely 2 weeks from the most recent surgery if MAHESH negative. Monitor renal function and dose-adjust antibiotics. multimedia services manager to assist with discharge planning. Consult VAT for EPIV placement. Will need weekly CBC, BUN/Cr, ESR, and CRP. Will need weekly IV care per protocol. Follow up with ID 09/27/18 at 1425. Consult Discharge Plan - Plan Instructions: Tamsulosin (By mouth) Additional Instructions: daily dressing changes to right BKA Referrals: Valencia Peralta CNP [Advanced Practice Nurse] - 09/27/18 2:25 pm José Miguel Negro MD [Primary Care Provider] - Marcus Johnson MD [Partnered Physician] - (Follow-up in vascular surgery clinic with Dr. Johnson in 6 weeks for staple removal.) Prescriptions: ceFAZolin [Ancef] 2,000 mg IVPB Q8HR #90 vial Doxycycline Hyclate [Doxy 100] 100 mg IV BID 30 Days #60 vial Ferrous Sulfate 325 mg PO DAILY@0800 #30 tablet Tamsulosin [Flomax] 0.4 mg PO DAILY #30 capsule amLODIPine [Norvasc] 5 mg PO DAILY #30 tablet OxyCODONE/APAP 10/325 [Percocet 10/325 MG] 1 each PO TID PRN 3 Days #21 tablet PRN Reason: Pain
[2018-09-20] MEDS ORDERED: 0.9 % Sodium Chloride 500 ML IVC ONE (10:24)
[2018-09-20] MEDS ORDERED: Lidocaine Viscous Oral Soln 15 ML SOLUTION MM PRN (10:24)
[2018-09-20] MEDS: *HR* FentaNYL (PF) 100 MCG/2 ML VIAL IVP PRN ×2 (11:10→11:15)
[2018-09-20] MEDS: *HR* Midazolam HCl 5 MG/5 ML VIAL IVP PRN ×2 (11:10→11:15)
[2018-09-20] MEDS: *HR* FentaNYL PATCH 25 MCG PATCH TD SCH (12:29)
--- NOTE | 2018-09-20 12:40 | Internal Med Progress Note ---
Hospitalist Progress Note - Encounter Date of Encounter: 09/20/18 Time of Encounter: 09:00 - Subjective Interval History: patient was seen and examined at bedside. PO for MAHESH. pain is controlled. at bedside all questions answered. denies fever or chills has had no chest pain or plapitations. i eager to be discharged. - Exam Vitals: Temp Pulse Resp BP Pulse Ox 97.9 F 72 16 155/74 96 09/20/18 10:47 09/20/18 10:47 09/20/18 10:47 09/20/18 10:47 09/20/18 10:47 Exam: Gen.: Nonacute distress, alert and oriented 3 obese CLTA RRR s1 adn s2 abdomen is obese , Bs +ve , soft - nontender RLE amputation with clean dressing, LLE wrapped in clean wrap - Assessment and Plan (1) Atrial fibrillation, chronic Current Visit: Yes Status: Chronic (2) Acute kidney injury superimposed on chronic kidney disease Current Visit: No Status: Acute (3) Anemia in chronic kidney disease Current Visit: Yes Status: Acute (4) Sepsis Current Visit: Yes Status: Resolved (5) Bacteremia Current Visit: Yes Status: Acute (6) Osteomyelitis Current Visit: Yes Status: Acute (7) Obesity Current Visit: Yes Status: Acute (8) Abscess of left foot Current Visit: Yes Status: Acute - Summary of Assessment and Plan Summary of Assessment and Plan: patient ahs been admitted since 09/01/18- my first encounter with the patient was on 09/20. cherrie was discharged on 09/19 pending MAHESH. as per my colleague he was stable for discharge pending MAHESH which was performed on 09/20 and negative for vegetation, (full report below) all Rx and discharge summary was completed by my colleague. right foot infection/ cellulitis : ESR greater than 130, CRP 198. Status post right BKA 09/13/18.Causative organism: GBS, MSSA, P. mirabilis.continue IV Abx as per ID recs. bacteremia/ sepsis : Group B strep, MSSA, Proteus mirabilis. Repeat blood cultures drawn 09/06/18 are negative x 2 sets. Repeat blood cultures drawn 09/07/18 are negative x 2 sets. TTE negative for vegetations. MAHESH: LVEF 60-65%. Normal LV chamber size and function. Right ventricle was normal in size and systolic function. Mild mitral regurgitation. No significant valvular dysfunction. No vegetations visualized. No evidence of endocarditis. Repeat study as clinically indicated. left lateral leg wound: Podiatry consulted and following. Status post I & D left foot 09/15/[address] Ferrell. Intra-op tissue cultures positive for S. epi and S. auricularis, but bone cultures are negative. Currently on cefazolin and PO doxycycline. ARF on CKD: Serum creatinine 6.57 on admission with uremia and diminished urine output. Nephrology consulted and signed off. Temp HD line placed 09/02/18 and HD initiated. Last HD 5 days ago. Avoid nephrotoxins as able. A-Fib: continue home medications DM2: continue with home insulin COPD: home inhalers Anemia of CKD: maintain Hb>7 HCV: outpatient f/u Morbid obesity: BMI 41 Code: Full Will need weekly CBC, BUN/Cr, ESR, and CRP. Will need weekly IV care per protocol. Follow up with ID 09/27/18 at 1425. - Time Spent with Patient Total time spent is greater than 50% in coordination of care (as documented) at patient's floor/unit and/or counseling patient: less than 15 minutes Internal Medicine: Result - Labs CBC & Chem 7: 09/19/18 07:20 09/20/18 05:32 Labs: BMP 09/20/18 05:32 Sodium 133 L Potassium 4.9 Chloride 101 Carbon Dioxide 24 BUN 56 H Creatinine 1.96 H Glucose 352 H Calcium 8.7 Liver Function 09/20/18 Range/Units 05:32 Albumin 2.5 L (3.5-5.7) g/dL - ABG Interpretation ABG results: PT/INR, D-dimer PT 12.7 Seconds (9.4-12.1) H 09/07/18 15:50 Consult Discharge Plan - Plan Instructions: Tamsulosin (By mouth) Additional Instructions: daily dressing changes to right BKA Referrals: Valencia Peralta CNP [Advanced Practice Nurse] - 09/27/18 2:25 pm José Miguel Negro MD [Primary Care Provider] - Marcus Johnson MD [Partnered Physician] - (Follow-up in vascular surgery clinic with Dr. Johnson in 6 weeks for staple removal.) Prescriptions: ceFAZolin [Ancef] 2,000 mg IVPB Q8HR #90 vial Doxycycline Hyclate [Doxy 100] 100 mg IV BID 30 Days #60 vial Ferrous Sulfate 325 mg PO DAILY@0800 #30 tablet Tamsulosin [Flomax] 0.4 mg PO DAILY #30 capsule amLODIPine [Norvasc] 5 mg PO DAILY #30 tablet OxyCODONE/APAP 10/325 [Percocet 10/325 MG] 1 each PO TID PRN 3 Days #21 tablet PRN Reason: Pain ____ (3) Anemia in chronic kidney disease Qualifiers: Chronic kidney disease stage: stage 3 (moderate) Qualified Code(s): N18.3 - Chronic kidney disease, stage 3 (moderate); D63.1 - Anemia in chronic kidney disease (4) Sepsis Qualifiers: Sepsis type: sepsis due to unspecified organism Qualified Code(s): A41.9 - Sepsis, unspecified organism (6) Osteomyelitis Qualifiers: Osteomyelitis type: subacute Osteomyelitis location: foot Laterality: left Qualified Code(s): M86.272 - Subacute osteomyelitis, left ankle and foot (7) Obesity Qualifiers: Body mass index: unspecified BMI Qualified Code(s): E66.9 - Obesity, unspecified
--- NOTE | 2018-09-20 15:01 | Podiatry Progress Note ---
Date of Encounter: 09/20/18 Time of Encounter: 14:58 - Assessment and Plan (1) Osteomyelitis Current Visit: Yes Status: Acute Assessment: S/P incision and drainage left foot and bone biopsy cuboid on 09/[address] Ferrell S/P removal of exfix and RBKA on 09/[address] Ferrell and Dr. Conklin Wound cultures and surgical cultures returned staph auricularis and staph epidermis- ID following No labs today WBC 10.7 on 09/19 Plan: Left foot: Removed old dressing and packing Cleansed with 0.9 NS Packed openings with 1/4 inch iodaform gauze Painted maceration with betadine Covered with 4x4 dry gauze, kerlix, and secured with bandage Right BKA: Removed old dressing. Incision well approximated. Covered with adaptic, 4x4 dry gauze, and kerlix. Secured with bandage Continue daily dressing changes at home Once discharged follow up with Dr. Ferrell in wound care clinic. Please make appointment prior to d/c Qualifiers: Osteomyelitis type: subacute Osteomyelitis location: foot Laterality: left Qualified Code(s): M86.272 - Subacute osteomyelitis, left ankle and foot Subjective Principal diagnosis: Abscess left foot Interval history: Patient awake in bed. at bedside. Denies any fevers, chills, nausea, vomiting, or diarrhea. Denies any chest pain, calf pain, or shortness of breath. Denies any acute overnight events. States he is supposed to go home tomorrow morning. Reports needing dressing changed today. No other questions or concerns at this time Objective - Vital Signs Vital Signs: Vital Signs Temp Pulse Resp BP Pulse Ox 09/20/18 12:58 98.1 F 70 18 148/79 97 09/20/18 10:47 97.9 F 72 16 155/74 96 09/20/18 09:51 97 09/20/18 06:39 99.3 F 74 20 169/83 97 09/20/18 04:29 98.4 F 76 18 159/82 98 09/19/18 23:59 98.6 F 74 18 152/89 98 09/19/18 22:26 97 09/19/18 20:05 98.4 F 85 18 172/90 99 09/19/18 16:33 97.7 F 80 17 148/76 97 Intake and Output 09/19/18 09/20/18 09/20/18 23:59 07:59 15:59 Intake Total 600 / 620 100 / 190 90 / 190 Output Total 800 / 3175 1225 / 2525 1300 / 2525 Balance -200 / -2555 -1125 / -2335 -1210 / -2335 Intake: IV Fluids 100 / 120 100 / 190 90 / 190 0.9 % Sodium Chloride 500 ML @ 90 / 90 150 mls/hr IVC .Q3H20M ONE Rx#: [id number] Ancef 2,000 MG In 0.9 % Sodium 100 / 100 100 / 100 Chloride 100 ML @ 200 mls/hr IVPB Q8HR NOHEMI Rx#:[id number] Oral 500 / 500 0 / 0 Output: Urine 700 / 700 Catheter 800 / 1950 1225 / 1825 600 / 1825 Other: Meal NPO Weight 124.6 kg 124.284 kg Blood Glucose* 193 356 218 Patient Weight 09/20/18 23:59 Weight 124.284 kg - Exam Exam: Constitiutional: Alert and oriented x 3. Well nourished. No acute distress noted Vascular: 1/4 DP/PT LLE, CFT <3 sec to all digits LLE, warm to warm from tibia to toes, right BKA, no calf pain with squeeze LLE Neurologic: Absent sensation to touch, normal plantar response Dermatologic:Incision noted to left lateral malleolus, opening noted with packing, incision noted to plantar midfoot with opening with packing noted, maceration noted to periwound opening. Sutures in tact, well approximated. No active drainage noted. Minimal erythema and edema noted. R BKA with incision noted. Daniel in tact. Well approximated. Bullae x 2 noted to medial distal aspect of stump. No erythema, no edema, no streaking, no drainage, no foul odor noted. Musculoskeletal: 2/5 muscle strength and normal tone LLE - Lab Result Diagrams: 09/19/18 07:20 09/20/18 05:32 Labs: Abnormal lab results WBC 11.6 K/mcL (4.3-11.1) H 09/17/18 01:30 RBC 2.73 M/mcL (4.19-5.50) L 09/19/18 07:20 Hgb 7.9 g/dL (12.9-16.9) L 09/19/18 07:20 Hct 24.4 % (37.5-50.1) L 09/19/18 07:20 MCV 82.6 fL (83.0-100.0) L 09/03/18 03:55 Plt Count 409 K/mcL (140-400) H 09/19/18 07:20 MPV 8.3 fL (9.4-12.4) L 09/19/18 07:20 Immature Gran % 5.0 % (0-4) H 09/17/18 01:30 8.0 % (0-4) H 09/06/18 03:45 2.0 % (0) H 09/03/18 03:55 9.0 K/mcL (1.6-8.9) H 09/18/18 04:25 Nucleated RBCs/100 WBC 0.2 /100 WBC (0) H 09/04/18 04:00 Present (Not Present) A 09/07/18 13:55 Decreased (Normal) L 09/05/18 04:53 1+ (Not Present) A 09/02/18 10:05 Present (Not Present) A 09/03/18 03:55 1+ (Not Present) A 09/02/18 10:05 ESR >= 130 mm/hr (0-10) H 09/06/18 10:20 369 mg/dL (30-200) H 09/10/18 07:30 PT 12.7 Seconds (9.4-12.1) H 09/07/18 15:50 724 mg/dL (169-393) H* 09/10/18 07:30 Factor VIII Activity 762 % (56-191) H 09/08/18 17:00 von Willebrand Activity 344 % (51-215) H 09/08/18 17:00 von Willebrand Antigen 345 % (52-214) H 09/08/18 17:00 Sodium 133 mEq/L (136-145) L 09/20/18 05:32 Potassium 5.4 mEq/L (3.5-5.1) H 09/18/18 04:25 Chloride 97 mEq/L (98-107) L 09/14/18 04:00 Carbon Dioxide 22 mEq/L (23-29) L 09/18/18 04:25 BUN 56 mg/dL (6-20) H 09/20/18 05:32 1.96 mg/dL (0.70-1.30) H 09/20/18 05:32 Est GFR ( Amer) 45 (> 60) L 09/20/18 05:32 Est GFR (Non-Af Amer) 37 (> 60) L 09/20/18 05:32 29 (6-26) H 09/20/18 05:32 Glucose 352 mg/dL (70-105) H 09/20/18 05:32 POC Glucose 356 mg/dL (70-99) H 09/20/18 06:42 8.5 % (-5.6) H 09/04/18 04:00 306 (280-300) H 09/20/18 05:32 Calcium 8.2 mg/dL (8.6-10.3) L 09/19/18 09:09 Phosphorus 4.7 mg/dL (2.7-4.5) H 09/20/18 05:32 Iron < 10 mcg/dL (65-175) L 09/12/18 04:45 % Saturation 5 % (20-55) L 09/10/18 07:30 141 mg/dL (203-362) L 09/12/18 04:45 489 ng/mL (20-250) H 09/10/18 07:30 0.3 mg/dL (0.0-0.2) H 09/01/18 15:33 AST 10 Units/L (13-39) L 09/10/18 04:05 122 Units/L (34-104) H 09/01/18 15:33 0.04 ng/mL (< 0.04) H* 09/03/18 01:00 198 mg/L (Less than 10) H 09/04/18 04:00 6.1 g/dL (6.4-8.9) L 09/01/18 15:33 5.2 g/dL (2.4-3.5) H 09/12/18 04:45 2.5 g/dL (3.5-5.7) L 09/20/18 05:32 0.4 (1.1-2.2) L 09/12/18 04:45 Vitamin B12 > 1500 pg/mL (250-1100) H 09/10/18 07:50 [place] (Yellow) A 09/01/18 Unknown Turbid (Clear) A 09/10/18 07:30 Ur Specific [place] 1.029 (1.010-1.025) H 09/01/18 Unknown 100 mg/dL (Neg-Trace) H 09/10/18 07:30 100 mg/dL (Normal) H 09/10/18 07:30 Trace mg/dL (Negative) H 09/01/18 Unknown Large (Negative) H 09/10/18 07:30 Moderate (Negative) H 09/01/18 Unknown 4.0 mg/dL (Normal) H 09/01/18 Unknown Ur Leukocyte Esterase Trace (Negative) H 09/10/18 07:30 5-15 per hpf (0-3) H 09/01/18 Unknown Ur Squamous Epith Cells Many per lpf (None-Few) H 09/01/18 Unknown Ur Culture Indicated? NO. (NO) A 09/01/18 Unknown Ur Microalbumin 24 Hr 351 mg/day (Less than 30) H 09/03/18 23:00 Microalb/Creat Ratio 290 mcg/mg (Less than 30) H 09/03/18 23:00 Ur Total Protein 24 Hr 2128 mg/day (50-80) H 09/03/18 23:00 Protein/Creatinin Ratio 1.76 mg/mg (0.00-0.20) H 09/03/18 23:00 Ur Sodium 24 Hour 33 mEq/day (40-220) L 09/03/18 23:00 Ur Chloride 24 Hour 20 mEq/day (110-250) L 09/03/18 23:00 Ur Phosphorus 24 Hr 0.2 g/day (0.4-1.3) L 09/03/18 23:00 Ur Urea Nitrogen 24 Hr 6 g/day (12-20) L 09/03/18 23:00 Ur Calcium 24 Hr 6 mg/day (100-300) L 09/03/18 23:00 185 mg/dL (1-14) H 09/03/18 23:00 U Free [place] Light Ch 110.00 mg/dL (0.14-2.42) H 09/02/18 23:00 U Free [place] Light Ch 19.80 mg/dL (0.02-0.67) H 09/02/18 23:00 Positive (Negative) A 09/11/18 18:40 Positive ng/mL (Mmpuoi=410) H 09/11/18 15:45 Hep Bs Antibody 4.61 mIU/mL (10.00-) L 09/01/18 20:52 Hepatitis C Ab Screen Reactive (Nonreactive) H 09/11/18 15:45 Staphylococcus sp PCR DETECTED (Not Detect) A 09/01/18 15:58 Staph aureus (PCR) DETECTED (Not Detect) A 09/01/18 15:58 Streptococcus sp PCR DETECTED (Not Detect) A 09/01/18 15:58 Group B Strep (PCR) DETECTED (Not Detect) A 09/01/18 15:58 Crossmatch See Detail 09/14/18 16:25 Crossmatch Prewarmed See Detail 09/01/18 16:55 Microbiology, Last 48 Hours 09/14/18 15:19 Anaerobic Culture - Final Left Foot No anaerobes were recovered. 09/15/18 08:26 Anaerobic Culture - Final Left Foot No anaerobes were recovered. 09/14/18 15:19 Wound Culture - Final Left Foot Staphylococcus auricularis Staphylococcus epidermidis 09/15/18 08:26 Surgical Biopsy Culture - Final Left Foot Staphylococcus auricularis Staphylococcus epidermidis 09/15/18 08:26 Wound Culture - Final Left Foot 09/15/18 08:26 Surgical Biopsy Culture - Final Other-Specify in Comments Consult Discharge Plan - Plan Instructions: Tamsulosin (By mouth), Below the Knee Amputation (DC) Additional Instructions: daily dressing changes to right BKA Referrals: Valencia Peralta CNP [Advanced Practice Nurse] - 09/27/18 2:25 pm José Miguel Negro MD [Primary Care Provider] - 09/28/18 1:45 pm Marcus Johnson MD [Partnered Physician] - 10/25/18 9:40 am (Follow-up in vascular surgery clinic with Dr. Johnson in 6 weeks for staple removal.) Prescriptions: ceFAZolin [Ancef] 2,000 mg IVPB Q8HR #90 vial Doxycycline 100 mg PO BID 14 Days #28 capsule Ferrous Sulfate 325 mg PO DAILY@0800 #30 tablet Tamsulosin [Flomax] 0.4 mg PO DAILY #30 capsule amLODIPine [Norvasc] 5 mg PO DAILY #30 tablet OxyCODONE/APAP 10/325 [Percocet 10/325 MG] 1 each PO TID PRN 3 Days #21 tablet PRN Reason: Pain
[2018-09-20] MEDS: *HR* Rivaroxaban 15 MG TABLET PO SCH (16:52)
[2018-09-20] MEDS: *HR* OxyCODONE/APAP 10/325 TABLET PO PRN (20:39)
[2018-09-21] MEDS: ceFAZolin 2,000 MG in 0.9 % Sodium Chloride 100 ML IVPB SCH ×2 (01:30→07:40)
[2018-09-21] MEDS: *HR* OxyCODONE Immed Rel 5 MG TABLET PO PRN (02:21)
[2018-09-21 06:43] LABS: Potassium 4.5 mEq/L (3.5-5.1)
[2018-09-21 06:44] LABS: Albumin 2.6 g/dL (3.5-5.7); Calcium 8.7 mg/dL (8.6-10.3); Phosphorous 5.1 mg/dL (2.7-4.5)
[2018-09-21 07:22] VITALS: BP 152/76
[2018-09-21] MEDS: amLODIPine 5 MG TABLET PO SCH (07:39)
[2018-09-21] MEDS: *HR* OxyCODONE/APAP 10/325 TABLET PO PRN (07:39)
[2018-09-21] MEDS: Doxycycline 100 MG CAPSULE PO SCH (07:40)
[2018-09-21] MEDS: Furosemide 20 MG TABLET PO SCH (07:40)
[2018-09-21] MEDS: Folic Acid 1 MG TABLET PO SCH (07:40)
[2018-09-21] MEDS: Insulin LISPRO 300 UNITS/3 ML VIAL SQ SCH ×2 (08:27)
[2018-09-21] MEDS: Insulin DETEMIR 100 UNIT/ML X5UNITS SQ SCH (08:28)
--- NOTE | 2018-09-21 09:52 | Infectious Disease Progress No ---
ID Progress Note Date of Encounter: 09/21/18 Time of Encounter: 09:25 - Subjective Subjective: Patient seen and examined. Status post right foot irrigation and debridement and incision and drainage with plantar fasciectomy and debridement of the tarsal bone and application of external fixator 09/06/[address] Ferrell. Status post right BKA 09/13/[address] Johnson. Status post left foot I & D 09/15/18. Denies fevers, chills, or rigors. Denies chest pain, shortness of breath, or cough. Complains of pain at the BKA site and phantom limb pain and soreness in the left foot surgical site. Denies nausea, vomiting, diarrhea, or constipation. States his appetite is good. Blanco patent. Denies oral thrush or new skin lesions. MAHESH negative. Pending discharge this morning. - Objective CBC & Chem 7: 09/19/18 07:20 09/21/18 05:15 - Line Documentation Line Documentation: Blanco Catheter (draining clear yellow urine) - Exam Vitals: Temp Pulse Resp BP Pulse Ox 98.4 F 71 16 152/76 96 09/21/18 07:13 09/21/18 07:13 09/21/18 07:13 09/21/18 07:13 09/21/18 07:13 Exam: Head: Atraumatic, normal inspection, normocephalic. Eye: EOMI, PERRLA, no scleral icterus noted. ENT: Mucous membranes moist. No odontogenic infection noted. Neck: Normal inspection, no meningismus. Respiratory: Clear to auscultation. No rales, respiratory distress, rhonchi, or wheezes noted. Cardiovascular: Regular rate and rhythm, S1 and S2 audible. No murmurs, rubs, or gallops. GI: Soft, obese, normal bowel sounds. Blanco draining clear yellow urine. Extremities: Right BKA dressing noted C/D/I. Post-op dressing noted to the left foot C/D/I. Neurological: Alert, oriented 3, no focal deficits. Psychiatric: normal affect, normal mood. Skin: Dry, intact, warm. Normal color. No rashes. - Assessment and Plan (1) Sepsis Current Visit: Yes Status: Resolved The patient had two sepsis criteria with acute kidney injury. Likely secondary to bacteremia and right foot infection. White blood cell count normal. Afebrile overnight. Blood cultures drawn 09/01/18 are +2 out of 2 sets for group B strep, MSSA, and Proteus mirabilis. Repeat blood cultures drawn 09/06/18 are negative x 2 sets. Repeat blood cultures drawn 09/07/18 are negative x 2 sets. Qualifiers: Sepsis type: sepsis due to unspecified organism Qualified Code(s): A41.9 - Sepsis, unspecified organism SNOMED Code(s): 52399528 (2) Bacteremia Current Visit: Yes Status: Acute Causative organism: Group B strep, MSSA, Proteus mirabilis. Source: Right foot infection. Blood cultures drawn 09/01/18 are +2 out of 2 sets. Repeat blood cultures drawn 09/06/18 are negative x 2 sets. Repeat blood cultures drawn 09/07/18 are negative x 2 sets. Complicated due to hardware in the left wrist. No endocarditis stigmata noted on exam. Rheumatoid factor normal. TTE negative for vegetations. MAHESH negative. The patient has one major and one minor modified [place] criteria. Currently on cefazolin. SNOMED Code(s): 7976441 (3) Infection of right foot Current Visit: Yes Status: Resolved Location: Right foot. Causative organism: GBS, MSSA, P. mirabilis. Likely secondary to chronic non-healing ulcers and uncontrolled DM. X-ray of the right foot 09/01/18 showed findings consistent with Charcot arthropathy/neuropathic foot not significantly changed from the prior studies and extensive soft tissue swelling suggesting cellulitis. MRI of the right foot 09/04/18 showed plantar soft tissue ulcer at the level of the cuboid with suspected interval soft tissue graft placement. There is edema of the graft which may reflect soft tissue infection. Suspected bilateral soft tissue ulceration with associated phlegmonous change at the level of the inframalleolar peroneal tendons. There is no tenosynovitis and complete full- thickness peroneal tendon tears. The tenosynovitis may be infectious. New multifocal marrow signal abnormality involving the talus, calcaneus, cuboid, and navicular suspicious for osteonecrosis and less likely osteomyelitis. Persistent marrow signal and abnormality in the cuboid which is suspicious for osteoarthritis and a chronic cuboid erosion or defect is noted. Podiatry consulted. Per their note, purulent drainage expressed on exam. Status post right foot incision and drainage and irrigation and debridement, plantar fasciectomy, debridement of the tarsal bone, and application of external fixator 09/06/[address] Armstrong. Operative note reviewed. Gross purulence noted throughout the foot. Intraoperative tissue and bone cultures positive for MSSA, GBS, and P. mirabilis. ESR greater than 130, CRP 198. Status post right BKA 09/13/18. SNOMED Code(s): 394654191 (4) Cellulitis Current Visit: Yes Status: Resolved Location: Right foot. Causative organism: GBS, MSSA, P. mirabilis. Purulent. Likely secondary to chronic ulcers. Podiatry consulted. Status post I & D and right BKA. Qualifiers: Site of cellulitis: extremity Site of cellulitis of extremity: lower extremity Laterality: right Qualified Code(s): L03.115 - Cellulitis of right lower limb SNOMED Code(s): 811046600 (5) Wound of left foot Current Visit: Yes Status: Acute Location: Left lateral foot. Etiology: Unclear. CT of the left foot showed plantar subcutaneous edema in the midfoot compatible with cellulitis with a questionable fluid collection plantar to the cuboid bone. Questionable erosive changes along the plantar surface of the cuboid with osteo myelitis not excluded. Severe midfoot disorganization and fragmentation compatible with Charcot arthropathy was noted. MRI of the left foot showed findings concerning for abscess. Podiatry consulted and following. Status post I & D left foot 09/15/[address] Ferrell. Intra-op tissue cultures positive for S. epi and S. auricularis, but bone cultures are negative. Currently on cefazolin and PO doxycycline. SNOMED Code(s): 298139532, 352105595 (6) Chronic ulcer of right foot with fat layer exposed Current Visit: Yes Status: Resolved Location: Right foot. Podiatry consulted. Status post right BKA. SNOMED Code(s): 280313923 (7) Acute kidney injury superimposed on chronic kidney disease Current Visit: No Status: Acute Serum creatinine 6.57 on admission with uremia and diminished urine output. Nephrology consulted and signed off. Temp HD line placed 09/02/18 and HD initiated. Last HD 6 days ago. Avoid nephrotoxins as able. Dose-adjust medications. Vancomycin discontinued. SNOMED Code(s): 85250489 (8) Anemia Current Visit: Yes Status: Acute Qualifiers: Anemia type: other cause Other causes of anemia: other cause, not classified Qualified Code(s): D64.89 - Other specified anemias SNOMED Code(s): 424049327 (9) Elevated troponin Current Visit: Yes Status: Acute SNOMED Code(s): 763192842, 282282146, 660056697 (10) Hyponatremia Current Visit: Yes Status: Acute SNOMED Code(s): 14427864 (11) Pulmonary edema Current Visit: Yes Status: Acute Qualifiers: Chronicity: acute Qualified Code(s): J81.0 - Acute pulmonary edema SNOMED Code(s): 29458341 (12) Atrial fibrillation, chronic Current Visit: Yes Status: Chronic SNOMED Code(s): 899784183 (13) COPD (chronic obstructive pulmonary disease) Current Visit: Yes Status: Chronic Qualifiers: Emphysema type: unspecified Qualified Code(s): J43.9 - Emphysema, unspecified SNOMED Code(s): 17545908 (14) T2DM (type 2 diabetes mellitus) Current Visit: Yes Status: Chronic HgbA1C 8.5%. Recommend aggressive glucose monitoring and control to promote wound healing and prevent re-infection. Management per the primary team. Qualifiers: Diabetes mellitus terminal operator insulin use: without detention use Diabetes mellitus complication status: with kidney complications Diabetes mellitus complication detail: with chronic kidney disease Chronic kidney disease stage: stage 3 (moderate) Qualified Code(s): E11.22 - Type 2 diabetes mellitus with diabetic chronic kidney disease; N18.3 - Chronic kidney disease, stage 3 (moderate) SNOMED Code(s): 43821293 (15) Hepatitis C Current Visit: Yes Status: Acute Qualifiers: Viral hepatitis chronicity: chronic Hepatic coma status: without hepatic coma Qualified Code(s): B18.2 - Chronic viral hepatitis C SNOMED Code(s): 99510655 (16) Urinary retention Current Visit: Yes Status: Acute Urology consulted. Blanco placed. SNOMED Code(s): 773039360 - Recommendations Recommendations: Wound care and activity restrictions per the podiatry team. CESILIA management per the nephrology team. Continue cefazolin 2 grams IV Q8H. Continue doxycycline 100mg PO BID. Duration of treatment depends on the clinical picture, but likely 2 weeks from the most recent foot surgery. Continue antibiotics until seen in the ID clinic. Monitor renal function and dose-adjust antibiotics. business services associate to assist with discharge planning. Consult VAT for EPIV placement. Will need weekly CBC, BUN/Cr, ESR, and CRP. Will need weekly IV care per protocol. Follow up with ID 09/27/18 at 1425. Consult Discharge Plan - Plan Instructions: Tamsulosin (By mouth), Below the Knee Amputation (DC) Additional Instructions: daily dressing changes to right BKA Referrals: Nolan Ferrell DPM [Partnered Physician] - 10/05/18 10:30 am (Follow up in Wound care [phone]) Valencia Peralta CNP [Advanced Practice Nurse] - 09/27/18 2:25 pm José Miguel Negro MD [Primary Care Provider] - 09/28/18 1:45 pm Marcus Johnson MD [Partnered Physician] - 10/25/18 9:40 am (Follow-up in vascular surgery clinic with Dr. Johnson in 6 weeks for staple removal.) Prescriptions: ceFAZolin [Ancef] 2,000 mg IVPB Q8HR #90 vial Doxycycline 100 mg PO BID 14 Days #28 capsule Ferrous Sulfate 325 mg PO DAILY@0800 #30 tablet Tamsulosin [Flomax] 0.4 mg PO DAILY #30 capsule amLODIPine [Norvasc] 5 mg PO DAILY #30 tablet OxyCODONE/APAP 10/325 [Percocet 10/325 MG] 1 each PO TID PRN 3 Days #21 tablet PRN Reason: Pain
--- NOTE | 2018-09-21 11:10 | Event Note ---
Date of Encounter: 09/21/18 Time of Encounter: 08:00 patient was seen and examined at bedside. all questions answered. denies fever or chills has had no chest pain or palpitations. i eager to be discharged. discussed improtance of compliance to medications and follow ups and he understands. Gen.: Nonacute distress, alert and oriented 3 obese CLTA RRR s1 adn s2 abdomen is obese , Bs +ve , soft - nontender RLE amputation with clean dressing, LLE wrapped in clean wrap patient ahs been admitted since 09/01/18- my first encounter with the patient was on 09/20. patient was discharged on 09/19 pending MAHESH results. MAHESH was performed on 09/20 and negative for vegetation, (full report below) all Rx and discharge summary was completed by my colleague. right foot infection/ cellulitis : ESR greater than 130, CRP 198. Status post right BKA 09/13/18.Causative organism: GBS, MSSA, P. mirabilis.continue IV Abx as per ID recs. bacteremia/ sepsis : Group B strep, MSSA, Proteus mirabilis. Repeat blood cultures drawn 09/06/18 are negative x 2 sets. Repeat blood cultures drawn 09/07/18 are negative x 2 sets. TTE negative for vegetations. MAHESH: LVEF 60-65%. Normal LV chamber size and function. Right ventricle was normal in size and systolic function. Mild mitral regurgitation. No significant valvular dysfunction. No vegetations visualized. No evidence of endocarditis. Repeat study as clinically indicated. left lateral leg wound: Podiatry consulted and following. Status post I & D left foot 09/15/[address] Ferrell. Intra-op tissue cultures positive for S. epi and S. auricularis, but bone cultures are negative. Currently on cefazolin and PO doxycycline. ARF on CKD: Serum creatinine 6.57 on admission with uremia and diminished urine output. Nephrology consulted and signed off. Temp HD line placed 09/02/18 and HD initiated. Last HD 5 days ago. Avoid nephrotoxins as able. A-Fib: continue home medications DM2: continue with home insulin COPD: home inhalers Anemia of CKD: maintain Hb>7 HCV: outpatient f/u Morbid obesity: BMI 41 Code: Full Will need weekly CBC, BUN/Cr, ESR, and CRP. Will need weekly IV care per protocol. Follow up with ID 09/27/18 at 1425.
== END 2018-09-21 10:13 | disposition home health service (06) | DRG 710 ==
LOC: EMEROOARM 15:23 → 2ANU 19:13 → SUATTDRO 19:13 → 2ANU 19:59
PROVIDERS: ADMIT Student in an Organized Health Care Education/Training Program; ATTEND Hospitalist